=== PATIENT | female | born 1955 | race Caucasian/White ===

== ENCOUNTER 2018-04-19 08:50 | Inpatient (IN) | payer MEDICAID, SELFPAY ==
[2018-04-19] VITALS (145 sets, daily range): BP systolic 81–153; BP diastolic 43–137; PULSE 68–183; RESP 9–47; TEMP 36.3–37.4; O2SAT 91–98
--- NOTE | 2018-04-19 08:56 | ED.GENADUL_ITS ---
Discharge Plan Disposition Patient Disposition: [facility] INPATIENT Condition: Stable Discharge Details Chief Complaint: Palpitatns Clinical Impression: Atrial fibrillation with rapid ventricular response, Pulmonary hypertension, Chest pain Reason For Visit: ATRIAL TACHYCARDIA/AFIB Admit Date/Time: 04/19/18 15:27 Admit Provider: Johnson Rucker Attending Provider: Johnson Rucker Primary Care Provider: Elisha Morrell ED Provider: Nova Santiago Discharge Data Discharge Date/Time-TO BE ENTERED AT DEPARTURE: 04/19/18 16:43 Medical Decision Making 62-year-old female with no significant past medical history and tobacco smoker who recently quit 4 days ago who presents with intermittent episodes of chest fullness and shortness of breath with fatigue with exertion since yesterday. Per EMS, heart rate 130s and appeared consistent with A. fib in route. Upon arrival to ED, heart rate 130s and appears consistent with sinus tachycardia on EKG, there are P waves and rhythm is regular with no acute ST findings. Patient appears nontoxic, speaking in full sentences, crackles in bases b/l. No lower extremity edema. Differential diagnosis includes VT, PE, dissection, acute CHF, A. fib. Cardiac workup including BNP and d-dimer ordered on arrival. 0920 --patient ambulated up to the commode and it appeared that her rhythm was irregular consistent with A. fib. Once back in the bed, rhythm then appeared regular. Possible the rhythm is atrial flutter. Patient still in the 130s. Will give a dose of 10 mg Cardizem IV. 1000 --labs reviewed and note white blood cell count 14, d-dimer 931, BNP 5247, troponin 0.04. Chest x-ray appears consistent with acute CHF. Due to elevated d-dimer, will obtain CT chest. Dose of Lasix ordered. Patient had no response to Cardizem and heart rate still in the 130s. 1204 -- d/w Dr. Rose -recommends adenosine x3 doses to slow down rate to see if able to determine rhythm. CT chest notes findings consistent with pulmonary hypertension but no PE. 1330 -- Patient was given 6 mg, 12 mg, and 12 mg of adenosine with very brief break in tachycardia down to 110s which appeared to be atrial fibrillation after the first 12 mg dose. Heart rate then increased back up to the 130s. Repeat EKG appears regular, possibly atrial flutter. 1400 -- discussed with hospitalist -accepts patient for admission. Requests cardiology review of EKGs. 1515 -- d/w Dr. Rose -on upon review of EKGs, this likely appears consistent with an atrial fibrillation versus flutter. Does not appear consistent with sinus tachycardia. Recommends rate control with Cardizem gtt, echocardiogram, and 4 weeks of anticoagulation with consideration for cardioversion after 4 weeks. Plan was discussed with hospitalist. Medical Records Medical records reviewed: Yes I reviewed the patient's medical records. Imaging Data Radiologic Study: Radiologist's impression: PA AND LATERAL CHEST: There are no prior comparison exams. The heart is mildly enlarged. There is pulmonary vascular prominence and mildly increased markings at the lung bases which could indicate CHF. No effusions are seen. IMPRESSION: Cardiomegaly and mild CHF. CHEST CT FOR PULMONARY EMBOLISM: The pulmonary arteries and aorta are well opacified with IV contrast. The evaluation of the lungs is limited by respiratory motion. There is no evidence of pulmonary emboli or aortic dissection. The aorta is normal in diameter. There is enlargement of the main pulmonary artery as well as left and right pulmonary arteries and branch vessels. There is dilatation of both atria. No pleural or pericardial effusion seen. No focal area of consolidation is seen. There are dependent changes. IMPRESSION: Enlarged pulmonary arteries without evidence of embolism. The findings could indicate pulmonary aratery hypertension. Lab Data Lab results reviewed: Yes I reviewed the patient's lab results. Laboratory Tests Range/Units 04/19/18 04/19/18 04/19/18 09:01 09:01 09:01 WBC (4.4-10.8) k/cumm 14.75 H RBC (4.00-5.20) m/cumm 5.67 H Hgb (12.0-15.5) g/dL 17.4 H Hct (36.0-46.0) % 48.4 H MCV (80-95) fL 85.4 MCH (27.0-33.0) pg 30.7 MCHC (32.0-36.0) g/dL 36.0 RDW (11.7-14.6) % 13.7 Plt Count (130-400) x1000/uL 289 MPV (8.0-11.0) fL 10.2 Immature Gran % 0.3 Neutrophils % 82.3 Lymphocytes % 11.4 Monocytes % 5.2 Eosinophils % 0.5 Basophils % 0.3 Absolute Neutrophils (1.2-6.7) k/cumm 12.14 H Absolute Lymphocytes (1.2-3.4) k/cumm 1.68 Absolute Monocytes (0.11-0.7) k/cumm 0.77 H Absolute Eosinophils (0.0-0.7) k/cumm 0.07 Absolute Basophils (0.0-0.2) k/cumm 0.04 D-Dimer (<500) ng/mlFEU Sodium (136-145) mmol/L 139 Potassium (3.5-5.1) mmol/L 3.9 Chloride (98-107) mmol/L 102 Carbon Dioxide (21.0-32.0) mmol/L 23.5 Anion Gap (3-11) mmol/L 13.5 H BUN (7-18) mg/dL 21 H Creatinine (0.55-1.02) mg/dL 1.07 H Estimated GFR/1.73 m2 (mL/min/1.73m2) 51.63 Glucose (70-100) mg/dL 175 H Hemoglobin A1c (4.5-6.2) % Calcium (8.5-10.1) mg/dL 9.3 Magnesium (1.8-2.4) mg/dL 1.8 Total Bilirubin (0.2-1.0) mg/dL 0.4 AST (15-37) U/L 5 L ALT (12-78) U/L 52 Alkaline Phosphatase (46-116) U/L 94 Troponin I (0.00-0.06) ng/mL 0.04 NT-Pro-B Natriuret Pep ( - 299) pg/mL 5247 H Total Protein (6.4-8.2) g/dL 8.2 Albumin (3.4-5.0) g/dL 3.8 TSH (0.358-3.74) uIU/mL Urine Color (Yellow) Urine Clarity Urine pH (5-8) Ur Specific [place] (1.005-1.025) Urine Protein (Negative) mg/dL Urine Ketones (Negative) mg/dL Urine Blood (Negative) Urine Nitrite (Negative) Urine Bilirubin (Negative) Urine Urobilinogen (Up TO 0.2) EU/dL Ur Leukocyte Esterase (Negative) Urine RBC (0-2) Urine WBC (0-5) HPF Ur Epithelial Cells (Negative) HPF Urine Crystals (Negative) HPF Urine Bacteria (Negative) HPF Urine Casts (Negative) LPF Urine Mucus (Negative) Urine Other (Negative) Ur Culture Indicated? Urine Glucose (Negative) mg/dL Range/Units 04/19/18 04/19/18 04/19/18 09:01 09:22 13:00 WBC (4.4-10.8) k/cumm RBC (4.00-5.20) m/cumm Hgb (12.0-15.5) g/dL Hct (36.0-46.0) % MCV (80-95) fL MCH (27.0-33.0) pg MCHC (32.0-36.0) g/dL RDW (11.7-14.6) % Plt Count (130-400) x1000/uL MPV (8.0-11.0) fL Immature Gran % Neutrophils % Lymphocytes % Monocytes % Eosinophils % Basophils % Absolute Neutrophils (1.2-6.7) k/cumm Absolute Lymphocytes (1.2-3.4) k/cumm Absolute Monocytes (0.11-0.7) k/cumm Absolute Eosinophils (0.0-0.7) k/cumm Absolute Basophils (0.0-0.2) k/cumm D-Dimer (<500) ng/mlFEU 931 H Sodium (136-145) mmol/L Potassium (3.5-5.1) mmol/L Chloride (98-107) mmol/L Carbon Dioxide (21.0-32.0) mmol/L Anion Gap (3-11) mmol/L BUN (7-18) mg/dL Creatinine (0.55-1.02) mg/dL Estimated GFR/1.73 m2 (mL/min/1.73m2) Glucose (70-100) mg/dL Hemoglobin A1c (4.5-6.2) % Calcium (8.5-10.1) mg/dL Magnesium (1.8-2.4) mg/dL Total Bilirubin (0.2-1.0) mg/dL AST (15-37) U/L ALT (12-78) U/L Alkaline Phosphatase (46-116) U/L Troponin I (0.00-0.06) ng/mL 0.04 NT-Pro-B Natriuret Pep ( - 299) pg/mL Total Protein (6.4-8.2) g/dL Albumin (3.4-5.0) g/dL TSH (0.358-3.74) uIU/mL Urine Color (Yellow) Yellow Urine Clarity Clear Urine pH (5-8) 6.0 Ur Specific [place] (1.005-1.025) >= 1.030 H Urine Protein (Negative) mg/dL >=300 H Urine Ketones (Negative) mg/dL Negative Urine Blood (Negative) Moderate H Urine Nitrite (Negative) Negative Urine Bilirubin (Negative) Small H Urine Urobilinogen (Up TO 0.2) EU/dL 0.2 Ur Leukocyte Esterase (Negative) Negative Urine RBC (0-2) 3-5 H Urine WBC (0-5) HPF 0-2 Ur Epithelial Cells (Negative) HPF Many Urine Crystals (Negative) HPF Negative Urine Bacteria (Negative) HPF Moderate Urine Casts (Negative) LPF 0-2 hyaline Urine Mucus (Negative) Heavy Urine Other (Negative) Moderate renal Ur Culture Indicated? No/sq. contamination Urine Glucose (Negative) mg/dL Negative WBC RBC Hgb Hct MCV MCH MCHC RDW Plt Count MPV Immature Gran % Neutrophils % Lymphocytes % Monocytes % Eosinophils % Basophils % Absolute Neutrophils (1.2-6.7) k/cumm Absolute Lymphocytes (1.2-3.4) k/cumm Absolute Monocytes (0.11-0.7) k/cumm Absolute Eosinophils (0.0-0.7) k/cumm Absolute Basophils (0.0-0.2) k/cumm D-Dimer (<500) ng/mlFEU Sodium (136-145) mmol/L Potassium (3.5-5.1) mmol/L Chloride (98-107) mmol/L Carbon Dioxide (21.0-32.0) mmol/L Anion Gap (3-11) mmol/L BUN (7-18) mg/dL Creatinine (0.55-1.02) mg/dL Estimated GFR/1.73 m2 (mL/min/1.73m2) Glucose (70-100) mg/dL Hemoglobin A1c (4.5-6.2) % Calcium (8.5-10.1) mg/dL Magnesium (1.8-2.4) mg/dL Total Bilirubin (0.2-1.0) mg/dL AST (15-37) U/L ALT (12-78) U/L Alkaline Phosphatase (46-116) U/L Troponin I (0.00-0.06) ng/mL NT-Pro-B Natriuret Pep ( - 299) pg/mL Total Protein (6.4-8.2) g/dL Albumin (3.4-5.0) g/dL TSH (0.358-3.74) uIU/mL Urine Color (Yellow) Urine Clarity Urine pH (5-8) Ur Specific [place] (1.005-1.025) Urine Protein (Negative) mg/dL Urine Ketones (Negative) mg/dL Urine Blood (Negative) Urine Nitrite (Negative) Urine Bilirubin (Negative) Urine Urobilinogen (Up TO 0.2) EU/dL Ur Leukocyte Esterase (Negative) Urine RBC (0-2) Urine WBC (0-5) HPF Ur Epithelial Cells (Negative) HPF Urine Crystals (Negative) HPF Urine Bacteria (Negative) HPF Urine Casts (Negative) LPF Urine Mucus (Negative) Urine Other (Negative) Ur Culture Indicated? Urine Glucose (Negative) mg/dL HPI General Mode of arrival: EMS . Date/Time Provider Initiated Documentation: 04/19/18 08:54 . Limitations to Documentation: no limitations . Information obtained by: patient . HPI Narrative: Patient is a 62-year-old female with no significant past medical history who presents with intermittent episodes of chest fullness, shortness of breath, and fatigue with exertion since yesterday. 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 States I could feel my heart in my ears . She states she stopped and rested for 15 minutes and her symptoms resolved. She states she had no more symptoms for the rest of the day yesterday. Patient states she woke up this morning and was walking into her kitchen and felt sudden onset of symptoms again with dizziness, sweating and shortness of breath with palpitations. She states she then vomited one time. Patient denies any symptoms at present. She denies any chest pain but states it is a sensation of fullness. She denies any fever, cough, recent hospital admission or new medications, recent travel, recent surgery, leg pain or swelling. She states she quit smoking after 25 years 4 days ago. She denies any recent alcohol use or drug use. Related Data Home Medications Medication Instructions Recorded Confirmed ibuprofen 600 mg PO ONCE 04/19/18 04/19/18 Allergies Allergy/AdvReac Type Severity Reaction Status Date / Time No Known Allergies Allergy Unverified 04/19/18 09:03 Review of Systems Review of Systems All systems reviewed & are unremarkable except as noted in HPI and below Constitutional Reports as per HPI, Denies chills, Reports fatigue and Denies fever(s) Eyes Denies blurry vision ENT Denies dizziness, Denies sore throat and Denies throat swelling Cardiovascular Reports chest pain and Reports dyspnea Respiratory Denies cough and Reports dyspnea Gastrointestinal Denies abdominal pain, Denies diarrhea and Denies vomiting Genitourinary Denies hematuria and Denies dysuria Musculoskeletal Denies back pain and Denies numbness Integumentary/Breasts Denies lesions and Denies rash Neurologic Denies dizziness, Denies focal weakness and Denies numbness Endocrine Reports fatigue Allergic/Immunologic Denies throat swelling [facility] Medical History No significant past medical history (Acute) Surgical History History of bilateral tubal ligation (Acute) Social History Smoking/Tobacco Use Status: Former Tobacco Use quit date: 04/15/18 alcohol intake: never substance use type: does not use additional social history: Mrs. Rosas is , has 2 boys. 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 She has a history of tobacco with a 30+ pack year history of smoking, recently quit. No alcohol use or drug use elicited. Exam Const General: cooperative, healthy appearing and no acute distress [facility] Head: normal to inspection Face and sinus: normal facial exam Eyes General: appearance normal, both eyes and all related structures Pupils: PERRL EOM: EOM intact bilaterally Neck Neck: normal visual inspection and No submandibular swelling Lymphatic: no lymphadenopathy noted Chest Chest: normal inspection of the chest and no tenderness Resp Effort & Inspection: normal respiratory effort and able to speak in complete sentences Auscultation: crackles bilaterally at the base and in the mid lung hernandez Cardio Rate: tachycardic Rhythm: regular rhythm GI Inspection: normal to inspection Palpation: soft, not firm, not rigid and nontender Auscultation: normal bowel sounds Skin General skin exam: no rashes or lesions noted Neuro General: alert, awake and oriented x3 Cognition: normal cognition Speech: speech normal Motor: muscle tone normal throughout Sensory Exam: no sensory deficits noted Extrem General: normal to inspection, full ROM, normal capillary refill, no calf tende rness bilaterally and no edema Psych Appearance: grossly normal Mental Status: mental status grossly normal Speech and Movement: speech and movement normal Affect: normal affect
[2018-04-19 09:08] LABS: Abs Immature Grans 0.05 k/cumm (0.0-0.09); Absolute Basophil Count 0.04 k/cumm (0.0-0.2); Absolute Lymphocyte Count 1.68 k/cumm (1.2-3.4); Absolute Neutrophil Count 12.14 k/cumm (1.2-6.7); Basophils % 0.3; Eosinophils % 0.5; HCT 48.4 % (36.0-46.0); HGB 17.4 g/dL (12.0-15.5); Immature Grans % 0.3; Lymphocytes % 11.4; Mean Corpuscular Hemoglobin 30.7 pg (27.0-33.0); Mean Corpuscular Volume 85.4 fL (80-95); Mean Platelet Volume 10.2 fL (8.0-11.0); Monocytes % 5.2; Neutrophils % 82.3; Platelet Count 289 x1000/uL (130-400); RBC 5.67 m/cumm (4.00-5.20); RBC Distribution Width 13.7 % (11.7-14.6); White Blood Cell Count 14.75 k/cumm (4.4-10.8)
[2018-04-19 09:09] LABS: Absolute Eosinophil Count 0.07 k/cumm (0.0-0.7); Absolute Monocyte Count 0.77 k/cumm (0.11-0.7)
[2018-04-19] MEDS: Normal Saline 1,000 ML 100 ML IV (09:25)
[2018-04-19] MEDS: Normal Saline Flush 10 ML SYR IVP ×3 (09:25→21:35)
[2018-04-19 09:29] LABS: Bilirubin Small (Negative); Blood Moderate (Negative); Clarity Clear; Glucose Negative (Negative); Ketones Negative (Negative); Leukocyte Esterase Negative (Negative); Nitrite Negative (Negative); Specific Gravity >= 1.030 (1.005-1.025); Urobilinogen 0.2 EU/dL (Up TO 0.2)
[2018-04-19 09:34] LABS: ALT 52 U/L (12-78); AST 5 U/L (15-37); Albumin 3.8 g/dL (3.4-5.0); Alkaline Phosphatase 94 U/L (46-116); Anion Gap 13.5 mmol/L (3-11); BUN 21 mg/dL (7-18); Bilirubin, Total 0.4 mg/dL (0.2-1.0); CO2 23.5 mmol/L (21.0-32.0); CREATININE 1.07 mg/dL (0.55-1.02); Calcium 9.3 mg/dL (8.5-10.1); Chloride 102 mmol/L (98-107); Estimated GFR 51.63 (mL/min/1.73m2); Glucose 175 mg/dL (70-100); Magnesium 1.8 mg/dL (1.8-2.4); Potassium 3.9 mmol/L (3.5-5.1); Sodium 139 mmol/L (136-145); Total Protein 8.2 g/dL (6.4-8.2); Troponin I 0.04 ng/mL (0.00-0.06)
[2018-04-19 09:37] LABS: Bacteria Moderate HPF (Negative); Crystals Negative HPF (Negative); Epithelial Cells Many HPF (Negative); Mucus Heavy (Negative); Other Cells Moderate Renal (Negative); WBC 0-2 HPF (0-5)
[2018-04-19 09:38] LABS: C & S Indicated? No/Sq. Contamination; Casts 0-2 Hyaline LPF (Negative)
[2018-04-19 09:48] LABS: NT-proBNP 5247 pg/mL
[2018-04-19 10:01] LABS: D-Dimer 931 ng/mlFEU (<500)
--- NOTE | 2018-04-19 11:10 | DI.CT_ITS ---
SYMPTOM/DIAGNOSIS: ELEVATED D DIMER, TACHYCARDIA R/O PE CHEST CT FOR PULMONARY EMBOLISM: The pulmonary arteries and aorta are well opacified with IV contrast. The evaluation of the lungs is limited by respiratory motion. There is no evidence of pulmonary emboli or aortic dissection. The aorta is normal in diameter. There is enlargement of the main pulmonary artery as well as left and right pulmonary arteries and branch vessels. There is dilatation of both atria. No pleural or pericardial effusion seen. No focal area of consolidation is seen. There are dependent changes. IMPRESSION: Enlarged pulmonary arteries without evidence of embolism. The findings could indicate pulmonary aratery hypertension.
[2018-04-19] MEDS: Omnipaque 350 MG/ML 100 ML BTL 71 ML IJ (11:12)
[2018-04-19] MEDS: Furosemide 40 MG/4 ML VIAL IVP (11:18)
[2018-04-19] MEDS: Adenosine 6 MG/2 ML VIAL IVP (12:26)
[2018-04-19] MEDS: Adenosine 6 MG/2 ML VIAL ×2 (12:36→12:39)
[2018-04-19 13:33] LABS: Troponin I 0.04 ng/mL (0.00-0.06)
--- NOTE | 2018-04-19 14:53 | PDOC.ERCMPRO ---
Care Management Progress Note 04/19-Chantel is being admitted and she is concerned as she is her mother's primary caregiver. Mom is blind. A neighbor is currently staying with her mother while Chantel is in the emergency department. Discussed family helping out. Chantel contact her brother from [place] who is coming. The brother will stay with Chantel's mom while Chantel is in the hospital.
[2018-04-19] MEDS: Metoprolol 25 MG TAB PO (17:44)
[2018-04-19] MEDS: Potassium Chloride 10 MEQ TABCR PO (17:44)
[2018-04-19] MEDS: Magnesium Oxide 400 MG TAB PO (17:45)
--- NOTE | 2018-04-19 19:03 | W.PM.HP.N ---
Date of service: 04/19/18 Time of Service: 19:03 Assessment and Plan (1) Tachycardia: Current visit: Yes Status: Acute Evidence of an atrial tachycardia. Review of EKG, and monitoring of patient's telemetry with evidence of occasions of atrial flutter, atrial fibrillation, and even potentially sinus tachycardia. Attempts at breaking patient's rhythm or even slowing her down with 3 courses of adenosine, and IV boluses of Cardizem were ineffective. She is currently being titrated on a Cardizem drip, and initiated on oral beta-hazel therapy. Plan will be for titration of these medications, and if still unable to control rate will discuss with cardiology regarding potential use of an antiarrhythmic versus cardioversion. For now we will also initiate anticoagulation with apixaban, and monitor in the ICU setting. (2) DVT prophylaxis: Current visit: Yes Status: Acute On therapeutic dose anticoagulation. Start PPI for GI prophylaxis as well. History of Present Illness Chief Complaint: Palpitations Narrative: Very pleasant 62-year-old woman without any known significant past medical history, but also without regular medical care, presents to [facility] Emergency Department with complaints of palpitations. Mrs. 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 This occurred yesterday. Immediately following this the patient reports resolution of all of her symptoms, followed by a good night sleep. However upon awakening in the morning she began to sense similar return of symptoms, describing them as lightheadedness, racing heart, and inability to catch her breath. She reported feeling as if I was going to pass out. Workup in the emergency department showed evidence of a mild leukocytosis, elevated hemoglobin, and an elevated pro BNP. While her chest x-ray showed evidence of cardiomegaly and mild CHF, a subsequent CT of the chest showed no evidence of PE or infiltrate, but likely enlarged pulmonary arteries without evidence of embolism, Findings of which could indicate pulmonary arterial hypertension. She was also noted to be tachycardic, confirmed to be in an atrial tachycardia potentially on the basis of Afib or flutter. Attempts at breaking her with adenosine, and slowing her with IV Cardizem were unsuccessful. She was started on a Cardizem drip and admitted for further evaluation and treatment. Review of Systems Review of Systems All systems reviewed & are unremarkable except as noted in HPI and below PFSH Medical History No significant past medical history (Acute) Surgical History History of bilateral tubal ligation (Acute) Social History Smoking/Tobacco Use Status: Former Tobacco Use quit date: 04/15/18 alcohol intake: never substance use type: does not use additional social history: Mrs. Rosas is , has 2 boys. 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 She has a history of tobacco with a 30+ pack year history of smoking, recently quit. No alcohol use or drug use elicited. Meds Home Medications Medication Instructions Recorded Confirmed Type ibuprofen 600 mg PO ONCE 04/19/18 04/19/18 History Allergies Allergy/AdvReac Type Severity Reaction Status Date / Time No Known Allergies Allergy Unverified 04/19/18 09:03 Exam Narrative Exam Narrative: General: Patient appears comfortable, AAOX3, NAD Neck: Supple CV: Regular, tachycardic, S1S2, No rubs, murmurs, or gallops. Pulmonary: Clear to auscultation bilaterally, no crackles, wheezing, or rhonchi Abdomen: + Bowel Sounds, soft, nontender, nondistended Vascular: No lower extremity edema Neurologic: CN II-XII grossly intact. No focal deficits. Psych: Normal mood and affect. Results Labs : 04/19/18 09:01 04/19/18 09:01 Laboratory Results - last 24 hr 04/19/18 04/19/18 04/19/18 09:01 09:01 09:01 WBC 14.75 H RBC 5.67 H Hgb 17.4 H Hct 48.4 H MCV 85.4 MCH 30.7 MCHC 36.0 RDW 13.7 Plt Count 289 MPV 10.2 Immature Gran % 0.3 Neutrophils % 82.3 Lymphocytes % 11.4 Monocytes % 5.2 Eosinophils % 0.5 Basophils % 0.3 Absolute Neutrophils 12.14 H Absolute Lymphocytes 1.68 Absolute Monocytes 0.77 H Absolute Eosinophils 0.07 Absolute Basophils 0.04 D-Dimer Sodium 139 Potassium 3.9 Chloride 102 Carbon Dioxide 23.5 Anion Gap 13.5 H BUN 21 H Creatinine 1.07 H Estimated GFR/1.73 m2 51.63 Glucose 175 H Calcium 9.3 Magnesium 1.8 Total Bilirubin 0.4 AST 5 L ALT 52 Alkaline Phosphatase 94 Troponin I 0.04 NT-Pro-B Natriuret Pep 5247 H Total Protein 8.2 Albumin 3.8 Urine Color Urine Clarity Urine pH Ur Specific [place] Urine Protein Urine Ketones Urine Blood Urine Nitrite Urine Bilirubin Urine Urobilinogen Ur Leukocyte Esterase Urine RBC Urine WBC Ur Epithelial Cells Urine Crystals Urine Bacteria Urine Casts Urine Mucus Urine Other Ur Culture Indicated? Urine Glucose 04/19/18 04/19/18 04/19/18 09:01 09:22 13:00 WBC RBC Hgb Hct MCV MCH MCHC RDW Plt Count MPV Immature Gran % Neutrophils % Lymphocytes % Monocytes % Eosinophils % Basophils % Absolute Neutrophils Absolute Lymphocytes Absolute Monocytes Absolute Eosinophils Absolute Basophils D-Dimer 931 H Sodium Potassium Chloride Carbon Dioxide Anion Gap BUN Creatinine Estimated GFR/1.73 m2 Glucose Calcium Magnesium Total Bilirubin AST ALT Alkaline Phosphatase Troponin I 0.04 NT-Pro-B Natriuret Pep Total Protein Albumin Urine Color Yellow Urine Clarity Clear Urine pH 6.0 Ur Specific [place] >= 1.030 H Urine Protein >=300 H Urine Ketones Negative Urine Blood Moderate H Urine Nitrite Negative Urine Bilirubin Small H Urine Urobilinogen 0.2 Ur Leukocyte Esterase Negative Urine RBC 3-5 H Urine WBC 0-2 Ur Epithelial Cells Many Urine Crystals Negative Urine Bacteria Moderate Urine Casts 0-2 hyaline Urine Mucus Heavy Urine Other Moderate renal Ur Culture Indicated? No/sq. contamination Urine Glucose Negative Last Vital Signs Temp 36.3 C L 04/19/18 18:53 Pulse 128 H 04/19/18 18:53 Resp 24 04/19/18 18:53 BP 95/65 L 04/19/18 18:53 Pulse Ox 96 04/19/18 18:53
--- NOTE | 2018-04-19 19:18 | HPE_ITS ---
Date of service: 04/19/18 Time of Service: 19:03 Assessment and Plan (1) Tachycardia: Current visit: Yes Status: Acute Evidence of an atrial tachycardia. Review of EKG, and monitoring of patient's telemetry with evidence of occasions of atrial flutter, atrial fibrillation, and even potentially sinus tachycardia. Attempts at breaking patient's rhythm or even slowing her down with 3 courses of adenosine, and IV boluses of Cardizem were ineffective. She is currently being titrated on a Cardizem drip, and initiated on oral beta-hazel therapy. Plan will be for titration of these medications, and if still unable to control rate will discuss with cardiology regarding potential use of an antiarrhythmic versus cardioversion. For now we will also initiate anticoagulation with apixaban, and monitor in the ICU setting. (2) DVT prophylaxis: Current visit: Yes Status: Acute On therapeutic dose anticoagulation. Start PPI for GI prophylaxis as well. History of Present Illness Chief Complaint: Palpitations Narrative: Very pleasant 62-year-old woman without any known significant past medical history, but also without regular medical care, presents to [facility] Emergency Department with complaints of palpitations. Mrs. 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 This occurred yesterday. Immediately following this the patient reports resolution of all of her symptoms, followed by a good night sleep. However upon awakening in the morning she began to sense similar return of symptoms, describing them as lightheadedness, racing heart, and inability to catch her breath. She reported feeling as if I was going to pass out. Workup in the emergency department showed evidence of a mild leukocytosis, elevated hemoglobin, and an elevated pro BNP. While her chest x- ray showed evidence of cardiomegaly and mild CHF, a subsequent CT of the chest showed no evidence of PE or infiltrate, but likely enlarged pulmonary arteries without evidence of embolism, Findings of which could indicate pulmonary arterial hypertension. She was also noted to be tachycardic, confirmed to be in an atrial tachycardia potentially on the basis of Afib or flutter. Attempts at breaking her with adenosine, and slowing her with IV Cardizem were unsuccessful. She was started on a Cardizem drip and admitted for further evaluation and treatment. Review of Systems Review of Systems All systems reviewed & are unremarkable except as noted in HPI and below PFSH Medical History No significant past medical history (Acute) Surgical History History of bilateral tubal ligation (Acute) Social History Smoking/Tobacco Use Status: Former Tobacco Use quit date: 04/15/18 alcohol intake: never substance use type: does not use additional social history: Mrs. Rosas is , has 2 boys. 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 She has a history of tobacco with a 30+ pack year history of smoking, recently quit. No alcohol use or drug use elicited. Meds Home Medications Medication Instructions Recorded Confirmed Type ibuprofen 600 mg PO ONCE 04/19/18 04/19/18 History Allergies Allergy/AdvReac Type Severity Reaction Status Date / Time No Known Allergies Allergy Unverified 04/19/18 09:03 Exam Narrative Exam Narrative: General: Patient appears comfortable, AAOX3, NAD Neck: Supple CV: Regular, tachycardic, S1S2, No rubs, murmurs, or gallops. Pulmonary: Clear to auscultation bilaterally, no crackles, wheezing, or rhonchi Abdomen: + Bowel Sounds, soft, nontender, nondistended Vascular: No lower extremity edema Neurologic: CN II-XII grossly intact. No focal deficits. Psych: Normal mood and affect. Results Labs : 04/19/18 09:01 04/19/18 09:01 Laboratory Results - last 24 hr 04/19/18 04/19/18 04/19/18 09:01 09:01 09:01 WBC 14.75 H RBC 5.67 H Hgb 17.4 H Hct 48.4 H MCV 85.4 MCH 30.7 MCHC 36.0 RDW 13.7 Plt Count 289 MPV 10.2 Immature Gran % 0.3 Neutrophils % 82.3 Lymphocytes % 11.4 Monocytes % 5.2 Eosinophils % 0.5 Basophils % 0.3 Absolute Neutrophils 12.14 H Absolute Lymphocytes 1.68 Absolute Monocytes 0.77 H Absolute Eosinophils 0.07 Absolute Basophils 0.04 D-Dimer Sodium 139 Potassium 3.9 Chloride 102 Carbon Dioxide 23.5 Anion Gap 13.5 H BUN 21 H Creatinine 1.07 H Estimated GFR/1.73 m2 51.63 Glucose 175 H Calcium 9.3 Magnesium 1.8 Total Bilirubin 0.4 AST 5 L ALT 52 Alkaline Phosphatase 94 Troponin I 0.04 NT-Pro-B Natriuret Pep 5247 H Total Protein 8.2 Albumin 3.8 Urine Color Urine Clarity Urine pH Ur Specific [place] Urine Protein Urine Ketones Urine Blood Urine Nitrite Urine Bilirubin Urine Urobilinogen Ur Leukocyte Esterase Urine RBC Urine WBC Ur Epithelial Cells Urine Crystals Urine Bacteria Urine Casts Urine Mucus Urine Other Ur Culture Indicated? Urine Glucose 04/19/18 04/19/18 04/19/18 09:01 09:22 13:00 WBC RBC Hgb Hct MCV MCH MCHC RDW Plt Count MPV Immature Gran % Neutrophils % Lymphocytes % Monocytes % Eosinophils % Basophils % Absolute Neutrophils Absolute Lymphocytes Absolute Monocytes Absolute Eosinophils Absolute Basophils D-Dimer 931 H Sodium Potassium Chloride Carbon Dioxide Anion Gap BUN Creatinine Estimated GFR/1.73 m2 Glucose Calcium Magnesium Total Bilirubin AST ALT Alkaline Phosphatase Troponin I 0.04 NT-Pro-B Natriuret Pep Total Protein Albumin Urine Color Yellow Urine Clarity Clear Urine pH 6.0 Ur Specific [place] >= 1.030 H Urine Protein >=300 H Urine Ketones Negative Urine Blood Moderate H Urine Nitrite Negative Urine Bilirubin Small H Urine Urobilinogen 0.2 Ur Leukocyte Esterase Negative Urine RBC 3-5 H Urine WBC 0-2 Ur Epithelial Cells Many Urine Crystals Negative Urine Bacteria Moderate Urine Casts 0-2 hyaline Urine Mucus Heavy Urine Other Moderate renal Ur Culture Indicated? No/sq. contamination Urine Glucose Negative Last Vital Signs Temp 36.3 C L 04/19/18 18:53 Pulse 128 H 04/19/18 18:53 Resp 24 04/19/18 18:53 BP 95/65 L 04/19/18 18:53 Pulse Ox 96 04/19/18 18:53
[2018-04-19] MEDS: Apixaban 5 MG TAB PO (20:22)
[2018-04-20] VITALS (122 sets, daily range): BP systolic 76–118; BP diastolic 43–86; PULSE 115–138; RESP 13–34; TEMP 35.7–37.2; O2SAT 87–97
[2018-04-20 07:18] LABS: Abs Immature Grans 0.04 k/cumm (0.0-0.09); Absolute Basophil Count 0.05 k/cumm (0.0-0.2); Absolute Eosinophil Count 0.15 k/cumm (0.0-0.7); Absolute Lymphocyte Count 2.38 k/cumm (1.2-3.4); Absolute Monocyte Count 0.99 k/cumm (0.11-0.7); Absolute Neutrophil Count 7.26 k/cumm (1.2-6.7); Basophils % 0.5; Eosinophils % 1.4; HCT 46.9 % (36.0-46.0); HGB 16.4 g/dL (12.0-15.5); Immature Grans % 0.4; Lymphocytes % 21.9; Mean Corpuscular Volume 85.9 fL (80-95); Mean Platelet Volume 10.9 fL (8.0-11.0); Monocytes % 9.1; Neutrophils % 66.7; Platelet Count 266 x1000/uL (130-400); RBC 5.46 m/cumm (4.00-5.20); RBC Distribution Width 13.7 % (11.7-14.6); White Blood Cell Count 10.89 k/cumm (4.4-10.8)
[2018-04-20 07:45] LABS: Anion Gap 10.9 mmol/L (3-11); BUN 19 mg/dL (7-18); CO2 25.1 mmol/L (21.0-32.0); CREATININE 1.04 mg/dL (0.55-1.02); Calcium 8.6 mg/dL (8.5-10.1); Chloride 103 mmol/L (98-107); Estimated GFR 53.35 (mL/min/1.73m2); Glucose 115 mg/dL (70-100); Magnesium 1.9 mg/dL (1.8-2.4); Potassium 3.8 mmol/L (3.5-5.1); Sodium 139 mmol/L (136-145); TSH 2.95 uIU/mL (0.358-3.74); Troponin I 0.02 ng/mL (0.00-0.06)
[2018-04-20 07:53] LABS: Hemoglobin A1C 5.6 % (4.5-6.2)
[2018-04-20] MEDS: Pantoprazole 40 MG VIAL IVP (08:09)
[2018-04-20] MEDS: Normal Saline Flush 10 ML SYR IVP ×2 (08:09→11:55)
[2018-04-20] MEDS: Apixaban 5 MG TAB PO ×2 (08:11→20:35)
--- NOTE | 2018-04-20 09:10 | MERGE_ITS ---
*[facility]* *[facility]* [address] [place] [address] Date of study: 04/20/2018 Transthoracic Echocardiography M-mode, complete 2D, complete spectral Doppler, and color Doppler *STUDY CONCLUSIONS* Impressions: Atrial septal defect. Summary: 1. Left ventricle: The cavity size was below normal. Wall thickness was increased increased in a pattern of mild to moderate LVH. Systolic function was hyperdynamic. The estimated ejection fraction was 65-70%. There was no dynamic obstruction. Wall motion was normal; there were no regional wall motion abnormalities. 2. Aortic valve: Mildly calcified annulus. Trileaflet; mildly thickened, mildly calcified leaflets. Valve mobility was restricted. There was very mild stenosis. There was mild regurgitation. Peak velocity (S): 1.5m/sec. Mean gradient (S): 6.5mm Hg. Valve area (VTI): 1.7cm^2. 3. Mitral valve: There was mild regurgitation. 4. Left atrium: The atrium was moderately to severely dilated. 5. Right ventricle: The cavity size was dilated. Wall thickness was normal. Systolic function was normal. 6. Right atrium: The atrium was severely dilated. 7. Atrial septum: There was a possible atrial septal defect. Doppler showed a plus-bi-cqiew atrial level shunt. 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 8. Pulmonary arteries: Pulmonary systolic pressure was increased, in the range of 35mm Hg to 45mm Hg. Recommendations: Transesophageal echocardiography should be performed to better assess ASD. *PATIENT PRESENTATION* Height: 165.1cm ((65in) ) S/D Pressure: 96 / 68 Weight: 77.6kg ((170.6lb) ) BSA: 1.91m^2 Test start time: 09:20 AM. Test stop time: 10:10 AM. PERFORMING Unknown ORDERING Johnson Rucker REFERRING Johnson Rucker CONSULTING Elisha Morrell PERFORMING [facility] [employer] Milana Chandrika, RT (R)(CT), [facility] *PROCEDURE DATA* Procedure information: The patient was identified by two identifiers. This study was interpreted by [facility]. Pertinent images and digital data are archived for permanent storage and are available for subsequent review. No prior study was available for comparison. Study status: STAT. Transthoracic echocardiography. M-mode, complete 2D, complete spectral Doppler, and color Doppler. A Transthoracic Echocardiogram was performed. Scanning was performed from the parasternal, apical, subcostal, and suprasternal notch acoustic windows. Images were obtained using an [id number] cardiac ultrasound machine. Image quality was adequate. Study completion: The patient tolerated the procedure well. There were no complications. History: PMH: PHTN. New onset afib. *CARDIAC ANATOMY* Left ventricle: The cavity size was below normal. Wall thickness was increased increased in a pattern of mild to moderate LVH. Systolic function was hyperdynamic. The estimated ejection fraction was 65-70%. There was no dynamic obstruction. Wall motion was normal; there were no regional wall motion abnormalities. The study was not technically sufficient to allow evaluation of LV diastolic dysfunction due to atrial fibrillation. Aortic valve: Mildly calcified annulus. Trileaflet; mildly thickened, mildly calcified leaflets. Valve mobility was restricted. Doppler: There was very mild stenosis. There was mild regurgitation. VTI ratio of LVOT to aortic valve: 0.47. Valve area (VTI): 1.7cm^2. Indexed valve area (VTI): 0.9cm^2/m^2. Peak velocity ratio of LVOT to aortic valve: 0.54. Valve area (Vmax): 1.9cm^2. Indexed valve area (Vmax): 1cm^2/m^2. Mean velocity ratio of LVOT to aortic valve: 0.5. Valve area (Vmean): 1.8cm^2. Indexed valve area (Vmean): 0.9cm^2/m^2. Mean gradient (S): 6.5mm Hg. Peak gradient (S): 9.6mm Hg. Aorta: Aortic root: The aortic root was normal in size. Ascending aorta: The ascending aorta was normal in size. Mitral valve: Mildly thickened leaflets. Mobility was not restricted. Doppler: Transvalvular velocity was within the normal range. There was no evidence for stenosis. There was mild regurgitation. Valve area by pressure half-time: 6cm^2. Indexed valve area by pressure half-time: 3.1cm^2/m^2. Peak gradient (D): 6.1mm Hg. Left atrium: The atrium was moderately to severely dilated. Atrial septum: There was a possible atrial septal defect. Doppler showed a [id number] atrial level shunt. 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 Right ventricle: The cavity size was dilated. Wall thickness was normal. Systolic function was normal. Pulmonic valve: Structurally normal valve. Doppler: Transvalvular velocity was within the normal range. There was no evidence for stenosis. There was no significant regurgitation. Tricuspid valve: Structurally normal valve. Doppler: Transvalvular velocity was within the normal range. There was no evidence for stenosis. There was mild regurgitation. Pulmonary artery: Pulmonary systolic pressure was increased, in the range of 35mm Hg to 45mm Hg. Right atrium: The atrium was severely dilated. Pericardium: There was no pericardial effusion. Systemic veins: Inferior vena cava: Well visualized. The vessel was patent and normal in size. The respirophasic diameter changes were in the normal range (greater than or equal to 50%). Baseline ECG: Tachycardia. Measurements Left ventricle Value Reference LV ID, ED, PLAX (L) 3.4 cm 3.5 - 6.0 LV ID, ES, PLAX (L) 1.9 cm 2.1 - 4.0 LV PW thickness, ED, PLAX 1.2 cm LV end-diastolic volume, 1-p A4C 23 ml LV ejection fraction, 1-p A4C 71 % LV e', lateral 0.237 m/sec LV E/e', lateral 5 LV e', medial 0.121 m/sec LV E/e', medial 10 LV e', average 0.179 m/sec LV E/e', average 7 Ventricular septum Value Reference IVS thickness, ED, PLAX 1.3 cm LVOT Value Reference LVOT ID, A-P 2.1 cm LVOT area 3.6 cm^2 LVOT peak velocity, S 0.83 m/sec LVOT mean velocity, S 0.61 m/sec LVOT VTI, S 11.7 cm LVOT peak gradient, S 2.8 mm Hg LVOT mean gradient, S 1.7 mm Hg Stroke volume (SV), LVOT DP 42 ml Stroke index (SV/bsa), LVOT DP 22 ml/m^2 Aortic valve Value Reference Aortic valve peak velocity, S 1.5 m/sec Aortic valve mean velocity, S 1.23 m/sec Aortic valve VTI, S 25.0 cm Aortic mean gradient, S 6.5 mm Hg Aortic peak gradient, S 9.6 mm Hg VTI ratio, LVOT/AV 0.47 Aortic valve area, VTI 1.7 cm^2 Velocity ratio, peak, LVOT/AV 0.54 Aortic valve area, peak velocity 1.9 cm^2 Velocity ratio, mean, LVOT/AV 0.5 Aortic valve area, mean velocity 1.8 cm^2 Aortic valve area/bsa, mean velocity 0.9 cm^2/m^2 Aorta Value Reference Aortic root ID, ED 3.3 cm Ascending aorta ID, A-P, S 3.1 cm Left atrium Value Reference LA ID, A-P, ES 4.3 cm LA ID/bsa, A-P (H) 2.3 cm/m^2 <=2.2 LA area, ES, A4C (H) 30.4 cm^2 8.8 - 23.4 LA area, ES, A2C 16 cm^2 LA volume/bsa, ES, 1-p A4C 57 ml/m^2 LA volume, ES, 2-p 77 ml LA volume/bsa, ES, 2-p 40 ml/m^2 LA/aortic root ratio 1.29 Mitral valve Value Reference Mitral E-wave peak velocity 1.24 m/sec Mitral deceleration time (L) 127 ms 150 - 230 Mitral pressure half-time 37 ms Mitral peak gradient, D 6.1 mm Hg Mitral valve area, PHT, DP 6 cm^2 Tricuspid valve Value Reference Tricuspid regurg peak velocity 3.1 m/sec Tricuspid peak RV-RA gradient 39.2 mm Hg Right atrium Value Reference RA area, ES, A4C (H) 26.1 cm^2 8.3 - 19.5 Legend: (L) and (H) norris values outside specified reference range. I have personally reviewed the images and have reviewed and edited the reported findings. Electronically signed by Yossi Rose 04/20/2018 10:51
[2018-04-20 10:23] LABS: Troponin I 0.04 ng/mL (0.00-0.06)
[2018-04-20] MEDS: Furosemide 20 MG/2 ML VIAL IVP (11:55)
--- NOTE | 2018-04-20 12:06 | PDOC.CMIN ---
- If Service Date Differs Date of service: 04/20/18 Time of Service: 12:06 Care Management Initial Assess REASON FOR HOSPITALIZATION:: Atrial Tachycardia, ASD PAST MEDICAL HISTORY/PAST SURGICAL HISTORY:: No PMH per Pt PREVIOUS FUNCTIONAL STATUS/SOCIAL/FAMILY SUPPORTS:: Chantel lives in [place]. [place] with her 98 year old mother whom she proivdes full care of. Chantel is independent at baseline with transportation and self care. 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 CURRENT FUNCTIONAL STATUS:: Chantel is lying in bed she is alert she has questions related to her care. CM is able to review plan including possible transfer to [facility]. She is concerend that she does not have health insurance at this time. CM did contact [employer] for assistance in completing medcaid application. ADVANCE DIRECTIVES:: None on file Has patient been provided with information about the portal?: Yes Did the patient sign up for the portal?: No CODE STATUS:: Full Code INSURANCE COVERAGE / FINANCIAL ISSUES:: self pay CURRENT HOME/COMMUNITY SERVICES/EQUIPMENT:: None at this time PRIMARY CARE PHYSICIAN:: POTENTIAL DISCHARGE NEEDS:: Per provider she will be transfered to [facility] PATIENT/FAMILY EDUCATION NEEDS:: Education r/t potential transfer ANTICIPATED BARRIERS TO DISCHARGE:: Accepting facility TRANSPORTATION:: Via ambulance PLAN:: Chantel will have a cardiac consult potential transfer to [facility] vs [facility]. Her brother will stay with her Mom so that she is not alone. CM to continue to provide support to patient and assist with insurance until she is transfered.
--- NOTE | 2018-04-20 12:37 | INITIAL_ITS ---
- If Service Date Differs Date of service: 04/20/18 Time of Service: 12:06 Care Management Initial Assess REASON FOR HOSPITALIZATION:: Atrial Tachycardia, ASD PAST MEDICAL HISTORY/PAST SURGICAL HISTORY:: No PMH per Pt PREVIOUS FUNCTIONAL STATUS/SOCIAL/FAMILY SUPPORTS:: Chantel lives in [place]. [place] with her 98 year old mother whom she proivdes full care of. Chantel is independent at baseline with transportation and self care. 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 CURRENT FUNCTIONAL STATUS:: Chantel is lying in bed she is alert she has questions related to her care. CM is able to review plan including possible transfer to [facility]. She is concerend that she does not have health insurance at this time. CM did contact [employer] for assistance in completing medcaid application. ADVANCE DIRECTIVES:: None on file Has patient been provided with information about the portal?: Yes Did the patient sign up for the portal?: No CODE STATUS:: Full Code INSURANCE COVERAGE / FINANCIAL ISSUES:: self pay CURRENT HOME/COMMUNITY SERVICES/EQUIPMENT:: None at this time PRIMARY CARE PHYSICIAN:: POTENTIAL DISCHARGE NEEDS:: Per provider she will be transfered to [facility] PATIENT/FAMILY EDUCATION NEEDS:: Education r/t potential transfer ANTICIPATED BARRIERS TO DISCHARGE:: Accepting facility TRANSPORTATION:: Via ambulance PLAN:: Chantel will have a cardiac consult potential transfer [facility]. Her brother will stay with her Mom so that she is not alone. CM to continue to provide support to patient and assist with insurance until she is transfered.
--- NOTE | 2018-04-20 14:53 | PHARADMIT ---
Admission Pharmacy Clinical Review atrial tachycardia/a-fib Code Status Full Code Current Weight Wgt- 80 kg Renally Cleared and Narrow Therapeutic Index Meds CrCl~ 49.1 mL/min Meds-OK QTc Value / Action Taken QTc-475 (Lasix,Protonix) BP Control, Fever BP- 113/74 Tmax- 37.4C Electrolytes reviewed Na- 139 K+3.8 Mag-1.9 DVT Prophylaxis Apixaban Opiate Usage / Scheduled Bowel Regimen Ordered Noo Yes Plt/SCr for Heparin / Enoxaparin Plts-266 SCr-1.04 INR for Warfarin na H/H stable, WBC/Bands H&H- 16.4/46.9 WBC- 10.89 Antibiotic appropriateness none Cultures and Sensitivities none Surgical ABX d/c within 24 hr na DM control / Insulin Dosing BG-115 [id number]-0.6 Heart Failure (Check EF%) (SANAZ's, B-Block, Diuretics) Diltiazem drip IV to PO Switch No Home Meds Reviewed Yes Home Meds Not Ordered Ibuprofen, Comments
--- NOTE | 2018-04-20 17:01 | W.PM.PROGNOT ---
Date of Service Date of service: 04/20/18 Time of Service: 17:01 Assessment and Plan (1) Atrial flutter: Current visit: Yes Status: Acute Sustained Atrial Flutter resistant to attempts at treatment - trials of adenosine, BB therapy, IV Cardizem boluses, and Cardizem gtt without effect. Atrial Flutter is very likely on the basis of ASD, with significant bi-atrial enlargement, RV enlargement, and elevated pulmonary pressures. Discussed case with cardiology at [facility]. Mrs. Rosas has been accepted as transfer pending bed availability - patient will very likely require a NISSA for better visualization of the atrial septum as part of evaluation for potential repair. She may also require cardioversion following evaluation for clot during NISSA. Plan will be to continue anticoagulation with Apixaban, discontinue BB as essentially ineffective, continue cardizem gtt, Will maintain NPO past midnight incase patient is transferred early enough tomorrow. Of note, serial cardiac biomarkers were checked and negative, TSH normal, WBC decreased and nearly normalized, LFTs normal, and BNP 5247. Her urinalysis showed no signs of infection, but with >300 protein. (2) ASD (atrial septal defect): Current visit: Yes Status: Acute As above. Subjective Interval history since last seen: Very pleasant 62-year-old woman without any known significant past medical history, but also without regular medical care, presents to [facility] Emergency Department with complaints of palpitations. Mrs. 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 This occurred yesterday. Immediately following this the patient reports resolution of all of her symptoms, followed by a good night sleep. However upon awakening in the morning she began to sense similar return of symptoms, describing them as lightheadedness, racing heart, and inability to catch her breath. She reported feeling as if I was going to pass out. Workup in the emergency department showed evidence of a mild leukocytosis, elevated hemoglobin, and an elevated pro BNP. While her chest x-ray showed evidence of cardiomegaly and mild CHF, a subsequent CT of the chest showed no evidence of PE or infiltrate, but likely enlarged pulmonary arteries without evidence of embolism, Findings of which could indicate pulmonary arterial hypertension. She was also noted to be tachycardic, confirmed to be in an atrial tachycardia potentially on the basis of Afib or flutter. Attempts at breaking her with adenosine, and slowing her with IV Cardizem were unsuccessful. She was started on a Cardizem drip and admitted for further evaluation and treatment. Since admission the patient has appeared to be more or less in a sustained Atrial Flutter with a rate in the 130's. She had become hypotensive on oral BB and attempts at titration of the cardizem drip. She is largely however asymptomatic. Her ECHO was obtained and showed a likely ASD with a left to right shunt, biatrial enlargement, RV dilation, and elevated pulmonary pressures. No overnight events reported. Exam Narrative Exam Narrative: General: Patient appears comfortable, AAOX3, NAD Neck: Supple CV: Regular, tachycardic, S1S2, No rubs, murmurs, or gallops. Pulmonary: Mild bibasilar crackles, No wheezing, or rhonchi Abdomen: + Bowel Sounds, soft, nontender, nondistended Vascular: No lower extremity edema Psych: Normal mood and affect. Objective Objective Clinical Data: Abnormal lab results 04/20/18 04/20/18 Range/Units 06:10 06:10 WBC 10.89 H (4.4-10.8) k/cumm RBC 5.46 H (4.00-5.20) m/cumm Hgb 16.4 H (12.0-15.5) g/dL Hct 46.9 H (36.0-46.0) % Absolute Neutrophils 7.26 H (1.2-6.7) k/cumm Absolute Monocytes 0.99 H (0.11-0.7) k/cumm BUN 19 H (7-18) mg/dL Creatinine 1.04 H (0.55-1.02) mg/dL Glucose 115 H (70-100) mg/dL Vital Signs Temperature 35.7 C L 04/20/18 13:20 Temperature Source Tympanic 04/20/18 13:20 Pulse 135 H 04/20/18 14:00 Pulse 134 H 04/20/18 14:01 Respiratory Rate 22 04/20/18 14:01 Respiratory Effort 04/20/18 13:20 Respiratory Depth Normal 04/20/18 13:20 Respiratory Pattern Normal 04/20/18 13:20 Blood Pressure 113/74 04/20/18 14:00 Blood Pressure Mean 81 04/20/18 14:00 Blood Pressure Position Sitting 04/20/18 13:20 Pulse Oximetry 96 04/20/18 13:20 Oxygen Delivery Method Room Air 04/20/18 13:20 Oxygen Flow Rate 0 04/20/18 13:20 Pain Level 0 04/20/18 13:20 Comment 04/19/18 19:58 Intake & Output 04/19/18 04/20/18 04/20/18 23:59 11:59 23:59 Intake Total 901.417 / 1134.750 680 / 680 Output Total 1399 585 / 1065 480 / 1065 Balance -498.583 / -865.250 95 / -385 -480 / -385 Weight 78 kg 80 kg Intake: IV 901.417 / 1134.750 Oral 680 / 680 Output: Urine 1399 585 / 1065 480 / 1065 Other: Urine Color Yellow Pale Urine Appearance Clear Clear Urine Odor Strong None Comment Given lasix using bedside commode using bedside commode Stool Occult Blood Negative Stool Size Moderate Stool Characteristics Formed Voiding Methods Bedside Commode Bedside Commode Laboratory Results WBC 10.89 k/cumm (4.4-10.8) H 04/20/18 06:10 RBC 5.46 m/cumm (4.00-5.20) H 04/20/18 06:10 Hgb 16.4 g/dL (12.0-15.5) H 04/20/18 06:10 Hct 46.9 % (36.0-46.0) H 04/20/18 06:10 MCV 85.9 fL (80-95) 04/20/18 06:10 MCH 30.0 pg (27.0-33.0) 04/20/18 06:10 MCHC 35.0 g/dL (32.0-36.0) 04/20/18 06:10 RDW 13.7 % (11.7-14.6) 04/20/18 06:10 Plt Count 266 x1000/uL (130-400) 04/20/18 06:10 MPV 10.9 fL (8.0-11.0) 04/20/18 06:10 Immature Gran % 0.4 04/20/18 06:10 Neutrophils % 66.7 04/20/18 06:10 Lymphocytes % 21.9 04/20/18 06:10 Monocytes % 9.1 04/20/18 06:10 Eosinophils % 1.4 04/20/18 06:10 Basophils % 0.5 04/20/18 06:10 Absolute Neutrophils 7.26 k/cumm (1.2-6.7) H 04/20/18 06:10 Absolute Lymphocytes 2.38 k/cumm (1.2-3.4) 04/20/18 06:10 Absolute Monocytes 0.99 k/cumm (0.11-0.7) H 04/20/18 06:10 Absolute Eosinophils 0.15 k/cumm (0.0-0.7) 04/20/18 06:10 Absolute Basophils 0.05 k/cumm (0.0-0.2) 04/20/18 06:10 D-Dimer 931 ng/mlFEU (<500) H 04/19/18 09:01 Sodium 139 mmol/L (136-145) 04/20/18 06:10 Potassium 3.8 mmol/L (3.5-5.1) 04/20/18 06:10 Chloride 103 mmol/L (98-107) 04/20/18 06:10 Carbon Dioxide 25.1 mmol/L (21.0-32.0) 04/20/18 06:10 Anion Gap 10.9 mmol/L (3-11) 04/20/18 06:10 BUN 19 mg/dL (7-18) H 04/20/18 06:10 Creatinine 1.04 mg/dL (0.55-1.02) H 04/20/18 06:10 Estimated GFR/1.73 m2 53.35 (mL/min/1.73m2) 04/20/18 06:10 Glucose 115 mg/dL (70-100) H 04/20/18 06:10 Hemoglobin A1c 5.6 % (4.5-6.2) 04/20/18 06:10 Calcium 8.6 mg/dL (8.5-10.1) 04/20/18 06:10 Magnesium 1.9 mg/dL (1.8-2.4) 04/20/18 06:10 Total Bilirubin 0.4 mg/dL (0.2-1.0) 04/19/18 09:01 AST 5 U/L (15-37) L 04/19/18 09:01 ALT 52 U/L (12-78) 04/19/18 09:01 Alkaline Phosphatase 94 U/L (46-116) 04/19/18 09:01 Troponin I 0.02 ng/mL (0.00-0.06) 04/20/18 06:10 NT-Pro-B Natriuret Pep 5247 pg/mL (-299) H 04/19/18 09:01 Total Protein 8.2 g/dL (6.4-8.2) 04/19/18 09:01 Albumin 3.8 g/dL (3.4-5.0) 04/19/18 09:01 TSH 2.95 uIU/mL (0.358-3.74) 04/20/18 06:10 Urine Color Yellow (Yellow) 04/19/18 09:22 Urine Clarity Clear 04/19/18 09:22 Urine pH 6.0 (5-8) 04/19/18 09:22 Ur Specific [place] >= 1.030 (1.005-1.025) H 04/19/18 09:22 Urine Protein >=300 mg/dL (Negative) H 04/19/18 09:22 Urine Ketones Negative mg/dL (Negative) 04/19/18 09:22 Urine Blood Moderate (Negative) H 04/19/18 09:22 Urine Nitrite Negative (Negative) 04/19/18 09:22 Urine Bilirubin Small (Negative) H 04/19/18 09:22 Urine Urobilinogen 0.2 EU/dL (Up TO 0.2) 04/19/18 09:22 Ur Leukocyte Esterase Negative (Negative) 04/19/18 09:22 Urine RBC 3-5 (0-2) H 04/19/18 09:22 Urine WBC 0-2 HPF (0-5) 04/19/18 09:22 Ur Epithelial Cells Many HPF (Negative) 04/19/18 09:22 Urine Crystals Negative HPF (Negative) 04/19/18 09:22 Urine Bacteria Moderate HPF (Negative) 04/19/18 09:22 Urine Casts 0-2 hyaline LPF (Negative) 04/19/18 09:22 Urine Mucus Heavy (Negative) 04/19/18 09:22 Urine Other Moderate renal (Negative) 04/19/18 09:22 Ur Culture Indicated? No/sq. contamination 04/19/18 09:22 Urine Glucose Negative mg/dL (Negative) 04/19/18 09:22 Objective Narrative Objective Narrative: Exam(s) a US:US echocardiogram *[facility]* *[facility]* [address] [place] [address] Date of study: 04/20/2018 Transthoracic Echocardiography M-mode, complete 2D, complete spectral Doppler, and color Doppler *STUDY CONCLUSIONS* Impressions: Atrial septal defect. Summary: 1. Left ventricle: The cavity size was below normal. Wall thickness was increased increased in a pattern of mild to moderate LVH. Systolic function was hyperdynamic. The estimated ejection fraction was 65-70%. There was no dynamic obstruction. Wall motion was normal; there were no regional wall motion abnormalities. 2. Aortic valve: Mildly calcified annulus. Trileaflet; mildly thickened, mildly calcified leaflets. Valve mobility was restricted. There was very mild stenosis. There was mild regurgitation. Peak velocity (S): 1.5m/sec. Mean gradient (S): 6.5mm Hg. Valve area (VTI): 1.7cm^2. 3. Mitral valve: There was mild regurgitation. 4. Left atrium: The atrium was moderately to severely dilated. 5. Right ventricle: The cavity size was dilated. Wall thickness was normal. Systolic function was normal. 6. Right atrium: The atrium was severely dilated. 7. Atrial septum: There was a possible atrial septal defect. Doppler showed a [id number] atrial level shunt. 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 8. Pulmonary arteries: Pulmonary systolic pressure was increased, in the range of 35mm Hg to 45mm Hg. Recommendations: Transesophageal echocardiography should be performed to better assess ASD. Exam(s) 04/[address]:CT chest PE CTA SYMPTOM/DIAGNOSIS: ELEVATED D DIMER, TACHYCARDIA R/O PE CHEST CT FOR PULMONARY EMBOLISM: The pulmonary arteries and aorta are well opacified with IV contrast. The evaluation of the lungs is limited by respiratory motion. There is no evidence of pulmonary emboli or aortic dissection. The aorta is normal in diameter. There is enlargement of the main pulmonary artery as well as left and right pulmonary arteries and branch vessels. There is dilatation of both atria. No pleural or pericardial effusion seen. No focal area of consolidation is seen. There are dependent changes. IMPRESSION: Enlarged pulmonary arteries without evidence of embolism. The findings could indicate pulmonary aratery hypertension. Exam(s) 04/19 a RAD:XR chest 2V PA & lateral SYMPTOM/DIAGNOSIS: CHEST PAIN, TACHYCARDIA, R/O ACUTE DISEASE PA AND LATERAL CHEST: There are no prior comparison exams. The heart is mildly enlarged. There is pulmonary vascular prominence and mildly increased markings at the lung bases which could indicate CHF. No effusions are seen. IMPRESSION: Cardiomegaly and mild CHF.
[2018-04-20] MEDS: diphenhydrAMINE 25 MG CAP PO (21:09)
[2018-04-21] VITALS (40 sets, daily range): BP systolic 72–125; BP diastolic 46–87; PULSE 68–141; RESP 10–30; TEMP 35.9–36.8; O2SAT 92–98
[2018-04-21 07:28] LABS: Abs Immature Grans 0.02 k/cumm (0.0-0.09); Absolute Basophil Count 0.06 k/cumm (0.0-0.2); Absolute Lymphocyte Count 2.05 k/cumm (1.2-3.4); Absolute Monocyte Count 1.19 k/cumm (0.11-0.7); Basophils % 0.5; Eosinophils % 2.1; HCT 46.5 % (36.0-46.0); HGB 16.4 g/dL (12.0-15.5); Immature Grans % 0.2; Lymphocytes % 17.5; Mean Corp. HGB Concentration 35.3 g/dL (32.0-36.0); Mean Corpuscular Hemoglobin 30.4 pg (27.0-33.0); Mean Corpuscular Volume 86.1 fL (80-95); Monocytes % 10.2; Neutrophils % 69.5; Platelet Count 245 x1000/uL (130-400); RBC Distribution Width 13.7 % (11.7-14.6); White Blood Cell Count 11.69 k/cumm (4.4-10.8)
[2018-04-21 07:32] LABS: Absolute Eosinophil Count 0.25 k/cumm (0.0-0.7); Absolute Neutrophil Count 8.12 k/cumm (1.2-6.7)
[2018-04-21 07:42] LABS: Anion Gap 10.5 mmol/L (3-11); BUN 21 mg/dL (7-18); CO2 27.5 mmol/L (21.0-32.0); Calcium 9.2 mg/dL (8.5-10.1); Chloride 104 mmol/L (98-107); Estimated GFR 55.82 (mL/min/1.73m2); Glucose 115 mg/dL (70-100); Magnesium 2.1 mg/dL (1.8-2.4); Potassium 3.8 mmol/L (3.5-5.1); Sodium 142 mmol/L (136-145)
[2018-04-21] MEDS: Pantoprazole 40 MG VIAL IVP (08:13)
[2018-04-21] MEDS: Apixaban 5 MG TAB PO (08:16)
[2018-04-21] MEDS: Normal Saline Flush 10 ML SYR IVP (08:20)
[2018-04-21] MEDS: Potassium Chloride 20 MEQ TABCR PO (10:18)
--- NOTE | 2018-04-21 15:22 | W.PM.DS.N ---
Date of service: 04/21/18 Time of Service: 15:22 DS: Diagnosis Discharge Diagnosis (1) Atrial flutter: Status: Acute (2) ASD (atrial septal defect): Status: Acute Discharge Plan Disposition Condition: Stable Discharge Details Chief Complaint: Palpitatns Reason For Visit: ATRIAL TACHYCARDIA/AFIB Admit Date/Time: 04/19/18 15:27 Admit Provider: Johnson Rucker Attending Provider: Johnson Rucker Primary Care Provider: Elisha Morrell ED Provider: Nova Santiago Hospital Course Hospital Course: CC: Palpitations HPI: Very pleasant 62-year-old woman without any known significant past medical history, but also without regular medical care, presents to [facility] Emergency Department with complaints of palpitations. Mrs. 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 This occurred the day prior to her presentation. Immediately following this the patient reported resolution of all of her symptoms, followed by a good night sleep. However upon awakening in the morning she began to sense similar return of symptoms, describing them as lightheadedness, racing heart, and inability to catch her breath. She reported feeling as if I was going to pass out. Workup in the emergency department showed evidence of a mild leukocytosis, elevated hemoglobin, and an elevated pro BNP. Her chest x-ray showed evidence of cardiomegaly and mild CHF, and a subsequent CT of the chest showed no evidence of PE or infiltrate, but likely enlarged pulmonary arteries without evidence of embolism, which likely indicate pulmonary arterial hypertension. She was also noted to be tachycardic, confirmed to be in an atrial tachycardia potentially on the basis of Afib or flutter. Attempts at breaking her with adenosine, and slowing her with IV Cardizem were unsuccessful. She was started on a Cardizem drip and admitted for further evaluation and treatment. She was confirmed to be in Atrial Flutter following her admission. Attempts at rate control with addition of low dose BB in addition to her cardizem drip resulted in hypotension. Despite discontinuation of the low dose metoprolol, she remained hypotensive, with systolics as low as 80-90 while on minimal dose Cardizem gtt per nursing. She has remained tachycardic in the 130's whether on or off medications. Subsequent ECHO confirmed a likely ASD with biatrial enlargement, RV enlargement, and elevated pulmonary pressures. The patient was accepted in transfer for evaluation for potential ASD repair. Hospital Course: Sustained Atrial Flutter resistant to attempts at treatment - trials of adenosine, BB therapy, IV Cardizem boluses, and Cardizem gtt without effect. Atrial Flutter is very likely on the basis of ASD, with significant bi-atrial enlargement, RV enlargement, and elevated pulmonary pressures. Discussed case with cardiology at [facility]. Mrs. Rosas has been accepted as transfer pending bed availability - patient will very likely require a NISSA for better visualization of the atrial septum as part of evaluation for potential repair. She may also require cardioversion following evaluation for clot during NISSA. As of now she was not tried on antiarrhythmic therapy. Plan will be to continue anticoagulation with Apixaban, discontinued BB as essentially ineffective, and attempts at reinitiation of cardizem gtt also with hypotension. She is being transferred this afternoon. Of note, serial cardiac biomarkers were checked and negative, TSH normal, WBC decreased and nearly normalized, LFTs normal, and BNP 5247. Her urinalysis showed no signs of infection, but with >300 protein. Home Meds and New Rx's Prescriptions: No Action ibuprofen 200 mg Tablet 600 mg PO ONCE RF: 0 DS: Data Vitals/I&O Vitals and I&O: Vital Signs Temperature 35.9 C L 04/21/18 12:21 Temperature Source Tympanic 04/21/18 12:21 Pulse 141 H 04/21/18 12:21 Pulse 137 H 04/21/18 14:00 Respiratory Rate 15 04/21/18 14:00 Respiratory Effort 04/21/18 12:21 Respiratory Depth Normal 04/21/18 12:21 Respiratory Pattern Normal 04/21/18 12:21 Blood Pressure 124/64 04/21/18 12:21 Blood Pressure Mean 84 04/21/18 12:21 Blood Pressure Position Sitting 04/21/18 12:21 Pulse Oximetry 96 04/21/18 12:21 Oxygen Delivery Method Room Air 04/21/18 12:21 Oxygen Flow Rate 0 04/21/18 12:21 Pain Level 0 04/21/18 12:21 Comment 04/19/18 19:58 Intake & Output 04/20/18 04/21/18 04/21/18 23:59 11:59 23:59 Intake Total 480 / 1160 536 / 536 Output Total 730 / 1415 350 / 460 110 / 460 Balance -250 / -255 -350 / 76 426 / 76 Weight 78.4 kg Intake: Oral 480 / 1160 536 / 536 Output: Urine 730 / 1415 350 / 460 110 / 460 Other: Urine Color Yellow Light Brigida Light Brigida Urine Appearance Clear Clear Clear Urine Odor None None Comment frequency from lasix given earlier voiding very very small amounts in bedside commode voiding 50 cc at a time in bedside commode. Voiding Methods Bedside Commode Bedside Commode Completed studies during hospitalization [Text1]: Exam(s) a RAD:XR chest 2V PA & lateral SYMPTOM/DIAGNOSIS: CHEST PAIN, TACHYCARDIA, R/O ACUTE DISEASE PA AND LATERAL CHEST: There are no prior comparison exams. The heart is mildly enlarged. There is pulmonary vascular prominence and mildly increased markings at the lung bases which could indicate CHF. No effusions are seen. IMPRESSION: Cardiomegaly and mild CHF. Exam(s) a CT:CT chest PE CTA SYMPTOM/DIAGNOSIS: ELEVATED D DIMER, TACHYCARDIA R/O PE CHEST CT FOR PULMONARY EMBOLISM: The pulmonary arteries and aorta are well opacified with IV contrast. The evaluation of the lungs is limited by respiratory motion. There is no evidence of pulmonary emboli or aortic dissection. The aorta is normal in diameter. There is enlargement of the main pulmonary artery as well as left and right pulmonary arteries and branch vessels. There is dilatation of both atria. No pleural or pericardial effusion seen. No focal area of consolidation is seen. There are dependent changes. IMPRESSION: Enlarged pulmonary arteries without evidence of embolism. The findings could indicate pulmonary aratery hypertension. Exam(s) a US:US echocardiogram Date of study: 04/20/2018 Transthoracic Echocardiography M-mode, complete 2D, complete spectral Doppler, and color Doppler *STUDY CONCLUSIONS* Impressions: Atrial septal defect. Summary: 1. Left ventricle: The cavity size was below normal. Wall thickness was increased increased in a pattern of mild to moderate LVH. Systolic function was hyperdynamic. The estimated ejection fraction was 65-70%. There was no dynamic obstruction. Wall motion was normal; there were no regional wall motion abnormalities. 2. Aortic valve: Mildly calcified annulus. Trileaflet; mildly thickened, mildly calcified leaflets. Valve mobility was restricted. There was very mild stenosis. There was mild regurgitation. Peak velocity (S): 1.5m/sec. Mean gradient (S): 6.5mm Hg. Valve area (VTI): 1.7cm^2. 3. Mitral valve: There was mild regurgitation. 4. Left atrium: The atrium was moderately to severely dilated. 5. Right ventricle: The cavity size was dilated. Wall thickness was normal. Systolic function was normal. 6. Right atrium: The atrium was severely dilated. 7. Atrial septum: There was a possible atrial septal defect. Doppler showed a [id number] atrial level shunt. 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 8. Pulmonary arteries: Pulmonary systolic pressure was increased, in the range of 35mm Hg to 45mm Hg. Recommendations: Transesophageal echocardiography should be performed to better assess ASD. Labs on day of discharge: Labs from last 24 hours 04/21/18 04/21/18 06:10 06:10 WBC 11.69 H RBC 5.40 H Hgb 16.4 H Hct 46.5 H MCV 86.1 MCH 30.4 MCHC 35.3 RDW 13.7 Plt Count 245 MPV 11.0 Immature Gran % 0.2 Neutrophils % 69.5 Lymphocytes % 17.5 Monocytes % 10.2 Eosinophils % 2.1 Basophils % 0.5 Absolute Neutrophils 8.12 H Absolute Lymphocytes 2.05 Absolute Monocytes 1.19 H Absolute Eosinophils 0.25 Absolute Basophils 0.06 Sodium 142 Potassium 3.8 Chloride 104 Carbon Dioxide 27.5 Anion Gap 10.5 BUN 21 H Creatinine 1.00 Estimated GFR/1.73 m2 55.82 Glucose 115 H Calcium 9.2 Magnesium 2.1 [facility] Medical History No significant past medical history (Acute) Surgical History History of bilateral tubal ligation (Acute) Social History Smoking/Tobacco Use Status: Former Tobacco Use quit date: 04/15/18 alcohol intake: never substance use type: does not use additional social history: Mrs. Rosas is , has 2 boys. 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 She currently takes care of her mother at home, and volunteers at a local animal care home. She has a history of tobacco with a 30+ pack year history of smoking, recently quit. No alcohol use or drug use elicited.
--- NOTE | 2018-04-21 15:31 | DSE_ITS ---
Date of service: 04/21/18 Time of Service: 15:22 DS: Diagnosis Discharge Diagnosis (1) Atrial flutter: Status: Acute (2) ASD (atrial septal defect): Status: Acute Discharge Plan Disposition Condition: Stable Discharge Details Chief Complaint: Palpitatns Reason For Visit: ATRIAL TACHYCARDIA/AFIB Admit Date/Time: 04/19/18 15:27 Admit Provider: Johnson Rucker Attending Provider: Johnson Rucker Primary Care Provider: Elisha Morrell ED Provider: Nova Santiago Hospital Course Hospital Course: CC: Palpitations HPI: Very pleasant 62-year-old woman without any known significant past medical history, but also without regular medical care, presents to [facility] Emergency Department with complaints of palpitations. Mrs. 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 This occurred the day prior to her presentation. Immediately following this the patient reported resolution of all of her symptoms, followed by a good night sleep. However upon awakening in the morning she began to sense similar return of symptoms, describing them as lightheadedness, racing heart, and inability to catch her breath. She reported feeling as if I was going to pass out. Workup in the emergency department showed evidence of a mild leukocytosis, elevated hemoglobin, and an elevated pro BNP. Her chest x-ray showed evidence of cardiomegaly and mild CHF, and a subsequent CT of the chest showed no evidence of PE or infiltrate, but likely enlarged pulmonary arteries without evidence of embolism, which likely indicate pulmonary arterial hypertension. She was also noted to be tachycardic, confirmed to be in an atrial tachycardia potentially on the basis of Afib or flutter. Attempts at breaking her with adenosine, and slowing her with IV Cardizem were unsuccessful. She was started on a Cardizem drip and admitted for further evaluation and treatment. She was confirmed to be in Atrial Flutter following her admission. Attempts at rate control with addition of low dose BB in addition to her cardizem drip resulted in hypotension. Despite discontinuation of the low dose metoprolol, she remained hypotensive, with systolics as low as 80-90 while on minimal dose Card izem gtt per nursing. She has remained tachycardic in the 130's whether on or off medications. Subsequent ECHO confirmed a likely ASD with biatrial enlargement, RV enlargement, and elevated pulmonary pressures. The patient was accepted in transfer for evaluation for potential ASD repair. Hospital Course: Sustained Atrial Flutter resistant to attempts at treatment - trials of adenosine, BB therapy, IV Cardizem boluses, and Cardizem gtt without effect. Atrial Flutter is very likely on the basis of ASD, with significant bi-atrial enlargement, RV enlargement, and elevated pulmonary pressures. Discussed case with cardiology at [facility]. Mrs. Rosas has been accepted as transfer pending bed availability - patient will very likely require a NISSA for better visualization of the atrial septum as part of evaluation for potential repair. She may also require cardioversion following evaluation for clot during NISSA. As of now she was not tried on antiarrhythmic therapy. Plan will be to continue anticoagulation with Apixaban, discontinued BB as essentially ineffective, and attempts at reinitiation of cardizem gtt also with hypotension. She is being transferred this afternoon. Of note, serial cardiac biomarkers were checked and negative, TSH normal, WBC decreased and nearly normalized, LFTs normal, and BNP 5247. Her urinalysis showed no signs of infection, but with >300 protein. Home Meds and New Rx's Prescriptions: No Action ibuprofen 200 mg Tablet 600 mg PO ONCE RF: 0 DS: Data Vitals/I&O Vitals and I&O: Vital Signs Temperature 35.9 C L 04/21/18 12:21 Temperature Source Tympanic 04/21/18 12:21 Pulse 141 H 04/21/18 12:21 Pulse 137 H 04/21/18 14:00 Respiratory Rate 15 04/21/18 14:00 Respiratory Effort 04/21/18 12:21 Respiratory Depth Normal 04/21/18 12:21 Respiratory Pattern Normal 04/21/18 12:21 Blood Pressure 124/64 04/21/18 12:21 Blood Pressure Mean 84 04/21/18 12:21 Blood Pressure Position Sitting 04/21/18 12:21 Pulse Oximetry 96 04/21/18 12:21 Oxygen Delivery Method Room Air 04/21/18 12:21 Oxygen Flow Rate 0 04/21/18 12:21 Pain Level 0 04/21/18 12:21 Comment 04/19/18 19:58 Intake & Output 04/20/18 04/21/18 04/21/18 23:59 11:59 23:59 Intake Total 480 / 1160 536 / 536 Output Total 730 / 1415 350 / 460 110 / 460 Balance -250 / -255 -350 / 76 426 / 76 Weight 78.4 kg Intake: Oral 480 / 1160 536 / 536 Output: Urine 730 / 1415 350 / 460 110 / 460 Other: Urine Color Yellow Light Brigida Light Brigida Urine Appearance Clear Clear Clear Urine Odor None None Comment frequency from lasix given earlier voiding very very small amounts in bedside commode voiding 50 cc at a time in bedside commode. Voiding Methods Bedside Commode Bedside Commode Completed studies during hospitalization [Text1]: Exam(s) a RAD:XR chest 2V PA & lateral SYMPTOM/DIAGNOSIS: CHEST PAIN, TACHYCARDIA, R/O ACUTE DISEASE PA AND LATERAL CHEST: There are no prior comparison exams. The heart is mildly enlarged. There is pulmonary vascular prominence and mildly increased markings at the lung bases which could indicate CHF. No effusions are seen. IMPRESSION: Cardiomegaly and mild CHF. Exam(s) a CT:CT chest PE CTA SYMPTOM/DIAGNOSIS: ELEVATED D DIMER, TACHYCARDIA R/O PE CHEST CT FOR PULMONARY EMBOLISM: The pulmonary arteries and aorta are well opacified with IV contrast. The evaluation of the lungs is limited by respiratory motion. There is no evidence of pulmonary emboli or aortic dissection. The aorta is normal in diameter. There is enlargement of the main pulmonary artery as well as left and right pulmonary arteries and branch vessels. There is dilatation of both atria. No pleural or pericardial effusion seen. No focal area of consolidation is seen. There are dependent changes. IMPRESSION: Enlarged pulmonary arteries without evidence of embolism. The fi ndings could indicate pulmonary aratery hypertension. Exam(s) a US:US echocardiogram Date of study: 04/20/2018 Transthoracic Echocardiography M-mode, complete 2D, complete spectral Doppler, and color Doppler *STUDY CONCLUSIONS* Impressions: Atrial septal defect. Summary: 1. Left ventricle: The cavity size was below normal. Wall thickness was increased increased in a pattern of mild to moderate LVH. Systolic function was hyperdynamic. The estimated ejection fraction was 65-70%. There was no dynamic obstruction. Wall motion was normal; there were no regional wall motion abnormalities. 2. Aortic valve: Mildly calcified annulus. Trileaflet; mildly thickened, mildly calcified leaflets. Valve mobility was restricted. There was very mild stenosis. There was mild regurgitation. Peak velocity (S): 1.5m/sec. Mean gradient (S): 6.5mm Hg. Valve area (VTI): 1.7cm^2. 3. Mitral valve: There was mild regurgitation. 4. Left atrium: The atrium was moderately to severely dilated. 5. Right ventricle: The cavity size was dilated. Wall thickness was normal. Systolic function was normal. 6. Right atrium: The atrium was severely dilated. 7. Atrial septum: There was a possible atrial septal defect. Doppler showed a [id number] atrial level shunt. 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 8. Pulmonary arteries: Pulmonary systolic pressure was increased, in the range of 35mm Hg to 45mm Hg. Recommendations: Transesophageal echocardiography should be performed to better assess ASD. Labs on day of discharge: Labs from last 24 hours 04/21/18 04/21/18 06:10 06:10 WBC 11.69 H RBC 5.40 H Hgb 16.4 H Hct 46.5 H MCV 86.1 MCH 30.4 MCHC 35.3 RDW 13.7 Plt Count 245 MPV 11.0 Immature Gran % 0.2 Neutrophils % 69.5 Lymphocytes % 17.5 Monocytes % 10.2 Eosinophils % 2.1 Basophils % 0.5 Absolute Neutrophils 8.12 H Absolute Lymphocytes 2.05 Absolute Monocytes 1.19 H Absolute Eosinophils 0.25 Absolute Basophils 0.06 Sodium 142 Potassium 3.8 Chloride 104 Carbon Dioxide 27.5 Anion Gap 10.5 BUN 21 H Creatinine 1.00 Estimated GFR/1.73 m2 55.82 Glucose 115 H Calcium 9.2 Magnesium 2.1 PFSH Medical History No significant past medical history (Acute) Surgical History History of bilateral tubal ligation (Acute) Social History Smoking/Tobacco Use Status: Former Tobacco Use quit date: 04/15/18 alcohol intake: never substance use type: does not use additional social history: Mrs. Rosas is , has 2 boys. 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 She has a history of tobacco with a 30+ pack year history of smoking, recently quit. No alcohol use or drug use elicited.
--- NOTE | 2018-04-21 17:02 | PDOC.CMDIS ---
- If Service Date Differs Date of service: 04/21/18 Time of Service: 17:02 LACE Index Scoring Tool - Questions: Length of Stay (in days): 2 Acuity (Admit via E.D.?): Yes Care Management Discharge Reason for Hospitalization: Atrial Tachycardia, ASD Discharge Plan: Transfer to [facility] via ambulance
--- NOTE | 2018-04-21 17:07 | CMDISCH_ITS ---
- If Service Date Differs Date of service: 04/21/18 Time of Service: 17:02 LACE Index Scoring Tool - Questions: Length of Stay (in days): 2 Acuity (Admit via E.D.?): Yes Care Management Discharge Reason for Hospitalization: Atrial Tachycardia, ASD Discharge Plan: Transfer to [facility] via ambulance
== END 2018-04-21 16:20 | disposition short-term general hospital (02) | DRG 309 ==
LOC: ER 15:56 → ICU 16:49
PROVIDERS: Admitting Provider Internal Medicine; Emergency Provider Physician Assistant; PCP Family Medicine; Visit Provider Internal Medicine
DX: I48.92 Unspecified atrial flutter (principal); Q21.1 Atrial septal defect; I95.9 Hypotension, unspecified; I51.7 Cardiomegaly; I27.21 Secondary pulmonary arterial hypertension; Z87.891 Personal history of nicotine dependence; I95.2 Hypotension due to drugs; T44.7X5A Adverse effect of beta-adrenoreceptor antagonists, initial encounter
CPT/HCPCS: 36415; 71275; 80048; 80053; 93005; 96361; 96365; 96375; 96376; 99222; 99233; 99239; 99285; 71046; 81003; 81015; 83036; 83735; 83880; 84443; 84484; 85025; 85379; 93010; 93306; J0153; J1940; J1941; J3490

== ENCOUNTER 2018-05-01 16:32 | Emergency (ER) | payer MEDICAID, SELFPAY ==
[2018-05-01] VITALS (21 sets, daily range): BP systolic 102–127; BP diastolic 45–67; PULSE 46–61; RESP 9–33; TEMP 36.6; O2SAT 94–97
--- NOTE | 2018-05-01 17:15 | DI.RAD_ITS ---
SYMPTOMS/DIAGNOSIS: SHORTNESS OF BREATH CHEST X-RAY, PA AND LATERAL: Comparison is 04/19/18. The heart is enlarged. There is again seen prominence of the pulmonary vasculature. There are bilateral pulmonary infiltrates in the bases, left greater than right. No gross effusions or pneumothoraces are identified. Degenerative changes are seen in the spine. IMPRESSION: Cardiomegaly with pulmonary venous congestion. Bilateral pulmonary infiltrates. These may represent pulmonary edema or atelectasis.
--- NOTE | 2018-05-01 17:21 | W.ED.GENAD ---
Discharge Plan Disposition Patient Disposition: HOME Condition: Stable Discharge Details Chief Complaint: SOB Clinical Impression: Pulmonary edema Reason For Visit: SOB Primary Care Provider: Elisha Morrell ED Provider: Sanchez Dhaliwal Home Meds and New Rx's Prescriptions: New lorazepam 0.5 mg tablet 0.5 mg SL BID-TID PRN (Reason: anxiety) Qty: 7 RF: 0 furosemide [Lasix] 20 mg tablet 20 mg PO DAILY Qty: 14 RF: 0 No Action ibuprofen 200 mg Tablet 600 mg PO ONCE RF: 0 diltiazem HCl 120 mg Capsule,Extended Release 24 Hr 2 tab PO DAILY RF: 0 diltiazem HCl 60 mg Tablet 30 mg PO DAILY RF: 0 Eliquis 5 mg Tablet 5 mg PO BID RF: 0 Discharge Instructions Additional Instructions: Your lab work did not show any concerning findings. Your xray showed a small amount of fluid in the lungs STart taking lasix daily and discuss with your per diem if they want to continue this. If they do then they will have to prescribe this for you Your heart rate was in the 50-60 range here. Discuss with your per diem if your diltiazem dose should be decreased For anxiety you can take 1 ativan as needed. Do not drink alcohol or drive if you take this. Discuss with your primary care provider further management of your anxiety if it continued if you feel you are having worsening shortness of breath or severe chest pain/pressure return to the emergency department Medical Decision Making 62 yo female with hx of aflutter and atrial septal defect who had her first known episode of afib/flutter at the end of March and had cardioversion at [facility], comes in with shortness of breath that started earlier today. She states it is mild but that she notices it. Denies any chest pain, pressure, abdominal pain, fevers, cough. She is speaking in full sentences without any evidence of respiratory distress. She does have mild crackles at the bases otherwise clear lungs. Given lack of chest pain or pressure and well appearance doubt acs. No tachycardia or hypoxia or evidence of dvt so doubt PE at this time. Suspect possible mild chf from the cardioversion or afib/flutter, will obtain lab work and xray and monitor pt remains stable, labs show no acute changes, probnp acutally decreased from march. She feels better withuot intervention and is ambulating with HR's in the 60's and o2 saturations in the 98-100% range and no visible respiratory distress. Xray shows mild pulmonary congestion, bedside u/s shows no pericardial effusion. She is stable and is comfortable with d/c and has f/u wednesday with her per diem. I am going to start her on lasix, she would prefer to take this at home and is also requesting something for anxiety as all of this medical problems are new for her and causing her to be anxious. Will give few doses of ativan and advised f/u with pcp for continued management of this. She understands to return if she is worsening Differential Diagnosis chf, afib, anemia, pna Imaging Data Radiologic Study: Attestation: I personally reviewed and interpreted this imaging study as follows: Imaging: X-Ray Radiologist's impression: IMPRESSION: Pulmonary vascular congestion with mild dependent edema versus atelectasis Lab Data Lab results reviewed: Yes I reviewed the patient's lab results. ECG Data Attestation: I personally reviewed and interpreted this ECG (s) as follows: Prior ECG tracings: not available for review Interpretation: sinus rhythm, rate of 63, pr 200, no acute st t wave ischemic findings HPI General Mode of arrival: ambulatory. Date/Time Provider Initiated Documentation: 05/01/18 16:43. Limitations to Documentation: no limitations. Information obtained by: patient. History of Present Illness 62 year old F presents to the emergency department with the chief complaint of shortness of breath, described as mild, Patient started experiencing this hour(s) (3) and it has been constant. No relieving factors improve symptom(s), No exacerbating factors reported . Patient notes no other symptoms.. Patient did receive the following treatments prior to arrival, none Related Data Home Medications Medication Instructions Recorded Confirmed ibuprofen 600 mg PO ONCE 04/19/18 04/19/18 apixaban [Eliquis] 5 mg PO BID 05/01/18 05/01/18 diltiazem HCl 2 tab PO DAILY 05/01/18 05/01/18 diltiazem HCl 30 mg PO DAILY 05/01/18 05/01/18 furosemide [Lasix] 20 mg PO DAILY #14 tab 05/01/18 lorazepam 0.5 mg SL BID-TID PRN #7 tab 05/01/18 Previous Rx's Medication Instructions Recorded furosemide [Lasix] 20 mg PO DAILY #14 tab 05/01/18 lorazepam 0.5 mg SL BID-TID PRN #7 tab 05/01/18 Allergies Allergy/AdvReac Type Severity Reaction Status Date / Time No Known Allergies Allergy Unverified 05/01/18 16:53 General Stated Complaint: SOB PAULINO: 2 Review of Systems Review of Systems All systems reviewed & are unremarkable except as noted in HPI and below Constitutional Denies chills, Denies fever(s) and Denies weakness ENT Denies change in voice Cardiovascular Denies chest pain Respiratory Denies cough Gastrointestinal Denies abdominal pain, Denies nausea and Denies vomiting Genitourinary Denies dysuria Musculoskeletal Denies joint swelling Neurologic Denies weakness [facility] Medical History No significant past medical history (Acute) Surgical History History of bilateral tubal ligation (Acute) Social History Smoking and Tabacco status: Former Tobacco Use quit date: 04/15/18 alcohol intake: never substance use type: does not use additional social history: Mrs. Rosas is , has 2 boys. 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 She has a history of tobacco with a 30+ pack year history of smoking, recently quit. No alcohol use or drug use elicited. Exam Const General: no acute distress Orientation: alert HENME Head: normal to inspection Ears: external ears normal General nose exam: external nose normal Mouth: moist mucous membranes Eyes General: appearance normal, both eyes and all related structures Neck Neck: normal visual inspection Resp Effort & Inspection: normal respiratory effort and able to speak in complete sentences Cardio Rate: regular rate Skin General skin exam: no rashes or lesions noted Neuro General: alert and oriented x3 Extrem General: normal to inspection Psych Mental Status: mental status grossly normal Course Vital Signs Temperature 36.6 C 05/01/18 16:48 Pulse 46 L 05/01/18 16:48 Respiratory Rate 18 05/01/18 16:48 Blood Pressure 127/57 L 05/01/18 16:48 Pulse Oximetry 96 05/01/18 16:48 Temperature 36.6 C 05/01/18 16:48 Temperature Source Temporal Artery Scan 05/01/18 16:48 Pulse 46 L 05/01/18 16:48 Respiratory Rate 18 05/01/18 16:48 Respiratory Effort 05/01/18 16:52 Blood Pressure 127/57 L 05/01/18 16:48 Pulse Oximetry 96 05/01/18 16:48 Oxygen Delivery Method Room Air 05/01/18 16:48 Oxygen Flow Rate 0 05/01/18 16:48
--- NOTE | 2018-05-01 17:24 | ED.GENADUL_ITS ---
Discharge Plan Disposition Patient Disposition: HOME Condition: Stable Discharge Details Chief Complaint: SOB Clinical Impression: Pulmonary edema Reason For Visit: SOB Primary Care Provider: Elisha Morrell ED Provider: Sanchez Dhaliwal Home Meds and New Rx's Prescriptions: New lorazepam 0.5 mg tablet 0.5 mg SL BID-TID PRN (Reason: anxiety) Qty: 7 RF: 0 furosemide [Lasix] 20 mg tablet 20 mg PO DAILY Qty: 14 RF: 0 No Action ibuprofen 200 mg Tablet 600 mg PO ONCE RF: 0 diltiazem HCl 120 mg Capsule,Extended Release 24 Hr 2 tab PO DAILY RF: 0 diltiazem HCl 60 mg Tablet 30 mg PO DAILY RF: 0 Eliquis 5 mg Tablet 5 mg PO BID RF: 0 Discharge Instructions Additional Instructions: Your lab work did not show any concerning findings. Your xray showed a small amount of fluid in the lungs STart taking lasix daily and discuss with your vice president talent management if they want to continue this. If they do then they will have to prescribe this for you Your heart rate was in the 50-60 range here. Discuss with your vice president talent management if your diltiazem dose should be decreased For anxiety you can take 1 ativan as needed. Do not drink alcohol or drive if you take this. Discuss with your primary care provider further management of your anxiety if it continued if you feel you are having worsening shortness of breath or severe chest pain/pressure return to the emergency department Medical Decision Making 62 yo female with hx of aflutter and atrial septal defect who had her first known episode of afib/flutter at the end of March and had cardioversion at [facility], comes in with shortness of breath that started earlier today. She states it is mild but that she notices it. Denies any chest pain, pressure, abdominal pain, fevers, cough. She is speaking in full sentences without any evidence of respiratory distress. She does have mild crackles at the bases otherwise clear lungs. Given lack of chest pain or pressure and well appearance doubt acs. No tachycardia or hypoxia or evidence of dvt so doubt PE at this time. Suspect possible mild chf from the cardioversion or afib/flutter, will obtain lab work and xray and monitor pt remains stable, labs show no acute changes, probnp acutally decreased from march. She feels better withuot intervention and is ambulating with HR's in the 60's and o2 saturations in the 98-100% range and no visible respiratory distress. Xray shows mild pulmonary congestion, bedside u/s shows no pericardial effusion. She is stable and is comfortable with d/c and has f/u wednesday with her vice president talent management. I am going to start her on lasix, she would prefer to take this at home and is also requesting something for anxiety as all of this medical problems are new for her and causing her to be anxious. Will give few doses of ativan and advised f/u with pcp for continued management of this. She understands to return if she is worsening Differential Diagnosis chf, afib, anemia, pna Imaging Data Radiologic Study: Attestation: I personally reviewed and interpreted this imaging study as follows: Imaging: X-Ray Radiologist's impression: IMPRESSION: Pulmonary vascular congestion with mild dependent edema versus atelectasis Lab Data Lab results reviewed: Yes I reviewed the patient's lab results. ECG Data Attestation: I personally reviewed and interpreted this ECG (s) as follows: Prior ECG tracings: not available for review Interpretation: sinus rhythm, rate of 63, pr 200, no acute st t wave ischemic findings HPI General Mode of arrival: ambulatory . Date/Time Provider Initiated Documentation: 05/01/18 16:43 . Limitations to Documentation: no limitations . Information obtained by: patient . History of Present Illness 62 year old F presents to the emergency department with the chief complaint of shortness of breath, described as mild, Patient started experiencing this hour(s) (3) and it has been constant. No relieving factors improve symptom(s), No exacerbating factors reported . Patient notes no other symptoms.. Patient did receive the following treatments prior to arrival, none Related Data Home Medications Medication Instructions Recorded Confirmed ibuprofen 600 mg PO ONCE 04/19/18 04/19/18 apixaban [Eliquis] 5 mg PO BID 05/01/18 05/01/18 diltiazem HCl 2 tab PO DAILY 05/01/18 05/01/18 diltiazem HCl 30 mg PO DAILY 05/01/18 05/01/18 furosemide [Lasix] 20 mg PO DAILY #14 tab 05/01/18 lorazepam 0.5 mg SL BID-TID PRN #7 tab 05/01/18 Previous Rx's Medication Instructions Recorded furosemide [Lasix] 20 mg PO DAILY #14 tab 05/01/18 lorazepam 0.5 mg SL BID-TID PRN #7 tab 05/01/18 Allergies Allergy/AdvReac Type Severity Reaction Status Date / Time No Known Allergies Allergy Unverified 05/01/18 16:53 General Stated Complaint: SOB PAULINO: 2 Review of Systems Review of Systems All systems reviewed & are unremarkable except as noted in HPI and below Constitutional Denies chills, Denies fever(s) and Denies weakness ENT Denies change in voice Cardiovascular Denies chest pain Respiratory Denies cough Gastrointestinal Denies abdominal pain, Denies nausea and Denies vomiting Genitourinary Denies dysuria Musculoskeletal Denies joint swelling Neurologic Denies weakness [facility] Medical History No significant past medical history (Acute) Surgical History History of bilateral tubal ligation (Acute) Social History Smoking and Tabacco status: Former Tobacco Use quit date: 04/15/18 alcohol intake: never substance use type: does not use additional social history: Mrs. Rosas is , has 2 boys. 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 She has a history of tobacco with a 30+ pack year history of smoking, recently quit. No alcohol use or drug use elicited. Exam Const General: no acute distress Orientation: alert HENW[place] Head: normal to inspection Ears: external ears normal General nose exam: external nose normal Mouth: moist mucous membranes Eyes General: appearance normal, both eyes and all related structures Neck Neck: normal visual inspection Resp Effort & Inspection: normal respiratory effort and able to speak in complete sentences Cardio Rate: regular rate Skin General skin exam: no rashes or lesions noted Neuro General: alert and oriented x3 Extrem General: normal to inspection Psych Mental Status: mental status grossly normal Course Vital Signs Temperature 36.6 C 05/01/18 16:48 Pulse 46 L 05/01/18 16:48 Respiratory Rate 18 05/01/18 16:48 Blood Pressure 127/57 L 05/01/18 16:48 Pulse Oximetry 96 05/01/18 16:48 Temperature 36.6 C 05/01/18 16:48 Temperature Source Temporal Artery Scan 05/01/18 16:48 Pulse 46 L 05/01/18 16:48 Respiratory Rate 18 05/01/18 16:48 Respiratory Effort 05/01/18 16:52 Blood Pressure 127/57 L 05/01/18 16:48 Pulse Oximetry 96 05/01/18 16:48 Oxygen Delivery Method Room Air 05/01/18 16:48 Oxygen Flow Rate 0 05/01/18 16:48
[2018-05-01 17:41] LABS: Abs Immature Grans 0.02 k/cumm (0.0-0.09); Absolute Basophil Count 0.04 k/cumm (0.0-0.2); Absolute Eosinophil Count 0.21 k/cumm (0.0-0.7); Absolute Lymphocyte Count 1.84 k/cumm (1.2-3.4); Absolute Monocyte Count 0.66 k/cumm (0.11-0.7); Absolute Neutrophil Count 7.11 k/cumm (1.2-6.7); Basophils % 0.4; Eosinophils % 2.1; HCT 39.4 % (36.0-46.0); HGB 13.6 g/dL (12.0-15.5); Immature Grans % 0.2; Lymphocytes % 18.6; Mean Corp. HGB Concentration 34.5 g/dL (32.0-36.0); Mean Corpuscular Hemoglobin 30.3 pg (27.0-33.0); Mean Corpuscular Volume 87.8 fL (80-95); Mean Platelet Volume 10.4 fL (8.0-11.0); Monocytes % 6.7; Platelet Count 217 x1000/uL (130-400); RBC 4.49 m/cumm (4.00-5.20); RBC Distribution Width 13.5 % (11.7-14.6); White Blood Cell Count 9.88 k/cumm (4.4-10.8)
[2018-05-01 17:53] LABS: INR 1.1 (0.9-1.1); Prothrombin Time 10.9 sec (9.3-11.0)
[2018-05-01 17:57] LABS: ALT 70 U/L (12-78); AST 38 U/L (15-37); Albumin 3.3 g/dL (3.4-5.0); Alkaline Phosphatase 116 U/L (46-116); Anion Gap 10.3 mmol/L (3-11); BUN 15 mg/dL (7-18); Bilirubin, Total 0.3 mg/dL (0.2-1.0); CO2 24.7 mmol/L (21.0-32.0); CREATININE 0.82 mg/dL (0.55-1.02); Chloride 104 mmol/L (98-107); Glucose 172 mg/dL (70-100); Potassium 3.9 mmol/L (3.5-5.1); Sodium 139 mmol/L (136-145); Total Protein 7.3 g/dL (6.4-8.2); Troponin I < 0.02 ng/mL (0.00-0.06)
[2018-05-01 18:00] LABS: NT-proBNP 510 pg/mL
--- NOTE | 2018-05-01 18:33 | NUR.NOTE ---
walked in [place] to monitor sats -98%RA HR 67-68.Nursing Note:
--- NOTE | 2018-05-01 18:45 | DI.VRAD_ITS ---
EXAM: XR Chest, 2 Views EXAM DATE/TIME: 05/01/2018 5:16 PM CLINICAL HISTORY: 62 years old, female; Signs and symptoms; Other: Shortness of breath TECHNIQUE: XR of the chest, 2 views. COMPARISON: CR XR CHEST 2V PA LATERAL 04/19/2018 9:12 AM FINDINGS: Lungs: Moderate lung expansion. Stable engorgement of the pulmonary vasculature. Bibasilar infiltrates. No consolidation. Pleural space: Unremarkable. No pleural effusion. No pneumothorax. Heart/Mediastinum: Mild cardiomegaly. Bones/joints: Unremarkable. IMPRESSION: Pulmonary vascular congestion with mild dependent edema versus atelectasis. Dictated and Authenticated by: Tanisha Taveras MD. Ordering:RYLAN Bradford MD
[2018-05-01] MEDS: LORazepam 0.5 MG TAB (19:02)
[2018-05-01] MEDS: Furosemide 20 MG TAB PO (19:02)
[2018-05-01] MEDS: LORazepam 0.5 MG TAB PO (19:02)
== END 2018-05-01 19:07 | disposition home or self-care (01) ==
PROVIDERS: Emergency Provider Emergency Medicine; PCP Family Medicine
DX: J81.0 Acute pulmonary edema (principal); I48.91 Unspecified atrial fibrillation; Z87.891 Personal history of nicotine dependence
CPT/HCPCS: 80053; 93005; 99284; 71046; 83880; 84484; 85025; 85610; 85730; 93010; 99285

== ENCOUNTER 2018-06-04 13:05 | Emergency (ER) | payer MEDICAID, SELFPAY ==
[2018-06-04 13:12] VITALS: BP 148/69; PULSE 80; RESP 16; TEMP 36.2; O2SAT 98
--- NOTE | 2018-06-04 13:21 | DI.RAD_ITS ---
SYMPTOM/DIAGNOSIS: COUGH, SOB FRONTAL AND LATERAL CHEST: Comparison is made with 05/01/18. The heart appears enlarged. There is prominence of the pulmonary vasculature. Scarring is seen in the left mid lung. There are bilateral opacities, particularly in the left lung base. There is some fluid in the fissure and the posterior costophrenic angle. IMPRESSION: Cardiomegaly and pulmonary prominence suggesting interstitial edema. Opacities in the lung bases which may represent atelectasis or pneumonia. Small pleural effusions.
--- NOTE | 2018-06-04 13:22 | W.ED.GENAD ---
Discharge Plan Disposition Patient Disposition: HOME Condition: Improving Discharge Details Chief Complaint: GenMedical Clinical Impression: Left lower lobe pneumonia Primary Care Provider: Elisha Morrell ED Provider: Chase Cruz Home Meds and New Rx's Prescriptions: New amoxicillin-pot clavulanate 875-125 mg tablet 1 tab PO BID 10 Days Qty: 20 RF: 0 Continued diltiazem HCl 60 mg Tablet 30 mg PO DAILY RF: 0 Eliquis 5 mg Tablet 5 mg PO BID RF: 0 pantoprazole [Protonix] 20 mg Tablet,Delayed Release (Dr/Ec) 20 mg PO DAILY RF: 0 Discharge Instructions Instructions: Pneumonia (ED) Additional Instructions: Please follow-up with Dr CARPENTER as planned next week. Your x-ray today showed a left base infiltrate. We will treat this with a course of Augmentin as prescribed. Continue your regular medications. Return if you develop shortness of breath, fever, or any other acute concerns. Medical Decision Making 62-year-old female presents from home with 2 complaints. One is that she developed a cough today after having uneventful ablation performed at [facility] yesterday. She does not of chest pain or palpitations. She has been taking her prescribed medications including Eliquis. She states she has had recurrent left eye tear duct difficulty and has left conjunctival injection with crusting of the eyelids this morning. X-ray reveals left base infiltrate. May be atelectasis but she has had a new cough and I do feel that she warrants treatment for developing pneumonitis. She will be treated with erythromycin ophthalmic ointment for the left conjunctivitis. Finally, she has a great deal of anxiety regarding recent procedures and I will offer her a small number of Ativan that she has had success with this in the past. She stable for outpatient management HPI General Mode of arrival: ambulatory. Date/Time Provider Initiated Documentation: 06/04/18 13:10. Limitations to Documentation: no limitations. Information obtained by: patient. History of Present Illness 62 year old F presents to the emergency department with the chief complaint of Cough and left eye contact, described as mild, Quality is described as dull, and is localized to the chest. Patient reports no radiation. Patient started experiencing this hour(s) and it has been intermittent. No relieving factors improve symptom(s), No exacerbating factors reported . Patient notes other (Left eye conjunctivitis with crusting of the lids, similar to previous. No pain or change to vision. No fever or chills. Patient had uneventful ablation at [facility] yesterday). Patient did receive the following treatments prior to arrival, none Related Data Home Medications Medication Instructions Recorded Confirmed Eliquis 5 mg PO BID 05/01/18 06/04/18 diltiazem HCl 30 mg PO DAILY 05/01/18 06/04/18 amoxicillin-pot clavulanate 1 tab PO BID 10 Days #20 tab 06/04/18 pantoprazole [Protonix] 20 mg PO DAILY 06/04/18 06/04/18 Previous Rx's Medication Instructions Recorded amoxicillin-pot clavulanate 1 tab PO BID 10 Days #20 tab 06/04/18 Allergies Allergy/AdvReac Type Severity Reaction Status Date / Time No Known Allergies Allergy Unverified 06/04/18 13:12 General Stated Complaint: GenMedical PAULINO: 4 Review of Systems Review of Systems 6 systems reviewed and otherwise negative. Patient denies to me chest pain, palpitations, shortness of breath [facility] Medical History No significant past medical history (Acute) Surgical History History of bilateral tubal ligation (Acute) Social History Smoking/Tobacco Use Status: Never Alcohol Intake: never Drug use: Never Substance use type: does not use Do you feel safe at home: Yes Do you feel safe in your relationship?: Yes Additional Social history: Mrs. Rosas is , has 2 boys. 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 She has a history of tobacco with a 30+ pack year history of smoking, recently quit. No alcohol use or drug use elicited. Exam Narrative Exam Narrative: GEN: awake, alert, oriented 3. Pleasant, well groomed, interactive. HEAD: Normocephalic, atraumatic ENT: Mucous membranes moist, oropharynx unremarkable, External ear exam unremarkable EYES: PERRL, EOMI, left conjunctival injection, crusting of the lids NECK: Full ROM, no EDUARDO, no menigismus CHEST/RESP: Nontender, clear to auscultation bilateral, no wheeze/rhonchi/rales CARDIOVASCULAR: RRR, 2-3 out of 6 murmur, rub rosalinda. 2+ Rad pulse bilateral ABDOMEN: Soft, nontender, no mass. +Bowel sounds EXT: Full ROM, no edema, no rash Neuro: Grossly normal neurologic exam, conversant, interactive. Psych: Speech fluent, thoughts congruent, affect anxious Course Vital Signs Temperature 36.2 C L 06/04/18 13:12 Pulse 80 06/04/18 13:12 Respiratory Rate 16 06/04/18 13:12 Blood Pressure 148/69 H 06/04/18 13:12 Pulse Oximetry 98 06/04/18 13:12 Temperature 36.2 C L 06/04/18 13:12 Temperature Source Temporal Artery Scan 06/04/18 13:12 Pulse 80 06/04/18 13:12 Respiratory Rate 16 06/04/18 13:12 Respiratory Effort 06/04/18 13:12 Blood Pressure 148/69 H 06/04/18 13:12 Blood Pressure Position Sitting 06/04/18 13:12 Pulse Oximetry 98 06/04/18 13:12 Oxygen Delivery Method Room Air 06/04/18 13:12 Oxygen Flow Rate 0 06/04/18 13:12
[2018-06-04] MEDS: Erythromycin Ophth Oint 3.5 GM TUBE OS (13:57)
--- NOTE | 2018-06-04 14:09 | DI.VRAD_ITS ---
EXAM: XR Chest, 2 Views EXAM DATE/TIME: 06/04/2018 1:22 PM CLINICAL HISTORY: 62 years old, female; Signs and symptoms; Cough and shortness of breath; Prior surgery; Surgery date: 3-7 days post-operative; Surgery type: Cardiac ablation on wednesday, cough and SOB TECHNIQUE: XR of the chest, 2 views. COMPARISON: CR XR CHEST 2V PA LATERAL 05/01/2018 5:55 PM FINDINGS: Lungs: Opacities in the left base may represent atelectasis or pneumonia. Pleural space: There may be mild left pleural effusion. Heart/Mediastinum: Cardiomegaly and mild vascular prominence may represent interstitial edema Bones/joints: Unremarkable. IMPRESSION: 1. Opacities in the left base may represent atelectasis or pneumonia. 2. There may be mild left pleural effusion. Dictated and Authenticated by: Cynthia Chew MD. Ordering:TYLOR Stone MD
[2018-06-04 14:12] VITALS: RESP 14
== END 2018-06-04 14:34 | disposition home or self-care (01) ==
PROVIDERS: Emergency Provider Emergency Medicine; PCP Family Medicine
DX: J18.9 Pneumonia, unspecified organism (principal); H10.9 Unspecified conjunctivitis; Z79.01 Long term (current) use of anticoagulants
CPT/HCPCS: 99283; 71046

== ENCOUNTER 2018-06-29 07:49 | Emergency (ER) | payer MEDICAID, SELFPAY ==
[2018-06-29] VITALS (18 sets, daily range): BP systolic 110–127; BP diastolic 36–66; PULSE 61–74; RESP 11–25; TEMP 36.5; O2SAT 95–98
--- NOTE | 2018-06-29 08:28 | W.ED.GENAD ---
Discharge Plan Disposition Patient Disposition: HOME Condition: Improving Discharge Details Chief Complaint: SOB Clinical Impression: Bronchitis Primary Care Provider: Elisha Morrell ED Provider: Chase Cruz Home Meds and New Rx's Prescriptions: New doxycycline hyclate 100 mg capsule 100 mg PO BID 10 Days Qty: 20 RF: 0 Continued lorazepam 0.5 mg tablet 0.5 mg PO QHS PRN (Reason: sleep) Qty: 30 RF: 0 Eliquis 5 mg Tablet 5 mg PO BID RF: 0 pantoprazole [Protonix] 20 mg Tablet,Delayed Release (Dr/Ec) 20 mg PO DAILY RF: 0 lorazepam [Ativan] 0.5 mg tablet 0.5 mg PO QHS PRN (Reason: anxiety) Qty: 5 RF: 0 Discharge Instructions Instructions: Acute Bronchitis (ED) Additional Instructions: Home to rest. Small, frequent sips of fluids to maintain hydration. Please follow-up with Dr. Brown if not improving in 5 days time. Return to the emergency department for any acute concern. Medical Decision Making 62-year-old female presents from home with 4-5 days of cough. She is well-known to me following similar presentation after having uneventful ablation. She reports cough developing following what was a negative cardiac catheterization on June 24, which was preoperative for ASD closure. Afebrile, well-appearing, subtle rhonchi at left base. EKG, labs, chest x-ray obtained. Cath report obtained and scanned to record. The patient is in a sinus rhythm. Her laboratories are reassuring including a BNP of 414 and negative troponin. Her chest x-ray is not significantly changed, but given her presentation she is at risk for developing bronchitis or pneumonitis and I will place her on a course of doxycycline to which she had good response in the past. She understands homecare as well as return precautions. She is stable for discharge at this time. CC: Brad Coelho Jr. [facility] Cardiology Lab Data Lab results reviewed: Yes I reviewed the patient's lab results. Laboratory Results - last 24 hr 06/29/18 06/29/18 08:15 08:15 WBC 11.53 H RBC 5.34 H Hgb 15.8 H Hct 45.0 MCV 84.3 MCH 29.6 MCHC 35.1 RDW 13.7 Plt Count 242 MPV 10.0 Immature Gran % 0.3 Neutrophils % 77.4 Lymphocytes % 14.4 Monocytes % 6.0 Eosinophils % 1.6 Basophils % 0.3 Absolute Neutrophils 8.92 H Absolute Lymphocytes 1.66 Absolute Monocytes 0.69 Absolute Eosinophils 0.18 Absolute Basophils 0.03 Sodium 138 Potassium 3.7 Chloride 101 Carbon Dioxide 28.6 Anion Gap 8.4 BUN 14 Creatinine 0.84 Estimated GFR/1.73 m2 >= 60.00 Glucose 107 H Calcium 9.8 Magnesium 1.9 Total Bilirubin 0.5 AST 21 ALT 26 Alkaline Phosphatase 89 Troponin I < 0.02 NT-Pro-B Natriuret Pep 414 H Total Protein 8.3 H Albumin 4.0 ECG Data Attestation: I personally reviewed and interpreted this ECG (s) as follows: Interpretation: Normal sinus rhythm, rate of 66, there is no ST segment elevation, the QRS is narrow, there is nonspecific ST changes in V1 and V2 HPI General Mode of arrival: ambulatory. Date/Time Provider Initiated Documentation: 06/29/18 08:06. Limitations to Documentation: no limitations. Information obtained by: patient. History of Present Illness 62 year old F presents to the emergency department with the chief complaint of Cough status post catheterization June 24, reported negative, described as moderate, Quality is described as dull, and is localized to the chest. Patient reports no radiation. Patient started experiencing this day(s) and it has been intermittent. No relieving factors improve symptom(s), No exacerbating factors reported . Patient notes denies fever/chills. Patient did receive the following treatments prior to arrival, none Related Data Home Medications Medication Instructions Recorded Confirmed Eliquis 5 mg PO BID 05/01/18 06/29/18 lorazepam [Ativan] 0.5 mg PO QHS PRN #5 tab 06/04/18 06/29/18 pantoprazole [Protonix] 20 mg PO DAILY 06/04/18 06/29/18 lorazepam 0.5 mg tablet 0.5 mg PO QHS PRN #30 tab 06/10/18 06/29/18 doxycycline hyclate 100 mg PO BID 10 Days #20 cap 06/29/18 Previous Rx's Medication Instructions Recorded lorazepam [Ativan] 0.5 mg PO QHS PRN #5 tab 06/04/18 lorazepam 0.5 mg tablet 0.5 mg PO QHS PRN #30 tab 06/10/18 doxycycline hyclate 100 mg PO BID 10 Days #20 cap 06/29/18 Allergies Allergy/AdvReac Type Severity Reaction Status Date / Time amoxicillin [From Augmentin] AdvReac Intermediate GI Verified 06/29/18 08:15 upset/diarrhea clavulanic acid AdvReac Intermediate GI Verified 06/29/18 08:15 [From Augmentin] upset/diarrhea General Stated Complaint: SOB PAULINO: 3 Review of Systems Review of Systems Patient reports the catheterization was unremarkable. No groin pain. Bruising of the right wrist. She she has had some mild loose stool since being intolerant of Augmentin. 8 systems reviewed and otherwise negative. [facility] Social History Smoking/Tobacco Use Status: Never Alcohol Intake: never Drug use: Never Substance use type: does not use Do you feel safe at home: Yes Do you feel safe in your relationship?: Yes Additional Social history: Mrs. Rosas is , has 2 boys. 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 She has a history of tobacco with a 30+ pack year history of smoking, recently quit. No alcohol use or drug use elicited. Exam Narrative Exam Narrative: GEN: awake, alert, oriented 3. Pleasant, well groomed, interactive. HEAD: Normocephalic, atraumatic ENT: Mucous membranes moist, oropharynx unremarkable, External ear exam unremarkable EYES: PERRL, EOMI NECK: Full ROM, no EDUARDO, no menigismus CHEST/RESP: Nontender, clear to auscultation bilateral, subtle rhonchi L base CARDIOVASCULAR: RRR, soft blowing 2 out of 6 ejection murmur, no rub rosalinda. 2+ Rad pulse bilateral ABDOMEN: Soft, nontender, no mass. +Bowel sounds EXT: Full ROM, no edema, no rash. Right wrist with volar ecchymosis. Radial pulses symmetric Neuro: Grossly normal neurologic exam, conversant, interactive. Psych: Speech fluent, thoughts congruent, affect normal Course Vital Signs Temperature 36.5 C 06/29/18 07:56 Pulse 66 06/29/18 07:56 Respiratory Rate 25 H 06/29/18 07:56 Blood Pressure 124/66 06/29/18 07:56 Pulse Oximetry 96 06/29/18 07:56 Temperature 36.5 C 06/29/18 07:56 Temperature Source Skin 06/29/18 07:56 Pulse 66 06/29/18 07:56 Respiratory Rate 25 H 06/29/18 07:56 Respiratory Effort Non-Labored 06/29/18 07:56 Blood Pressure 124/66 06/29/18 07:56 Blood Pressure Position Sitting 06/29/18 07:56 Pulse Oximetry 96 06/29/18 07:56 Oxygen Delivery Method Room Air 06/29/18 07:56 Oxygen Flow Rate 0 06/29/18 07:56 Pain Level 0 06/29/18 07:56
--- NOTE | 2018-06-29 08:32 | ED.GENADUL_ITS ---
Discharge Plan Disposition Patient Disposition: HOME Condition: Improving Discharge Details Chief Complaint: SOB Clinical Impression: Bronchitis Primary Care Provider: Elisha Morrell ED Provider: Chase Cruz Home Meds and New Rx's Prescriptions: New doxycycline hyclate 100 mg capsule 100 mg PO BID 10 Days Qty: 20 RF: 0 Continued lorazepam 0.5 mg tablet 0.5 mg PO QHS PRN (Reason: sleep) Qty: 30 RF: 0 Eliquis 5 mg Tablet 5 mg PO BID RF: 0 pantoprazole [Protonix] 20 mg Tablet,Delayed Release (Dr/Ec) 20 mg PO DAILY RF: 0 lorazepam [Ativan] 0.5 mg tablet 0.5 mg PO QHS PRN (Reason: anxiety) Qty: 5 RF: 0 Discharge Instructions Instructions: Acute Bronchitis (ED) Additional Instructions: Home to rest. Small, frequent sips of fluids to maintain hydration. Please follow-up with Dr. Brown if not improving in 5 days time. Return to the emergency department for any acute concern. Medical Decision Making 62-year-old female presents from home with 4-5 days of cough. She is well-known to me following similar presentation after having uneventful ablation. She reports cough developing following what was a negative cardiac catheterization on June 24, which was preoperative for ASD closure. Afebrile, well-appearing, subtle rhonchi at left base. EKG, labs, chest x-ray obtained. Cath report obtained and scanned to record. The patient is in a sinus rhythm. Her laboratories are reassuring including a BNP of 414 and negative troponin. Her chest x-ray is not significantly changed, but given her presentation she is at risk for developing bronchitis or pneumonitis and I will place her on a course of doxycycline to which she had good response in the past. She understands homecare as well as return precautions. She is stable for discharge at this time. CC: Brad Coelho Jr. [facility] Cardiology Lab Data Lab results reviewed: Yes I reviewed the patient's lab results. Laboratory Results - last 24 hr 06/29/18 06/29/18 08:15 08:15 WBC 11.53 H RBC 5.34 H Hgb 15.8 H Hct 45.0 MCV 84.3 MCH 29.6 MCHC 35.1 RDW 13.7 Plt Count 242 MPV 10.0 Immature Gran % 0.3 Neutrophils % 77.4 Lymphocytes % 14.4 Monocytes % 6.0 Eosinophils % 1.6 Basophils % 0.3 Absolute Neutrophils 8.92 H Absolute Lymphocytes 1.66 Absolute Monocytes 0.69 Absolute Eosinophils 0.18 Absolute Basophils 0.03 Sodium 138 Potassium 3.7 Chloride 101 Carbon Dioxide 28.6 Anion Gap 8.4 BUN 14 Creatinine 0.84 Estimated GFR/1.73 m2 >= 60.00 Glucose 107 H Calcium 9.8 Magnesium 1.9 Total Bilirubin 0.5 AST 21 ALT 26 Alkaline Phosphatase 89 Troponin I < 0.02 NT-Pro-B Natriuret Pep 414 H Total Protein 8.3 H Albumin 4.0 ECG Data Attestation: I personally reviewed and interpreted this ECG (s) as follows: Interpretation: Normal sinus rhythm, rate of 66, there is no ST segment elevation, the QRS is narrow, there is nonspecific ST changes in V1 and V2 HPI General Mode of arrival: ambulatory . Date/Time Provider Initiated Documentation: 06/29/18 08:06 . Limitations to Documentation: no limitations . Information obtained by: patient . History of Present Illness 62 year old F presents to the emergency department with the chief complaint of Cough status post catheterization June 24, reported negative, described as moderate, Quality is described as dull, and is localized to the chest. Patient reports no radiation. Patient started experiencing this day(s) and it has been intermittent. No relieving factors improve symptom(s), No exacerbating factors reported . Patient notes denies fever/chills. Patient did receive the following treatments prior to arrival, none Related Data Home Medications Medication Instructions Recorded Confirmed Eliquis 5 mg PO BID 05/01/18 06/29/18 lorazepam [Ativan] 0.5 mg PO QHS PRN #5 tab 06/04/18 06/29/18 pantoprazole [Protonix] 20 mg PO DAILY 06/04/18 06/29/18 lorazepam 0.5 mg tablet 0.5 mg PO QHS PRN #30 tab 06/10/18 06/29/18 doxycycline hyclate 100 mg PO BID 10 Days #20 cap 06/29/18 Previous Rx's Medication Instructions Recorded lorazepam [Ativan] 0.5 mg PO QHS PRN #5 tab 06/04/18 lorazepam 0.5 mg tablet 0.5 mg PO QHS PRN #30 tab 06/10/18 doxycycline hyclate 100 mg PO BID 10 Days #20 cap 06/29/18 Allergies Allergy/AdvReac Type Severity Reaction Status Date / Time amoxicillin [From Augmentin] AdvReac Intermediate GI Verified 06/29/18 08:15 upset/diarrhea clavulanic acid AdvReac Intermediate GI Verified 06/29/18 08:15 [From Augmentin] upset/diarrhea General Stated Complaint: SOB PAULINO: 3 Review of Systems Review of Systems Patient reports the catheterization was unremarkable. No groin pain. Bruising of the right wrist. She she has had some mild loose stool since being intolerant of Augmentin. 8 systems reviewed and otherwise negative. [facility] Social History Smoking/Tobacco Use Status: Never Alcohol Intake: never Drug use: Never Substance use type: does not use Do you feel safe at home: Yes Do you feel safe in your relationship?: Yes Additional Social history: Mrs. Rosas is , has 2 boys. 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 She has a history of tobacco with a 30+ pack year history of smoking, recently quit. No alcohol use or drug use elicited. Exam Narrative Exam Narrative: GEN: awake, alert, oriented 3. Pleasant, well groomed, interactive. HEAD: Normocephalic, atraumatic ENT: Mucous membranes moist, oropharynx unremarkable, External ear exam unremarkable EYES: PERRL, EOMI NECK: Full ROM, no EDUARDO, no menigismus CHEST/RESP: Nontender, clear to auscultation bilateral, subtle rhonchi L base CARDIOVASCULAR: RRR, soft blowing 2 out of 6 ejection murmur, no rub rosalinda. 2+ Rad pulse bilateral ABDOMEN: Soft, nontender, no mass. +Bowel sounds EXT: Full ROM, no edema, no rash. Right wrist with volar ecchymosis. Radial pulses symmetric Neuro: Grossly normal neurologic exam, conversant, interactive. Psych: Speech fluent, thoughts congruent, affect normal Course Vital Signs Temperature 36.5 C 06/29/18 07:56 Pulse 66 06/29/18 07:56 Respiratory Rate 25 H 06/29/18 07:56 Blood Pressure 124/66 06/29/18 07:56 Pulse Oximetry 96 06/29/18 07:56 Temperature 36.5 C 06/29/18 07:56 Temperature Source Skin 06/29/18 07:56 Pulse 66 06/29/18 07:56 Respiratory Rate 25 H 06/29/18 07:56 Respiratory Effort Non-Labored 06/29/18 07:56 Blood Pressure 124/66 06/29/18 07:56 Blood Pressure Position Sitting 06/29/18 07:56 Pulse Oximetry 96 06/29/18 07:56 Oxygen Delivery Method Room Air 06/29/18 07:56 Oxygen Flow Rate 0 06/29/18 07:56 Pain Level 0 06/29/18 07:56
[2018-06-29 08:36] LABS: Abs Immature Grans 0.03 k/cumm (0.0-0.09); Absolute Lymphocyte Count 1.66 k/cumm (1.2-3.4); Absolute Monocyte Count 0.69 k/cumm (0.11-0.7); Absolute Neutrophil Count 8.92 k/cumm (1.2-6.7); Basophils % 0.3; Eosinophils % 1.6; HGB 15.8 g/dL (12.0-15.5); Immature Grans % 0.3; Lymphocytes % 14.4; Mean Corp. HGB Concentration 35.1 g/dL (32.0-36.0); Mean Corpuscular Hemoglobin 29.6 pg (27.0-33.0); Mean Corpuscular Volume 84.3 fL (80-95); Neutrophils % 77.4; Platelet Count 242 x1000/uL (130-400); RBC 5.34 m/cumm (4.00-5.20); RBC Distribution Width 13.7 % (11.7-14.6); White Blood Cell Count 11.53 k/cumm (4.4-10.8)
[2018-06-29 08:37] LABS: Absolute Basophil Count 0.03 k/cumm (0.0-0.2); Absolute Eosinophil Count 0.18 k/cumm (0.0-0.7)
--- NOTE | 2018-06-29 08:44 | DI.RAD_ITS ---
SYMPTOM/DIAGNOSIS: COUGH, S/P CATH FRONTAL AND LATERAL CHEST: Comparison is made with 2019. The heart remains mildly enlarged. There is again seen prominence of the pulmonary vasculature which appears stable. Scarring or plate atelectasis is seen in the left lung. No focal consolidating infiltrates are seen to suggest pneumonia. No effusions or pneumothoraces are identified. Age appropriate degenerative changes are seen in the spine. IMPRESSION: Stable appearance of the chest. No definite acute pulmonary process.
[2018-06-29 08:54] LABS: ALT 26 U/L (12-78); AST 21 U/L (15-37); Alkaline Phosphatase 89 U/L (46-116); Anion Gap 8.4 mmol/L (3-11); BUN 14 mg/dL (7-18); Bilirubin, Total 0.5 mg/dL (0.2-1.0); CO2 28.6 mmol/L (21.0-32.0); CREATININE 0.84 mg/dL (0.55-1.02); Calcium 9.8 mg/dL (8.5-10.1); Chloride 101 mmol/L (98-107); Glucose 107 mg/dL (70-100); Magnesium 1.9 mg/dL (1.8-2.4); NT-proBNP 414 pg/mL; Potassium 3.7 mmol/L (3.5-5.1); Sodium 138 mmol/L (136-145); Total Protein 8.3 g/dL (6.4-8.2)
[2018-06-29 08:56] LABS: Troponin I < 0.02 ng/mL (0.00-0.06)
== END 2018-06-29 09:53 | disposition home or self-care (01) ==
PROVIDERS: Emergency Provider Emergency Medicine; PCP Family Medicine
DX: J20.9 Acute bronchitis, unspecified (principal)
CPT/HCPCS: 36415; 80053; 93005; 99285; 71046; 83735; 83880; 84484; 85025; 93010

== ENCOUNTER 2018-08-26 11:04 | Outpatient (CLI) | payer MEDICARE, SELFPAY ==
[2018-08-26 12:55] LABS: HCT 42.3 % (36.0-46.0); Mean Corp. HGB Concentration 35.5 g/dL (32.0-36.0); Mean Corpuscular Hemoglobin 30.1 pg (27.0-33.0); Mean Corpuscular Volume 84.8 fL (80-95); Mean Platelet Volume 10.6 fL (8.0-11.0); Platelet Count 265 x1000/uL (130-400); RBC 4.99 m/cumm (4.00-5.20); RBC Distribution Width 14.2 % (11.7-14.6); White Blood Cell Count 8.36 k/cumm (4.4-10.8)
[2018-08-26 13:03] LABS: Anion Gap 9.9 mmol/L (3-11); BUN 16 mg/dL (7-18); CO2 28.1 mmol/L (21.0-32.0); CREATININE 0.85 mg/dL (0.55-1.02); Calcium 9.3 mg/dL (8.5-10.1); Chloride 102 mmol/L (98-107); Glucose 98 mg/dL (70-100); Potassium 4.6 mmol/L (3.5-5.1); Sodium 140 mmol/L (136-145)
[2018-08-26 13:16] LABS: Prothrombin Time 9.8 sec (9.3-11.0)
== END 2018-08-26 11:24 ==
PROVIDERS: PCP Family Medicine; Visit Provider Family Medicine
DX: I48.92 Unspecified atrial flutter (principal); Z79.01 Long term (current) use of anticoagulants; F41.9 Anxiety disorder, unspecified
CPT/HCPCS: 36415; 80048; 85027; 85610

== ENCOUNTER 2018-09-12 01:28 | Emergency (ER) | payer MEDICARE, MEDICAID, SELFPAY ==
[2018-09-12] VITALS (13 sets, daily range): BP systolic 73–144; BP diastolic 46–103; PULSE 62–77; RESP 12–23; TEMP 36.4; O2SAT 93–97
--- NOTE | 2018-09-12 01:46 | W.ED.GENAD ---
Discharge Plan Disposition Patient Disposition: HOME Condition: Stable Discharge Details Chief Complaint: Chest Pain Clinical Impression: Anxiety, Cough Primary Care Provider: Elisha Morrell ED Provider: Sanchez Dhaliwal Home Meds and New Rx's Prescriptions: New prednisone 20 mg tablet 60 mg PO DAILY 4 Days Qty: 12 RF: 0 doxycycline hyclate 100 mg tablet 100 mg PO BID Qty: 14 RF: 0 lorazepam 0.5 mg tablet 0.5 mg PO BID-TID PRN (Reason: anxiety) Qty: 9 RF: 0 Continued buspirone 15 mg tablet 7.5 mg PO BID RF: 0 lorazepam 0.5 mg tablet 0.5 mg PO BID PRN (Reason: sleep) Qty: 30 RF: 0 aspirin [Aspirin Low Dose] 81 mg Tablet,Delayed Release (Dr/Ec) 81 mg PO DAILY RF: 0 Eliquis 5 mg Tablet 5 mg PO BID RF: 0 Discharge Instructions Instructions: Acute Cough (ED) Additional Instructions: follow up as scheduled with your primary care provider this week if you feel you are becoming more ill or have new symptoms such as high fevers or abdominal pain return to the emergency department for reevaluation Medical Decision Making 63 yo female with hx of aflutter, anxiety, who had asd repair last week at [facility] that was a transvenous approach, who was a chronic smoker up until this past March until she quit, who comes in with chief complaint of hacking cough and chest pain with coughing starting about 3-4 hours ago. Denies pressure, radiation of pain, leg swelling. She is in no distress laughing during exam speaking in full sentences. She does have intermittent dry cough. She has wheezing in both lungs at the apices and mid lungs. NO crackles, no jvd. She denies dx of copd though has never had testing for this. I suspect she could have bronchitis with RAD or undiagnosed copd, will tx with steroids and neb. Given her well appearance and no fever doubt pna. Her heart score is 3 and pain doesn't sound consistent with acs, ekg unremarkable, will obtain troponin. No tearing back pain and normal vascular exam so doubt dissection. No evidence of dvt, no tachycardia or hypoxia so doubt PE at this time labs are unremarkable, she remains stable with intermittent dry cough. Xray shows no acute findings on my read. She is still speaking in full sentences with clear lungs and laughing in no distress. She declined the neb tx as she feels jittery but now only has mild apical wheezing bilaterally Do not feel further w/u or imaging indicated and feel she is stable for d/c. Given her symptoms will tx for bronchitis. She is out of ativan and isn't scheduled to see her pcp until wednesday and is feeling very anxious. Will prescribe her ativan to use as needed until she can f/u with them and return precautions given Differential Diagnosis pna, bronchitis, asthma/copd Medical Records Medical records reviewed: Yes I reviewed the patient's medical records. Imaging Data Radiologic Study: Attestation: I personally reviewed and interpreted this imaging study as follows: Imaging: X-Ray My impression: no acute findings Lab Data Lab results reviewed: Yes I reviewed the patient's lab results. ECG Data Attestation: I personally reviewed and interpreted this ECG (s) as follows: Prior ECG tracings: not available for review Interpretation: sinus rhythm, rate of 72, pr 170, no acute st st wave ischemic findings HPI General Mode of arrival: EMS. Date/Time Provider Initiated Documentation: 09/12/18 01:35. Limitations to Documentation: no limitations. Information obtained by: patient. History of Present Illness 63 year old F presents to the emergency department with the chief complaint of cough, described as moderate, Quality is described as aching, and is localized to the chest. Patient started experiencing this hour(s) (4) No relieving factors improve symptom(s), No exacerbating factors reported . Patient did receive the following treatments prior to arrival, none Related Data Home Medications Medication Instructions Recorded Confirmed Eliquis 5 mg PO BID 05/01/18 09/12/18 lorazepam 0.5 mg tablet 0.5 mg PO BID PRN #30 tab 08/19/18 09/12/18 buspirone 15 mg tablet 7.5 mg PO BID tab 08/26/18 08/26/18 aspirin [Aspirin Low Dose] 81 mg PO DAILY 09/12/18 09/12/18 doxycycline hyclate 100 mg PO BID #14 tab 09/12/18 lorazepam 0.5 mg PO BID-TID PRN #9 tab 09/12/18 prednisone 60 mg PO DAILY 4 Days #12 tab 09/12/18 Previous Rx's Medication Instructions Recorded lorazepam 0.5 mg tablet 0.5 mg PO BID PRN #30 tab 08/19/18 doxycycline hyclate 100 mg PO BID #14 tab 09/12/18 lorazepam 0.5 mg PO BID-TID PRN #9 tab 09/12/18 prednisone 60 mg PO DAILY 4 Days #12 tab 09/12/18 Allergies Allergy/AdvReac Type Severity Reaction Status Date / Time pantoprazole [From Protonix] AdvReac Severe DIARRHEA Verified 08/26/18 10:39 amoxicillin [From Augmentin] AdvReac Intermediate GI Verified 08/26/18 10:39 upset/diarrhea clavulanic acid AdvReac Intermediate GI Verified 08/26/18 10:39 [From Augmentin] upset/diarrhea General Stated Complaint: Chest Pain PAULINO: 2 Review of Systems Review of Systems All systems reviewed & are unremarkable except as noted in HPI and below Constitutional Denies chills, Denies fever(s) and Denies weakness Gastrointestinal Denies abdominal pain, Denies nausea and Denies vomiting Integumentary/Breasts Denies rash Neurologic Denies weakness [facility] Social History Smoking/Tobacco Use Status: Former Tobacco Use Quit Date: 03/22/18 Alcohol Intake: never Drug use: Never Substance use type: does not use Do you feel safe at home: Yes Do you feel safe in your relationship?: Yes Additional Social history: Mrs. Rosas is , has 2 boys. 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 She has a history of tobacco with a 30+ pack year history of smoking, recently quit. No alcohol use or drug use elicited. Exam Const General: no acute distress Orientation: alert HENMT Head: normal to inspection Ears: external ears normal General nose exam: external nose normal Mouth: moist mucous membranes Eyes General: appearance normal, both eyes and all related structures Neck Neck: normal visual inspection Resp Effort & Inspection: normal respiratory effort and able to speak in complete sentences Cardio Rate: regular rate Skin General skin exam: no rashes or lesions noted Neuro General: alert and oriented x3 Extrem General: normal to inspection Psych Mental Status: mental status grossly normal Course Vital Signs Temperature 36.4 C L 09/12/18 01:27 Pulse 69 09/12/18 01:27 Respiratory Rate 18 09/12/18 01:27 Blood Pressure 144/66 H 09/12/18 01:27 Pulse Oximetry 96 09/12/18 01:27 Temperature 36.4 C L 09/12/18 01:27 Temperature Source Tympanic 09/12/18 01:27 Pulse 69 09/12/18 01:27 Respiratory Rate 18 09/12/18 01:38 Respiratory Effort Non-Labored 09/12/18 01:38 Respiratory Depth Normal 09/12/18 01:38 Respiratory Pattern Normal 09/12/18 01:38 Blood Pressure 144/66 H 09/12/18 01:27 Blood Pressure Position Sitting 09/12/18 01:27 Pulse Oximetry 96 09/12/18 01:27 Oxygen Delivery Method Room Air 09/12/18 01:27 Oxygen Flow Rate 0 09/12/18 01:27 Pain Level 0 09/12/18 01:27 Comment 09/12/18 01:27
[2018-09-12 01:55] LABS: Abs Immature Grans 0.02 k/cumm (0.0-0.09); Absolute Basophil Count 0.03 k/cumm (0.0-0.2); Absolute Eosinophil Count 0.22 k/cumm (0.0-0.7); Absolute Lymphocyte Count 1.55 k/cumm (1.2-3.4); Absolute Monocyte Count 0.86 k/cumm (0.11-0.7); Absolute Neutrophil Count 5.97 k/cumm (1.2-6.7); Basophils % 0.3; Eosinophils % 2.5; HCT 42.2 % (36.0-46.0); HGB 15.1 g/dL (12.0-15.5); Immature Grans % 0.2; Lymphocytes % 17.9; Mean Corp. HGB Concentration 35.8 g/dL (32.0-36.0); Mean Corpuscular Hemoglobin 30.4 pg (27.0-33.0); Mean Corpuscular Volume 84.9 fL (80-95); Mean Platelet Volume 10.1 fL (8.0-11.0); Monocytes % 9.9; Neutrophils % 69.2; Platelet Count 234 x1000/uL (130-400); RBC 4.97 m/cumm (4.00-5.20); RBC Distribution Width 13.7 % (11.7-14.6); White Blood Cell Count 8.65 k/cumm (4.4-10.8)
--- NOTE | 2018-09-12 01:55 | DI.RAD_ITS ---
SYMPTOM/DIAGNOSIS: COUGH PA AND LATERAL CHEST: Comparison is made with 29 June 2018 The heart is noted to be enlarged, unchanged. Metallic density is seen in the heart related to recent cardiac surgery. There is stable mild vascular prominence. The lungs appear clear. No focal infiltrate, effusion or pulmonary edema is seen. IMPRESSION: Cardiomegaly. No acute abnormality
[2018-09-12] MEDS: Albuterol/Ipratropium 3 ML UPD VIAL UPD (02:01)
[2018-09-12] MEDS: methylPREDNISolone SUCC 125 MG VIAL IVP (02:01)
[2018-09-12 02:06] LABS: PTT Activated 24.6 sec (21.0-31.4); Prothrombin Time 9.9 sec (9.3-11.0)
[2018-09-12 02:10] LABS: ALT 41 U/L (12-78); AST 30 U/L (15-37); Albumin 3.6 g/dL (3.4-5.0); Alkaline Phosphatase 146 U/L (46-116); Anion Gap 10.1 mmol/L (3-11); BUN 10 mg/dL (7-18); Bilirubin, Total 0.5 mg/dL (0.2-1.0); CO2 27.9 mmol/L (21.0-32.0); CREATININE 0.75 mg/dL (0.55-1.02); Calcium 9.7 mg/dL (8.5-10.1); Chloride 103 mmol/L (98-107); Glucose 124 mg/dL (70-100); Sodium 141 mmol/L (136-145); Total Protein 8.4 g/dL (6.4-8.2)
[2018-09-12 02:14] LABS: Troponin I < 0.05 ng/mL (0.00-0.06)
[2018-09-12] MEDS: Doxycycline Hyclate 100 MG CAP PO (02:33)
[2018-09-12] MEDS: LORazepam 0.5 MG TAB PO (02:33)
--- NOTE | 2018-09-12 02:53 | DI.VRAD_ITS ---
EXAM: XR Chest, 2 Views EXAM DATE/TIME: 09/12/2018 1:41 AM CLINICAL HISTORY: 63 years old, female; Cough and shortness of breath; Prior surgery; Surgery date: 3-7 days post-operative; Surgery type: Hole in heart repaired at [facility]; Patient HX: New onset of cough, upper chest discomfort, and HX of pneumonia TECHNIQUE: Imaging protocol: XR of the chest, 2 views. COMPARISON: CR XR CHEST 2V PA LATERAL 06/29/2018 8:43 AM FINDINGS: Lungs: Unremarkable. No consolidation. Pleural space: Unremarkable. No pleural effusion. No pneumothorax. Heart/Mediastinum: Unremarkable. No cardiomegaly. Bones/joints: Unremarkable. IMPRESSION: No acute findings. Dictated and Authenticated by: Sanchez Lombardi MD. Ordering:RYLAN Bradford MD
== END 2018-09-12 02:40 | disposition home or self-care (01) ==
LOC: ER 02:44
PROVIDERS: Emergency Provider Emergency Medicine; PCP Family Medicine
DX: F41.9 Anxiety disorder, unspecified (principal); R05 Cough; I48.92 Unspecified atrial flutter; Z87.891 Personal history of nicotine dependence
CPT/HCPCS: 36415; 80053; 94640; 96374; 99284; 71046; 83735; 84484; 85025; 85610; 85730; J2930; J7620

== ENCOUNTER 2018-09-24 22:06 | Emergency (ER) | payer MEDICARE, MEDICAID, SELFPAY ==
[2018-09-24] VITALS (15 sets, daily range): BP systolic 86–138; BP diastolic 63–99; PULSE 71–158; RESP 14–22; TEMP 36.3–36.6; O2SAT 95–99
--- NOTE | 2018-09-24 22:28 | ED.GENADUL_ITS ---
Discharge Plan Disposition Patient Disposition: HOME Discharge Details Chief Complaint: Palpitatns Clinical Impression: Atrial fibrillation Primary Care Provider: Enrike Brown ED Provider: Ti Walter Home Meds and New Rx's Prescriptions: Continued fluoxetine 10 mg tablet 10 mg PO DAILY Qty: 30 RF: 1 aspirin [Aspirin Low Dose] 81 mg Tablet,Delayed Release (Dr/Ec) 81 mg PO DAILY RF: 0 Eliquis 5 mg Tablet 5 mg PO BID RF: 0 No Action lorazepam 0.5 mg tablet 0.25 - 0.5 mg PO BID-TID PRN (Reason: anxiety) Qty: 15 RF: 0 cephalexin [Keflex] 500 mg capsule 500 mg PO BID Qty: 10 RF: 0 diltiazem HCl 120 mg capsule,extended release 24hr 120 mg PO BID Qty: 30 RF: 0 Discharge Instructions Instructions: Atrial Fibrillation (ED) Additional Instructions: Please follow-up with [facility] cardiology. . Call on Wednesday to arrange timely follow-up. Please contact your primary care physician to arrange follow-up. Call Wednesday Return to the ER for any worsening or new concerning symptoms. Referrals: Enrike Brown [Primary Care Provider] - Discharge Data Discharge Date/Time-TO BE ENTERED AT DEPARTURE: 09/25/18 00:17 Medical Decision Making 22:35 --63-year-old female with history of atrial fibrillation status post ablation 06/07 and status post atrial septal defect closure at [facility] 09/07 here with palpitations since 8 PM. Patient has irregularly irregular tachycardia. She is normotensive. Seh is on eliquis and has been taking as prescribed. ECG revieded and interpreted by me: Atrial fibrillation 153 bpm, subtle ST depression noted laterally. Plan to check electrolytes and TSH. I will attempt to obtain records from [facility] and [facility]. 22:55 --I called and spoke with Dr. Trejo (covering for Dr. Boyer) and discussed ED presentation and history of ablation and recent gore cardioform ASD repair. He noted that cardioversion is not contraindicated and agrees with cardioversion at this time. 23:20 -- Patient provided informed consent to cardioversion. [facility] performed. Procedure note: electrical cardioversion Consent: verbal and written Indication: afib with RVR Anesthesia: fentanyl 100mcg IV Note: Pacer pads placed anteriorly and posteriorly Repeat ECG post cardioversion reviewed and interpreted by me: Sinus rhythm 76 bpm, T wave inversions noted V1 and V2, nondiagnostic. 23:25 -- I called and spoke with Dr. Villagomez (cardiology at [facility]) and discussed ED presentation and course. He recommended starting toprol xl 50mg daily, discharge and have patient call to arrange outpatient followup. Lab Data Lab results reviewed: Yes I reviewed the patient's lab results. Laboratory Tests Range/Units 09/24/18 09/24/18 22:34 22:34 WBC (4.4-10.8) k/cumm 11.74 H RBC (4.00-5.20) m/cumm 5.31 H Hgb (12.0-15.5) g/dL 16.0 H Hct (36.0-46.0) % 44.8 MCV (80-95) fL 84.4 MCH (27.0-33.0) pg 30.1 MCHC (32.0-36.0) g/dL 35.7 RDW (11.7-14.6) % 13.3 Plt Count (130-400) x1000/uL 287 MPV (8.0-11.0) fL 10.3 Immature Gran % 0.3 Neutrophils % 65.5 Lymphocytes % 21.7 Monocytes % 9.7 Eosinophils % 2.3 Basophils % 0.5 Absolute Neutrophils (1.2-6.7) k/cumm 7.69 H Absolute Lymphocytes (1.2-3.4) k/cumm 2.55 Absolute Monocytes (0.11-0.7) k/cumm 1.14 H Absolute Eosinophils (0.0-0.7) k/cumm 0.27 Absolute Basophils (0.0-0.2) k/cumm 0.06 Sodium (136-145) mmol/L 139 Potassium (3.5-5.1) mmol/L 4.5 Chloride (98-107) mmol/L 103 Carbon Dioxide (21.0-32.0) mmol/L 24.0 Anion Gap (3-11) mmol/L 12.0 H BUN (7-18) mg/dL 16 Creatinine (0.55-1.02) mg/dL 0.86 Estimated GFR/1.73 m2 (mL/min/1.73m2) >= 60.00 Glucose (70-100) mg/dL 127 H Calcium (8.5-10.1) mg/dL 9.4 Magnesium (1.8-2.4) mg/dL 2.1 Total Bilirubin (0.2-1.0) mg/dL 0.3 AST (15-37) U/L 30 ALT (12-78) U/L 27 Alkaline Phosphatase (46-116) U/L 126 H Troponin I (0.00-0.06) ng/mL < 0.05 Total Protein (6.4-8.2) g/dL 8.0 Albumin (3.4-5.0) g/dL 3.6 TSH (0.358-3.74) uIU/mL 2.86 HPI General Mode of arrival: ambulatory . Date/Time Provider Initiated Documentation: 09/24/18 22:07 . Limitations to Documentation: no limitations . Information obtained by: patient . HPI Narrative: 63-year-old female with history of atrial fibrillation, status post ablation 06/07 at [facility], atrial septal defect status post closure at [facility] 09/07, here with chief complaint of palpitations. Patient notes heart started racing around 8 PM tonight. She has intermittent mild associated shortness of breath. No chest pain. No leg swelling. Patient notes she has been taking her Eliquis as prescribed. Prior to onset of palpitations, patient was feeling well today. Related Data Home Medications Medication Instructions Recorded Confirmed Eliquis 5 mg PO BID 05/01/18 10/01/18 aspirin [Aspirin Low Dose] 81 mg PO DAILY 09/12/18 10/01/18 fluoxetine 10 mg tablet 10 mg PO DAILY #30 tab 09/13/18 10/01/18 lorazepam 0.5 mg tablet 0.25 - 0.5 mg PO BID-TID PRN #15 09/29/18 10/01/18 tab diltiazem HCl 120 mg PO BID #30 cap 10/04/18 cephalexin [Keflex] 500 mg PO BID #10 cap 10/09/18 Previous Rx's Medication Instructions Recorded fluoxetine 10 mg tablet 10 mg PO DAILY #30 tab 09/13/18 lorazepam 0.5 mg tablet 0.25 - 0.5 mg PO BID-TID PRN #15 09/29/18 tab diltiazem HCl 120 mg PO BID #30 cap 10/04/18 cephalexin [Keflex] 500 mg PO BID #10 cap 10/09/18 Allergies Allergy/AdvReac Type Severity Reaction Status Date / Time pantoprazole [From Protonix] AdvReac Severe DIARRHEA Verified 10/04/18 19:24 amoxicillin [From Augmentin] AdvReac Intermediate GI Verified 10/04/18 19:24 upset/diarrhea clavulanic acid AdvReac Intermediate GI Verified 10/04/18 19:24 [From Augmentin] upset/diarrhea General Stated Complaint: Palpitatns PAULINO: 3 Review of Systems Review of Systems All systems reviewed & are unremarkable except as noted in HPI and below Constitutional Denies fever(s) Cardiovascular Denies chest pain and Reports palpitations Integumentary/Breasts Denies rash Endocrine Reports palpitations [facility] Medical History No significant past medical history (Acute) Surgical History History of bilateral tubal ligation (Acute) Social History Smoking/Tobacco Use Status: Former Tobacco Use Quit Date: 03/22/18 Alcohol Intake: never Drug use: Never Substance use type: does not use Do you feel safe at home: Yes Do you feel safe in your relationship?: Yes Additional Social history: Mrs. Rosas is , has 2 boys. 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 She has a history of tobacco with a 30+ pack year history of smoking, recently quit. No alcohol use or drug use elicited. Exam Const General: cooperative and no acute distress HENMT Head: normocephalic Mouth: moist mucous membranes Eyes Conjunctivae: normal conjunctivae Sclera: normal sclerae Neck Neck: trachea midline and supple Resp Auscultation: clear to auscultation bilaterally, no rales, no rhonchi and no wheezes Cardio Jugular venous pressure: no JVD Rate: tachycardic Rhythm: abnormal rhythm GI Palpation: soft, not firm, no guarding, no masses, not rigid and nontender Skin General skin exam: no rashes or lesions noted Neuro General: alert, awake, oriented x3 and tone normal Extrem General: no edema Psych Appearance: grossly normal Mental Status: mental status grossly normal Course Vital Signs Temperature 36.6 C 09/24/18 22:15 Pulse 134 H 09/24/18 22:15 Respiratory Rate 20 09/24/18 22:15 Blood Pressure 126/71 09/24/18 22:15 Pulse Oximetry 98 09/24/18 22:15 Temperature 36.6 C 09/24/18 22:15 Temperature Source Skin 09/24/18 22:15 Pulse 134 H 09/24/18 22:15 Respiratory Rate 20 09/24/18 22:15 Respiratory Effort Non-Labored 09/24/18 22:17 Blood Pressure 126/71 09/24/18 22:15 Blood Pressure Position Supine 09/24/18 22:15 Pulse Oximetry 98 09/24/18 22:15 Oxygen Delivery Method Room Air 09/24/18 22:15 Oxygen Flow Rate 0 09/24/18 22:15 Pain Level 0 09/24/18 22:23
[2018-09-24 22:43] LABS: Abs Immature Grans 0.04 k/cumm (0.0-0.09); Absolute Basophil Count 0.06 k/cumm (0.0-0.2); Absolute Eosinophil Count 0.27 k/cumm (0.0-0.7); Absolute Lymphocyte Count 2.55 k/cumm (1.2-3.4); Absolute Monocyte Count 1.14 k/cumm (0.11-0.7); Absolute Neutrophil Count 7.69 k/cumm (1.2-6.7); Basophils % 0.5; Eosinophils % 2.3; HCT 44.8 % (36.0-46.0); Immature Grans % 0.3; Lymphocytes % 21.7; Mean Corp. HGB Concentration 35.7 g/dL (32.0-36.0); Mean Corpuscular Hemoglobin 30.1 pg (27.0-33.0); Mean Corpuscular Volume 84.4 fL (80-95); Mean Platelet Volume 10.3 fL (8.0-11.0); Monocytes % 9.7; Neutrophils % 65.5; Platelet Count 287 x1000/uL (130-400); RBC 5.31 m/cumm (4.00-5.20); RBC Distribution Width 13.3 % (11.7-14.6); White Blood Cell Count 11.74 k/cumm (4.4-10.8)
[2018-09-24 23:07] LABS: ALT 27 U/L (12-78); AST 30 U/L (15-37); Albumin 3.6 g/dL (3.4-5.0); Alkaline Phosphatase 126 U/L (46-116); BUN 16 mg/dL (7-18); Bilirubin, Total 0.3 mg/dL (0.2-1.0); CREATININE 0.86 mg/dL (0.55-1.02); Calcium 9.4 mg/dL (8.5-10.1); Chloride 103 mmol/L (98-107); Glucose 127 mg/dL (70-100); Magnesium 2.1 mg/dL (1.8-2.4); Potassium 4.5 mmol/L (3.5-5.1); Sodium 139 mmol/L (136-145); TSH (W/Ref FT4) 2.86 uIU/mL (0.358-3.74); Troponin I < 0.05 ng/mL (0.00-0.06)
[2018-09-24] MEDS: fentaNYL 100 MCG/2 ML VIAL IVP (23:12)
[2018-09-24] MEDS: Metoprolol CR 50 MG TABCR PO (23:29)
[2018-09-25 00:07] VITALS: BP 119/68; PULSE 69; RESP 17; TEMP 36.6; O2SAT 96
== END 2018-09-25 00:17 | disposition home or self-care (01) ==
PROVIDERS: Emergency Provider Student in an Organized Health Care Education/Training Program; PCP Family Medicine
DX: I48.91 Unspecified atrial fibrillation (principal)
CPT/HCPCS: 36415; 80053; 92960; 93005; 96374; 99284; 83735; 84443; 84484; 85025; 93010; J3010

== ENCOUNTER 2018-10-01 07:54 | Emergency (ER) | payer MEDICARE, MEDICAID, SELFPAY ==
[2018-10-01] VITALS (16 sets, daily range): BP systolic 63–124; BP diastolic 42–99; PULSE 44–59; RESP 8–24; TEMP 36.8; O2SAT 94–99
--- NOTE | 2018-10-01 07:59 | ED.GENADUL_ITS ---
Discharge Plan Disposition Patient Disposition: HOME Condition: Stable Discharge Details Chief Complaint: GenMedical Clinical Impression: Weakness, Bradycardia Primary Care Provider: Enrike Brown ED Provider: Sanchez Dhaliwal [place] Meds and New Rx's Prescriptions: New diltiazem HCl 120 mg capsule,extended release 24hr 120 mg PO DAILY Qty: 30 RF: 0 Continued fluoxetine 10 mg tablet 10 mg PO DAILY Qty: 30 RF: 1 lorazepam 0.5 mg tablet 0.25 - 0.5 mg PO BID-TID PRN (Reason: anxiety) Qty: 15 RF: 0 aspirin [Aspirin Low Dose] 81 mg Tablet,Delayed Release (Dr/Ec) 81 mg PO DAILY RF: 0 Eliquis 5 mg Tablet 5 mg PO BID RF: 0 Discontinued metoprolol succinate [Toprol XL] 50 mg tablet extended release 24 hr 50 mg PO DAILY Qty: 30 RF: 1 Discharge Instructions Additional Instructions: Your lab work and chest xray did not show any concerning findings Based on your timing of symptoms I suspect the metoprolol is causing your symptoms Stop taking the metoprolol and start taking cardizem tomorrow follow up with your primary care provider within 1-2 weeks especially if symptoms continue if you feel more ill, have chest pain/pressure or shortness of breath return to the emergency department Medical Decision Making 63-year-old female with history of atrial fibrillation status post ablation 06/07 and status post atrial septal defect closure at [facility] 09/07 who had cardioversion in the ED last Wednesday for afib with rvr, and startedon metoprolol xl 50mg daily who comes in with feeling general weakness and foggy per pt since. She noticed her pulse was in the 50's and on Wednesday spoke with her pcp and her dose of metropolol was decreased to 25mg daily. She still feels tired and general weakness since. She denies loc, chest pain/pressure, fevers, abd pain. .She is in no distress on exam speaking in full sentences with clear lungs, no distant heart sonuds, no jvd or peripheral edema. I suspect her symptoms are due to the metoprolol as her HR is still in the 50's but will eval for anemia and electrolyte abnormalities .Given no chest pain or pressure doubt entities such as acs and no tachycardia or hypoxia to suggest PE pt remanis stable, still in no distress, HR in the 50s. Labs unremarkable and cxr on my read is also unremarkable. I feel her symptoms are likely due to the metropolol as her symptoms started after taking this, she states she used to be on cardizem and would much rather be on that. Will have her start this and f/u with pcp and return precautions given. Pt has chosen to leave prior to vrad read Differential Diagnosis nstemi, pna, chf, anemia, med rxn Medical Records Medical records reviewed: Yes I reviewed the patient's medical records. Imaging Data Radiologic Study: Attestation: I personally reviewed and interpreted this imaging study as follows: Imaging: X-Ray My impression: no acute findings Lab Data Lab results reviewed: Yes I reviewed the patient's lab results. ECG Data Attestation: I personally reviewed and interpreted this ECG (s) as follows: Prior ECG tracings: available for review Interpretation: sinus bradycardia, rate of 50, pr 184, no acute st t wave ischemic changes HPI General Mode of arrival: ambulatory . Date/Time Provider Initiated Documentation: 10/01/18 07:54 . Limitations to Documentation: no limitations . Information obtained by: patient . History of Present Illness 63 year old F presents to the emergency department with the chief complaint of weak, described as moderate, Patient started experiencing this week(s) (1) and it has been constant. No relieving factors improve symptom(s), No exacerbating factors reported . Patient did receive the following treatments prior to arrival, none Related Data Home Medications Medication Instructions Recorded Confirmed Eliquis 5 mg PO BID 05/01/18 10/01/18 aspirin [Aspirin Low Dose] 81 mg PO DAILY 09/12/18 10/01/18 fluoxetine 10 mg tablet 10 mg PO DAILY #30 tab 09/13/18 10/01/18 lorazepam 0.5 mg tablet 0.25 - 0.5 mg PO BID-TID PRN #15 09/29/18 10/01/18 tab diltiazem HCl 120 mg PO DAILY #30 cap 10/01/18 Previous Rx's Medication Instructions Recorded fluoxetine 10 mg tablet 10 mg PO DAILY #30 tab 09/13/18 lorazepam 0.5 mg tablet 0.25 - 0.5 mg PO BID-TID PRN #15 09/29/18 tab diltiazem HCl 120 mg PO DAILY #30 cap 10/01/18 Allergies Allergy/AdvReac Type Severity Reaction Status Date / Time pantoprazole [From Protonix] AdvReac Severe DIARRHEA Verified 10/01/18 08:04 amoxicillin [From Augmentin] AdvReac Intermediate GI Verified 10/01/18 08:04 upset/diarrhea clavulanic acid AdvReac Intermediate GI Verified 10/01/18 08:04 [From Augmentin] upset/diarrhea General PAULINO: 3 Review of Systems Review of Systems All systems reviewed & are unremarkable except as noted in HPI and below Constitutional Denies chills and Denies fever(s) Cardiovascular Denies chest pain Respiratory Denies cough Gastrointestinal Denies abdominal pain, Denies nausea and Denies vomiting Genitourinary Denies dysuria Integumentary/Breasts Denies rash [facility] Social History Smoking/Tobacco Use Status: Former Tobacco Use Quit Date: 03/22/18 Alcohol Intake: never Drug use: Never Substance use type: does not use Do you feel safe at home: Yes Do you feel safe in your relationship?: Yes Additional Social history: Mrs. Rosas is , has 2 boys. 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 She currently takes care of her mother at home, and volunteers at a local animal [place] [facility] facility. She has a history of tobacco with a 30+ pack year history of smoking, recently quit. No alcohol use or drug use elicited. Exam Const General: no acute distress Orientation: alert HENMT Head: normal to inspection Ears: external ears normal General nose exam: external nose normal Mouth: moist mucous membranes Eyes General: appearance normal, both eyes and all related structures Neck Neck: normal visual inspection Resp Effort & Inspection: normal respiratory effort and able to speak in complete sentences Cardio Rate: regular rate Skin General skin exam: no rashes or lesions noted Neuro General: alert and oriented x3 Extrem General: normal to inspection Psych Mental Status: mental status grossly normal
--- NOTE | 2018-10-01 08:07 | DI.RAD_ITS ---
SYMPTOM/DIAGNOSIS: SOB PA AND LATERAL CHEST: Comparison is made with 09/12/18. Heart size and pulmonary vasculature appear stable. There is again seen a metallic device within the heart consistent with recent septation defect repair. There are opacities seen in the left lung base which were present on the previous examination from 06/29/18 and 09/12/18. This may represent scarring or atelectasis. Pneumonia cannot be entirely excluded. The right lung is clear. No effusion or pneumothorax is identified. IMPRESSION: Persistent left basilar opacities. This may represent atelectasis, scarring or pneumonia.
[2018-10-01 08:26] LABS: Abs Immature Grans 0.02 k/cumm (0.0-0.09); Absolute Basophil Count 0.05 k/cumm (0.0-0.2); Absolute Eosinophil Count 0.14 k/cumm (0.0-0.7); Absolute Lymphocyte Count 1.46 k/cumm (1.2-3.4); Absolute Monocyte Count 0.87 k/cumm (0.11-0.7); Absolute Neutrophil Count 6.41 k/cumm (1.2-6.7); Basophils % 0.6; Eosinophils % 1.6; HCT 41.8 % (36.0-46.0); HGB 15.1 g/dL (12.0-15.5); Immature Grans % 0.2; Lymphocytes % 16.3; Mean Corp. HGB Concentration 36.1 g/dL (32.0-36.0); Mean Corpuscular Hemoglobin 30.4 pg (27.0-33.0); Mean Corpuscular Volume 84.3 fL (80-95); Mean Platelet Volume 10.4 fL (8.0-11.0); Monocytes % 9.7; Neutrophils % 71.6; Platelet Count 223 x1000/uL (130-400); RBC 4.96 m/cumm (4.00-5.20); RBC Distribution Width 13.2 % (11.7-14.6); White Blood Cell Count 8.95 k/cumm (4.4-10.8)
[2018-10-01 08:36] LABS: INR 1.1 (0.9-1.1); PTT Activated 25.4 sec (21.0-31.4); Prothrombin Time 10.7 sec (9.3-11.0)
[2018-10-01 08:41] LABS: ALT 26 U/L (12-78); AST 19 U/L (15-37); Albumin 3.5 g/dL (3.4-5.0); Alkaline Phosphatase 99 U/L (46-116); Anion Gap 10.7 mmol/L (3-11); BUN 12 mg/dL (7-18); Bilirubin, Total 0.4 mg/dL (0.2-1.0); CO2 25.3 mmol/L (21.0-32.0); CREATININE 0.83 mg/dL (0.55-1.02); Chloride 103 mmol/L (98-107); Glucose 108 mg/dL (70-100); Magnesium 1.9 mg/dL (1.8-2.4); Potassium 3.9 mmol/L (3.5-5.1); Sodium 139 mmol/L (136-145); Total Protein 7.5 g/dL (6.4-8.2)
[2018-10-01 08:42] LABS: Troponin I < 0.05 ng/mL (0.00-0.06)
--- NOTE | 2018-10-01 10:12 | DI.VRAD_ITS ---
EXAM: XR Chest, 2 Views EXAM DATE/TIME: 10/01/2018 8:08 AM CLINICAL HISTORY: 63 years old, female; Shortness of breath TECHNIQUE: Imaging protocol: XR of the chest, 2 views. COMPARISON: CR XR CHEST 2V PA LATERAL 09/12/2018 1:52 AM FINDINGS: Lungs: Opacities in the left base may represent atelectasis or pneumonia. Pleural space: Unremarkable. No pleural effusion. No pneumothorax. Heart/Mediastinum: 4.6 cm metallic device within the heart. It was not present 06/04/2018 by was visualized September 12. This is secondary to the ASD surgery. Bones/joints: Unremarkable. IMPRESSION: 1. Opacities in the left base may represent atelectasis or pneumonia. 2. 4.6 cm metallic device within the heart. It was not present 06/04/2018 by was visualized September 12. This is secondary to the ASD surgery. THIS REPORT CONTAINS FINDINGS THAT MAY BE CRITICAL TO PATIENT CARE. The findings were verbally communicated via telephone conference with Sanchez Dhaliwal at 10:12 AM EDT on 10/01/2018. The findings were acknowledged and understood. Dictated and Authenticated by: Cynthia Chew MD. Ordering:RYLAN Bradford MD
== END 2018-10-01 09:22 | disposition home or self-care (01) ==
PROVIDERS: Emergency Provider Emergency Medicine; PCP Family Medicine
DX: R53.1 Weakness (principal); R00.1 Bradycardia, unspecified; R91.8 Other nonspecific abnormal finding of lung field; I48.91 Unspecified atrial fibrillation; Z79.01 Long term (current) use of anticoagulants; I48.0 Paroxysmal atrial fibrillation; Z98.890 Other specified postprocedural states
CPT/HCPCS: 36415; 80053; 93005; 96374; 99284; 99285; 71046; 83735; 84484; 85025; 85610; 85730; 93010

== ENCOUNTER 2018-10-01 10:31 | Emergency (ER) | payer MEDICARE, SELFPAY ==
[2018-10-01] VITALS (27 sets, daily range): BP systolic 75–144; BP diastolic 43–83; PULSE 47–169; RESP 12–26; TEMP 36.8; O2SAT 93–98
--- NOTE | 2018-10-01 10:43 | W.ED.GENAD ---
Discharge Plan Disposition Patient Disposition: HOME Condition: Stable Discharge Details Chief Complaint: Palpitatns Clinical Impression: Atrial fibrillation with rapid ventricular response Primary Care Provider: Enrike Brown ED Provider: Sanchez Dhaliwal Home Meds and New Rx's Prescriptions: No Action fluoxetine 10 mg tablet 10 mg PO DAILY Qty: 30 RF: 1 lorazepam 0.5 mg tablet 0.25 - 0.5 mg PO BID-TID PRN (Reason: anxiety) Qty: 15 RF: 0 aspirin [Aspirin Low Dose] 81 mg Tablet,Delayed Release (Dr/Ec) 81 mg PO DAILY RF: 0 diltiazem HCl 120 mg capsule,extended release 24hr 120 mg PO DAILY Qty: 30 RF: 0 Eliquis 5 mg Tablet 5 mg PO BID RF: 0 Discharge Instructions Instructions: Atrial Fibrillation (ED) Additional Instructions: follow up with your airborne electronics analyst start taking the diltiazem tomorrow if you feel more ill, have high heart rates or have chest pain/pressure return to the emergency department Medical Decision Making 63-year-old female with history of atrial fibrillation status post ablation 06/07 and status post atrial septal defect closure at [facility] [place] 09/07 who comes in with feeling her heart beating fast. She was seen earlier for general weakness and her heart rate being in the 50's and was thought to be due to her metoprolol she started last week after she was seen for afib with rvr and had a cardioversion. She took her last dose of metoprolol last night and had been on cardizem in the past which she tolerated better so was going to restart that but suddenly after d/c felt her heart racing. No severe chest pain or pressure. She is in afib with rvr with rates in the 150's. will give diltiazem obtian lab work and monitor pt's labs unremarkable and she is in sinus rhythm with rates in the 50's will continue to monitor pt's hr well controlled and is in no distress, eating and walking without symptoms. Will d/c and she will f/u with her airborne electronics analyst and return precautions given Differential Diagnosis afib with rvr, electrolyte abnormality Medical Records Medical records reviewed: Yes I reviewed the patient's medical records. Imaging Data Radiologic Study: Attestation: I personally reviewed and interpreted this imaging study as follows: Imaging: X-Ray My impression: right lower lobe pna Lab Data Lab results reviewed: Yes I reviewed the patient's lab results. ECG Data Attestation: I personally reviewed and interpreted this ECG (s) as follows: Prior ECG tracings: available for review Interpretation: afib with rapid rates, rate of 158 ,qtc 447 2nd ekg shows sinus bradycardia rate of 55, qtc 423 HPI General Mode of arrival: ambulatory. Date/Time Provider Initiated Documentation: 10/01/18 10:37. Limitations to Documentation: no limitations. Information obtained by: patient. History of Present Illness 63 year old F presents to the emergency department with the chief complaint of palpitations, described as moderate, Patient reports no radiation. Patient started experiencing this hour(s) (1) and it has been constant. No relieving factors improve symptom(s), No exacerbating factors reported . Patient notes no other symptoms.. Patient did receive the following treatments prior to arrival, none Related Data Home Medications Medication Instructions Recorded Confirmed Eliquis 5 mg PO BID 05/01/18 10/01/18 aspirin [Aspirin Low Dose] 81 mg PO DAILY 09/12/18 10/01/18 fluoxetine 10 mg tablet 10 mg PO DAILY #30 tab 09/13/18 10/01/18 lorazepam 0.5 mg tablet 0.25 - 0.5 mg PO BID-TID PRN #15 09/29/18 10/01/18 tab diltiazem HCl 120 mg PO DAILY #30 cap 10/01/18 Previous Rx's Medication Instructions Recorded fluoxetine 10 mg tablet 10 mg PO DAILY #30 tab 09/13/18 lorazepam 0.5 mg tablet 0.25 - 0.5 mg PO BID-TID PRN #15 09/29/18 tab diltiazem HCl 120 mg PO DAILY #30 cap 10/01/18 Allergies Allergy/AdvReac Type Severity Reaction Status Date / Time pantoprazole [From Protonix] AdvReac Severe DIARRHEA Verified 10/01/18 08:04 amoxicillin [From Augmentin] AdvReac Intermediate GI Verified 10/01/18 08:04 upset/diarrhea clavulanic acid AdvReac Intermediate GI Verified 10/01/18 08:04 [From Augmentin] upset/diarrhea General PAULINO: 3 Review of Systems Review of Systems All systems reviewed & are unremarkable except as noted in HPI and below Constitutional Denies chills, Denies fever(s) and Denies weakness Cardiovascular Denies chest pain and Denies dyspnea Respiratory Denies dyspnea Gastrointestinal Denies abdominal pain, Denies nausea and Denies vomiting Neurologic Denies weakness [facility] Social History Smoking/Tobacco Use Status: Former Tobacco Use Quit Date: 03/22/18 Alcohol Intake: never Drug use: Never Substance use type: does not use Do you feel safe at home: Yes Do you feel safe in your relationship?: Yes Additional Social history: Mrs. Rosas is , has 2 boys. 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 She has a history of tobacco with a 30+ pack year history of smoking, recently quit. No alcohol use or drug use elicited. Exam Const General: no acute distress Orientation: alert HENMT Head: normal to inspection Ears: external ears normal General nose exam: external nose normal Mouth: moist mucous membranes Eyes General: appearance normal, both eyes and all related structures Neck Neck: normal visual inspection Resp Effort & Inspection: normal respiratory effort and able to speak in complete sentences Cardio Rate: tachycardic Skin General skin exam: no rashes or lesions noted Neuro General: alert and oriented x3 Extrem General: normal to inspection Psych Mental Status: mental status grossly normal Critical Care Time Critical Care Time: Yes Total Critical Care Time: 45 (minutes) Attestation: time spent administering iv colby blockers in patient with afib with rvr, frequent reassessments, lab review and hemodynamic monitoring in patient with potential to deteroriate at any time
[2018-10-01] MEDS: dilTIAZem 25 MG/5 ML VIAL 20 MG IVP (10:45)
[2018-10-01 10:55] LABS: Abs Immature Grans 0.03 k/cumm (0.0-0.09); Absolute Basophil Count 0.03 k/cumm (0.0-0.2); Absolute Eosinophil Count 0.08 k/cumm (0.0-0.7); Absolute Lymphocyte Count 1.72 k/cumm (1.2-3.4); Absolute Monocyte Count 0.64 k/cumm (0.11-0.7); Absolute Neutrophil Count 7.83 k/cumm (1.2-6.7); Basophils % 0.3; Eosinophils % 0.8; HCT 45.8 % (36.0-46.0); HGB 16.2 g/dL (12.0-15.5); Immature Grans % 0.3; Lymphocytes % 16.7; Mean Corp. HGB Concentration 35.4 g/dL (32.0-36.0); Mean Corpuscular Hemoglobin 29.9 pg (27.0-33.0); Mean Corpuscular Volume 84.5 fL (80-95); Mean Platelet Volume 10.9 fL (8.0-11.0); Monocytes % 6.2; Neutrophils % 75.7; Platelet Count 252 x1000/uL (130-400); RBC 5.42 m/cumm (4.00-5.20); RBC Distribution Width 13.3 % (11.7-14.6); White Blood Cell Count 10.33 k/cumm (4.4-10.8)
[2018-10-01] MEDS: dilTIAZem CD 180 MG CAPCR PO (10:55)
[2018-10-01 11:12] LABS: ALT 28 U/L (12-78); AST 22 U/L (15-37); Albumin 4.1 g/dL (3.4-5.0); Alkaline Phosphatase 110 U/L (46-116); Anion Gap 12.4 mmol/L (3-11); BUN 12 mg/dL (7-18); Bilirubin, Total 0.5 mg/dL (0.2-1.0); CO2 25.6 mmol/L (21.0-32.0); CREATININE 0.85 mg/dL (0.55-1.02); Calcium 9.6 mg/dL (8.5-10.1); Chloride 101 mmol/L (98-107); Glucose 125 mg/dL (70-100); Magnesium 1.9 mg/dL (1.8-2.4); Potassium 3.8 mmol/L (3.5-5.1); Sodium 139 mmol/L (136-145); Total Protein 8.5 g/dL (6.4-8.2)
== END 2018-10-01 12:52 | disposition home or self-care (01) ==
PROVIDERS: Emergency Provider Emergency Medicine; PCP Family Medicine
DX: I48.0 Paroxysmal atrial fibrillation (principal); R00.1 Bradycardia, unspecified; Z79.01 Long term (current) use of anticoagulants; Z98.890 Other specified postprocedural states
CPT/HCPCS: 36415; 80053; 93005; 96374; 99284; 83735; 85025; 93010

== ENCOUNTER 2018-10-04 19:11 | Emergency (ER) | payer MEDICARE, MEDICAID, SELFPAY ==
[2018-10-04] VITALS (23 sets, daily range): BP systolic 97–134; BP diastolic 54–102; PULSE 54–156; RESP 12–31; O2SAT 94–97
[2018-10-04 19:57] LABS: Abs Immature Grans 0.02 k/cumm (0.0-0.09); Absolute Basophil Count 0.03 k/cumm (0.0-0.2); Absolute Eosinophil Count 0.27 k/cumm (0.0-0.7); Absolute Monocyte Count 0.74 k/cumm (0.11-0.7); Basophils % 0.3; HCT 43.9 % (36.0-46.0); HGB 15.7 g/dL (12.0-15.5); Immature Grans % 0.2; Lymphocytes % 23.2; Mean Corp. HGB Concentration 35.8 g/dL (32.0-36.0); Mean Corpuscular Hemoglobin 30.2 pg (27.0-33.0); Mean Corpuscular Volume 84.4 fL (80-95); Mean Platelet Volume 10.6 fL (8.0-11.0); Monocytes % 8.2; Neutrophils % 65.1; Platelet Count 222 x1000/uL (130-400); RBC Distribution Width 13.4 % (11.7-14.6); White Blood Cell Count 9.06 k/cumm (4.4-10.8)
[2018-10-04 20:10] LABS: PTT Activated 24.5 sec (21.0-31.4); Prothrombin Time 10.4 sec (9.3-11.0)
[2018-10-04 20:18] LABS: ALT 29 U/L (12-78); AST 23 U/L (15-37); Alkaline Phosphatase 111 U/L (46-116); Anion Gap 11.4 mmol/L (3-11); BUN 16 mg/dL (7-18); Bilirubin, Total 0.3 mg/dL (0.2-1.0); CO2 26.6 mmol/L (21.0-32.0); CREATININE 0.83 mg/dL (0.55-1.02); Calcium 9.8 mg/dL (8.5-10.1); Chloride 101 mmol/L (98-107); Glucose 118 mg/dL (70-100); Magnesium 1.9 mg/dL (1.8-2.4); Potassium 3.7 mmol/L (3.5-5.1); Sodium 139 mmol/L (136-145); TSH (W/Ref FT4) 2.94 uIU/mL (0.358-3.74); Total Protein 8.3 g/dL (6.4-8.2)
[2018-10-04 20:20] LABS: Troponin I < 0.05 ng/mL (0.00-0.06)
[2018-10-04] MEDS: Normal Saline 500 ML 1000 ML IV (20:40)
--- NOTE | 2018-10-04 20:52 | NUR.NOTE ---
iv fluids infusing pt resting in bed no distress noted none stated vs on threat monitoring analyst Nursing Note:
--- NOTE | 2018-10-04 21:43 | ED.GENADUL_ITS ---
Discharge Plan Disposition Patient Disposition: HOME Condition: Good Discharge Details Chief Complaint: Palpitatns Clinical Impression: Atrial fibrillation with RVR Primary Care Provider: Enrike Brown ED Provider: Juve Ortiz Home Meds and New Rx's Prescriptions: Continued fluoxetine 10 mg tablet 10 mg PO DAILY Qty: 30 RF: 1 lorazepam 0.5 mg tablet 0.25 - 0.5 mg PO BID-TID PRN (Reason: anxiety) Qty: 15 RF: 0 aspirin [Aspirin Low Dose] 81 mg Tablet,Delayed Release (Dr/Ec) 81 mg PO DAILY RF: 0 Eliquis 5 mg Tablet 5 mg PO BID RF: 0 Changed diltiazem HCl 120 mg capsule,extended release 24hr 120 mg PO BID Qty: 30 RF: 0 Discharge Instructions Instructions: Atrial Fibrillation (ED) Additional Instructions: The social work program coordinator at the [facility] recommends that you take 120 mg of your home Cardizem every 12 hours. They will be contacting you shortly for outpatient electrophysiology follow-up. Please do not miss this appointment. If you notice any return of your symptoms, or you feel that your heart rate is going below 50, you feel lightheaded like you need to pass out please come back immediately for reassessment. If you notice any worsening of your symptoms, or any new symptoms such as vomiting, diarrhea, fever, chills, shortness of breath, chest pain, numbness, weakness, or fainting , please return immediately to the emergency department for reevaluation. Please follow up with your primary care provider as soon as possible for reassessment and reevaluation. As always, it was a pleasure participating in your medical care today. Referrals: Enrike Brown [Primary Care Provider] - Medical Decision Making This is a 63-year-old with history of atrial fibrillation, status post ablation 06/07 at [facility], atrial septal defect status post closure at [facility] 09/07, here with chief complaint of palpitations. Patient has been here multiple times over the last few weeks for palpitations. She was previously on metoprolol, however she had symptomatic bradycardia associated with this, this is stopped and she was started on Cardizem 120 mg extended release every a.m. She is on Eliquis for her paroxysmal A. fib. Today she complains of palpitations again similar to her multiple previous episodes. On arrival she was initially tachycardic in the 150s, however while discussing various options she left, sneezed, and then Valsalva to back into a sinus rhythm. Exam demonstrates no other significant abnormalities. EKG is consistent with prior EKGs. Laboratory work-up shows no significant electrolyte abnormalities, troponin is normal, electrolytes are benign, TSH is normal. We did contact cardiology and I spoke with Casper of cardiology. She rec increasing the patient's 120 mg ER Cardizem to 120 mg twice daily. We will give her her tonight dose here. We did give the information to the social work program coordinator, and she will be creating a follow-up appointment for the patient. We did discuss red flags which to return the importance of close follow-up with the patient understands. I have extensively reviewed the treatment plan and discharge instructions with the patient and their family. I have addressed all patient concerns at this time. The patient and family was made aware of what symptoms to monitor for that would warrant a return to the emergency department. Discussed the plan with the patient and family, they demonstrate verbal understanding and agreement with our assessment and plan at this time. HPI General Date/Time Provider Initiated Documentation: 10/04/18 19:15 . HPI Narrative: This is a 63-year-old with history of atrial fibrillation, status post ablation 06/07 at [facility], atrial septal defect status post closure at [facility] 09/07, here with chief complaint of palpitations. Patient has been here multiple times over the last few weeks for palpitations. She was previously on metoprolol, however she had symptomatic bradycardia associated with this, this is stopped and she was started on Cardizem 120 mg extended release every a.m. She is on Eliquis for her paroxysmal A. fib. Today she complains of palpitations again similar to her multiple previous episodes. Symptoms started roughly 1 hour ago, she has been unable to resolve them on her own. She has had other episodes during the evening yesterday and the night before, which got better with time. She states that she is currently frustrated with the lack of resolution and is hoping for some additional help her answers. She denies any chest pain, chest heaviness, chest tightness, nausea, vomiting, diarrhea. she states that she has been taking her medications as directed. She denies any other modifying factors. Related Data Home Medications Medication Instructions Recorded Confirmed Eliquis 5 mg PO BID 05/01/18 10/01/18 aspirin [Aspirin Low Dose] 81 mg PO DAILY 09/12/18 10/01/18 fluoxetine 10 mg tablet 10 mg PO DAILY #30 tab 09/13/18 10/01/18 lorazepam 0.5 mg tablet 0.25 - 0.5 mg PO BID-TID PRN #15 09/29/18 10/01/18 tab diltiazem HCl 120 mg PO BID #30 cap 10/04/18 Previous Rx's Medication Instructions Recorded fluoxetine 10 mg tablet 10 mg PO DAILY #30 tab 09/13/18 lorazepam 0.5 mg tablet 0.25 - 0.5 mg PO BID-TID PRN #15 09/29/18 tab diltiazem HCl 120 mg PO BID #30 cap 10/04/18 Allergies Allergy/AdvReac Type Severity Reaction Status Date / Time pantoprazole [From Protonix] AdvReac Severe DIARRHEA Verified 10/04/18 19:24 amoxicillin [From Augmentin] AdvReac Intermediate GI Verified 10/04/18 19:24 upset/diarrhea clavulanic acid AdvReac Intermediate GI Verified 10/04/18 19:24 [From Augmentin] upset/diarrhea General Stated Complaint: Palpitatns PAULINO: 2 Review of Systems Review of Systems All systems reviewed & are unremarkable except as noted in HPI and below PFSH Social History Smoking/Tobacco Use Status: Former Tobacco Use Quit Date: 03/22/18 Alcohol Intake: never Drug use: Never Substance use type: does not use Do you feel safe at home: Yes Do you feel safe in your relationship?: Yes Additional Social history: Mrs. Rosas is , has 2 boys. 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 She has a history of tobacco with a 30+ pack year history of smoking, recently quit. No alcohol use or drug use elicited. Exam Narrative Exam Narrative: 1.Const: Well-nourished, Well-developed, appearing stated age 2.Eyes: PERRL, no conjunctival injection, and symmetrical lids. 3.ENT: Atraumatic external nose and ears. Moist MM. Neck: Symmetric, trachea midline, No thyromegaly. 4.CVS: +S1/S2, No murmurs or gallops. Peripheral pulses 2+ and equal in all extremities. Brisk capillary refill in all extremities. 5.RESP: Unlabored respiratory effort. Clear to auscultation bilaterally. No wheezes rales or rhonchi 6.GI: Soft, Nontender/Nondistended, No hepatosplenomegaly. No guarding or rebound. 7.MSK: Normocephalic/Atraumatic, Extremities w/o deformity or ttp No cyanosis or clubbing, Normal movement of all extremities 8.Skin: Warm, Dry. No rashes or lesions. 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 Sensation grossly intact, no focal neurologic deficits. 10.Psych: (AAO) x3. Appropriate mood and affect Course Vital Signs Pulse 156 H 10/04/18 19:20 Respiratory Rate 23 10/04/18 19:20 Blood Pressure 134/102 H 10/04/18 19:20 Pulse Oximetry 97 10/04/18 19:20 Temperature Source Tympanic 10/04/18 19:20 Pulse 156 H 10/04/18 19:20 Respiratory Rate 23 10/04/18 19:20 Respiratory Effort Non-Labored 10/04/18 19:28 Blood Pressure 134/102 H 10/04/18 19:20 Pulse Oximetry 97 10/04/18 19:20 Oxygen Delivery Method Room Air 10/04/18 19:20 Oxygen Flow Rate 0 10/04/18 19:20 Pain Level 0 10/04/18 19:20 Comment 10/04/18 19:20 Lab/Test Results Lab/Test Results: Laboratory Tests Range/Units 10/04/18 10/04/18 10/04/18 19:50 19:50 19:50 WBC (4.4-10.8) k/cumm 9.06 RBC (4.00-5.20) m/cumm 5.20 Hgb (12.0-15.5) g/dL 15.7 H Hct (36.0-46.0) % 43.9 MCV (80-95) fL 84.4 MCH (27.0-33.0) pg 30.2 MCHC (32.0-36.0) g/dL 35.8 RDW (11.7-14.6) % 13.4 Plt Count (130-400) x1000/uL 222 MPV (8.0-11.0) fL 10.6 Immature Gran % 0.2 Neutrophils % 65.1 Lymphocytes % 23.2 Monocytes % 8.2 Eosinophils % 3.0 Basophils % 0.3 Absolute Neutrophils (1.2-6.7) k/cumm 5.90 Absolute Lymphocytes (1.2-3.4) k/cumm 2.10 Absolute Monocytes (0.11-0.7) k/cumm 0.74 H Absolute Eosinophils (0.0-0.7) k/cumm 0.27 Absolute Basophils (0.0-0.2) k/cumm 0.03 PT (9.3-11.0) sec 10.4 INR (0.9-1.1) 1.0 APTT (21.0-31.4) sec 24.5 Sodium (136-145) mmol/L 139 Potassium (3.5-5.1) mmol/L 3.7 Chloride (98-107) mmol/L 101 Carbon Dioxide (21.0-32.0) mmol/L 26.6 Anion Gap (3-11) mmol/L 11.4 H BUN (7-18) mg/dL 16 Creatinine (0.55-1.02) mg/dL 0.83 Estimated GFR/1.73 m2 (mL/min/1.73m2) >= 60.00 Glucose (70-100) mg/dL 118 H Calcium (8.5-10.1) mg/dL 9.8 Magnesium (1.8-2.4) mg/dL 1.9 Total Bilirubin (0.2-1.0) mg/dL 0.3 AST (15-37) U/L 23 ALT (12-78) U/L 29 Alkaline Phosphatase (46-116) U/L 111 Troponin I (0.00-0.06) ng/mL < 0.05 Total Protein (6.4-8.2) g/dL 8.3 H Albumin (3.4-5.0) g/dL 4.0 TSH (0.358-3.74) uIU/mL 2.94
[2018-10-04] MEDS: dilTIAZem CD 120 MG CAPCR PO (21:58)
== END 2018-10-04 22:34 | disposition home or self-care (01) ==
PROVIDERS: Emergency Provider Student in an Organized Health Care Education/Training Program; PCP Family Medicine
DX: I48.0 Paroxysmal atrial fibrillation (principal); Z79.01 Long term (current) use of anticoagulants
CPT/HCPCS: 36415; 80053; 93005; 96360; 96361; 99284; 83735; 84443; 84484; 85025; 85610; 85730; 93010

== ENCOUNTER 2018-10-09 14:01 | Emergency (ER) | payer MEDICARE, MEDICAID, SELFPAY ==
[2018-10-09 14:09] VITALS: BP 120/34; PULSE 68; RESP 16; TEMP 36.8; O2SAT 96
--- NOTE | 2018-10-09 14:41 | W.ED.GENAD ---
Discharge Plan Disposition Patient Disposition: HOME Discharge Details Chief Complaint: Urinary Clinical Impression: Increased urinary frequency Primary Care Provider: Enrike Brown ED Provider: Ti Walter Home Meds and New Rx's Prescriptions: New cephalexin [Keflex] 500 mg capsule 500 mg PO BID Qty: 10 RF: 0 Continued fluoxetine 10 mg tablet 10 mg PO DAILY Qty: 30 RF: 1 lorazepam 0.5 mg tablet 0.25 - 0.5 mg PO BID-TID PRN (Reason: anxiety) Qty: 15 RF: 0 aspirin [Aspirin Low Dose] 81 mg Tablet,Delayed Release (Dr/Ec) 81 mg PO DAILY RF: 0 Eliquis 5 mg Tablet 5 mg PO BID RF: 0 diltiazem HCl 120 mg capsule,extended release 24hr 120 mg PO BID Qty: 30 RF: 0 Discharge Instructions Additional Instructions: Please contact your primary care physician to arrange follow-up. Call for an appointment tomorrow. Return to the ER for any worsening or new concerning symptoms. Referrals: Enrike Brown [Primary Care Provider] - Discharge Data Discharge Date/Time-TO BE ENTERED AT DEPARTURE: 10/09/18 15:54 Medical Decision Making 63-year-old female here with increased urinary frequency and decreased urination, mild bilateral flank discomfort, mild tenderness left suprapubic. Urinalysis reviewed. She does have some blood in her urine. Urine microscopy reveals only 0-2 white blood cells and 0 to red blood cells. Patient's symptoms are consistent with UTI. I talked to her about her results and she would like to try a course of antibiotic to see if symptoms resolve. She understands that should symptoms persist she will need additional diagnostic testing. She plans to follow-up with her primary care physician and understands she can return to the emergency department at any time for further work-up and treatment. HPI General Mode of arrival: ambulatory. Date/Time Provider Initiated Documentation: 10/09/18 14:31. Limitations to Documentation: no limitations. Information obtained by: patient. HPI Narrative: 63-year-old female here with chief complaint increased urinary frequency. Symptoms started yesterday and have persisted. Moderate intensity. No modifiers. Patient also notes associated decreased urination when she attempts to urinate, mild bilateral flank discomfort, mild tenderness left suprapubic. She has no associated fever. She is concerned that she may have a urinary tract infection. Related Data Home Medications Medication Instructions Recorded Confirmed Eliquis 5 mg PO BID 05/01/18 10/01/18 aspirin [Aspirin Low Dose] 81 mg PO DAILY 09/12/18 10/01/18 fluoxetine 10 mg tablet 10 mg PO DAILY #30 tab 09/13/18 10/01/18 lorazepam 0.5 mg tablet 0.25 - 0.5 mg PO BID-TID PRN #15 09/29/18 10/01/18 tab diltiazem HCl 120 mg PO BID #30 cap 10/04/18 cephalexin [Keflex] 500 mg PO BID #10 cap 10/09/18 Previous Rx's Medication Instructions Recorded fluoxetine 10 mg tablet 10 mg PO DAILY #30 tab 09/13/18 lorazepam 0.5 mg tablet 0.25 - 0.5 mg PO BID-TID PRN #15 09/29/18 tab diltiazem HCl 120 mg PO BID #30 cap 10/04/18 cephalexin [Keflex] 500 mg PO BID #10 cap 10/09/18 Allergies Allergy/AdvReac Type Severity Reaction Status Date / Time pantoprazole [From Protonix] AdvReac Severe DIARRHEA Verified 10/04/18 19:24 amoxicillin [From Augmentin] AdvReac Intermediate GI Verified 10/04/18 19:24 upset/diarrhea clavulanic acid AdvReac Intermediate GI Verified 10/04/18 19:24 [From Augmentin] upset/diarrhea General Stated Complaint: Urinary PAULINO: 3 Review of Systems Review of Systems All systems reviewed & are unremarkable except as noted in HPI and below Gastrointestinal Reports nausea (Mild) and Denies vomiting Genitourinary Reports as per HPI [facility] Medical History No significant past medical history (Acute) Surgical History History of bilateral tubal ligation (Acute) Social History Smoking/Tobacco Use Status: Former Tobacco Use Quit Date: 03/22/18 Alcohol Intake: never Drug use: Never Substance use type: does not use Do you feel safe at home: Yes Do you feel safe in your relationship?: Yes Additional Social history: Mrs. Rosas is , has 2 boys. 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 She has a history of tobacco with a 30+ pack year history of smoking, recently quit. No alcohol use or drug use elicited. Exam Const General: cooperative and no acute distress HENMT Mouth: moist mucous membranes Eyes Conjunctivae: normal conjunctivae Sclera: normal sclerae Neck Neck: trachea midline and supple Resp Auscultation: clear to auscultation bilaterally, no rales, no rhonchi and no wheezes Cardio Jugular venous pressure: no JVD Rate: regular rate and not tachycardic Rhythm: regular rhythm GI Palpation: soft, not firm, no guarding, no masses, not rigid and tender suprapubicly (mild); with no rebound tenderness Auscultation: normal bowel sounds General: No CVA tenderness Skin General skin exam: no rashes or lesions noted Neuro General: alert, awake and tone normal Extrem General: no edema Psych Appearance: grossly normal Mental Status: mental status grossly normal Course Vital Signs Temperature 36.8 C 10/09/18 14:09 Pulse 68 10/09/18 14:09 Respiratory Rate 16 10/09/18 14:09 Blood Pressure 120/34 L 10/09/18 14:09 Pulse Oximetry 96 10/09/18 14:09 Temperature 36.8 C 10/09/18 14:09 Temperature Source Temporal Artery Scan 10/09/18 14:09 Pulse 68 10/09/18 14:09 Respiratory Rate 16 10/09/18 14:09 Blood Pressure 120/34 L 10/09/18 14:09 Blood Pressure Position Sitting 10/09/18 14:09 Pulse Oximetry 96 10/09/18 14:09 Oxygen Delivery Method Room Air 10/09/18 14:09 Oxygen Flow Rate 0 10/09/18 14:09 Pain Level 2 10/09/18 14:38
[2018-10-09 14:57] LABS: Bilirubin Small (Negative); Blood Moderate (Negative); Clarity Clear (Clear); Glucose Negative (Negative); Ketones Negative (Negative); Leukocyte Esterase Negative (Negative); Nitrite Negative (Negative); Specific Gravity >= 1.030 (1.005-1.025); pH 5.5 (5-8)
[2018-10-09 15:09] LABS: Bacteria Few HPF (Negative); C & S Indicated? No/Sq. Contamination; Crystals Negative HPF (Negative); Epithelial Cells Moderate HPF (Negative); Mucus Heavy (Negative); RBC 0-2 (0-2); WBC 0-2 HPF (0-5)
== END 2018-10-09 15:54 | disposition home or self-care (01) ==
PROVIDERS: Emergency Provider Student in an Organized Health Care Education/Training Program; PCP Family Medicine
DX: R10.32 Left lower quadrant pain (principal); M54.5 Low back pain; N39.0 Urinary tract infection, site not specified
CPT/HCPCS: 99283; 81003; 81015

== ENCOUNTER 2018-12-19 10:00 | Outpatient (RCR) | payer MEDICARE, MEDICAID, SELFPAY | END 2018-12-19 23:59 | disposition home or self-care (01) | LOC: CR 10:00 | PROVIDERS: PCP Family Medicine; Visit Provider Family Medicine | DX: Z48.812 Encounter for surgical aftercare following surgery on the circulatory system (principal); Q21.1 Atrial septal defect; Z51.89 Encounter for other specified aftercare | CPT/HCPCS: S9472 ==

== ENCOUNTER 2019-01-18 11:44 | Outpatient (RCR) | payer MEDICARE, MEDICAID, SELFPAY | END 2019-01-19 23:59 | disposition home or self-care (01) | LOC: CR 11:44 | PROVIDERS: PCP Family Medicine; Visit Provider Family Medicine | DX: Z48.812 Encounter for surgical aftercare following surgery on the circulatory system (principal); Q21.1 Atrial septal defect; Z51.89 Encounter for other specified aftercare | CPT/HCPCS: S9472 ==

== ENCOUNTER 2019-02-10 10:00 | Outpatient (RCR) | payer MEDICARE, MEDICAID, SELFPAY | END 2019-02-18 23:59 | disposition home or self-care (01) | LOC: CR 10:00 | PROVIDERS: PCP Family Medicine; Visit Provider Family Medicine | DX: Z48.812 Encounter for surgical aftercare following surgery on the circulatory system (principal); Q21.1 Atrial septal defect; Z51.89 Encounter for other specified aftercare | CPT/HCPCS: S9472 ==

== ENCOUNTER 2019-03-06 10:00 | Outpatient (RCR) | payer MEDICARE, MEDICAID, SELFPAY | END 2019-03-21 23:59 | disposition home or self-care (01) | LOC: CR 10:00 | PROVIDERS: PCP Family Medicine; Visit Provider Family Medicine | DX: Z48.812 Encounter for surgical aftercare following surgery on the circulatory system (principal); Q21.1 Atrial septal defect; Z51.89 Encounter for other specified aftercare | CPT/HCPCS: S9472 ==

== ENCOUNTER 2019-03-22 01:18 | Outpatient (RCR) | payer MEDICARE, SELFPAY | END 2019-04-21 23:59 | disposition home or self-care (01) | LOC: CR 01:18 | PROVIDERS: PCP Family Medicine; Visit Provider Family Medicine | DX: Z48.812 Encounter for surgical aftercare following surgery on the circulatory system (principal); Q21.1 Atrial septal defect; Z51.89 Encounter for other specified aftercare ==

== ENCOUNTER 2019-06-09 08:23 | Outpatient (CLI) | payer MEDICARE, SELFPAY ==
[2019-06-09 12:50] LABS: Hemoglobin A1C 5.8 % (3.8-5.6)
== END 2019-06-09 08:43 ==
PROVIDERS: PCP Family Medicine; Visit Provider Family Medicine
DX: R73.9 Hyperglycemia, unspecified (principal)
CPT/HCPCS: 36415; 83036

== ENCOUNTER 2019-09-13 01:45 | Outpatient (CLI) | payer MEDICARE, MEDICAID, SELFPAY ==
--- NOTE | 2019-09-13 09:52 | DI.US_ITS ---
APPROVED REPORT EXAM: Comprehensive 2D, Doppler, and color-flow Echocardiogram Patient Location: Out-Patient Leather Softener: Char Orozco RDCS (AE) Other Information Study Quality: Good Conclusion Left Ventricle : The left ventricle is normal size. The left ventricular systolic function is normal. The left ventricular ejection fraction is within the normal range. There is normal left ventricular wall thickness. There is normal LV segmental wall motion. Transmitral Doppler flow pattern suggests i mpaired LV relaxation. LVEF is 60%. Right Ventricle : The right ventricle is normal size. The right ventricular systolic function is norm al. The RVSP is 25.0 mmHg. Atria : Left atrium is mildly dilated. Right atrium is mildly dilated. The interatrial septum is inta ct with no evidence for an atrial septal defect. Atrial septum occluder device is present without an y leakage. Aortic Valve : The Aortic valve is sclerotic. Aortic valve is trileaflet. No hemodynamically signific ant valvular aortic stenosis. Mild aortic regurgitation. Please see remainder of study for further details. Compared to echocardiogram from 04/20/2018: There is now an atrial septal occluder in place, atrial se ptal aneurysm is no longer evident. Wall motion Left Ventricle The left ventricle is normal size. The left ventricular systolic function is normal. The left ventric ular ejection fraction is within the normal range. There is normal left ventricular wall thickness. T here is normal LV segmental wall motion. Transmitral Doppler flow pattern suggests impaired LV relaxa tion. There is no ventricular septal defect visualized. LVEF is 60%. Right Ventricle The right ventricle is normal size. The right ventricular systolic function is normal. The RVSP is 25 .0 mmHg. Atria Left atrium is mildly dilated. Right atrium is mildly dilated. The interatrial septum is intact with no evidence for an atrial septal defect. Atrial septum occluder device is present without any leakage . Aortic Valve The Aortic valve is sclerotic. Aortic valve is trileaflet. No hemodynamically significant valvular ao rtic stenosis. Mild aortic regurgitation. Mitral Valve There is mitral annular calcification. No evidence of mitral valve stenosis. Trace to mild mitral reg urgitation. Tricuspid Valve The tricuspid valve is normal in structure. There is no tricuspid valve stenosis. Mild tricuspid regu rgitation. Pulmonic Valve The pulmonary valve is normal in structure. There is no pulmonic valvular stenosis. There is no pulmo derrick valvular regurgitation. Great Vessels The aortic root is normal in size. The ascending aorta is mildly dilated. Aortic arch is normal in ca liber. IVC is normal in size and collapses >50% with inspiration. Pericardium There is no pericardial effusion. 2D Dimensions IVSD d PLAX 0.95 cm F: 0.6-1.0 LV Vol A2C d MOD 91.9 mL LVPW d PLAX 0.97 cm F: 0.6 - 1.0 LV Vol A4C d MOD 101.4 mL LVID d PLAX 4.03 cm F: 3.8 - 5.2 LA vol/ BSA A2C s A-L 32.6 mL/m2 LVDs 2.50 cm F: 2.2 - 3.5 LA vol/ BSA A4C s A-L 45.5 mL/m2 Ao Root d 3.02 cm F: 2.7 - 3.3 LA Vol/ BSA Biplane s A-L 40.3 mL/m2 RA Area A4C 18.07 cm2 LA Area A4C s MOD 25.15 cm2 RA Vol/ BSA A4C s A-L 23.8 mL/m2 LA Area A2C s MOD 20.34 cm2 Ao Asc Diam d 3.36 cm F: 2.3 - 3.1 LV EF A4C MOD 61.0 % LV EF Teichholz 67.1 % LV EF A2C MOD 59.1 % LVEF (Beltre's) 58.91 % F: 54 - 74 LV EF Biplane MOD 58.9 % LV Volume 73.77 mL F: 46 - 106 SV 56.87 mL LV Volume Index 39.03 mL/m2 F: 29 - 61 SV Index 30.06 mL/m2 LV Vol Biplane MOD 96.5 mL FS 36.65 % M-Mode TAPSE 2.91 cm (M/F) >1.7 LV Diastology MV E' medial 0.052 (>0.07 m/s) E/A Ratio 1.0 LV E/e MED 17.00 (<14) MV E Vmax 0.88 (0.4-1.3 m/s) MV E' lateral 0.085 (>0.1 m/s) MV A Vmax 0.85 (0.4-1.3 m/s) LV E/e LAT 10.35 (<14) MV E/A Ratio 0.99 MV E/E' medial 17.03 MV E/E' lateral 10.37 Aortic Valve LVOT Area 3.39 cm2 AoV Area Vmax 2.36 cm2 LVOT Vmax 1.33 m/s AoV Area/ BSA (Vmax) 1.25 cm2/m2 LVOT Mean Stanislaw. 0.87 m/s BREEZY Mean Stanislaw. 2.20 cm2 LVOT Peak Grad 7.1 mmHg BREEZY Mean Stanislaw. Index 1.16 cm2/m2 LVOT Mean Grad 3.6 mmHg AR DT 2073 msec LVOT VTI 0.336 m AR PHT 601 msec LVOT Diam s 2.05 cm AoV Vmax 1.92 m/s Velocity Ratio 0.69 AoV Mean Stanislaw. 1.33 m/s AoV Peak Grad 14.7 mmHg LVOT SV 113.73 mL AoV Mean Grad 7.8 mmHg AoV VTI 0.441 m AoV Area VTI 2.58 cm2 AoV Area/ BSA (VTI) 1.36 cm/m2 Mitral Valve MV DT 293 (160-240 msec) MV PHT 85 msec MV Area PHT 2.59 cm2 Pulmonary Valve PV Vmax 1.26 (0.5-1.5 m/s) RVOT Peak Gr. 3.26 mmHg PV Peak Grad 6.3 mmHg RVOT Mean Gr. 1.40 mmHg PV Mean Grad 2.8 mmHg RVOT VTI 0.180 m PV VTI 0.204 m RVOT Vmax 0.90 m/s Tricuspid Valve TR Peak Grad 22.0 mmHg TR Vmax 2.35 m/s RA Pressure 3.00 mmHg RVSP (TR) 25.0 mmHg
== END 2019-09-13 02:05 ==
PROVIDERS: PCP Family Medicine; Visit Provider Family Medicine
DX: I48.0 Paroxysmal atrial fibrillation (principal); I42.8 Other cardiomyopathies; I35.1 Nonrheumatic aortic (valve) insufficiency
CPT/HCPCS: 93306

== ENCOUNTER → 2019-11-03 11:03 | Outpatient (BNVA) | payer MEDICARE, MEDICAID, SELFPAY | PROVIDERS: PCP Family Medicine; Referring Provider Family Medicine; Visit Provider Internal Medicine Cardiovascular Disease | DX: Q21.1 Atrial septal defect (principal); I48.92 Unspecified atrial flutter; E66.9 Obesity, unspecified | CPT/HCPCS: 99204; 99215 ==

== ENCOUNTER 2019-11-08 03:05 | Outpatient (CLI) | payer MEDICARE, SELFPAY ==
[2019-11-08 12:42] LABS: TSH (W/Ref FT4) 1.63 uIU/mL (0.36-3.74)
[2019-11-09 09:55] LABS: Lyme Ab w Rflx to Lyme Confirm Negative (Negative)
== END 2019-11-08 03:25 ==
PROVIDERS: PCP Family Medicine; Visit Provider Family Medicine
DX: E03.9 Hypothyroidism, unspecified (principal); R53.83 Other fatigue
CPT/HCPCS: 36415; 84443; 86618

== ENCOUNTER 2019-12-06 09:06 | Emergency (ER) | payer MEDICARE, MEDICAID, SELFPAY ==
[2019-12-06] VITALS (25 sets, daily range): BP systolic 111–153; BP diastolic 48–70; PULSE 49–69; RESP 15–22; TEMP 36.7; O2SAT 94–98
--- NOTE | 2019-12-06 09:00 | RT.EKG_ITS ---
APPROVED REPORT Exam: Resting ECG Patient Location: E HR:65 bpm ECG Measurements Heart Rate 65 AXIS WI 208 P 34 QRSd 98 QRS -2 QT 436 T 39 QTc 453 Conclusion Sinus rhythm...normal P axis, V-rate 60- 99. I have reviewed and interpreted ECG and agree with software generated interpretation.
--- NOTE | 2019-12-06 09:15 | DI.RAD_ITS ---
EXAM: XR CHEST 2V PA LATERAL CLINICAL HISTORY: Chest pain TECHNIQUE: COMPARISON: CR XR CHEST 2V PA LATERAL from 10/01/2018 FINDINGS: Heart is at the upper limits of normal in size. Patient reportedly had prior ASD repair with metalli c device noted in place.. No change from September 2018. Mild changes of pulmonary scarring noted. No a cute consolidation. Mild prominence central pulmonary vasculature, presumed pulmonary arterial hyper tension. No pleural effusion seen. IMPRESSION: Mild cardiomegaly, no evidence of acute process. No change from 10/01/2018. RADIATION DOSE DELIVERED: Total DLP
--- NOTE | 2019-12-06 09:25 | ED.GENADUL_ITS ---
Discharge Plan Disposition Patient Disposition: HOME Condition: Stable Discharge Details Clinical Impression: Chest pain Primary Care Provider: Enrike Brown ED Provider: Theresa Tovar Home Meds and New Rx's Prescriptions: No Action Eliquis 5 mg tablet 5 mg PO BID Qty: 60 RF: 11 losartan 25 mg tablet 25 mg PO DAILY Qty: 90 RF: 3 metoprolol succinate 25 mg tablet extended release 24 hr 25 mg PO DAILY RF: 0 Discharge Instructions Instructions: Chest Pain (ED) Additional Instructions: Follow up with primary care provider in 3-5 days. Return to ED sooner if any worsening or concerns. Increase oral fluids. Return for any increasing chest pain, shortness of breath or any concerns. Referrals: Enrike Brown. [Primary Care Provider] - Medical Decision Making 64-year-old female presents the ER with chief complaint of chest soreness which began couple days ago. She describes bilateral chest soreness which radiates up into her bilateral shoulders. She states that it gets worse at rest. She denies any shortness of breath, fever, cough, lower extremity swelling, nausea vomiting. She does report upset stomach over the last couple of days. She does have a past medical history of atrial septal defect which was repaired in 2019, atrial flutter, she does have a loop recorder, hypertension. She did not take an aspirin today. She states her pain is 0 out of 10 upon initial exam. EKG was reviewed by Nova Santiago MD ER attending, please see her official reading. At this time and is normal sinus rhythm no ST elevation or depression noted no ectopy. EXAM: XR CHEST 2V PA LATERAL CLINICAL HISTORY: Chest pain TECHNIQUE: COMPARISON: CR XR CHEST 2V PA LATERAL from 10/01/2018 FINDINGS: Heart is at the upper limits of normal in size. Patient reportedly had prior ASD repair with metallic device noted in place.. No change from September 2018. Mild changes of pulmonary scarring noted. No acute consolidation. Mild prominence central pulmonary vasculature, presumed pulmonary arterial h ypertension. No pleural effusion seen. IMPRESSION: Mild cardiomegaly, no evidence of acute process. No change from 10/01/2018. Discussed lab results with patient and elevated d-dimer discussed CT chest which patient verbalized understanding. 1142: Spoke with Dr. Azul radiologist who reports CT chest is negative for pulmonary embolism. There is dilation of the pulmonary arteries which he a ttributes to her chronic history of ASD. Discussed findings with patient, verbalized understanding at this time, Repeat Troponin due at 1215pm. She agrees to await that result prior to discharge. Repeat troponin is within normal limits repeat EKG also shows no change. Discussed home care and follow-up at length with patient, verbalized understanding. Discussed strict return instructions. This text was generated using [employer] dictation system, please disregard any oddities of phrase or misspellings. Patient remained hemodynamically stable throughout stay and chest pain-free. HPI General Mode of arrival: ambulatory . Date/Time Provider Initiated Documentation: 12/06/19 09:07 . Limitations to Documentation: no limitations . Information obtained by: patient . HPI Narrative: 64-year-old female presents the ER with chief complaint of chest soreness which began couple days ago. She describes bilateral chest soreness which radiates up into her bilateral shoulders. She states that it gets worse at rest. She denies any shortness of breath, fever, cough, lower extremity swelling, nausea vomiting. She does report upset stomach over the last couple of days. She does have a past medical history of atrial septal defect which was repaired in 2019, atrial flutter, she does have a loop recorder, hypertension. She did not take an aspirin today. She states her pain is 0 out of 10 upon initial exam. Related Data Home Medications Medication Instructions Recorded Confirmed apixaban 5 mg tablet 5 mg PO BID #60 tab 10/17/19 12/06/19 losartan 25 mg tablet 25 mg PO DAILY #90 tab 10/17/19 12/06/19 metoprolol succinate 25 mg PO DAILY 12/06/19 12/06/19 Previous Rx's Medication Instructions Recorded apixaban 5 mg tablet 5 mg PO BID #60 tab 10/17/19 losartan 25 mg tablet 25 mg PO DAILY #90 tab 10/17/19 Allergies Allergy/AdvReac Type Severity Reaction Status Date / Time pantoprazole [From Protonix] AdvReac Severe DIARRHEA Verified 12/06/19 09:15 amoxicillin [From Augmentin] AdvReac Intermediate GI Verified 12/06/19 09:15 upset/diarrhea clavulanic acid AdvReac Intermediate GI Verified 12/06/19 09:15 [From Augmentin] upset/diarrhea General Stated Complaint: Chest Pain PAULINO: 2 Review of Systems Narrative: Constitutional: Negative for weight loss, alert and oriented, well groomed, normal body habitus, appears comfortable. HEENT: Denies trauma, headaches, blurry vision, nasal discharge, sore throat, trouble swallowing. Chest: Denies palpitations, irregular rhythm. Positive chest pain x3 days. History of atrial septal wall defect at atrial flutter. History of hypertension. Respiratory: Denies Shortness of breath, cough, hemoptysis. GI: Denies abdominal pain, nausea, vomiting, diarrhea, constipation. : Denies dysuria, hematuria, flank pain, rectal bleeding. Neuro: Denies dizziness, blurry vision, weakness, syncope, headache or facial numbness. Hematologic: Denies easy bruising, intolerance to heat or cold, hair loss. [facility] Medical History No significant past medical history Obesity Surgical History History of bilateral tubal ligation Social History Smoking/Tobacco Use Status: Former Tobacco Use Quit Date: 03/22/18 Alcohol Intake: never Drug use: Never Substance use type: does not use Do you feel safe at home: Yes Do you feel safe in your relationship?: Yes Additional Social history: Mrs. Rosas is , has 2 boys. 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 She has a history of tobacco with a 30+ pack year history of smoking, recently quit. No alcohol use or drug use elicited. Exam Narrative Exam Narrative: Constitutional: Alert and oriented x3. Appears stated age. Normal body habitus. Head: Normocephalic, no trauma. Eyes: Pupils PERRLA, Red reflex noted, EOM's intact. Eyelids symmetrical without lesions, discharge, or swelling. ENT: Bilateral TM's WNL, External ear normal to inspection, no mastoid TTP, swelling, or erythema, Nasal turbinates WNL, no nasal discharge. Normal dentition, Posterior pharynx WNL, no exudate. Chest: RRR, Normal S1, S2, distal pulses intact. Resp: Lungs clear to auscultation bilaterally, no wheezes, rales, or rhonchi. Musculoskeletal: Normal gait, 5/5 strength to all four extremities. Skin: No suspicious rashes or lesions. Capillary refill less than 2 sec. Neurologic: Cranial nerves II-XII intact. Alert and oriented x 3. DTR's intact. Hematologic/Lymphatic: No ecchymosis, no lymphadenopathy. Course Vital Signs Vital signs: Vital Signs Temperature 36.7 C 12/06/19 09:10 Pulse 65 12/06/19 09:10 Respiratory Rate 16 12/06/19 09:10 Blood Pressure 140/61 12/06/19 09:10 Pulse Oximetry 98 12/06/19 09:10 Temperature 36.7 C 12/06/19 09:10 Temperature Source Tympanic 12/06/19 09:10 Pulse 65 12/06/19 09:10 Respiratory Rate 16 12/06/19 09:10 Respiratory Effort Non-Labored 12/06/19 09:14 Blood Pressure 140/61 12/06/19 09:10 Blood Pressure Position Sitting 12/06/19 09:10 Pulse Oximetry 98 12/06/19 09:10 Oxygen Delivery Method Room Air 12/06/19 09:10 Oxygen Flow Rate 0 12/06/19 09:10 Pain Level 5 12/06/19 09:10
[2019-12-06] MEDS: Aspirin 81 MG CHEW 324 MG CH (09:29)
[2019-12-06 10:07] LABS: Abs Immature Grans 0.03 10^3/uL (0.0-0.06); Absolute Basophil Count 0.05 10^3/uL (0.0-0.2); Absolute Eosinophil Count 0.15 10^3/uL (0.0-0.7); Absolute Lymphocyte Count 1.48 10^3/uL (1.2-3.4); Absolute Monocyte Count 0.68 10^3/uL (0.1-0.8); Absolute Neutrophil Count 6.92 10^3/uL (1.2-6.7); Basophils % 0.5; Eosinophils % 1.6; HCT 42.6 % (36.0-46.0); HGB 14.6 g/dL (11.2-15.7); Immature Grans % 0.3; Lymphocytes % 15.9; MCH 29.4 pg (27.0-33.0); MCHC 34.3 % (32.0-36.0); MCV 85.9 fL (80-95); MPV 10.7 fL (8.0-11.0); Monocytes % 7.3; Neutrophils % 74.4; Nucleated RBC 0 %; Platelet Count 287 10^3/uL (130-400); RBC 4.96 10^6/uL (3.93-5.22); RDW 12.8 % (11.7-14.6); RDW-SD 39.5 fL; WBC 9.31 10^3/uL (4.4-10.8)
[2019-12-06 10:24] LABS: ALT 26 U/L (14-59); AST 20 U/L (15-37); Albumin 3.9 g/dL (3.4-5.0); Alkaline Phosphatase 91 U/L (46-116); Anion Gap 9.1 mmol/L (3-11); BUN 14 mg/dL (7-18); Bilirubin, Total 0.3 mg/dL (0.2-1.0); CO2 26.9 mmol/L (21.0-32.0); CREATININE 0.87 mg/dL (0.55-1.02); Calcium 9.3 mg/dL (8.5-10.1); Chloride 101 mmol/L (98-107); Glucose 107 mg/dL (74-106); Sodium 137 mmol/L (136-145); Total Protein 8.2 g/dL (6.4-8.2); Troponin I < 0.05 ng/mL (<0.06)
--- NOTE | 2019-12-06 10:45 | DI.CT_ITS ---
EXAM: CT CHEST PE CTA CLINICAL HISTORY: Chest pain, elevated dimer. TECHNIQUE: Imaging Protocol: Axial CT angiography was performed with multi-slice acquisition and mu lti-planar and/or 3D reconstructions. CONTRAST MATERIAL: Intravenous: Omnipaque 350 Contrast volume:structured data in ml FINDINGS: CT angiography of the chest was performed with intravenous infusion of 100 cc of Omnipaque 350. The lungs are predominantly clear with a few areas of scarring and mild pulmonary emphysematous jacinto es. No pleural effusion. Tracheobronchial tree appears intact. No evidence of pulmonary embolic disease. There is moderate dilatation of both right and left pulmon roxie arteries, which measure 34 millimeters and 29 millimeters in diameter respectively. This may ref lect chronic pulmonary arterial hypertension. There is metallic surgical device in place in the interatrial septum, patient reportedly had prior D repair. No cardiac enlargement. No pericardial effusion. Thoracic aorta is of normal diameter, no thoracic aortic aneurysm or dissection, major branch vessels appear intact. No mediastinal or hilar adenopathy. Images obtained through the upper abdomen show unremarkable appearance of the visualized portions of the liver, spleen, pancreas, adrenals, and kidneys. Note is made of a kink in the proximal celiac trunk, this could cause stenosis of greater than 50 per cent luminal diameter. Visualized superior mesenteric artery and branches and renal arteries appear intact. Upper abdominal aorta is of normal diameter. IMPRESSION: No evidence of pulmonary embolic disease. Right and left pulmonary arteries are dilated presumably s econdary to chronic pulmonary arterial hypertension. Incidental finding of kinked proximal celiac trunk, possible luminal diameter stenosis of greater neeru n 50 percent. RADIATION DOSE DELIVERED: 548.52mGy.cm Total DLP 548.52mGy.cm Total DLP DATA REPOSITORY: All CT scans at this facility are submitted to the National Radiology Data Registry (NRDR) Dose Index Registry (DIR) with the [employer] ([employer]). RADIATION OPTIMIZATION: All CT scans at this facility use at least one of these dose optimization te chniques: automated exposure control; mA and/or kV adjustment per patient size (includes targeted exa ms where dose is matched to clinical indication); or iterative reconstruction.
[2019-12-06 10:51] LABS: D-Dimer 996 ng/mlFEU (<500)
[2019-12-06] MEDS: Omnipaque 350 MG/ML 100 ML BTL IJ (11:37)
[2019-12-06] MEDS: Normal Saline - Diluent 50 ML VIAL IV (11:38)
--- NOTE | 2019-12-06 12:30 | RT.EKG_ITS ---
APPROVED REPORT Exam: Resting ECG Patient Location: E HR:55 bpm ECG Measurements Heart Rate 55 AXIS WI 177 P 43 QRSd 104 QRS 9 QT 475 T 44 QTc 456 Conclusion Sinus bradycardia...rate< 60. I have reviewed and interpreted ECG and agree with software generated interpretation.
[2019-12-06 12:50] LABS: Troponin I < 0.05 ng/mL (<0.06)
== END 2019-12-06 13:12 | disposition home or self-care (01) ==
PROVIDERS: Emergency Provider Registered Nurse Emergency; PCP Family Medicine
DX: R07.9 Chest pain, unspecified (principal); I48.92 Unspecified atrial flutter; I10 Essential (primary) hypertension; Z79.01 Long term (current) use of anticoagulants
CPT/HCPCS: 36415; 71275; 80053; 93005; 99285; 71046; 83735; 84484; 85025; 85379; 93010; 99284; J3490

== ENCOUNTER 2020-04-10 07:56 | Emergency (ER) | payer MEDICARE, MEDICAID, SELFPAY ==
[2020-04-10] VITALS (31 sets, daily range): BP systolic 118–151; BP diastolic 47–117; PULSE 50–73; RESP 12–26; TEMP 37.4; O2SAT 92–98
--- NOTE | 2020-04-10 07:45 | RT.EKG_ITS ---
APPROVED REPORT Exam: Resting ECG Patient Location: E HR:69 bpm ECG Measurements Heart Rate 69 AXIS CO 191 P 36 QRSd 109 QRS 11 QT 414 T 52 QTc 444 Conclusion Sinus rhythm...normal P axis, V-rate 60- 99 I have reviewed and interpreted ECG and agree with software generated interpretation.
--- NOTE | 2020-04-10 08:17 | W.ED.GENAD ---
Discharge Plan Disposition Patient Disposition: HOME Condition: Stable Discharge Details Clinical Impression: Chest pain Primary Care Provider: Enrike Brown ED Provider: Maxx Trivedi Home Meds and New Rx's Prescriptions: Continued metoprolol succinate 25 mg tablet extended release 24 hr 25 mg PO DAILY Qty: 90 RF: 3 Eliquis 5 mg tablet 5 mg PO BID Qty: 60 RF: 11 losartan 25 mg tablet 25 mg PO DAILY Qty: 90 RF: 3 triamcinolone acetonide 0.1 % cream 1 applic TP BID PRN (Reason: rash on arms) Qty: 30 RF: 1 lorazepam 0.5 mg tablet 0.5 mg SL PRN PRN (Reason: anxiety) RF: 0 Discharge Instructions Instructions: Chest Pain (ED) Additional Instructions: Work-up in the ER has been unremarkable for any emergent process. I personally spoke with our cardiology team, Dr. Ayala. She believes that discharge from the ER is reasonable and at her request I will set you up for a 7-day Holter monitor. Please follow the instructions given to you by our respiratory therapy team. Keep your appointment as scheduled in April with cardiology. Please watch for new or worsening symptoms and return to the ER for any concerns. Medical Decision Making This is a 64-year-old male with past medical history that includes A. fib, atrial septal defect status post repair, anxiety, presenting to the ER with multiple complaints. She reports at least 3-month history of left-sided chest wall discomfort made worse with palpation or movement of her shoulder. She has not brought this to the attention of her primary care provider as she has not thought much about it. She reports that approximately 45 minutes prior to arrival she felt that her heart rate was in atrial fibrillation, felt shaky and generally weak. This lasted for approximately half an hour and has resolved completely. She does state that over the past few days she has not slept very well, has increased stress, and has felt tired. Clinically she does appear slightly anxious otherwise appears well. On property assessment monitor heart rate in the 70s and appears to be sinus rhythm. Given her subjective complaint will place on cardiac monitoring, give full dose aspirin, and obtain cardiac work-up. Laboratory values are unremarkable for obvious emergent process. Initial troponin less than 0.05, TSH 2.17. Chest x-ray negative per radiology. Patient remains asymptomatic. After the initial work-up was completed, patient and I spoke about results. Patient is agreeable to awaiting a repeat troponin and EKG at 3 hours. In the meantime I reached out to our cardiology team, Dr. Ayala. She felt as though the patient may safely be discharged from our ER, our cardiology team will follow her as scheduled in April, but does recommend initiating a 7-day Holter monitor. Order placed in respiratory came down to the ER to place the Holter monitor. Repeat EKG obtained at 1056, please see official report by Dr. Santiago. Sinus bradycardia, ventricular rate of 58. No STEMI. Repeat troponin less than 0.05. Discussed results with patient. Patient remains asymptomatic and comfortable discharge. She will wear the Holter monitor as directed by Dr. Ayala. She will follow up with cardiology as directed. She was encouraged to watch for new or worsening symptoms and return to the ER for any concerns. Medical Records Medical records reviewed: Yes I reviewed the patient's medical records. Imaging Data Radiologic Study: Attestation: I personally reviewed and interpreted this imaging study as follows: Imaging: X-Ray Radiologist's impression: Chest x-ray negative per radiology Lab Data Lab results reviewed: Yes I reviewed the patient's lab results. Labs: Laboratory Tests Range/Units 04/10/20 04/10/20 04/10/20 08:03 08:03 08:03 WBC (4.4-10.8) 10^3/uL 8.38 RBC (3.93-5.22) 10^6/uL 5.07 Hgb (11.2-15.7) g/dL 15.0 Hct (36.0-46.0) % 43.0 MCV (80-95) fL 84.8 MCH (27.0-33.0) pg 29.6 MCHC (32.0-36.0) % 34.9 RDW (11.7-14.6) % 12.6 Plt Count (130-400) 10^3/uL 266 MPV (8.0-11.0) fL 10.5 Immature Gran % 0.4 Neutrophils % 65.6 Lymphocytes % 22.7 Monocytes % 8.1 Eosinophils % 2.7 Basophils % 0.5 Nucleated RBC % % 0 Absolute Neutrophils (1.2-6.7) 10^3/uL 5.50 Absolute Lymphocytes (1.2-3.4) 10^3/uL 1.90 Absolute Monocytes (0.1-0.8) 10^3/uL 0.68 Absolute Eosinophils (0.0-0.7) 10^3/uL 0.23 Absolute Basophils (0.0-0.2) 10^3/uL 0.04 PT (9.3-11.0) sec 10.5 INR (0.9-1.1) 1.0 APTT (21.0-27.5) sec 25.9 Sodium (136-145) mmol/L 136 Potassium (3.5-5.1) mmol/L 3.6 Chloride (98-107) mmol/L 101 Carbon Dioxide (21.0-32.0) mmol/L 27.8 Anion Gap (3-11) mmol/L 7.2 BUN (7-18) mg/dL 19 H Creatinine (0.55-1.02) mg/dL 0.98 Estimated GFR/1.73 m2 (mL/min/1.73m2) 56.78 Glucose (74-106) mg/dL 153 H Calcium (8.5-10.1) mg/dL 9.1 Magnesium (1.8-2.4) mg/dL 1.9 Total Bilirubin (0.2-1.0) mg/dL 0.4 AST (15-37) U/L 15 ALT (14-59) U/L 27 Alkaline Phosphatase (46-116) U/L 98 Troponin I (<0.06) ng/mL < 0.05 Total Protein (6.4-8.2) g/dL 8.3 H Albumin (3.4-5.0) g/dL 3.9 TSH (0.36-3.74) uIU/mL Range/Units 04/10/20 08:03 WBC (4.4-10.8) 10^3/uL RBC (3.93-5.22) 10^6/uL Hgb (11.2-15.7) g/dL Hct (36.0-46.0) % MCV (80-95) fL MCH (27.0-33.0) pg MCHC (32.0-36.0) % RDW (11.7-14.6) % Plt Count (130-400) 10^3/uL MPV (8.0-11.0) fL Immature Gran % Neutrophils % Lymphocytes % Monocytes % Eosinophils % Basophils % Nucleated RBC % % Absolute Neutrophils (1.2-6.7) 10^3/uL Absolute Lymphocytes (1.2-3.4) 10^3/uL Absolute Monocytes (0.1-0.8) 10^3/uL Absolute Eosinophils (0.0-0.7) 10^3/uL Absolute Basophils (0.0-0.2) 10^3/uL PT (9.3-11.0) sec INR (0.9-1.1) APTT (21.0-27.5) sec Sodium (136-145) mmol/L Potassium (3.5-5.1) mmol/L Chloride (98-107) mmol/L Carbon Dioxide (21.0-32.0) mmol/L Anion Gap (3-11) mmol/L BUN (7-18) mg/dL Creatinine (0.55-1.02) mg/dL Estimated GFR/1.73 m2 (mL/min/1.73m2) Glucose (74-106) mg/dL Calcium (8.5-10.1) mg/dL Magnesium (1.8-2.4) mg/dL Total Bilirubin (0.2-1.0) mg/dL AST (15-37) U/L ALT (14-59) U/L Alkaline Phosphatase (46-116) U/L Troponin I (<0.06) ng/mL Total Protein (6.4-8.2) g/dL Albumin (3.4-5.0) g/dL TSH (0.36-3.74) uIU/mL 2.17 ECG Data Attestation: I personally reviewed and interpreted this ECG (s) as follows: Interpretation: Please see official report by Dr. Santiago. Sinus rhythm, ventricular to 69. No STEMI. HPI General Mode of arrival: ambulatory. Date/Time Provider Initiated Documentation: 04/10/20 08:06. Limitations to Documentation: no limitations. Information obtained by: patient. HPI Narrative: This is a 64-year-old female with a past medical history that includes atrial fibrillation, ablation, atrial septal defect status post closure, anxiety, hypertension, presenting to the ER today reporting multiple complaints. She first tells me that roughly 45 minutes ago she was using her pulse ox at home and her heart rate was fast, irregular, in the 120s. It resolved on its own and under 30 minutes. She states this felt very similar to her previous atrial fibrillation episode. She tells me that she has had general fatigue over the past few days, increased stress at home, not sleeping well. She also had intermittent left-sided chest discomfort for approximately 3 months. She describes it as chest wall, feels like scar tissue, and worse with any movement of her left shoulder when she stretches out her pectoral region. Currently she denies any chest pain or irregular heart rate. She is scheduled to be seen by cardiology here at our facility next month. Related Data Home Medications Medication Instructions Recorded Confirmed apixaban 5 mg tablet 5 mg PO BID #60 tab 10/17/19 04/10/20 losartan 25 mg tablet 25 mg PO DAILY #90 tab 10/17/19 04/10/20 metoprolol succinate 25 mg 25 mg PO DAILY #90 tab 12/15/19 04/10/20 tablet,extended release 24 hr triamcinolone acetonide 0.1 % 1 applic TP BID PRN #30 gm 03/19/20 04/10/20 topical cream lorazepam 0.5 mg SL PRN PRN 04/10/20 04/10/20 Previous Rx's Medication Instructions Recorded apixaban 5 mg tablet 5 mg PO BID #60 tab 10/17/19 losartan 25 mg tablet 25 mg PO DAILY #90 tab 10/17/19 metoprolol succinate 25 mg 25 mg PO DAILY #90 tab 12/15/19 tablet,extended release 24 hr triamcinolone acetonide 0.1 % 1 applic TP BID PRN #30 gm 03/19/20 topical cream Allergies Allergy/AdvReac Type Severity Reaction Status Date / Time pantoprazole [From Protonix] AdvReac Severe DIARRHEA Verified 04/10/20 08:04 amoxicillin [From Augmentin] AdvReac Intermediate GI Verified 04/10/20 08:04 upset/diarrhea clavulanic acid AdvReac Intermediate GI Verified 04/10/20 08:04 [From Augmentin] upset/diarrhea General Stated Complaint: Chest Pain PAULINO: 2 Review of Systems Constitutional Constitutional: Reports fatigue, Denies fever(s) and Denies headache(s) Eyes Eyes: Denies change in vision ENT Ears, Nose, Mouth, and Throat: Denies headache(s) and Denies neck pain Cardiovascular Cardiovascular: Reports chest pain, Reports irregular heart rhythm, Reports palpitations and Denies dyspnea Respiratory Respiratory: Denies cough and Denies dyspnea Gastrointestinal Gastrointestinal: Denies abdominal pain, Denies nausea and Denies vomiting Genitourinary Genitourinary: Denies dysuria Musculoskeletal Musculoskeletal: Denies back pain, Denies neck pain, Denies numbness and Denies tingling Integumentary/Breasts Skin/Breast: Denies rash Neurologic Neurologic: Denies headache(s), Denies numbness, Denies tingling and Reports weakness Psychiatric Psychiatric: Reports anxiety Endocrine Endocrine: Reports fatigue and Reports palpitations Hematologic/Lymphatic Hematologic/Lymphatic: Reports easy bleeding and Reports easy bruising FORMERLY [facility], 1928–1983 Medical History No significant past medical history Obesity Surgical History History of bilateral tubal ligation Social History Smoking/Tobacco Use Status: Former Tobacco Use Quit Date: 03/22/18 Smoking risk assessment performed?: Yes Alcohol Intake: never Drug use: Never Substance use type: does not use Do you feel safe at home: Yes Do you feel safe in your relationship?: Yes Exam Const General: cooperative, healthy appearing, comfortable, no acute distress and anxious Orientation: alert, awake and oriented x3 HENMT Head: normal to inspection, normocephalic and atraumatic Eyes General: appearance normal, both eyes and all related structures Eyelids: eyelids normal Conjunctivae: conjunctivae normal Neck Neck: normal visual inspection, full ROM, no meningeal signs, trachea midline and supple Chest Chest: normal inspection of the chest Chest/axillae images: 1. Diffuse mild discomfort without erythema, warmth, induration or fluctuance. No bony point tenderness. Skin intact. Resp Effort & Inspection: normal respiratory effort and able to speak in complete sentences Auscultation: clear to auscultation bilaterally Cardio Rate: regular rate Rhythm: regular rhythm GI Palpation: soft, not firm, no guarding and nontender Auscultation: normal bowel sounds Back/Spine/Pelvis Back: No back tenderness Skin General skin exam: no rashes or lesions noted Neuro General: patient alert, patient awake, moves all extremities and no focal motor deficits Sensory Exam: no sensory deficits noted Extrem General: normal to inspection, full ROM, capillary refill normal, no pedal edema and no calf tenderness Psych Appearance: grossly normal Mental Status: mental status grossly normal Course Vital Signs Vital signs: Vital Signs Temperature 37.4 C 04/10/20 07:58 Pulse 72 04/10/20 07:58 Respiratory Rate 13 04/10/20 07:58 Blood Pressure 138/54 L 04/10/20 07:58 Pulse Oximetry 98 04/10/20 07:58 Temperature 37.4 C 04/10/20 07:58 Temperature Source Skin 04/10/20 07:58 Pulse 66 04/10/20 08:01 Pulse 73 04/10/20 08:02 Respiratory Rate 16 04/10/20 08:06 Respiratory Effort Non-Labored 04/10/20 08:06 Respiratory Depth Normal 04/10/20 08:06 Respiratory Pattern Normal 04/10/20 08:06 Blood Pressure 138/54 L 04/10/20 08:01 Blood Pressure Mean 73 04/10/20 08:01 Blood Pressure Position Supine 04/10/20 07:58 Pulse Oximetry 98 04/10/20 08:02 Oxygen Delivery Method Room Air 04/10/20 07:58 Oxygen Flow Rate 0 04/10/20 07:58 Pain Level 1 04/10/20 07:58
[2020-04-10 08:29] LABS: Abs Immature Grans 0.03 10^3/uL (0.0-0.06); Absolute Basophil Count 0.04 10^3/uL (0.0-0.2); Absolute Eosinophil Count 0.23 10^3/uL (0.0-0.7); Absolute Monocyte Count 0.68 10^3/uL (0.1-0.8); Basophils % 0.5; Eosinophils % 2.7; Immature Grans % 0.4; Lymphocytes % 22.7; MCH 29.6 pg (27.0-33.0); MCHC 34.9 % (32.0-36.0); MCV 84.8 fL (80-95); MPV 10.5 fL (8.0-11.0); Monocytes % 8.1; Neutrophils % 65.6; Nucleated RBC 0 %; Platelet Count 266 10^3/uL (130-400); RBC 5.07 10^6/uL (3.93-5.22); RDW 12.6 % (11.7-14.6); RDW-SD 38.8 fL; WBC 8.38 10^3/uL (4.4-10.8)
[2020-04-10 08:43] LABS: PTT Activated 25.9 sec (21.0-27.5); Prothrombin Time 10.5 sec (9.3-11.0)
[2020-04-10 08:44] LABS: ALT 27 U/L (14-59); AST 15 U/L (15-37); Albumin 3.9 g/dL (3.4-5.0); Alkaline Phosphatase 98 U/L (46-116); Anion Gap 7.2 mmol/L (3-11); BUN 19 mg/dL (7-18); Bilirubin, Total 0.4 mg/dL (0.2-1.0); CO2 27.8 mmol/L (21.0-32.0); CREATININE 0.98 mg/dL (0.55-1.02); Calcium 9.1 mg/dL (8.5-10.1); Chloride 101 mmol/L (98-107); Estimated GFR 56.78 (mL/min/1.73m2); Glucose 153 mg/dL (74-106); Magnesium 1.9 mg/dL (1.8-2.4); Potassium 3.6 mmol/L (3.5-5.1); Sodium 136 mmol/L (136-145); Total Protein 8.3 g/dL (6.4-8.2); Troponin I < 0.05 ng/mL (<0.06)
[2020-04-10] MEDS: Aspirin 81 MG CHEW 324 MG CH (08:51)
--- NOTE | 2020-04-10 08:57 | DI.RAD_ITS ---
EXAM: XR CHEST 2V PA LATERAL CLINICAL HISTORY: pain TECHNIQUE: 2D digital imaging was performed. COMPARISON: CR XR CHEST 2V PA LATERAL from 12/06/2019 FINDINGS: MEDIASTINUM: Normal. HEART: Normal. The atrial septal occluder device is stable in position. PULMONARY VASCULATURE: Normal. LUNGS: Clear. PLEURAL SPACE: No pleural effusion or pneumothorax. BONE:Within normal limits for the patient's age. OTHER FINDINGS:Normal. IMPRESSION: No acute pulmonary findings. DATA REPOSITORY: RADIATION DOSE DELIVERED:
[2020-04-10 09:15] LABS: TSH (W/Ref FT4) 2.17 uIU/mL (0.36-3.74)
--- NOTE | 2020-04-10 10:45 | RT.EKG_ITS ---
APPROVED REPORT Exam: Resting ECG Patient Location: E HR:58 bpm ECG Measurements Heart Rate 58 AXIS DC 190 P -3 QRSd 100 QRS -2 QT 466 T 29 QTc 458 Conclusion Sinus bradycardia...rate< 60 I have reviewed and interpreted ECG and agree with software generated interpretation.
[2020-04-10 11:36] LABS: Troponin I < 0.05 ng/mL (<0.06)
--- NOTE | 2020-04-22 12:06 | ZIOP_ITS ---
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 ?Patient was in normal sinus rhythm for the majority of the recording with an average heart rate of 58 bpm. ?There were 14 episodes of supraventricular tachycardia with the longest lasting 10 beats. There were rare PACs. ?There were no episodes of ventricular tachycardia and rare PVCs. ?There were no episodes of atrial fibrillation, no pauses greater than 3 seconds and no evidence of high degree heart block. ?There were 2 diary events which were associated with normal sinus rhythm at a heart rate of 59 and 68 bpm respectively.
== END 2020-04-10 11:55 | disposition home or self-care (01) ==
PROVIDERS: Emergency Provider Physician Assistant; PCP Family Medicine
DX: R07.81 Pleurodynia (principal); I48.91 Unspecified atrial fibrillation; I10 Essential (primary) hypertension
CPT/HCPCS: 36415; 80053; 93005; 93246; 99285; 71046; 83735; 84443; 84484; 85025; 85610; 85730; 93010

== ENCOUNTER → 2020-05-10 10:56 | Outpatient (BNVA) | payer MEDICARE, MEDICAID, SELFPAY | PROVIDERS: PCP Family Medicine; Referring Provider Family Medicine; Visit Provider Internal Medicine Cardiovascular Disease | DX: Q21.1 Atrial septal defect (principal); I48.92 Unspecified atrial flutter | CPT/HCPCS: 99214; 99213 ==

== ENCOUNTER 2020-05-13 16:00 | Outpatient (REF) | payer MEDICARE, MEDICAID, SELFPAY ==
[2020-05-14 15:05] LABS: COVID-19 RT-PCR UVMMC Result Negative (Negative)
== END 2020-05-13 16:01 | disposition home or self-care (01) ==
LOC: LBN 16:00
PROVIDERS: PCP Family Medicine; Visit Provider Nurse Practitioner Family
DX: Z20.822 Contact with and (suspected) exposure to COVID-19 (principal)
CPT/HCPCS: U0003; U0005

== ENCOUNTER 2020-05-31 08:58 | Outpatient (CLI) | payer MEDICARE, SELFPAY ==
[2020-05-31 12:53] LABS: Calculated LDL 130 mg/dL (<100); Cholesterol 241 mg/dL (<200); HDL Cholesterol 56 mg/dL (40-60); Triglyceride 275 mg/dL (<150)
[2020-05-31 13:36] LABS: Bacteria Rare HPF (Negative); Casts Negative LPF (Negative); Crystals Negative HPF (Negative); Epithelial Cells Negative HPF (Negative); Mucus Negative (Negative); Other Cells Negative (Negative); RBC 0-2 HPF (0-2); WBC Negative HPF (0-5)
[2020-05-31 13:37] LABS: C & S Indicated? No
[2020-06-04 13:25] LABS: SS-A Antibody 2.1 Units (<20.0)
== END 2020-05-31 08:59 | disposition home or self-care (01) ==
LOC: LOS 08:58
PROVIDERS: PCP Family Medicine; Referring Provider Family Medicine; Visit Provider Family Medicine
DX: E78.5 Hyperlipidemia, unspecified (principal); R68.2 Dry mouth, unspecified; R31.29 Other microscopic hematuria
CPT/HCPCS: 36415; 80061; 81015; 86235

== ENCOUNTER 2020-06-10 20:09 | Emergency (ER) | payer MEDICARE, MEDICAID, SELFPAY ==
[2020-06-10] VITALS (19 sets, daily range): BP systolic 123–139; BP diastolic 41–76; PULSE 65–73; RESP 14–44; TEMP 36.4; O2SAT 94–100
--- NOTE | 2020-06-10 20:14 | ED.GENADUL_ITS ---
Discharge Plan Disposition Patient Disposition: HOME Condition: Improving Discharge Details Clinical Impression: Epigastric abdominal pain, Vomiting Primary Care Provider: Enrike Brown. ED Provider: Nova Santiago Home Meds and New Rx's Prescriptions: New sucralfate [Carafate] 1 gram tablet 1 gm PO QACHS Qty: 20 RF: 0 ondansetron 4 mg tablet,disintegrating 4 mg PO TID PRN (Reason: nausea and vomiting) Qty: 6 RF: 0 famotidine [Pepcid] 20 mg tablet 20 mg PO DAILY Qty: 14 RF: 0 Continued metoprolol succinate 25 mg tablet extended release 24 hr 25 mg PO DAILY Qty: 90 RF: 3 Eliquis 5 mg tablet 5 mg PO BID Qty: 60 RF: 11 losartan 25 mg tablet 25 mg PO DAILY Qty: 90 RF: 3 triamcinolone acetonide 0.1 % cream 1 applic TP BID PRN (Reason: rash on arms) Qty: 30 RF: 1 lorazepam 0.5 mg tablet 0.5 mg PO BID PRN (Reason: anxiety) Qty: 20 RF: 1 venlafaxine 25 mg tablet 12.5 mg PO DAILY Qty: 30 RF: 2 Discharge Instructions Instructions: GERD (Gastroesophageal Reflux Disease) (ED), Acute Nausea and Vomiting (ED), Epigastric Pain (ED) Additional Instructions: Drink plenty of fluids and get plenty of rest. Your prescriptions have been sent electronically to your pharmacy. Call the pharmacy to make sure your prescriptions are ready before pickup. Take the prescriptions as directed. Follow-up with your primary care doctor in 1 week and for referral to general surgery if your symptoms do not improve or worsen for reevaluation and consideration for upper endoscopy. You have been placed on care management list to help arrange for a follow-up appointment with general surgery should you need reevaluation for upper endoscopy. Return to the emergency department with any worsening or new concerning symptoms. Referrals: Lolly Ramirez DO [OSTEOPATHIC DOCTOR] - Discharge Data Discharge Physician: Nova Santiago Medical Decision Making 2019 -- 64yo F with a history of ASD with repair in 2019 on apixaban, atrial flutter on metoprolol, GERD, obesity who presents to the ED with complaint of epigastric pain and vomiting for the past few hours. Vitals within normal limits. EKG notes a rate of 62, sinus, no STEMI, nondiagnostic. Patient has tenderness to palpation in the epigastrium and left upper quadrant. As patient admits to sour taste in mouth, with pain radiating around sides of abdomen, suspect most likely GI etiology. Considering patient's age and history, also consider dissection. Will place an IV, screening labs, CT chest abdomen and pelvis and give IV fluids, GI cocktail, Pepcid, Carafate and Zofran and reassess. 2129 -- Patient reassessed and she feels much better. She states she is completely pain-free. Patient appears much more comfortable. Labs and imaging reviewed. White blood cell count 15, suspect stress response due to pain and vomiting. Lipase within normal limits. 2249 -- CT chest notes: IMPRESSION: No thoracic aortic dissection or aneurysm. CT abdomen notes: IMPRESSION: 1. Findings suggest mild gastritis involving the gastric antrum as described above. Cannot exclude gastric ulcer on this exam. Correlation with endoscopy could be obtained as clinically indicated. 2. Multiple borderline dilated loops of mid-distal small bowel without transition point identified. There is also mild mesenteric fluid around some of the bowel loops in this region. Findings could represent enteritis with associated ileus. Recommend clinical correlation. 3. No evidence for abdominal aortic aneurysm or dissection. 4. Distal colonic diverticulosis without evidence of diverticulitis. Patient reassessed and still pain-free. Patient feels much better and is requesting to go home. Discussed with patient that considering her pain was solely epigastric is associated with vomiting, presentation appears more likely consistent with gastritis, GERD or PUD rather than small bowel obstruction. Patient is agreeable with this. Patient placed on surgery and care management list to arrange for a follow-up appointment with surgery for reevaluation and upper endoscopy if symptoms not improve or worsen. Patient was given Carafate and Zofran for home. Prescription sent to her pharmacy electronically. Usual and customary return precautions given prior to discharge. Medical Records Medical records reviewed: Yes I reviewed the patient's medical records. Imaging Data Radiologic Study: Radiologist's impression: CT Angiography Chest With Contrast Exam date and time: 06/10/2020 8:47 PM Age: 64 years old Clinical indication: Abdominal pain; Prior surgery; Surgery type: Loop recorder in 04/10; Patient HX: Epigastric pain, radiating to back, vomiting; Additional info: R/O dissection/gastritis/pancreatitis/cholecystitis TECHNIQUE: Imaging protocol: Computed tomographic angiography of the chest with contrast. 3D rendering (Not supervised by radiologist): MIP and/or 3D reconstructed images were created by the technologist. COMPARISON: CT CHEST PE CTA 12/06/2019 11:28 AM FINDINGS: Tubes, catheters and devices: There is a metallic device in the region of the interatrial septum, suggesting a septal closure device. Pulmonary arteries: No filling defects within the central pulmonary arteries are identified to suggest pulmonary embolism. Again noted is mild dilatation of the right and left pulmonary arteries which could reflect history of pulmonary hypertension. Aorta: There is no thoracic aortic dissection or aneurysm. Lungs: There are regions of subsegmental atelectasis in the lower lungs. The central airways are patent. There is no bronchiectasis or bronchiolectasis. Pleural spaces: No layering pleural effusions are identified. No pneumothorax is identified. Heart: There is mild cardiomegaly. There is no pericardial effusion. Mediastinal space: There is a tiny sliding hiatal hernia. Lymph nodes: There is no evidence of lymphadenopathy. Bones/joints: Unremarkable. No acute fracture. Soft tissues: Unremarkable. IMPRESSION: No thoracic aortic dissection or aneurysm. CT Angiography Abdomen and Pelvis With Contrast Exam date and time: 06/10/2020 8:47 PM Age: 64 years old Clinical indication: Abdominal pain; Prior surgery; Surgery type: Loop recorder in 04/10; Patient HX: Epigastric pain, radiating to back, vomiting; Additional info: R/O dissection/gastritis/pancreatitis/cholecystitis TECHNIQUE: Imaging protocol: Computed tomographic angiography of the abdomen and pelvis with contrast material. 3D rendering (Not supervised by radiologist): MIP and/or 3D reconstructed images were created by the technologist. COMPARISON: CT CHEST PE CTA 12/06/2019 11:28 AM FINDINGS: Aorta: The abdominal aorta demonstrates moderate atherosclerotic calcification without aneurysm formation. No aortic dissection is identified. Celiac trunk and mesenteric arteries: There is acute angulation of the proximal segment of the celiac axis with focal stenosis in this region consistent with compression by the median arcuate ligament. The distal aspect of the celiac axis is mildly ectatic but widely patent. The superior mesenteric artery is widely patent. Renal arteries: Atherosclerotic calcification within the proximal segment of the left renal artery, with findings suggesting mild stenosis in this region. Right iliac arteries: Moderate atherosclerotic calcification. No occlusion or significant stenosis. Left iliac arteries: Moderate atherosclerotic calcification. No occlusion or significant stenosis. Liver: No mass. Gallbladder and bile ducts: Unremarkable. No calcified stones. No ductal dilation. Pancreas: Unremarkable. No mass. No ductal dilation. Spleen: Unremarkable. No splenomegaly. Adrenal glands: Mild bilateral diffuse adrenal enlargement suggesting hyperplasia. Kidneys and ureters: Unremarkable. No solid mass. No hydronephrosis. Stomach and bowel: Findings suggest mild inflammatory wall thickening and mucosal hyperenhancement of the gastric antrum, consistent with mild gastritis. There is distal colonic diverticulosis without evidence of diverticulitis. There is mild mesenteric edema around a few small bowel loops in the right lower quadrant, as seen around image 1038, series 6. There are multiple borderline dilated loops of mid-distal small bowel measuring up to 2.6 cm diameter. There is no clear transition point to identified. Appendix: No evidence of appendicitis. Intraperitoneal space: Unremarkable. No free air. No significant fluid collection. Lymph nodes: Unremarkable. No enlarged lymph nodes. Urinary bladder: Unremarkable. No mass. Reproductive: Unremarkable as visualized. Bones/joints: No acute fracture. No dislocation. Soft tissues: Unremarkable. IMPRESSION: 1. Findings suggest mild gastritis involving the gastric antrum as described above. Cannot exclude gastric ulcer on this exam. Correlation with endoscopy could be obtained as clinically indicated. 2. Multiple borderline dilated loops of mid-distal small bowel without transition point identified. There is also mild mesenteric fluid around some of the bowel loops in this region. Findings could represent enteritis with associated ileus. Recommend clinical correlation. 3. No evidence for abdominal aortic aneurysm or dissection. 4. Distal colonic diverticulosis without evidence of diverticulitis. Lab Data Lab results reviewed: Yes I reviewed the patient's lab results. Labs: Laboratory Tests Range/Units 06/10/20 06/10/20 06/10/20 20:25 20:25 20:25 WBC (4.4-10.8) 10^3/uL 15.94 H RBC (3.93-5.22) 10^6/uL 5.22 Hgb (11.2-15.7) g/dL 15.6 Hct (36.0-46.0) % 44.9 MCV (80-95) fL 86.0 MCH (27.0-33.0) pg 29.9 MCHC (32.0-36.0) % 34.7 RDW (11.7-14.6) % 13.0 Plt Count (130-400) 10^3/uL 314 MPV (8.0-11.0) fL 10.4 Immature Gran % 0.4 Neutrophils % 83.4 Lymphocytes % 11.2 Monocytes % 4.2 Eosinophils % 0.4 Basophils % 0.4 Nucleated RBC % % 0 Absolute Neutrophils (1.2-6.7) 10^3/uL 13.29 H Absolute Lymphocytes (1.2-3.4) 10^3/uL 1.79 Absolute Monocytes (0.1-0.8) 10^3/uL 0.67 Absolute Eosinophils (0.0-0.7) 10^3/uL 0.06 Absolute Basophils (0.0-0.2) 10^3/uL 0.06 PT (9.3-11.0) sec 10.2 INR (0.9-1.1) 1.0 APTT (21.0-27.5) sec 21.1 Sodium (136-145) mmol/L 137 Potassium (3.5-5.1) mmol/L 4.1 Chloride (98-107) mmol/L 98 Carbon Dioxide (21.0-32.0) mmol/L 28.0 Anion Gap (3-11) mmol/L 11.0 BUN (7-18) mg/dL 21 H Creatinine (0.55-1.02) mg/dL 0.9 Estimated GFR/1.73 m2 (mL/min/1.73m2) >= 60.00 Glucose (74-106) mg/dL 195 H Calcium (8.5-10.1) mg/dL 9.9 Magnesium (1.8-2.4) mg/dL 2.2 Total Bilirubin (0.2-1.0) mg/dL 0.5 AST (15-37) U/L 16 ALT (14-59) U/L 24 Alkaline Phosphatase (46-116) U/L 97 Troponin I (<0.06) ng/mL < 0.05 Total Protein (6.4-8.2) g/dL 8.6 H Albumin (3.4-5.0) g/dL 4.2 Lipase (73-393) U/L Range/Units 06/10/20 20:25 WBC (4.4-10.8) 10^3/uL RBC (3.93-5.22) 10^6/uL Hgb (11.2-15.7) g/dL Hct (36.0-46.0) % MCV (80-95) fL MCH (27.0-33.0) pg MCHC (32.0-36.0) % RDW (11.7-14.6) % Plt Count (130-400) 10^3/uL MPV (8.0-11.0) fL Immature Gran % Neutrophils % Lymphocytes % Monocytes % Eosinophils % Basophils % Nucleated RBC % % Absolute Neutrophils (1.2-6.7) 10^3/uL Absolute Lymphocytes (1.2-3.4) 10^3/uL Absolute Monocytes (0.1-0.8) 10^3/uL Absolute Eosinophils (0.0-0.7) 10^3/uL Absolute Basophils (0.0-0.2) 10^3/uL PT (9.3-11.0) sec INR (0.9-1.1) APTT (21.0-27.5) sec Sodium (136-145) mmol/L Potassium (3.5-5.1) mmol/L Chloride (98-107) mmol/L Carbon Dioxide (21.0-32.0) mmol/L Anion Gap (3-11) mmol/L BUN (7-18) mg/dL Creatinine (0.55-1.02) mg/dL Estimated GFR/1.73 m2 (mL/min/1.73m2) Glucose (74-106) mg/dL Calcium (8.5-10.1) mg/dL Magnesium (1.8-2.4) mg/dL Total Bilirubin (0.2-1.0) mg/dL AST (15-37) U/L ALT (14-59) U/L Alkaline Phosphatase (46-116) U/L Troponin I (<0.06) ng/mL Total Protein (6.4-8.2) g/dL Albumin (3.4-5.0) g/dL Lipase (73-393) U/L 105 HPI General Mode of arrival: ambulatory . Date/Time Provider Initiated Documentation: 06/10/20 20:10 . Limitations to Documentation: no limitations . Information obtained by: patient . HPI Narrative: Patient is a 64-year-old female with a history of ASD with repair in 2019, on apixaban, atrial flutter on metoprolol, anxiety, GERD, obesity presents to the ED with a complaint of epigastric pain and vomiting for the past few hours. Patient states she last ate lunch which was sausage and mashed potatoes at 1230. She states a few hours after this she developed nausea and pain and then had approximately 6 episodes of vomiting. She states the pain is intermittent, cramping and located in the epigastrium with pain radiating around both sides of her abdomen around to her back, but mostly on the left side. She denies any chest pain, shortness of breath, cough or fever. She states the vomit has mainly consisted of bile. She also admits to a sour taste in her mouth. She admits to a couple episodes of loose stool but denies any watery bloody stool. She states the pain is currently 8/10. She has not taken any medication for pain. She denies any recent travel, recent antibiotics or known sick contacts. Related Data Home Medications Medication Instructions Recorded Confirmed apixaban 5 mg tablet 5 mg PO BID #60 tab 10/17/19 06/10/20 losartan 25 mg tablet 25 mg PO DAILY #90 tab 10/17/19 06/10/20 metoprolol succinate 25 mg 25 mg PO DAILY #90 tab 12/15/19 06/10/20 tablet,extended release 24 hr triamcinolone acetonide 0.1 % 1 applic TP BID PRN #30 gm 03/19/20 06/10/20 topical cream lorazepam 0.5 mg tablet 0.5 mg PO BID PRN #20 tab 05/28/20 06/10/20 venlafaxine 25 mg tablet 12.5 mg PO DAILY #30 tab 06/07/20 06/10/20 famotidine [Pepcid] 20 mg PO DAILY #14 tab 06/10/20 ondansetron 4 mg PO TID PRN #6 tab 06/10/20 sucralfate [Carafate] 1 gm PO QACHS #20 tab 06/10/20 Previous Rx's Medication Instructions Recorded apixaban 5 mg tablet 5 mg PO BID #60 tab 10/17/19 losartan 25 mg tablet 25 mg PO DAILY #90 tab 10/17/19 metoprolol succinate 25 mg 25 mg PO DAILY #90 tab 12/15/19 tablet,extended release 24 hr triamcinolone acetonide 0.1 % 1 applic TP BID PRN #30 gm 03/19/20 topical cream lorazepam 0.5 mg tablet 0.5 mg PO BID PRN #20 tab 05/28/20 venlafaxine 25 mg tablet 12.5 mg PO DAILY #30 tab 06/07/20 famotidine [Pepcid] 20 mg PO DAILY #14 tab 06/10/20 ondansetron 4 mg PO TID PRN #6 tab 06/10/20 sucralfate [Carafate] 1 gm PO QACHS #20 tab 06/10/20 Allergies Allergy/AdvReac Type Severity Reaction Status Date / Time pantoprazole [From Protonix] AdvReac Severe DIARRHEA Verified 06/10/20 20:26 amoxicillin [From Augmentin] AdvReac Intermediate GI Verified 06/10/20 20:26 upset/diarrhea clavulanic acid AdvReac Intermediate GI Verified 06/10/20 20:26 [From Augmentin] upset/diarrhea General PAULINO: 2 Review of Systems All systems reviewed & are unremarkable except as noted in HPI and below Constitutional Constitutional: Reports as per HPI, Denies chills and Denies fever(s) Eyes Eyes: Denies blurry vision ENT Ears, Nose, Mouth, and Throat: Denies dizziness, Denies sore throat and Denies throat swelling Cardiovascular Cardiovascular: Denies chest pain and Denies dyspnea Respiratory Respiratory: Denies cough and Denies dyspnea Gastrointestinal Gastrointestinal: Reports abdominal pain, Denies diarrhea and Reports vomiting Genitourinary Genitourinary: Denies hematuria and Denies dysuria Musculoskeletal Musculoskeletal: Denies back pain and Denies numbness Integumentary/Breasts Skin/Breast: Denies lesions and Denies rash Neurologic Neurologic: Denies dizziness, Denies localized weakness and Denies numbness Allergic/Immunologic Allergic/Immunologic: Denies throat swelling [facility] Medical History No significant past medical history Obesity Surgical History History of bilateral tubal ligation Family History (Updated 06/03/20 @ 14:31 by Nancy Lindquist) Mother Stroke Father Cancer Social History (Updated 06/03/20 @ 14:30 by Nancy Lindquist) Smoking/Tobacco Use Status: Former Tobacco Use tobacco type: cigarettes Quit Date: 03/22/18 Smoking risk assessment performed?: Yes Alcohol Intake: current Alcohol Intake frequency: holidays/special occasions only Alcohol type: wine Drug use: Never Substance use type: does not use Caregiver/Support person: No Household members: other Details: Mother Housing: apartment Do you need help understanding health information?: Rarely Pets and animals: Yes Pets and animals: cat(s) Sexually active: No Do you think of yourself as: straight/heterosexual Current gender identity: female What is your relationship status?: How often do you talk on the phone with friends or family?: once per week How often do you get together with friends or relatives?: never How often do you attend jehovah's witness or oriental orthodox services?: decline to answer Do you belong to any clubs or organized social groups?: no Panel score (0-1 are the most socially isolated patients): 0 What type of physical activity do you participate in: walking Duration: 30-45 minutes/day Frequency: 3-4 times per week Gayatri/Sabianism: No preference Special gayatri needs: No Seatbelt use: always Drive intox or ride w/intox 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 Do you feel safe at home: Yes Do you feel safe in your relationship?: Yes Exam Const General: cooperative and no acute distress HENMT Head: normal to inspection Face and sinus: normal facial exam Eyes General: appearance normal, both eyes and all related structures EOM: EOM intact bilaterally Neck Neck: normal visual inspection and No submandibular swelling Lymphatic: no lymphadenopathy noted Chest Chest: normal inspection of the chest and no tenderness Resp Effort & Inspection: normal respiratory effort and able to speak in complete sentences Auscultation: clear to auscultation bilaterally Cardio Rate: regular rate Rhythm: regular rhythm GI Inspection: normal to inspection Palpation: soft, not firm, not rigid and tender in the epigastrum and in the LUQ Auscultation: normal bowel sounds Skin General skin exam: no rashes or lesions noted Neuro General: patient alert, patient awake and patient oriented x3 Cognition: normal cognition Speech: speech normal Motor: muscle tone normal throughout Sensory Exam: no sensory deficits noted Extrem General: normal to inspection, full ROM, capillary refill normal, no calf tenderness bilaterally and no edema Psych Appearance: grossly normal Mental Status: mental status grossly normal Speech and Movement: speech and movement normal Affect: normal affect
--- NOTE | 2020-06-10 20:15 | RT.EKG_ITS ---
APPROVED REPORT Exam: Resting ECG Patient Location: E HR:62 bpm ECG Measurements Heart Rate 62 AXIS AR 172 P 50 QRSd 107 QRS 21 QT 460 T 41 QTc 469 Conclusion Slow sinus arrhythmia...V-rate 54- 74, mean< 60 I have reviewed and interpreted ECG and agree with software generated interpretation.
--- NOTE | 2020-06-10 20:30 | DI.CT_ITS ---
EXAM: CT THORAX ABD/PEL CTA CLINICAL HISTORY: epigastric pain, radiating to back, vomiting. TECHNIQUE: Imaging Protocol: Axial CT angiography was performed with multi-slice acquisition and m ulti-planar and/or 3D reconstructions. CONTRAST MATERIAL: Intravenous: Omnipaque 350 Contrast volume:85 mL Oral: No CT CT CHEST PE CTA from 12/06/[address] CHEST PE CTA from 12/06/2019 FINDINGS: The examination is limited due to patient motion artifact. CHEST: Tracheobronchial tree: Patent where visualized. Pulmonary parenchyma: No consolidation or dominant measurable mass. No architectural distortion. Mild atelectasis. Pulmonary Arteries: No evidence of filling defect to suggest pulmonary emboli. Mediastinum and Dede: No dominant adenopathy or fluid collection. Visualized thyroid: Unremarkable. Pleura: No effusion or pneumothorax. Heart: Mild cardiomegaly. No coronary artery calcifications are seen. No pericardial effusion.There is again seen a metallic device in the region of the inter atrial septum. This may represent a septa l closure device. It is unchanged. Aorta: Thoracic aorta non-dilated. Atherosclerosis no evidence of dissection. Soft Tissues: Unremarkable. Bones: Normal. ABDOMEN AND PELVIS: Abdomen: Celiac axis/mesenteric arteries: No evidence of occlusion or significant stenosis. Renal Arteries: There is no evidence of occlusion. There is unchanged kinking of the proximal celiac trunk with narrowing of the diameter of the lumen of greater than 50 percent. There is a single raymond al artery perfusing each kidney. Mild atherosclerosis at the origin of the left renal artery. Aorta: No evidence of occlusion or significant stenosis. No aneurysm or dissection. Moderate ather osclerosis. Pelvis: Iliac Arteries: No evidence of occlusion or significant stenosis. Mild to moderate atherosclerosis. Common Femoral Arteries: No evidence of occlusion or significant stenosis. Mild atherosclerosis. ABDOMEN: Liver: Diffuse decreased attenuation consistent with fatty infiltration. No measurable mass. Portal, Superior Mesenteric, and Splenic Veins: Unremarkable. Gallbladder and Biliary Tract: No radiodense calculus or dilation. Pancreas: Normal density, no abnormal calcifications or inflammatory process. Spleen: Normal. Adrenals: No masses seen. Kidneys: Normal size, contour and axis. No radiodense stones or obstructive uropathy. No masses seen. Bowel: There are mildly dilated loops of small bowel in the central abdomen without transition to sug gest obstruction. This may represent an ileus. There is a small amount of fluid seen adjacent to sm all bowel loops in the right lower quadrant. A mild enteritis cannot be excluded. The appendix is u nremarkable. Mild bowel wall thickening and hyperenhancement of the gastric antrum suggesting mild g astritis. There is diverticulosis in the descending and sigmoid colon but no evidence of acute diver ticulitis. Small hiatal hernia. Peritoneal Cavity: No ascites, collection or mesenteric inflammatory response. No free air. Lymph Nodes: Within normal limits. Bones: Within normal limits for the patient's age. Soft Tissues: There is a small fat containing umbilical hernia. Small fat containing bilateral ingui nal hernia. PELVIS: Bladder: Symmetric distention, no gross wall thickening. Reproductive Organs: Unremarkable as visualized. Lymph Nodes: Within normal limits. Bones: Within normal limits. IMPRESSION: 1. Unchanged acute angulation of the proximal segment of the celiac axis which may represent compress ion by the median arcuate ligament. 2. Atherosclerosis but no evidence of dissection or other areas of significant stenosis. 3. Findings suggesting mild gastritis. Please clinically correlate. 4. Mild dilatation of mid to distal small bowel loops without transition point which may represent mi ld enteritis with associated ileus. Please correlate clinically. 5. No evidence of pulmonary embolism, thoracic aortic dissection or aneurysm. RADIATION DOSE DELIVERED: 1,109.76mGy.cm Total DLP 1,109.76mGy.cm Total DLP DATA REPOSITORY: All CT scans at this facility are submitted to the National Radiology Data Registry (NRDR) Dose Index Registry (DIR) with the [employer] ([employer]). RADIATION OPTIMIZATION: All CT scans at this facility use at least one of these dose optimization te chniques: automated exposure control; mA and/or kV adjustment per patient size (includes targeted exa ms where dose is matched to clinical indication); or iterative reconstruction.
[2020-06-10 20:53] LABS: Abs Immature Grans 0.07 10^3/uL (0.0-0.06); Absolute Basophil Count 0.06 10^3/uL (0.0-0.2); Absolute Eosinophil Count 0.06 10^3/uL (0.0-0.7); Absolute Lymphocyte Count 1.79 10^3/uL (1.2-3.4); Absolute Monocyte Count 0.67 10^3/uL (0.1-0.8); Absolute Neutrophil Count 13.29 10^3/uL (1.2-6.7); Basophils % 0.4; Eosinophils % 0.4; HCT 44.9 % (36.0-46.0); HGB 15.6 g/dL (11.2-15.7); Immature Grans % 0.4; Lymphocytes % 11.2; MCH 29.9 pg (27.0-33.0); MCHC 34.7 % (32.0-36.0); MPV 10.4 fL (8.0-11.0); Monocytes % 4.2; Neutrophils % 83.4; Nucleated RBC 0 %; Platelet Count 314 10^3/uL (130-400); RBC 5.22 10^6/uL (3.93-5.22); RDW-SD 40.3 fL; WBC 15.94 10^3/uL (4.4-10.8)
[2020-06-10] MEDS: Normal Saline 500 ML IV (20:59)
[2020-06-10] MEDS: Ondansetron 4 MG/2 ML VIAL IVP (21:00)
[2020-06-10] MEDS: FAMOTIDINE 20 MG/50 ML BAG 200 MG IVPB (21:03)
[2020-06-10] MEDS: Sucralfate 1 GM TAB PO ×2 (21:06→23:01)
[2020-06-10 21:07] LABS: PTT Activated 21.1 sec (21.0-27.5); Prothrombin Time 10.2 sec (9.3-11.0)
[2020-06-10 21:15] LABS: ALT 24 U/L (14-59); AST 16 U/L (15-37); Albumin 4.2 g/dL (3.4-5.0); Alkaline Phosphatase 97 U/L (46-116); BUN 21 mg/dL (7-18); Bilirubin, Total 0.5 mg/dL (0.2-1.0); CREATININE 0.9 mg/dL (0.55-1.02); Calcium 9.9 mg/dL (8.5-10.1); Chloride 98 mmol/L (98-107); Glucose 195 mg/dL (74-106); Magnesium 2.2 mg/dL (1.8-2.4); Potassium 4.1 mmol/L (3.5-5.1); Sodium 137 mmol/L (136-145); Total Protein 8.6 g/dL (6.4-8.2)
[2020-06-10 21:20] LABS: Troponin I < 0.05 ng/mL (<0.06)
[2020-06-10] MEDS: Omnipaque 350 MG/ML 100 ML BTL IJ (21:27)
[2020-06-10] MEDS: Normal Saline - Diluent 50 ML VIAL IV (21:28)
[2020-06-10 22:10] LABS: Lipase 105 U/L (73-393)
--- NOTE | 2020-06-10 22:43 | DI.VRAD_ITS ---
PROCEDURE INFORMATION: Exam: CT Angiography Chest With Contrast Exam date and time: 06/10/2020 8:47 PM Age: 64 years old Clinical indication: Abdominal pain; Prior surgery; Surgery type: Loop recorder in 04/10; Patient HX: Epigastric pain, radiating to back, vomiting; Additional info: R/O dissection/gastritis/pancreatitis/cholecystitis TECHNIQUE: Imaging protocol: Computed tomographic angiography of the chest with contrast. 3D rendering (Not supervised by radiologist): MIP and/or 3D reconstructed images were created by the technologist. COMPARISON: CT CHEST PE CTA 12/06/2019 11:28 AM FINDINGS: Tubes, catheters and devices: There is a metallic device in the region of the interatrial septum, suggesting a septal closure device. Pulmonary arteries: No filling defects within the central pulmonary arteries are identified to suggest pulmonary embolism. Again noted is mild dilatation of the right and left pulmonary arteries which could reflect history of pulmonary hypertension. Aorta: There is no thoracic aortic dissection or aneurysm. Lungs: There are regions of subsegmental atelectasis in the lower lungs. The central airways are patent. There is no bronchiectasis or bronchiolectasis. Pleural spaces: No layering pleural effusions are identified. No pneumothorax is identified. Heart: There is mild cardiomegaly. There is no pericardial effusion. Mediastinal space: There is a tiny sliding hiatal hernia. Lymph nodes: There is no evidence of lymphadenopathy. Bones/joints: Unremarkable. No acute fracture. Soft tissues: Unremarkable. IMPRESSION: No thoracic aortic dissection or aneurysm. PROCEDURE INFORMATION: Exam: CT Angiography Abdomen and Pelvis With Contrast Exam date and time: 06/10/2020 8:47 PM Age: 64 years old Clinical indication: Abdominal pain; Prior surgery; Surgery type: Loop recorder in 04/10; Patient HX: Epigastric pain, radiating to back, vomiting; Additional info: R/O dissection/gastritis/pancreatitis/cholecystitis TECHNIQUE: Imaging protocol: Computed tomographic angiography of the abdomen and pelvis with contrast material. 3D rendering (Not supervised by radiologist): MIP and/or 3D reconstructed images were created by the technologist. COMPARISON: CT CHEST PE CTA 12/06/2019 11:28 AM FINDINGS: Aorta: The abdominal aorta demonstrates moderate atherosclerotic calcification without aneurysm formation. No aortic dissection is identified. Celiac trunk and mesenteric arteries: There is acute angulation of the proximal segment of the celiac axis with focal stenosis in this region consistent with compression by the median arcuate ligament. The distal aspect of the celiac axis is mildly ectatic but widely patent. The superior mesenteric artery is widely patent. Renal arteries: Atherosclerotic calcification within the proximal segment of the left renal artery, with findings suggesting mild stenosis in this region. Right iliac arteries: Moderate atherosclerotic calcification. No occlusion or significant stenosis. Left iliac arteries: Moderate atherosclerotic calcification. No occlusion or significant stenosis. Liver: No mass. Gallbladder and bile ducts: Unremarkable. No calcified stones. No ductal dilation. Pancreas: Unremarkable. No mass. No ductal dilation. Spleen: Unremarkable. No splenomegaly. Adrenal glands: Mild bilateral diffuse adrenal enlargement suggesting hyperplasia. Kidneys and ureters: Unremarkable. No solid mass. No hydronephrosis. Stomach and bowel: Findings suggest mild inflammatory wall thickening and mucosal hyperenhancement of the gastric antrum, consistent with mild gastritis. There is distal colonic diverticulosis without evidence of diverticulitis. There is mild mesenteric edema around a few small bowel loops in the right lower quadrant, as seen around image 1038, series 6. There are multiple borderline dilated loops of mid-distal small bowel measuring up to 2.6 cm diameter. There is no clear transition point to identified. Appendix: No evidence of appendicitis. Intraperitoneal space: Unremarkable. No free air. No significant fluid collection. Lymph nodes: Unremarkable. No enlarged lymph nodes. Urinary bladder: Unremarkable. No mass. Reproductive: Unremarkable as visualized. Bones/joints: No acute fracture. No dislocation. Soft tissues: Unremarkable. IMPRESSION: 1. Findings suggest mild gastritis involving the gastric antrum as described above. Cannot exclude gastric ulcer on this exam. Correlation with endoscopy could be obtained as clinically indicated. 2. Multiple borderline dilated loops of mid-distal small bowel without transition point identified. There is also mild mesenteric fluid around some of the bowel loops in this region. Findings could represent enteritis with associated ileus. Recommend clinical correlation. 3. No evidence for abdominal aortic aneurysm or dissection. 4. Distal colonic diverticulosis without evidence of diverticulitis. Dictated and Authenticated by: Nicola Patricio MD. Ordering:OMKAR Bhatt MD
[2020-06-10] MEDS: Ondansetron O.D.T. 4 MG TABEF, 3 TABS/BTL PO (23:00)
--- NOTE | 2020-06-11 07:07 | NUR.NOTE ---
Referral faxed to [facility]2 wks for gerd/gastritis.Nursing Note:
== END 2020-06-10 23:00 | disposition home or self-care (01) ==
PROVIDERS: Emergency Provider Physician Assistant; PCP Family Medicine
DX: R10.13 Epigastric pain (principal); R11.2 Nausea with vomiting, unspecified
CPT/HCPCS: 36415; 71275; 74177; 80053; 83690; 93005; 96361; 96365; 96375; 99285; 83735; 84484; 85025; 85610; 85730; 93010; J2405; J3490

== ENCOUNTER → 2020-10-31 13:59 | Outpatient (BNVA) | payer MEDICARE, MEDICAID, SELFPAY | PROVIDERS: PCP Family Medicine; Visit Provider Internal Medicine Cardiovascular Disease | DX: Q21.1 Atrial septal defect (principal); Z86.79 Personal history of other diseases of the circulatory system; R00.0 Tachycardia, unspecified; I10 Essential (primary) hypertension; Z98.890 Other specified postprocedural states; Z79.899 Other long term (current) drug therapy | CPT/HCPCS: 99214; 99213 ==

== ENCOUNTER 2020-11-27 02:46 | Outpatient (CLI) | payer MEDICARE, MEDICAID, SELFPAY ==
--- NOTE | 2020-11-27 13:41 | DI.US_ITS ---
APPROVED REPORT EXAM: Comprehensive 2D, Doppler, and color-flow Echocardiogram Patient Location: Out-Patient Assembly Machine Offbearer: Char Orozco RDCS (AE) Indications: ASD Closure, Tachycardia Other Information Study Quality: Good Conclusion Normal left ventricular wall thickness and chamber size. Estimated ejection fraction is 60%. There are no segmental wall motion abnormalities Normal right ventricular size and systolic function Both atria are mildly dilated. The atrial septum is notable for an occluder device Trileaflet sclerotic aortic valve with mild regurgitation Mild mitral annular calcification. Trace to mild mitral regurgitation Normal tricuspid valve with mild regurgitation. Estimated right ventricular systolic pressure is nor mal at 26 mmHg Trace physiologic pulmonic regurgitation Wall motion Left Ventricle The left ventricle is normal size. The left ventricular systolic function is normal. The left ventric ular ejection fraction is within the normal range. There is normal left ventricular wall thickness. T here is normal LV segmental wall motion. There is no ventricular septal defect visualized. LVEF is 60 %. Right Ventricle The right ventricle is normal size. The right ventricular systolic function is normal. The RVSP is 26 .2mmHg. Atria Left atrium is mildly dilated. Right atrium is mildly dilated. Atrial septum occluder device seen. Aortic Valve The Aortic valve is sclerotic. Aortic valve is trileaflet. No hemodynamically significant valvular ao rtic stenosis. Mild aortic regurgitation. Mitral Valve Mild mitral annular calcification. No evidence of mitral valve stenosis. Trace to mild mitral regurgi tation. Tricuspid Valve The tricuspid valve is normal in structure. There is no tricuspid valve stenosis. Mild tricuspid regu rgitation. Pulmonic Valve The pulmonary valve is normal in structure. There is no pulmonic valvular stenosis. Trace pulmonic re gurgitation. Great Vessels The aortic root is normal in size. The ascending aorta is normal in size. Aortic arch is not well vis ualized. IVC is normal in size and collapses >50% with inspiration. Pericardium There is no pericardial effusion. 2D Dimensions IVSD d PLAX 0.93 cm F: 0.6-1.0 LV Vol A2C d MOD 78.2 mL LVPW d PLAX 0.96 cm F: 0.6 - 1.0 LV Vol A4C d MOD 67.8 mL LVID d PLAX 4.11 cm F: 3.8 - 5.2 LA vol/ BSA A2C s A-L 42.8 mL/m2 LVDs 2.60 cm F: 2.2 - 3.5 LA vol/ BSA A4C s A-L 41.6 mL/m2 Ao Root d 3.14 cm F: 2.7 - 3.3 LA Vol/ BSA Biplane s A-L 43.2 mL/m2 RA Area A4C 15.68 cm2 LA Area A4C s MOD 24.69 cm2 RA Vol/ BSA A4C s A-L 20.0 mL/m2 LA Area A2C s MOD 25.63 cm2 Ao Asc Diam d 3.06 cm F: 2.3 - 3.1 LV EF A4C MOD 61.3 % LV EF Teichholz 65.6 % LV EF A2C MOD 60.0 % LVEF (Beltre's) 60.40 % F: 54 - 74 LV EF Biplane MOD 60.4 % LV Volume 55.78 mL F: 46 - 106 SV 44.09 mL LV Volume Index 29.51 mL/m2 F: 29 - 61 SV Index 23.31 mL/m2 LV Vol Biplane MOD 73.0 mL FS 35.65 % M-Mode TAPSE 2.59 cm (M/F) >1.7 LV Diastology MV E' medial 0.056 (>0.07 m/s) E/A Ratio 0.9 LV E/e MED 14.25 (<14) MV E Vmax 0.80 (0.4-1.3 m/s) MV E' lateral 0.096 (>0.1 m/s) MV A Vmax 0.85 (0.4-1.3 m/s) LV E/e LAT 8.30 (<14) MV E/A Ratio 0.89 MV E/E' medial 14.29 MV E/E' lateral 8.31 Aortic Valve LVOT Area 3.18 cm2 AoV Area Vmax 2.02 cm2 LVOT Vmax 1.26 m/s AoV Area/ BSA (Vmax) 1.07 cm2/m2 LVOT Mean Stanislaw. 0.81 m/s BREEZY Mean Stanislaw. 1.84 cm2 LVOT Peak Grad 6.4 mmHg BREEZY Mean Stanislaw. Index 0.97 cm2/m2 LVOT Mean Grad 3.1 mmHg AR DT 2056 msec LVOT VTI 0.273 m AR PHT 596 msec LVOT Diam s 2.00 cm AoV Vmax 1.98 m/s Velocity Ratio 0.63 AoV Mean Stanislaw. 1.41 m/s AoV Peak Grad 15.7 mmHg LVOT SV 86.82 mL AoV Mean Grad 8.7 mmHg AoV VTI 0.418 m AoV Area VTI 2.08 cm2 AoV Area/ BSA (VTI) 1.10 cm/m2 Mitral Valve MV DT 380 (160-240 msec) MV PHT 110 msec MV Area PHT 2.00 cm2 MV VTI 0.293 m MV VTI Annulus 0.301 m MV Area VTI 3.04 (4.0-6.0 cm2) Pulmonary Valve PV Vmax 1.40 (0.5-1.5 m/s) RVOT Peak Gr. 2.46 mmHg PV Peak Grad 7.9 mmHg RVOT Mean Gr. 1.00 mmHg PV Mean Grad 3.1 mmHg RVOT VTI 0.122 m PV VTI 0.213 m RVOT Vmax 0.78 m/s Tricuspid Valve TR Peak Grad 23.1 mmHg TR Vmax 2.41 m/s RA Pressure 3.00 mmHg RVSP (TR) 26.2 mmHg
== END 2020-11-27 03:06 ==
PROVIDERS: PCP Family Medicine; Visit Provider Internal Medicine Cardiovascular Disease
DX: R00.0 Tachycardia, unspecified (principal); I08.3 Combined rheumatic disorders of mitral, aortic and tricuspid valves
CPT/HCPCS: 93306

== ENCOUNTER → 2021-05-02 12:43 | Outpatient (BNVA) | payer MEDICARE, MEDICAID, SELFPAY | PROVIDERS: PCP Family Medicine; Visit Provider Internal Medicine Cardiovascular Disease | DX: Q21.1 Atrial septal defect (principal); I48.92 Unspecified atrial flutter; R00.0 Tachycardia, unspecified | CPT/HCPCS: 99213 ==

== ENCOUNTER 2021-06-20 02:26 | Outpatient (CLI) | payer MEDICARE, SELFPAY | END 2021-06-20 02:27 | disposition home or self-care (01) | LOC: LBO 02:26 | PROVIDERS: PCP Family Medicine; Visit Provider Family Medicine ==

== ENCOUNTER 2021-06-26 02:12 | Outpatient (CLI) | payer MEDICARE, SELFPAY ==
[2021-06-26 11:20] LABS: Anion Gap 11.9 mmol/L (3-11); BUN 20 mg/dL (7-18); CO2 27.1 mmol/L (21.0-32.0); CREATININE 0.8 mg/dL (0.55-1.02); Calcium 9.1 mg/dL (8.5-10.1); Calculated LDL 132 mg/dL (<100); Chloride 101 mmol/L (98-107); Cholesterol 221 mg/dL (<200); Glucose 93 mg/dL (74-106); HDL Cholesterol 57 mg/dL (40-60); Potassium 4.5 mmol/L (3.5-5.1); Sodium 140 mmol/L (136-145); Triglyceride 163 mg/dL (<150)
== END 2021-06-26 02:13 | disposition home or self-care (01) ==
LOC: LBO 02:12
PROVIDERS: PCP Family Medicine; Visit Provider Family Medicine
DX: E87.1 Hypo-osmolality and hyponatremia (principal); E78.5 Hyperlipidemia, unspecified
CPT/HCPCS: 36415; 80048; 80061

== ENCOUNTER 2021-07-01 07:55 | Emergency (ER) | payer MEDICARE, MEDICAID, SELFPAY ==
[2021-07-01 08:00] VITALS: BP 144/55; PULSE 72; RESP 16; TEMP 36.9; O2SAT 97
--- NOTE | 2021-07-01 08:15 | DI.RAD_ITS ---
Exam(s) XR LUMBAR SPINE COMPLETE EXAM: XR LUMBAR SPINE COMPLETE CLINICAL HISTORY: pain right lumbar paraspinal. TECHNIQUE: 2D digital imaging was performed of the lumbar spine. Five images were obtained. AP, la teral, right oblique, left oblique and L5-S1 spot views were obtained. COMPARISON: No exams were available for comparison FINDINGS: BONES: No fracture or destructive lesion. Endplate osteophytes are seen at multiple levels. No facet hypertrophy identified. DISKS: There is disc space narrowing at L5-S1. ALIGNMENT: There is a mild left convex scoliosis. No spondylolysis or spondylolisthesis. SOFT TISSUE: Atherosclerosis is present. IMPRESSION: [id number] degenerative changes in the lumbar spine. DATA REPOSITORY: RADIATION DOSE DELIVERED:
--- NOTE | 2021-07-01 08:29 | W.ED.GENAD ---
Discharge Plan Disposition Patient Disposition: HOME Condition: Stable Discharge Details Clinical Impression: Lumbar back pain with radiculopathy affecting right lower extremity Primary Care Provider: Enrike Brown ED Provider: Ti Walter Home Meds and New Rx's Prescriptions: New diazepam [Valium] 5 mg tablet 5 mg PO QHS PRN (Reason: muscle spasm) Qty: 10 0RF prednisone 20 mg tablet 40 mg PO DAILY Qty: 8 0RF Continued triamcinolone acetonide 0.1 % cream 1 applic TP BID PRN (Reason: rash on arms) Qty: 30 1RF Rx Instructions: apply for 10 days or until resolved, whichever comes first erythromycin 5 mg/gram (0.5 %) ointment 0.5 inch OP TID Qty: 3.5 1RF famotidine [Pepcid] 20 mg tablet 20 mg PO BID PRN (Reason: acid refux) Qty: 90 3RF losartan 25 mg tablet 25 mg PO DAILY Qty: 90 3RF metoprolol succinate 25 mg tablet extended release 24 hr 25 mg PO DAILY Qty: 90 3RF Eliquis 5 mg tablet 5 mg PO BID 0RF Label Comments: TAKE ONE TABLET BY MOUTH TWICE A DAY Held lorazepam 0.5 mg tablet 0.5 mg PO BID PRN (Reason: anxiety) Qty: 15 2RF Hold Instructions: Resume on 07/22/21. do not take while taking valium Discharge Instructions Instructions: Lumbar Radiculopathy (ED) Additional Instructions: You were given initial dose of prednisone today. Your next dose is tomorrow. Please take acetaminophen (tylenol) - 650mg every 6 hours by mouth as needed for pain. Use lidocaine patches. Dose according to label. Please avoid activities that worsen pain. Please contact your primary care physician to arrange follow-up. Call today to schedule. Return to the ER immediately for any worsening or new concerning symptoms. Stand Alone Forms: Physical Therapy Referral Referrals: Enrike Brown MD [Primary Care Provider] - Medical Decision Making 830 --65-year-old female with multiple medical problems including atrial fibrillation, on Eliquis, here 1 month after fall from standing to the ground with right low back pain. Patient is tender right lumbar paraspinal, focally tender over L1-L2 laterally with some intermittent radicular pain. Patient is neurologically intact. Concern for lumbar disc herniation versus less likely compression fracture given pain distribution. Plan to obtain x-ray of the lumbar spine. Patient is reluctant to take nonsteroidal anti-inflammatories given prior history of gastritis and on anticoagulant. Plan to treat with lidocaine patch, short course of prednisone, and will refer to physical therapy. I will prescribe short course of Valium as antispasmodic. Patient instructed to not use her lorazepam while taking Valium. -- xray lumbar spine interpreted by radiology: FINDINGS: BONES: No fracture or destructive lesion. Endplate osteophytes are seen at multiple levels.? No facet hypertrophy identified. DISKS: There is disc space narrowing at L5-S1. ALIGNMENT: There is a mild left convex scoliosis.? No spondylolysis or spondylolisthesis. SOFT TISSUE: Atherosclerosis is present.? IMPRESSION: [id number] degenerative changes in the lumbar spine.? Suspected disc herniation. -- Patient understands that if pain were to persist or symptoms worsen she should return or follow-up with her primary care physician for additional diagnostic testing. Usual customary discharge instructions were reviewed with the patient. HPI General Mode of arrival: ambulatory. Date/Time Provider Initiated Documentation: 07/01/21 08:27. Limitations to Documentation: no limitations. Information obtained by: patient. HPI Narrative: 65-year-old female with multiple medical problems including atrial fibrillation, on Eliquis, GERD, anxiety, here 1 month after fall from standing to the ground with right low back pain. Patient she lost her balance and fell from standing position and landed on her buttocks. Patient notes pain has progressed since initial onset. Pain is moderate to severe with certain positions including lying flat and with prolonged sitting She had trouble sleeping. She notes pain intermittently radiates to her right anterior lateral thigh. No associated bowel or bladder dysfunction. No numbness or tingling. Related Data Home Medications Medication Instructions Recorded Confirmed triamcinolone acetonide 0.1 % 1 applic TP BID PRN #30 gm 03/19/20 07/01/21 topical cream erythromycin 5 mg/gram (0.5 %) eye 0.5 inch OP TID #3.5 gm 11/05/20 07/01/21 ointment famotidine 20 mg tablet (Pepcid) 20 mg PO BID PRN #90 tab 05/14/21 07/01/21 losartan 25 mg tablet 25 mg PO DAILY #90 tab 05/14/21 07/01/21 metoprolol succinate 25 mg 25 mg PO DAILY #90 tab 05/14/21 07/01/21 tablet,extended release 24 hr lorazepam 0.5 mg tablet 0.5 mg PO BID PRN #15 tab 06/04/21 07/01/21 apixaban 5 mg tablet (Eliquis) 5 mg PO BID 07/01/21 07/01/21 diazepam 5 mg tablet (Valium) 5 mg PO QHS PRN #10 tab 07/01/21 prednisone 20 mg tablet 40 mg PO DAILY #8 tab 07/01/21 Previous Rx's Medication Instructions Recorded triamcinolone acetonide 0.1 % 1 applic TP BID PRN #30 gm 03/19/20 topical cream erythromycin 5 mg/gram (0.5 %) eye 0.5 inch OP TID #3.5 gm 11/05/20 ointment famotidine 20 mg tablet (Pepcid) 20 mg PO BID PRN #90 tab 05/14/21 losartan 25 mg tablet 25 mg PO DAILY #90 tab 05/14/21 metoprolol succinate 25 mg 25 mg PO DAILY #90 tab 05/14/21 tablet,extended release 24 hr lorazepam 0.5 mg tablet 0.5 mg PO BID PRN #15 tab 06/04/21 diazepam 5 mg tablet (Valium) 5 mg PO QHS PRN #10 tab 07/01/21 prednisone 20 mg tablet 40 mg PO DAILY #8 tab 07/01/21 Allergies Allergy/AdvReac Type Severity Reaction Status Date / Time pantoprazole [From Protonix] AdvReac Severe DIARRHEA Verified 07/01/21 08:04 amoxicillin [From Augmentin] AdvReac Intermediate GI Verified 07/01/21 08:04 upset/diarrhea clavulanic acid AdvReac Intermediate GI Verified 07/01/21 08:04 [From Augmentin] upset/diarrhea General Stated Complaint: Nk/Back Pain PAULINO: 4 Review of Systems All systems reviewed & are unremarkable except as noted in HPI and below Constitutional Constitutional: Denies fever(s) and Denies weakness Musculoskeletal Musculoskeletal: Reports back pain, Reports radiating pain into limb and Denies tingling Neurologic Neurologic: Denies sensory deficit, Denies tingling and Denies weakness PFSH All Active Problems Lumbar back pain with radiculopathy affecting right lower extremity (Acute) Conjunctivitis (Acute) Epigastric abdominal pain (Acute) Vomiting (Acute) Microscopic hematuria (Acute) Dry mouth (Acute) Soft tissue swelling (Acute) Skin rash (Acute) External otitis of left ear (Acute) GERD (gastroesophageal reflux disease) (Chronic) Chest wall pain (Acute) Elevated hemoglobin A1c (Acute) Obesity (Chronic) Fatigue (Acute) Leg cramps (Acute) Eczema (Acute) Ganglion cyst of right foot (Acute) Hematuria (Acute) better w/ keflex Chest pain (Acute) better w/ doxy Anxiety (Chronic) continue fluoxetine use lorazepam as needed Pain in joint, site unspecified (Acute 07/27/12) ASD (atrial septal defect) (Acute) s/p closure Atrial flutter (Acute) DVT prophylaxis (Acute) Tachycardia (Acute) Medical History No significant past medical history Surgical History History of bilateral tubal ligation Family History Mother Stroke Father Cancer Social History Smoking/Tobacco Use Status: Former Tobacco Use tobacco type: cigarettes Quit Date: 03/22/18 Tobacco: How many years used: 20 Quit status: quit date established Second Hand Exposure: Yes Smoking risk assessment performed?: Yes Alcohol Intake: current Alcohol Intake frequency: holidays/special occasions only Alcohol type: wine Drug use: Never Substance use type: painkillers Caregiver/Support person: No Household members: family Housing: house Pets and animals: Yes Pets and animals: cat(s) Do you think of yourself as: straight/heterosexual Current gender identity: female What is your relationship status?: How often do you talk on the phone with friends or family?: once per week How often do you get together with friends or relatives?: once per week How often do you attend zoroastrianism or faith services?: 1-3 times per year Panel score (0-1 are the most socially isolated patients): 0 What type of physical activity do you participate in: walking Duration: 45-60 minutes/day Frequency: daily Seatbelt use: always Drive intox or ride w/intox 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 Do you feel safe at home: Yes Do you feel safe in your relationship?: Yes Exam Const General: cooperative and no acute distress Other: Patient intermittently uncomfortable with spasms HENMT Mouth: moist mucous membranes Eyes Conjunctivae: normal conjunctivae Sclera: normal sclerae Resp Auscultation: clear to auscultation bilaterally, no rales, no rhonchi and no wheezes Cardio Rate: regular rate and not tachycardic Rhythm: regular rhythm GI Palpation: soft, not firm, no guarding, no masses, not rigid and nontender Back/Spine/Pelvis Cervical Spine: pain with cervical ROM and No cervical spinal tenderness Thoracic/Lumbar Spine: thoracic spinal tenderness and lumbar spinal tenderness (Right paraspinal L2) Skin General skin exam: no rashes or lesions noted Neuro General: patient alert, patient awake and tone normal Motor: strength 5/5 throughout Sensory Exam: no sensory deficits noted and other (No saddle anesthesia) Extrem General: no edema Course Vital Signs Vital signs: Vital Signs Temperature 36.9 C 07/01/21 08:00 Pulse 72 07/01/21 08:00 Respiratory Rate 16 07/01/21 08:00 Blood Pressure 144/55 H 07/01/21 08:00 Pulse Oximetry 97 07/01/21 08:00 Temperature 36.9 C 07/01/21 08:00 Temperature Source Temporal Artery Scan 07/01/21 08:00 Pulse 72 07/01/21 08:00 Respiratory Rate 16 07/01/21 08:00 Respiratory Effort Non-Labored 07/01/21 08:03 Blood Pressure 144/55 H 07/01/21 08:00 Blood Pressure Position Sitting 07/01/21 08:00 Pulse Oximetry 97 07/01/21 08:00 Oxygen Delivery Method Room Air 07/01/21 08:00 Oxygen Flow Rate 0 07/01/21 08:00 Pain Level 10 07/01/21 08:05
[2021-07-01] MEDS: diazePAM 5 MG TAB PO (08:34)
[2021-07-01] MEDS: predniSONE 20 MG TAB 40 MG PO (08:35)
[2021-07-01] MEDS: Lidocaine 5% Patch 1 PATCH TP (08:36)
[2021-07-01 10:19] VITALS: BP 130/66; PULSE 59; O2SAT 97
[2021-07-01 10:39] VITALS: BP 130/66; PULSE 59; RESP 16; TEMP 36.9; O2SAT 97
== END 2021-07-01 10:40 | disposition home or self-care (01) ==
PROVIDERS: Emergency Provider Student in an Organized Health Care Education/Training Program; PCP Family Medicine
DX: M54.16 Radiculopathy, lumbar region (principal); I48.91 Unspecified atrial fibrillation; Z79.01 Long term (current) use of anticoagulants
CPT/HCPCS: 99284; 72110; 99283; J7512

== ENCOUNTER 2022-01-20 13:48 | Emergency (ER) | payer MEDICARE, MEDICAID, SELFPAY ==
[2022-01-20] VITALS (8 sets, daily range): BP systolic 127–148; BP diastolic 43–63; PULSE 55–76; RESP 13–25; TEMP 36.7; O2SAT 94–97
--- NOTE | 2022-01-20 13:45 | RT.EKG_ITS ---
APPROVED REPORT Exam: Resting ECG Reason for Exam: chest pain Patient Location: E HR:72 bpm ECG Measurements Heart Rate 72 AXIS RI 177 P 48 QRSd 98 QRS 10 QT 418 T 28 QTc 457 Conclusion Sinus rhythm...normal P axis, V-rate 60- 99
--- NOTE | 2022-01-20 14:15 | DI.CT_ITS ---
Exam(s) CT HEAD WO EXAM: CT HEAD WO CLINICAL HISTORY: new onset headache. TECHNIQUE: Imaging Protocol: Axial computed tomography images with coronal and sagittal reformatted images were created and reviewed COMPARISON: No exams were available for comparison FINDINGS: There are no skull fractures. There is no fluid in the visualized paranasal sinuses. There is no evidence of intracranial hemorrhage, mass effect, or shift of midline structures. There are no extra-axial fluid collections. The ventricles are not enlarged or shifted and there is no blo od within the ventricular system nor within the basal cisterns. Small lacunar infarcts both basal ganglia as well as periventricular hypodensity consistent with manager language derrick small vessel disease. Slightly more so on the right side. IMPRESSION: Post ischemic white matter changes bilaterally as described above. No evidence of intracranial hemor rhage. If clinically indicated follow-up MRI can be performed. RADIATION DOSE DELIVERED: Total DLP DATA REPOSITORY: All CT scans at this facility are submitted to the National Radiology Data Registry (NRDR) Dose Index Registry (DIR) with the [employer] ([employer]). RADIATION OPTIMIZATION: All CT scans at this facility use at least one of these dose optimization te chniques: automated exposure control; mA and/or kV adjustment per patient size (includes targeted exa ms where dose is matched to clinical indication); or iterative reconstruction.
--- NOTE | 2022-01-20 14:15 | DI.CT_ITS ---
Exam(s) CT CHEST PE CTA EXAM: CT CHEST PE CTA CLINICAL HISTORY: chest pain, tachycardia. TECHNIQUE: Imaging Protocol: CT angiography of the chest was performed using pulmonary embolus rubi col. Multi planar reconstructions were performed. CONTRAST MATERIAL: Intravenous: Omnipaque 350 Contrast volume: 100 cc COMPARISON: CT CT THORAX ABD/PEL CTA from 06/10/2020 FINDINGS: CHEST: PULMONARY ARTERIES: There are no intraluminal filling defects to suggest acute pulmonary emboli. LUNGS: There are no infiltrates nor evidence of pulmonary infarction.. No ominous pulmonary nodules. No pleural effusions. Mild increased markings in the right lung base posterior basal segment right lower lobe. MEDIASTINUM: There is no hilar nor mediastinal adenopathy. Visualized thyroid unremarkable. CARDIAC: Heart size is upper normal. There is no pericardial effusion.Caliber of the thoracic aorta is within normal limits. No evidence of aortic dissection. There is no significant shift of the inte rventricular septum. PARTIALLY VISUALIZED UPPERMOST ABDOMEN: No obvious findings OSSEOUS: No significant osseous lesions.. IMPRESSION: 1. No evidence of acute pulmonary emboli. No evidence of pulmonary infarction. No infiltrates. No pleural effusions. 2. No evidence of aortic dissection. No pericardial effusion. RADIATION DOSE DELIVERED: Total DLP DATA REPOSITORY: All CT scans at this facility are submitted to the National Radiology Data Registry (NRDR) Dose Index Registry (DIR) with the [employer] (ACR). RADIATION OPTIMIZATION: All CT scans at this facility use at least one of these dose optimization te chniques: automated exposure control; mA and/or kV adjustment per patient size (includes targeted exa ms where dose is matched to clinical indication); or iterative reconstruction.
--- NOTE | 2022-01-20 14:25 | ED.GENADUL_ITS ---
Discharge Plan Disposition Patient Disposition: HOME Condition: Improving Discharge Details Clinical Impression: Atypical chest pain Primary Care Provider: Enrike Brown ED Provider: Marcos Draper Home Meds and New Rx's Prescriptions: Continued triamcinolone acetonide 0.1 % cream 1 applic TP BID PRN (Reason: rash on arms) Qty: 30 1RF Rx Instructions: apply for 10 days or until resolved, whichever comes first famotidine [Pepcid] 20 mg tablet 20 mg PO BID PRN (Reason: acid refux) Qty: 90 3RF losartan 25 mg tablet 25 mg PO DAILY Qty: 90 3RF erythromycin 5 mg/gram (0.5 %) ointment 0.5 inch OP TID PRN (Reason: eye infection) Qty: 3.5 1RF lorazepam 0.5 mg tablet 0.5 mg PO BID PRN (Reason: anxiety) Qty: 15 2RF Hold Instructions: Resume on 07/22/21. do not take while taking valium metoprolol succinate 25 mg tablet extended release 24 hr 12.5 mg PO DAILY Discharge Instructions Instructions: Chest Pain (ED) Additional Instructions: If you develop any new or significant worsening of symptoms please return immediately to the emergency department for reassessment. We are also placing an outpatient order for MRI due to abnormal CT findings that were found. If you develop any new or significant worsening of neurological symptoms headaches or other concerns again return immediately to the emergency department. Otherwise please follow-up with your primary care provider for reassessment in the next week Referrals: Enrike Brown MD [Primary Care Provider] - 1 week Discharge Data Discharge Date/Time-TO BE ENTERED AT DEPARTURE: 01/20/22 18:14 Medical Decision Making <BELKIS Smith - Last Filed: 01/22/22 10:19> Heart score 3, will repeat troponin level, initial troponin negative Will order CTA to exclude pulmonary embolism, will order CT head given Headache neg covid Received Tylenol and Reglan for possible migraine treatment This suspicion for anginal component to symptoms, reproducible chest wall pain, likely atypical presentation Concern for PE and some intermittent tachycardia moderate risk, will order CTA, therapy transition to care transitioned to [facility] pending CT head, CTA chest, and repeat troponin/EKG Discussed with Dr. De La Vega, radiology regarding lacunar infarcts bilaterally, nonfocal neurological exam on repeat assessment initial assessment, resolving headache with typical migraine cocktail Medical Records Medical records reviewed: Yes I reviewed the patient's medical records. <Marcos Draper NP - Last Filed: 01/22/22 13:31> Heart score 3, will repeat troponin level, initial troponin negative Will order CTA to exclude pulmonary embolism, will order CT head given Headache neg covid Received Tylenol and Reglan for possible migraine treatment This suspicion for anginal component to symptoms, reproducible chest wall pain, likely atypical presentation Concern for PE and some intermittent tachycardia moderate risk, will order CTA, therapy transition to care transitioned to [facility] pending CT head, CTA chest, and repeat troponin/EKG Discussed with Dr. De La Vega, radiology regarding lacunar infarcts bilaterally, nonfocal neurological exam on repeat assessment initial assessment, resolving headache with typical migraine cocktail 1600 Patient signed out to me pending CTA chest repeat troponins and EKG and neurology consult. Did speak with neurologist Dr. Constantino in regards to CT findings and no focal neurological symptoms with patient having improvement of headache. At this time she stated no concern for need of emergent admission or MRI but stated that outpatient MRI is appropriate per her condition. Patient to be informed of close monitoring and low threshold for return precautions. Please see radiologist interpretation for full interpretation of CTA which is unremarkable for acute worrisome findings. Repeat troponin was negative and please see physician interpretation for full interpretation EKG that shows sinus rhythm and no acute STEMI findings. Patient states that she is now asymptomatic and pain-free. Will discharge patient with outpatient orders for MRI and follow-up to primary care provider for atypical chest pain. After discussion of diagnosis and plan of care patient has no further needs, questions, or concerns and states clear understanding to return to the emergency department for any worsening symptoms. This documentation was generated using Exepronation system, please disregard any oddities of phrase or misspellings. HPI <BELKIS Smith - Last Filed: 01/22/22 10:19> General Date/Time Provider Initiated Documentation: 01/20/22 14:08 . HPI Narrative: This 58-year-old female with history of paroxysmal atrial fibrillation, hypertension, chest wall pain, anxiety presents with report of back and chest pain which woke patient from sleep at approximately 2am the morning. She also reports headache. She states that she was tachycardic when she awoke at 2 AM, her pulse was ranging between 105 and 107. She felt as though her pulse was irregular. 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 She has no history of coagulopathy. She denies any calf pain or swelling. She has no recent flights, surgeries, long drives. She states that the pain in her back and mild pain in her left upper chest wall has been consistent since onset.. She denies known history of coronary artery disease. She denies known exertional exertional component. She denies any nausea, vomiting, diaphoresis. She has not been tobacco use illicit drugs per patient. Related Data Home Medications Medication Instructions Recorded Confirmed famotidine 20 mg tablet (Pepcid) 20 mg PO BID PRN acid refux #90 05/14/21 01/20/22 tabs losartan 25 mg tablet 25 mg PO DAILY #90 tabs 05/14/21 01/20/22 erythromycin 5 mg/gram (0.5 %) eye 0.5 inch ophthalmic (eye) TID PRN 09/23/21 01/20/22 ointment eye infection #3.5 grams lorazepam 0.5 mg tablet 0.5 mg PO BID PRN anxiety #15 tabs 12/08/21 01/20/22 triamcinolone acetonide 0.1 % 1 applic topical BID PRN rash on 12/10/21 01/20/22 topical cream arms #30 grams metoprolol succinate 25 mg 12.5 mg PO DAILY 01/20/22 01/20/22 tablet,extended release 24 hr Previous Rx's Medication Instructions Recorded famotidine 20 mg tablet (Pepcid) 20 mg PO BID PRN acid refux #90 05/14/21 tabs losartan 25 mg tablet 25 mg PO DAILY #90 tabs 05/14/21 erythromycin 5 mg/gram (0.5 %) eye 0.5 inch ophthalmic (eye) TID PRN 09/23/21 ointment eye infection #3.5 grams lorazepam 0.5 mg tablet 0.5 mg PO BID PRN anxiety #15 tabs 12/08/21 triamcinolone acetonide 0.1 % 1 applic topical BID PRN rash on 09/21/22 topical cream arms #30 grams Allergies Allergy/AdvReac Type Severity Reaction Status Date / Time pantoprazole [From Protonix] AdvReac Severe DIARRHEA Verified 12/10/21 10:01 amoxicillin [From Augmentin] AdvReac Intermediate GI Verified 12/10/21 10:01 upset/diarrhea clavulanic acid AdvReac Intermediate GI Verified 12/10/21 10:01 [From Augmentin] upset/diarrhea General Stated Complaint: Chest Pain PAULINO: 2 Review of Systems <BELKIS Smith - Last Filed: 01/22/22 10:19> All systems reviewed & are unremarkable except as noted in HPI and below PFSH <BELKIS Smith - Last Filed: 01/22/22 10:19> All Active Problems (Updated 01/20/22 @ 18:05 by Marcos Draper NP) Atypical chest pain (Acute) PAF (paroxysmal atrial fibrillation) (Acute) Conjunctivitis (Acute) Epigastric abdominal pain (Acute) Vomiting (Acute) Microscopic hematuria (Acute) Dry mouth (Acute) Soft tissue swelling (Acute) Skin rash (Acute) External otitis of left ear (Acute) GERD (gastroesophageal reflux disease) (Chronic) Chest wall pain (Acute) Elevated hemoglobin A1c (Acute) Obesity (Chronic) Fatigue (Acute) Leg cramps (Acute) Eczema (Acute) Ganglion cyst of right foot (Acute) Hematuria (Acute) better w/ keflex Chest pain (Acute) better w/ doxy Anxiety (Chronic) continue fluoxetine use lorazepam as needed Pain in joint, site unspecified (Acute 07/27/12) ASD (atrial septal defect) (Acute) s/p closure Atrial flutter (Acute) DVT prophylaxis (Acute) Tachycardia (Acute) Medical History No significant past medical history Surgical History History of bilateral tubal ligation Family History Mother Stroke Father Cancer Social History Smoking/Tobacco Use Status: Former Tobacco Use tobacco type: cigarettes Quit Date: 03/22/18 Tobacco: How many years used: 20 Quit status: quit date established Second Hand Exposure: Yes Smoking risk assessment performed?: Yes Alcohol Intake: current Alcohol Intake frequency: holidays/special occasions only Alcohol type: wine Drug use: Never Substance use type: painkillers Caregiver/Support person: No Household members: family Housing: house Pets and animals: Yes Pets and animals: cat(s) Do you think of yourself as: straight/heterosexual Current gender identity: female What is your relationship status?: How often do you talk on the phone with friends or family?: once per week How often do you get together with friends or relatives?: once per week How often do you attend rastafarian or baptist services?: 1-3 times per year Panel score (0-1 are the most socially isolated patients): 0 What type of physical activity do you participate in: walking Duration: 45-60 minutes/day Frequency: daily Seatbelt use: always Drive intox or ride w/intox driver recruiter: No Do you feel safe at home: Yes Do you feel safe in your relationship?: Yes Exam <BELKIS Smith - Last Filed: 01/22/22 10:19> Const General: cooperative, comfortable and no acute distress Eyes Pupils: PERRL Chest Other: Tenderness with palpation and left upper chest wall, no crepitus Resp Effort & Inspection: normal respiratory effort Auscultation: clear to auscultation bilaterally Cardio Rate: regular rate and not tachycardic Rhythm: regular rhythm Heart Sounds: no murmurs GI Other: Nontender abdominal exam Skin General skin exam: no rashes or lesions noted Neuro General: patient alert and patient oriented x3 Cranial Nerves: CN's II-XI intact bilaterally Cognition: normal cognition Speech: speech normal Motor: strength 5/5 throughout Sensory Exam: no sensory deficits noted Other: neg fnf.neg neg heel-rivera, neg pronator drift Extrem Other: distal pulses intact\ No calf swelling or tenderness Course <BELKIS Smith - Last Filed: 01/22/22 10:19> Vital Signs Vital signs: Vital Signs Temperature 36.7 C 01/20/22 13:53 Pulse 76 01/20/22 13:53 Respiratory Rate 16 01/20/22 13:53 Blood Pressure 148/62 H 01/20/22 13:53 Pulse Oximetry 97 01/20/22 13:53 Temperature 36.7 C 01/20/22 13:53 Temperature Source Tympanic 01/20/22 13:53 Pulse 76 01/20/22 13:53 Respiratory Rate 16 01/20/22 13:53 Respiratory Effort Non-Labored 01/20/22 14:13 Respiratory Depth Normal 01/20/22 14:13 Respiratory Pattern Normal 01/20/22 14:13 Blood Pressure 148/62 H 01/20/22 13:53 Blood Pressure Position Sitting 01/20/22 13:53 Pulse Oximetry 97 01/20/22 13:53 Oxygen Delivery Method Room Air 01/20/22 13:53 Oxygen Flow Rate 0 01/20/22 13:53 Pain Level 5 01/20/22 13:53 Sign Out <BELKIS Smith - Last Filed: 01/22/22 10:19> Sign Out Data: Sign Out Comment: pending cta chest, repeat troponin, neurology consultation regarding ct brain Last updated by Cordelia Resendiz PA at 01/20/22 16:03
[2022-01-20 14:49] LABS: Abs Immature Grans 0.02 10^3/uL (0.0-0.06); Absolute Basophil Count 0.06 10^3/uL (0.0-0.2); Absolute Eosinophil Count 0.21 10^3/uL (0.0-0.7); Absolute Lymphocyte Count 1.76 10^3/uL (1.2-3.4); Absolute Monocyte Count 0.66 10^3/uL (0.1-0.8); Absolute Neutrophil Count 5.32 10^3/uL (1.2-6.7); Basophils % 0.7; Eosinophils % 2.6; HCT 42.2 % (36.0-46.0); HGB 14.8 g/dL (11.2-15.7); Immature Grans % 0.2; Lymphocytes % 21.9; MCH 29.6 pg (27.0-33.0); MCHC 35.1 % (32.0-36.0); MCV 84 fL (80-95); MPV 10.4 fL (8.0-11.0); Monocytes % 8.2; Neutrophils % 66.4; Platelet Count 274 10^3/uL (130-400); RDW 12.9 % (11.7-14.6); RDW-SD 39.4 fL; WBC 8.03 10^3/uL (4.4-10.8)
[2022-01-20 14:57] LABS: Source Nasal/Nares
[2022-01-20] MEDS: Prochlorperazine 10 MG/2 ML VIAL 5 MG IVP (15:08)
[2022-01-20] MEDS: Normal Saline 500 ML IV (15:08)
[2022-01-20 15:10] LABS: ALT 19 U/L (14-59); AST 17 U/L (15-37); Alkaline Phosphatase 104 U/L (46-116); Anion Gap 7.8 mmol/L (3-11); BUN 15 mg/dL (7-18); Bilirubin, Total 0.3 mg/dL (0.2-1.0); CO2 28.2 mmol/L (21.0-32.0); Calcium 9.5 mg/dL (8.5-10.1); Chloride 101 mmol/L (98-107); Estimated GFR 61.36 (mL/min/1.73m2); Glucose 135 mg/dL (74-106); Magnesium 1.9 mg/dL (1.8-2.4); NT-proBNP 188 pg/mL (<300); Potassium 3.7 mmol/L (3.5-5.1); Sodium 137 mmol/L (136-145); Total Protein 8.4 g/dL (6.4-8.2); Troponin I < 50 ng/L (<or=60)
[2022-01-20 15:28] LABS: COVID-19 PCR Negative (Negative)
[2022-01-20] MEDS: Omnipaque 350 MG/ML 500 ML BTL-Imaging package IJ (15:51)
[2022-01-20] MEDS: Normal Saline Flush 10 ML SYR IVP (15:52)
--- NOTE | 2022-01-20 17:15 | RT.EKG_ITS ---
APPROVED REPORT Exam: Resting ECG Reason for Exam: 2ND EKG Patient Location: E HR:61 bpm ECG Measurements Heart Rate 61 AXIS OK 184 P 66 QRSd 109 QRS 22 QT 460 T 31 QTc 463 Conclusion Sinus rhythm...normal P axis, V-rate 60- 99
[2022-01-20 17:54] LABS: Troponin I < 50 ng/L (<or=60)
--- NOTE | 2022-01-20 18:42 | NUR.NOTE ---
Nursing Note: REFERRAL TO CM FOR PCP FOLLOW UP
--- NOTE | 2022-01-21 09:17 | NUR.NOTE ---
Addendum entered by Nancy Norman 01/21/22 12:51: Faxed to [facility] order for MRI brain w/ and w/o contrast; for atypical infarcts, recommended by Neuro; creatine1.0 GFR 61.36; no contrast allergy; pt Over 58yr and patients w/hypertension w/medical therapy checked off; to follow up withy Neurology/PCP. Original Note: Nursing Note: Diagnostic Imaging called stating patient called, was told to call in the morning, that an MRI was ordered and to get a date and time for it. They do not have an order for this. It is noted in the chart, but no outpatient order was done for this patient. Dr. Ortiz will address this.
== END 2022-01-20 18:14 | disposition home or self-care (01) ==
PROVIDERS: Physician Assistant; Emergency Provider Nurse Practitioner Family; PCP Family Medicine
DX: R07.89 Other chest pain (principal); R51.9 Headache, unspecified; I10 Essential (primary) hypertension; Z20.822 Contact with and (suspected) exposure to COVID-19; R06.02 Shortness of breath
CPT/HCPCS: 71275; 80053; 87635; 93005; 96361; 96374; 96375; 99284; 99285; 70450; 83735; 83880; 84484; 85025; 93010; J0131; J0780

== ENCOUNTER → 2022-02-06 00:47 | Outpatient (CLI) | payer MEDICARE, MEDICAID, SELFPAY ==
--- OUTSIDE RECORDS SUMMARY | 2022-02-06 00:51 | XMS_ITS | Encounter Summary ---
:1955 Author Organization [facility] Address [address] [place] [address] Care Team Providers Name Role Phone Enrike Brown MD Primary Care Provider [phone] Encounter Details Date Type Department Care Team Description 05/13/2020 Lab Requisition [facility] Outr Resulting Lab, Pathology & Laboratory Provider [facility] [address] [place] [address] Social History Tobacco Use Types Packs/Day Years Used Date Smoking Tobacco: Former Cigarettes 1 30 Quit : 04/07/2018 Smokeless Tobacco: Never Alcohol Use Standard Drinks/Week Comments Yes 0 (1 standard drink = 0.6 oz pure alcoho l) occasional beer Alcohol Habits Answer Date Recorded How often do you have a drink containing alcohol? Never 06/24/2018 How many drinks containing alcohol do you have on a typical Not asked day when you are drinking? How often do you have six or more drinks on one occasion? No t asked Sex Assigned at Date Recorded Not on file documented as of this encounter Functional Status Functional Status Response Date of Assessment Are you deaf or do you have serious difficulty hearing? No 05/31/2018 Are you blind or do you have serious difficulty seeing, No 05/31/2018 even when wearing glasses? Do you have serious difficulty walking or climbing No 05/31/2018 stairs? (5 years old or older) Do you have difficulty dressing or bathing? (5 years old No 05/31/2018 or older) Because of a physical, mental, or emotional condition, do No 05/31/2018 you have difficulty doing errands alone such as visiting a doctor's office or shopping? (15 years old or older) Cognitive Status Response Date of Assessment Because of a physical, mental, or emotional condition, do No 05/31/2018 you have serious difficulty concentrating, remembering, or making decisions? (5 years old or older) documented as of this encounter Plan of Treatment Not on filedocumented as of this encounter Procedures Procedure Name Priority Date/Time Associated Diagnosis Comme nts COVID-19 TEST [facility] Today 05/13/2020 13:20 LAB PCR EST COVID-19 TESTING Routine 05/13/2020 13:20 Results for this EST procedure are i n the results section. documented in this encounter Results COVID-19 TEST [facility] LAB PCR (05/13/2020 13:20 EST) Specimen Anatomical Location Collection Method Collection Time Received Time (Source) / Laterality / Volume Swab ENTIRE NASOPHARYNX 05/13/2020 13:20 05/13 / Unknown EST 21:12 EST Provider Outr Resulting Lab MICROBIOLOGY - GENERAL ORD ERABLES Performing Organization Address City/State/ZIP Code Phon e Number [facility] [address] [place] [id number] SERVICES COVID-19 TESTING (05/13/2020 13:20 EST) Analysis Performed At Patho logist Time Signature COVID-19 Negative Negative 05/14/2020 [facility] rt-PCR Result 14:59 EST [facility] Comment: This test has not been FDA cleared or ap proved. This test has been authorized by FDA under an EUA for use by authorized laboratories. This test has been authorized only for detection of nucleic acid fro m 2019-nCoV, not for any other viruses o r pathogens. This test is only authorized for the duration of the declaration that circumstances exist justifying the authorization of emergency use of in vitro d iagnostic tests for detection and/or lakesha gnosis of 2019-nCoV under section 564(b)(1) of Act, 21 U.S.C ?? 360bbb-3(b) (1), unless the authorization is terminated or revoked sooner. Negative results do not preclude 2019-nC oV infection and should not be used as the sole basis for treatment or other patient management decisions. Negative results must be combined with clinical observa tions, patient history, and epidemiologi nat information. This test was developed and its performa nce characteristics determined by [facility]. It has not been cleared or approved by the US Food and Drug Administration. FDA does not require this test to go through premarket FDA review. This test is used for clinical purposes. It should not be regarded as investigational or for research. This laboratory is certified under the Clinical Laboratory Improvement Amendm ents (CLIA) as qualified to perform high complexity clinical laboratory testing. This test is based on the [facility] COVID-19 E mergency Use Authorization (EUA) assay, with minor modification as defined by the FDA Performed on the Greener[employer] Flex RT-PCR System. Performing Lab [facility] 05/14/2020 14:59 EST [facility] SERVICES Specimen Anatomical Collection Method Collection Time Receive d Time (Source) Location / / Volume Laterality Swab 05/13/2020 13:20 05/13/2020 EST 21:12 EST Provider Outr Resulting Lab MICROBIOLOGY - GENERAL ORD ERABLES Performing Organization Address City/State/ZIP Code Phon e Number [facility] [address] [place] [address] SERVICES documented in this encounter Visit Diagnoses Not on filedocumented in this encounter Care Teams Lease Analyst Relationship Specialty Start Date End Date Enrike Brown MD PCP - General 10/19/18 [address], [place] [id number] documented as of this encounter
--- OUTSIDE RECORDS SUMMARY | 2022-02-06 00:51 | XMS_ITS | Encounter Summary ---
:1955 Author Organization [facility] Address [address] [place] [address] Care Team Providers Name Role Phone Enrike Brown MD Primary Care Provider [phone] Reason for Visit Reason Onset Date Comments Coordination Of Care 05/23/2021 Encounter Details Date Type Department Care Team Description 05/23/2021 Telephone [facility] Jia Lau [facility] Cardiology - Suzie AMADOR [address] [place], [place] [address] Social History Tobacco Use Types Packs/Day Years Used Date Smoking Tobacco: Former Cigarettes 30 Quit : 04/07/2018 Smokeless Tobacco: Never [...] or older) documented as of this encounter Miscellaneous Notes Telephone Encounter - Jia Lau, MARJORIE - 05/23/2021 1259 EST Faxed ILR reports from 04/09/21 and 03/06/[address] Perry as requested. Messaged device clinic for ILR report for April. documented in this encounter Plan of Treatment Not on filedocumented as of this encounter Visit Diagnoses Not on filedocumented in this encounter Care Teams Valve Seater Operator Relationship Specialty Start Date End Date Enrike Brown MD PCP - General 10/19/[address] [place] [address] documented as of this encounter
--- OUTSIDE RECORDS SUMMARY | 2022-02-06 00:51 | XMS_ITS | Encounter Summary ---
:1955 Author Organization [facility] Address [address] [place] [address] Care Team Providers Name Role Phone Enrike Brown MD Primary Care Provider [phone] Encounter Details Date Type Department Care Team Description 05/31/2020 Lab Requisition [facility] Outr Resulting Lab, Pathology & Laboratory Provider [facility] [address] [place] [address] Social History Tobacco Use Types [...] encounter Procedures Procedure Name Priority Date/Time Associated Comments Diagnosis SSA ANTIBODIES BY Routine 05/31/2020 9:39 EST Res ults for this BRIAN procedure are i n the results section. documented in this encounter Results SSA ANTIBODIES BY BRIAN (05/31/2020 9:39 EST) athologist Signature SSA Antibody 2.1 <20.0 Units 06/04/2020 [facility] 13:19 EDT [facility] Comment: ? Negative: <20.0 Units ? Weak Positive: 20.0 - 39.9 Units ? Moderate Positive: 40 .0 - 80.0 Units ? Strong Positive: >80. 0 Units Results were obtained with the [employer] JASSI NTA Lite SS-A BRIAN. ??SS-A values obtained with different manufacturers' assay methods may not be used interchangeably. ??The magnitude of the reported IgG levels cannot be correlated to an endpoint titer. Specimen Anatomical Collection Method Collection Time Receive d Time (Source) Location / / Volume Laterality Blood VENOUS BLOOD / 05/31/2020 9:39 05/31/2020 Unknown EST 16:31 EST Provider Outr Resulting Lab IMMUNOLOGY AND SEROLOGY OR DERABLES Performing Organization Address City/State/ZIP Code Phon e Number [facility] [address] [place] [address] SERVICES documented in this encounter Visit Diagnoses Not on filedocumented in this encounter Care Teams Boot Liner Maker Relationship Specialty Start Date End Date Enrike Brown MD PCP - General 10/19/[address] [place] [address] documented as of this encounter
--- OUTSIDE RECORDS SUMMARY | 2022-02-06 00:51 | XMS_ITS | Encounter Summary ---
:1955 Author Organization [facility] Address [address] [place] [address] Care Team Providers Name Role Phone Enrike Brown MD Primary Care Provider [phone] Reason for Visit Reason Onset Date Comments Medication Management 01/01/2022 Encounter Details Date Type Department Care Team Description 01/01/2022 Telephone [facility] Joseph Torre, Medication Management Cardiology - Suzie [address] [place] [phone] (Wo rk) Social History Tobacco Use Types Packs/Day Years [...] this encounter Miscellaneous Notes Telephone Encounter - Leidy Chandler RN - 01/01/2022 1129 EDT Carrier Washer spoke with patient regarding d/c of eliquis and metoprolol. Per provider's note patient can stop the medications.Patient stated she will whine off the metoprolol. Patient also asked about ILR. Carrier Washer informed patient when the battery has 3 months left the device clinic will reach out and the office will reschedule for the replacement. Leidy AMADOR Telephone Encounter - Mariel Dickson - 01/01/2022 0813 EDT Patient calling discussed on Wednesday on getting off Eliquis and metoprolol with providerl. Off from Eliquis currently. Metoprolol started cutting 25mg in half and is taking 12.5. How long should she take the half doses until she can stop that medication all together Please call back to advise documented in this encounter Plan of Treatment Not on filedocumented as of this encounter Visit Diagnoses Not on filedocumented in this encounter Care Teams Dental Ceramist Helper Relationship Specialty Start Date End Date Enrike Brown MD PCP - General 10/19/[address] [place] [id number] documented as of this encounter
--- OUTSIDE RECORDS SUMMARY | 2022-02-06 00:51 | XMS_ITS | Encounter Summary ---
:1955 Author Organization [facility] Address [address] [place] [address] Care Team Providers Name Role Phone Enrike Brown MD Primary Care Provider [phone] Reason for Visit Reason Onset Date Comments Pacemaker/Device Check 08/21/2021 Encounter Details Date Type Department Care Team Description 08/21/2021 Telephone [facility] Jojo Steiner Pa cemaker/Device Check Cardiology - Suzie MAYNARD 62 Suzie Rodriguez [address] [place] [phone] (Wo rk) Social History Tobacco Use Types Packs/Day Years Used Date Smoking Tobacco: Former Cigarettes 04 20 Quit : 04/07/2018 Smokeless Tobacco: Never Alcohol [...] this encounter Miscellaneous Notes Telephone Encounter - Jessica Toledo - 08/21/2021 1226 EDT Faxed Telephone Encounter - Lamar Guzman - 08/21/2021 1043 EDT Teresa asking to have the last year of device checks to be faxed to her at [facility]. Patient is having her last visit there on August 25. Please call with any questions. documented in this encounter Plan of Treatment Not on filedocumented as of this encounter Visit Diagnoses Not on filedocumented in this encounter Care Teams Rug Touch Up Painter Relationship Specialty Start Date End Date Enrike Brown MD PCP - General 10/19/[address] [place] [address] documented as of this encounter
--- OUTSIDE RECORDS SUMMARY | 2022-02-06 00:51 | XMS_ITS | Encounter Summary ---
:1955 Author Organization [facility] Address [address] [place] [address] Care Team Providers Name Role Phone Enrike Brown MD Primary Care Provider [phone] Reason for Visit Reason Onset Date Comments Medical Records 10/08/2020 Encounter Details Date Type Department Care Team Description 10/08/2020 Telephone [facility] James Nogueira [facility] Records Cardiology - Suzie Samano MD PhD 62 Suzie Rodriguez [address] [place], [place] [address] [place] [address] [address] [place] [address] (Wo rk) Social History Tobacco Use Types [...] this encounter Miscellaneous Notes Telephone Encounter - Jojo Vidal RN - 10/09/2020 1221 EDT Sending 10/09 Telephone Encounter - Renae Sun - 10/08/2020 1432 EDT January calling to get reports from pacemaker checks that were done since 03/24/19 pacemaker procedure sent to [phone]. documented in this encounter Plan of Treatment Not on filedocumented as of this encounter Visit Diagnoses Not on filedocumented in this encounter Care Teams Eye Glass Frame Polisher Relationship Specialty Start Date End Date Enrike Brown MD PCP - General 10/19/[address] [place] [address] documented as of this encounter
--- OUTSIDE RECORDS SUMMARY | 2022-02-06 00:51 | XMS_ITS | Encounter Summary ---
:1955 Author Organization [facility] Address [address] [place] [address] Care Team Providers Name Role Phone Enrike Brown MD Primary Care Provider [phone] Reason for Visit Reason Onset Date Comments Coordination Of Care 02/26/2021 Encounter Details Date Type Department Care Team Description 02/26/2021 Telephone [facility] Jojo Steiner, Co ordination Of Care Cardiology - Suzie MAYNARD 62 Suzie Rodriguez [address] [place] [phone] (Wo rk) Social History Tobacco Use Types [...] Telephone Encounter - Leidy Chandler RN - 02/26/2021 1521 EST Spar Finisher sent 3 months of Loop Recorder reports to Dr. oByer office. Leidy RN Telephone Encounter - Celsa Rios - 02/26/2021 1440 EST Teresa calling looking for the Loop recorder report and the last time she had Afib so they can look atall her medications and decide what she needs to come off from. Please fax report to [phone] Boyer. Please call back with any questions or please just fax the requested info. documented in this encounter Plan of Treatment Not on filedocumented as of this encounter Visit Diagnoses Not on filedocumented in this encounter Care Teams Superintendent Refuse Disposal Relationship Specialty Start Date End Date Enrike Brown MD PCP - General 10/19/[address] [place] [address] documented as of this encounter
--- OUTSIDE RECORDS SUMMARY | 2022-02-06 00:51 | XMS_ITS | Encounter Summary ---
:1955 Author Organization [facility] Address [address] [place] [address] Care Team Providers Name Role Phone Enrike Brown MD Primary Care Provider [phone] Reason for Referral (Routine) - Authorization Not Required Specialty Diagnoses / Procedures Referred By Contact Refer red To Contact Diagnoses Atrial fibrillation and flutter (HCC) Jojo Steiner, CAESAR Procedures CARDIAC IMPLANT CHECK - REMOTE MONITOR [address] [address] Referral ID Status Reason Start Expiration Visits Visits Date Date Requested Authorized [id number] Authorization Not 10/25/2020 1 1 Required Reason for Visit (Routine) - Authorization Not Required Specialty Diagnoses / Procedures Referred By Contact Refer red To Contact Diagnoses Atrial fibrillation and flutter (HCC) Jojo Steiner, CAESAR Procedures CARDIAC IMPLANT CHECK - REMOTE MONITOR [address] [address] Referral ID Status Reason Start Expiration Visits Visits Date Date Requested Authorized [id number] Authorization Not 10/25/2020 1 1 Required Encounter Details Date Type Department Care Team Description 11/27/2020 Hospital Encounter Suzie Remote Device Atrial fibrillation and 62 Suzie hurtado ([facility]) [place] [address] Social History Tobacco Use Types Packs/Day Years [...] or older) documented as of this encounter Medications at Time of Discharge Medication Sig Dispensed Refills Start Date End Date acetaminophen (TYLENOL) 325 Take 650 mg by 0 mg capsule mouth as needed. amoxicillin (AMOXIL) 500 mg Take 2,000 mg by 0 capsuleIndications: Dental mouth PRE-OP PRN. Procedures apixaban (ELIQUIS) 5 mg Take 1 tablet by 180 tablet 1 2018 tablet mouth 2 times daily. aspirin chewable 81 mg Take 81 mg by mouth 0 04/0 06/2018 tablet daily. diltiazem (DILACOR XR) 120 Take 120 mg by 0 10/17 mg XR capsule mouth 2 times daily. famotidine (PEPCID AC) 20 Take 20 mg by mouth 0 mg tablet 2 times daily as needed. FLUoxetine (PROZAC) 10 mg Take 10 mg by mouth 0 0 10/10/2018 capsule daily. LORazepam (ATIVAN) 0.5 mg Take 1 mg by mouth 0 tablet 3 times daily as needed. documented as of this encounter Discharge Disposition Disposition Code Departure Means Destination Home or Self Care documented in this encounter Plan of Treatment Not on filedocumented as of this encounter Procedures Procedure Name Priority Date/Time Associated Diagnosis Comme nts CARDIAC IMPLANT Routine 11/27/2020 13:32 Atrial fibrillation R esults for this CHECK - REMOTE EDT and flutter ([facility]) proc edure are in MONITOR the results section. documented in this encounter Results CARDIAC IMPLANT CHECK - REMOTE - LOOP RECORDER (ILR) (11/27/2020 13:32 EDT) Anatomical Region Laterality Modality Device Specimen (Source) Anatomical Location Collection Method / Collectio n Time Received Time / Laterality Volume Narrative 11/28/2020 12:13 EDT I have reviewed the implantable loop recorder interrogation. ??I agree with the findings. ?? SCHEDULED ILR REMOTE TRANSMISSION. 2 AF ??EPISODES RECORDED SINCE LAST INTE RROGATION IS RATHER SINUS CM WITH PAC, AVERAGE V RATE RANGING FROM 41 -54 BPM. AT/AF BURDEN 0.0% BATTERY STATUS OK. NEXT CHECK IN 1 MO. DC Jojo Steiner NP CV IMPLANTABLE CARDIAC DEVIC E documented in this encounter Visit Diagnoses Diagnosis Atrial fibrillation and flutter (HCC) Atrial fibrillation documented in this encounter Care Teams Field Services Director Relationship Specialty Start Date End Date Enrike Brown MD PCP - General 10/19/18 [address] [place] [address] documented as of this encounter
--- OUTSIDE RECORDS SUMMARY | 2022-02-06 00:51 | XMS_ITS | Encounter Summary ---
:1955 Author Organization [facility] Address [address] [place] [address] Care Team Providers Name Role Phone Enrike Brown MD Primary Care Provider [phone] Reason for Referral (Routine/Next Available) - Authorization Not Required Specialty Diagnoses / Procedures Referred By Contact Refer red To Contact Diagnoses Atrial fibrillation and flutter (HCC) Jojo Steiner NP [facility] Procedures CARDIAC IMPLANT CHECK - REMOTE MONITOR [address] [address] Referral ID Status Reason Start Expiration Visits Visits Date Date Requested Authorized [id number] Authorization Not 1 1 Required 1 Reason for Visit (Routine/Next Available) - Authorization Not Required Specialty Diagnoses / Procedures Referred By Contact Refer red To Contact Diagnoses Atrial fibrillation and flutter (HCC) Jojo Steiner NP [facility] Procedures CARDIAC IMPLANT CHECK - REMOTE MONITOR [address] [phone] Referral ID Status Reason Start Expiration Visits Visits Date Date Requested Authorized [id number] Authorization Not 1 1 Required 1 Encounter Details Date Type Department Care Team Description 04/09/2021 Hospital Encounter Suzie Remote Device Atrial fibrillation and 62 Suzie hurtado ([facility]) [place] [address] Social History Tobacco Use Types Packs/Day Years [...] 0 tablet 3 times daily as needed. losartan (COZAAR) 25 mg Take 25 mg by mouth 0 tablet daily. metoprolol SUCCinate 25 mg Take 25 mg by mouth 0 capsule,sprinkle,ER 24hr daily. documented as of this encounter Discharge Disposition Disposition Code Departure Means Destination Home or Self Care documented in this encounter Plan of Treatment Not on filedocumented as of this encounter Procedures Procedure Name Priority Date/Time Associated Diagnosis Comme nts CARDIAC IMPLANT Routine 04/09/2021 13:54 Atrial fibrillation R esults for this CHECK - REMOTE EST and flutter (HCC) procedur e are in MONITOR the results section. documented in this encounter Results CARDIAC IMPLANT CHECK - REMOTE - LOOP RECORDER (ILR) (04/09/2021 13:54 EST) Anatomical Region Laterality Modality Device Specimen (Source) Anatomical Location Collection Method / Collectio n Time Received Time / Laterality Volume Narrative 04/11/2021 17:55 EST I have reviewed the implantable loop recorder interrogation. ??I agree with the findings. ?? SCHEDULED ILR REMOTE TRANSMISSION. 2 PAUSE AND 4 AF ??EPISODES RECORDED SIN CE LAST INTERROGATION. PAUSE EPISODES SHOW NOCTURNAL 3 SECOND P AUSES. AF IS RATHER SINUS RHYTHM/SINUS CM WI TH RATES 44 - 57 BPM. BATTERY STATUS OK. NEXT CHECK IN 1 MO. DC Faxed report to Dr Mukherjee Jojo Steiner NP CV IMPLANTABLE CARDIAC DEVIC E documented in this encounter Visit Diagnoses Diagnosis Atrial fibrillation and flutter (HCC) Atrial fibrillation documented in this encounter Care Teams Inverform Machine Operator Relationship Specialty Start Date End Date Enrike Brown MD PCP - General 10/19/18 [address] [place] [address] documented as of this encounter
--- OUTSIDE RECORDS SUMMARY | 2022-02-06 00:51 | XMS_ITS | Encounter Summary ---
:1955 Author Organization [facility] Address [address] [place] [address] Care Team Providers Name Role Phone Enrike Brown MD Primary Care Provider [phone] Reason for Referral (Routine/Next Available) - Authorization Not Required Specialty Diagnoses / Procedures Referred By Contact Refer red To Contact Diagnoses Atrial fibrillation ([facility]) ([facility]) James Nogueira [facility] Procedures CARDIAC IMPLANT CHECK - REMOTE MONITOR MD Selwyn PhD [address] [place] [phone] Referral ID Status Reason Start Expiration Visits Visits Date Date Requested Authorized [id number] Authorization Not 10/16/2021 1 1 Required Reason for Visit (Routine/Next Available) - Authorization Not Required Specialty Diagnoses / Procedures Referred By Contact Refer red To Contact Diagnoses Atrial fibrillation ([facility]) ([facility]) James Nogueira [facility] Procedures CARDIAC IMPLANT CHECK - REMOTE MONITOR MD Selwyn PhD [address] [phone] Referral ID Status Reason Start Expiration Visits Visits Date Date Requested Authorized [id number] Authorization Not 10/16/2021 1 1 Required Encounter Details Date Type Department Care Team Description 12/19/2021 Hospital Encounter Suzie Remote Device Atrial fibrillation 62 Suzie Rodriguez ([facility]) ([facility]) [place] [address] Social History Tobacco Use Types Packs/Day Years [...] Associated Diagnosis Comme nts CARDIAC IMPLANT Routine 12/19/2021 16:05 Atrial fibrillation R esults for this CHECK - REMOTE EDT ([facility]) ([facility]) procedure are in MONITOR the results section. documented in this encounter Results CARDIAC IMPLANT CHECK - REMOTE - LOOP RECORDER (ILR) (12/19/2021 16:05 EDT) Anatomical Region Laterality Modality Device Specimen (Source) Anatomical Location Collection Method / Collectio n Time Received Time / Laterality Volume Narrative 12/22/2021 14:19 EDT I have reviewed the implantable loop recorder interrogation. ??I agree with the findings. SCHEDULED ILR REMOTE TRANSMISSION. 2 AF EPISODES RECORDED SINCE LAST INTERR OGATION. INAPPROPRIATE, RATHER SINUS RHYTHM, SINU S ARRHYTHMIA BATTERY STATUS OK. NEXT CHECK IN 2 MO. MP James Nogueira MD PhD CV IMPLANTABLE CARDI AC DEVICE documented in this encounter Visit Diagnoses Diagnosis Atrial fibrillation ([facility]) ([facility]) Atrial fibrillation documented in this encounter Care Teams Waste Water Operator Relationship Specialty Start Date End Date Enrike Brown MD PCP - General 10/19/[address] [place] [address] documented as of this encounter
--- OUTSIDE RECORDS SUMMARY | 2022-02-06 00:51 | XMS_ITS | Clinical Summary ---
:1955 Author Organization [facility] Address [address] [place] [address] Care Team Providers Name Role Phone Enrike Brown MD Primary Care Provider [phone] Allergies No known active allergies Medications Medication Sig Dispensed Refills Start Date End Date Status LORazepam (ATIVAN) 0.5 Take 1 mg by 0 Active mg tablet mouth 3 times daily as needed. apixaban (ELIQUIS) 5 mg Take 1 tablet by 180 tablet 1 05/18/19 19 Active tablet mouth 2 times daily. aspirin chewable 81 mg Take 81 mg by 0 06/23/2018 Active tablet mouth daily. acetaminophen (TYLENOL) Take 650 mg by 0 Active 325 mg capsule mouth as needed. diltiazem (DILACOR XR) Take 120 mg by 0 10/17/2018 Active 120 mg XR capsule mouth 2 times daily. FLUoxetine (PROZAC) 10 Take 10 mg by 0 10/10/2018 Active mg capsule mouth daily. amoxicillin (AMOXIL) Take 2,000 mg by 0 09/08/2018 Active 500 mg mouth PRE-OP capsuleIndications: PRN. Dental Procedures famotidine (PEPCID AC) Take 20 mg by 0 Active 20 mg tablet mouth 2 times daily as needed. metoprolol SUCCinate 25 Take 25 mg by 0 Active mg capsule,sprinkle,ER mouth daily. 24hr losartan (COZAAR) 25 mg Take 25 mg by 0 Active tablet mouth daily. Active Problems Problem Noted Date Other persistent atrial fibrillation 03/07/2019 Overview: Added automatically from request for stephanie das [id number] Persistent atrial fibrillation 05/31/2018 Typical atrial flutter (HCC-CMS) 05/31/2018 ASD (atrial septal defect) 04/23/2018 Atrial fibrillation (HCC-CMS) 04/21/2018 Overview: S/p DCCV 04/22/18 x1 successful to normal sinus Encounters Date Type Specialty Care Team Description 01/22/2022 Telephone Cardiology Joseph Torre Medication Aurea Dawson MD 01/01/2022 Telephone Cardiology Joseph Torre Medication Aurea Dawson MD 12/29/2021 Office Visit Cardiology Joseph Torre Typical atria l flutter ([facility]) ([facility]) (Primary Dx); MD Eunice Atrial fibrilla tion, unspecified type ([facility]) ([facility]) 12/19/2021 Hospital Encounter Cardiology Atrial fi brillation ([facility]) ([facility]) from Last 3 Months Surgical History Surgery Date Site/Laterality Comments ABLATION OF DYSRHYTHMIC FOCUS 05/31/2018 SV T ablation TUBAL LIGATION ID IMPLANTATION PT-ACTIVATED 03/24/2019 Chest/Left Loo p Insertion performed by CARDIAC EVENT RECORDER James Adames MD at [facility] EP Lab Medical devices from this surgery are in t he Medical Devices section. Medical History Medical History Date Comments A-fib (HCC-CMS) ([facility]) ASD (atrial septal defect) Family History Medical History Relation Comments No Known Brother Lung Cancer Father Blindness Mother Hypertension Mother Macular Degeneration Mother Pt is 99, now blind from [facility] Glaucoma Neg Hx Relation Status Comments Brother Alive Father Mother Alive Social History Tobacco Use Types Packs/Day Years [...] Assigned at Date Recorded Not on file Obstetrics History Last Filed Vital Signs Vital Sign Reading Time Taken Comments Blood Pressure 118/60 12/29/2021 0847 EDT Pulse 56 12/29/2021 0847 EDT Temperature 35.9 ??C (96.6 ??F) 03/24/2019 1325 EST Respiratory Rate 18 03/24/2019 1336 EST Oxygen Saturation 96% 12/29/2021 0847 EDT Inhaled Oxygen Concentration - - Weight 87.1 kg (192 lb) 12/29/2021 0847 EDT Height 165.1 cm (5' 5) 10/24/2018 1202 EDT Body Mass Index 31.95 10/24/2018 1202 EDT Plan of Treatment Health Maintenance Due Date Last Done Comments Hepatitis C Screen 1955 Lung Cancer Screening 1955 COVID-19 Vaccine (#1) 02/16/1956 Fall Risk Screening 12/29/2022 12/29/2021 Medical Devices Implanted Type Area Tape Edge Machine Operator Device Identifier Shelf Model / Expiration Serial / Date Lot [id number] Reveal Linq Implantable Medtronic [id number] 01/02 [id number] REVEAL / Implanted: Qty: 1 on 03/24/2019 by James Ventura MD PhD at [facility] Loop Recorder [id number] / Procedures Procedure Name Priority Date/Time Associated Diagnosis Comme nts CARDIAC IMPLANT Routine 12/19/2021 16:05 Atrial fibrillation R esults for this CHECK - REMOTE EDT ([facility]) ([facility]) procedure are in MONITOR the results section. from Last 3 Months Results CARDIAC IMPLANT CHECK - REMOTE - [...] MD PhD CV IMPLANTABLE CARDI AC DEVICE from Last 3 Months Insurance Payer Benefit Plan / Subscriber ID Effective Phone Address T ype Group Dates MEDICARE MEDICARE A/B [id number] 2018-Prese [address] [place] [phone] [place] [id number] 2020-Prese [address] [place] [phone] (Work) Chantel Rosas Personal/Family Self 1955 [address] (Home) [place] [phone] (Work) Chantel Rosas Personal/Family Self 1955 [address] (Home) [place] [address] (Work) Chantel Rosas Personal/Family Self 1955 [address]Home) [place] [address] (Work) Chantel Rosas Personal/Family Self 1955 [address] (Home) [place] [address] (Work) Chantel Rosas Personal/Family Self 1955 [address] (Home) [place] [address] (Work) Chantel Rosas Personal/Family Self 1955 [address] ([place]) [place] [address] (Work) Advance Directives For more information, please contact: [phone] Latest Code Status on File Code Status Date Activated Date Inactivated Comments Full Code 03/24/2019 12:35 03/24/2019 15:50 Reason for decision includes: Full code consistent with over all plan of care Who participated in the discussion? Not Discussed Full Code 06/24/2018 9:27 06/24/2018 20:30 Reason for decision includes: Full code consistent with over all plan of care Who participated in the discussion? Not Discussed Full Code 05/31/2018 20:42 06/01/2018 14:08 Reason for decision includes: Full code consistent with over all plan of care Who participated in the discussion? Not Discussed Full Code 05/31/2018 10:51 05/31/2018 20:42 Reason for decision includes: Full code consistent with over all plan of care Who participated in the discussion? Not Discussed Full Code 04/21/2018 17:55 04/23/2018 17:19 Reason for decision includes: Full code consistent with over all plan of care Who participated in the discussion? Not Discussed Care Teams Intelligence Clerk Relationship Specialty Start Date End Date Enrike Brown MD PCP - General 10/19/[address] [place] [address] [place] [address]
--- OUTSIDE RECORDS SUMMARY | 2022-02-06 00:51 | XMS_ITS | Encounter Summary ---
:[address] [facility] Address [address] [place] [address] Care Team Providers Name Role Phone Enrike Brown MD Primary Care Provider [phone] Reason for Referral (Routine/Next Available) - Authorization Not Required Specialty Diagnoses / Procedures Referred By Contact Refer red To Contact Diagnoses Atrial fibrillation and flutter (HCC) Jojo Steiner NP Procedures CARDIAC IMPLANT CHECK - REMOTE MONITOR [address] [address] Referral ID Status Reason Start Expiration Visits Visits Date Date Requested Authorized [id number] Authorization Not 1 1 Required 1 Reason for Visit (Routine/Next Available) - Authorization Not Required Specialty Diagnoses / Procedures Referred By Contact Refer red To Contact Diagnoses Atrial fibrillation and flutter (HCC) Jojo Steiner NP Procedures CARDIAC IMPLANT CHECK - REMOTE MONITOR [address] [address] Referral ID Status Reason Start Expiration Visits Visits Date Date Requested Authorized [id number] Authorization Not 1 1 Required 1 Encounter Details Date Type Department Care Team Description 01/30/2021 Hospital Encounter Suzie Remote Device Atrial fibrillation and 62 Suzie hurtado ([facility]) [place] [address] Social History Tobacco Use Types Packs/Day Years [...] Associated Diagnosis Comme nts CARDIAC IMPLANT Routine 01/30/2021 13:07 Atrial fibrillation R esults for this CHECK - REMOTE EST and flutter (HCC) procedur e are in MONITOR the results section. documented in this encounter Results CARDIAC IMPLANT CHECK - REMOTE - LOOP RECORDER (ILR) (01/30/2021 13:07 EST) Anatomical Region Laterality Modality Device Specimen (Source) Anatomical Location Collection Method / Collectio n Time Received Time / Laterality Volume Narrative 01/30/2021 13:43 EST I have reviewed the implantable loop recorder interrogation. ??I agree with the findings. SCHEDULED ILR REMOTE TRANSMISSION. 0 EPISODES RECORDED SINCE LAST INTERROGA TION. BATTERY STATUS OK. NEXT CHECK IN 1 MO. DC Jojo Steiner NP CV IMPLANTABLE CARDIAC DEVIC E documented in this encounter Visit Diagnoses Diagnosis Atrial fibrillation and flutter (HCC) Atrial fibrillation documented in this encounter Care Teams Children'S Librarian Relationship Specialty Start Date End Date Enrike Brown MD PCP - General 10/19/[address] [place] [address] documented as of this encounter
--- OUTSIDE RECORDS SUMMARY | 2022-02-06 00:51 | XMS_ITS | Encounter Summary ---
:1955 Author Organization [facility] Address [address] [place] [address] Care Team Providers Name Role Phone Enrike Brown MD Primary Care Provider [phone] Reason for Visit Reason Onset Date Comments Medication Management 01/22/2022 Encounter Details Date Type Department Care Team Description 01/22/2022 Telephone [facility] Joseph Torre, Medication Management Cardiology - Suzie MEZA 62 Suzie Rodriguez [address] [place] [phone] (Wo rk) Social History Tobacco Use Types [...] this encounter Miscellaneous Notes Telephone Encounter - Sarah Donovan RN - 01/23/2022 0837 EDT Images from the original note were not included. Called patient to let her know the provider looked over her results from the outside hospital she went to on Wednesday as well as the loop recorder readings we were able to receive, and all seemed normal. The patient stated she took 12.5 mg of metop before bed and she didn't wake up with a racy heart feeling. Pt stated she will continue to take 12.5mg in the morning and 12.5mg of metop again at night. Chilling Hood Operator advised pt to check her blood pressure and heart rate and not take dose if her heart rate is below 60. Pt understood and denied further questions. Pt stated she will call back when she gets the new monitor to send over the rest of the transmissions. No barriers to learning identified. Kamilah Amos MD You; Joseph Torre MD 13 hours ago (19:00) ECGs from that visit in scans were normal sinus rhythm but would be good to get the ILR report to make sure like you are doing. Thanks, Elise Telephone Encounter - Sarah Donovan RN - 01/22/2022 0903 EDT Returned Patient's call regarding weaning herself off the metoprolol as recommended by Dr Torre ather last visit. Patient is currently at 1/2 tablet daily but has not gone to every other day becauseshe wakes in the middle of the night feeling like her heart is pounding, has heart monitor states ithas gone up to HR of 105 and goes back to normal after a few minutes. Fluctuates throughout the morning and regulates per patient. Chilling Hood Operator informed pt normal HR is between 60-100. Pt stated she has beenunder allot of stress lately and she isn't sure if its anxiety or her heart issues. when she gets out of bed in the morning her pulse is high (105) and fluctuates on the high end in the morning. Pt states she currently takes 12.5mg of Metop daily, she is wondering if she should go back to a full 25mg daily or continue weaning. MD notified. Also routed to device clinic to see if arrhythmia seen. Pt also stated she went to [facility] ED on Wednesday for back pain and chest pain. Chilling Hood Operator called facility to have after visit summary faxed over. Will call pt back with MD recommendations. No barriers to le arning identified. Telephone Encounter - Rajani Rizo - 01/22/2022 0814 EDT Patient is calling because she has been weaning herself off the metoprolol as recommended by Dr Torre at her last visit. Patient is currently at 1/2 tablet daily but has not gone to every other day because when she gets out of bed in the morning her pulse is high (105) and fluctuates on the high endin the morning. Please call to discuss. documented in this encounter Plan of Treatment Not on filedocumented as of this encounter Visit Diagnoses Not on filedocumented in this encounter Care Teams Analytical Lab Technician Relationship Specialty Start Date End Date Enrike Brown MD PCP - General 10/19/18 [address] [place] [address] documented as of this encounter
--- OUTSIDE RECORDS SUMMARY | 2022-02-06 00:51 | XMS_ITS | Encounter Summary ---
:1955 Author Organization [facility] Address [address] [place] [address] Care Team Providers Name Role Phone Enrike Brown MD Primary Care Provider [phone] Reason for Visit Reason Onset Date Comments Coordination Of Care 08/25/2021 Encounter Details Date Type Department Care Team Description 08/25/[address] [facility] Card[facility] - Suzie Samano MD PhD 62 Suzie Rodriguez [address] [place] [address] (Wo rk) Social History Tobacco [...] this encounter Miscellaneous Notes Telephone Encounter - Singh Smart RN - 08/25/2021 1417 EDT hung up before I could speak to him. There is no referral on file for the patient to be seen by anyone. She follows with our device clinic only. Message sent to practice supervisor farm equipment maintenance for further clarification on this. SINGH SMART RN Telephone Encounter - Rajani Rizo - 08/25/[address] Liao from [facility] is calling and requesting to speak to a nurse regarding having the patient seen within the next (2) weeks by Dr Nogueira. documented in this encounter Plan of Treatment Not on filedocumented as of this encounter Visit Diagnoses Not on filedocumented in this encounter Care Teams Naturopath Relationship Specialty Start Date End Date Enrike Brown MD PCP - General 10/19/[address] [place] [address] [place] [address] documented as of this encounter
--- OUTSIDE RECORDS SUMMARY | 2022-02-06 00:51 | XMS_ITS | Encounter Summary ---
:1955 Author Organization [facility] Address [address] [place] [address] Care Team Providers Name Role Phone Enrike Brown MD Primary Care Provider [phone] Reason for Referral (Routine/Next Available) - Authorization Not Required Specialty Diagnoses / Procedures Referred By Contact Refer red To Contact Diagnoses Atrial fibrillation and flutter (HCC) Jojo Steiner NP [facility] Procedures CARDIAC IMPLANT CHECK - REMOTE MONITOR [address] [address] Referral ID Status Reason Start Expiration Visits Visits Date Date Requested Authorized [id number] Authorization Not 1 1 Required 1 Reason for Visit (Routine/Next Available) - Authorization Not Required Specialty Diagnoses / Procedures Referred By Contact Refer red To Contact Diagnoses Atrial fibrillation and flutter (HCC) Jojo Steiner NP [facility] Procedures CARDIAC IMPLANT CHECK - REMOTE MONITOR [address] [address] Referral ID Status Reason Start Expiration Visits Visits Date Date Requested Authorized [id number] Authorization Not 1 1 Required 1 Encounter Details Date Type Department Care Team Description 03/06/2021 Hospital Encounter Suzie Remote Device Atrial fibrillation and 62 Suzie hurtado ([facility]) [place] [address] Social History Tobacco Use Types Packs/Day Years [...] Associated Diagnosis Comme nts CARDIAC IMPLANT Routine 03/06/2021 11:24 Atrial fibrillation R esults for this CHECK - REMOTE EST and flutter (HCC) procedur e are in MONITOR the results section. documented in this encounter Results CARDIAC IMPLANT CHECK - REMOTE - LOOP RECORDER (ILR) (03/06/2021 11:24 EST) Anatomical Region Laterality Modality Device Specimen (Source) Anatomical Location Collection Method / Collectio n Time Received Time / Laterality Volume Narrative 03/10/2021 14:39 EST I have reviewed the implantable loop recorder interrogation. ??I agree with the findings. ?? SCHEDULED ILR REMOTE TRANSMISSION. 2 PAUSE AND 1 AF ??EPISODES RECORDED SIN CE LAST INTERROGATION. PAUSE EPISODES SHOW NOCTURNAL CM WITH 3 SECOND PAUSE. AF IS RATHER NOCTURNAL SINUS CM WITH AVERAGE V RATES 46 BPM. DURATION 2 MINUTES. BATTERY STATUS OK. NEXT CHECK IN 1 MO. DC Faxed report to Dr Boyer Jojo Steiner NP CV IMPLANTABLE CARDIAC DEVIC E documented in this encounter Visit Diagnoses Diagnosis Atrial fibrillation and flutter (HCC) Atrial fibrillation documented in this encounter Care Teams Physiotherapy Practice Manager Relationship Specialty Start Date End Date Enrike Brown MD PCP - General 10/19/18 [address] [place] [address] documented as of this encounter
--- OUTSIDE RECORDS SUMMARY | 2022-02-06 00:51 | XMS_ITS | Encounter Summary ---
:1955 Author Organization [facility] Address [address] [place] [address] Care Team Providers Name Role Phone Enrike Brown MD Primary Care Provider [phone] Reason for Referral (Routine) - Authorization Not Required Specialty Diagnoses / Procedures Referred By Contact Refer red To Contact Diagnoses Atrial fibrillation and flutter (HCC) Jojo Steiner, [place] Procedures CARDIAC IMPLANT CHECK - REMOTE MONITOR [address] [phone] Referral ID Status Reason Start Expiration Visits Visits Date Date Requested Authorized [id number] Authorization Not 1 1 Required 0 Reason for Visit (Routine) - Authorization Not Required Specialty Diagnoses / Procedures Referred By Contact Refer red To Contact Diagnoses Atrial fibrillation and flutter (HCC) Jojo Steiner, [place] Procedures CARDIAC IMPLANT CHECK - REMOTE MONITOR [address] [address] Referral ID Status Reason Start Expiration Visits Visits Date Date Requested Authorized [id number] Authorization Not 1 1 Required 0 Encounter Details Date Type Department Care Team Description 04/09/2020 Hospital Encounter Suzie Remote Device Atrial fibrillation and 60 Suzie hurtado ([facility]) [place] [address] Social History Tobacco Use Types Packs/Day Years [...] Associated Diagnosis Comme nts CARDIAC IMPLANT Routine 04/09/2020 16:27 Atrial fibrillation R esults for this CHECK - REMOTE EST and flutter ([facility]) proc edure are in MONITOR the results section. documented in this encounter Results CARDIAC IMPLANT CHECK - REMOTE - LOOP RECORDER (ILR) (04/09/2020 16:27 EST) Anatomical Region Laterality Modality Device Specimen (Source) Anatomical Location Collection Method / Collectio n Time Received Time / Laterality Volume Narrative 04/10/2020 15:43 EST I have reviewed the implantable loop recorder interrogation. ??I agree with the findings. SCHEDULED ILR REMOTE TRANSMISSION. 1 AF EPISODES RECORDED SINCE LAST INTERR OGATION. APPEARS TO BE INAPPROPRIATE, SINUS ARRHYTHMIA. BATTERY STATUS OK. NEXT CHECK IN 1 MO. MP Jojo Steiner NP CV IMPLANTABLE CARDIAC DEVIC E documented in this encounter Visit Diagnoses Diagnosis Atrial fibrillation and flutter (HCC) Atrial fibrillation documented in this encounter Care Teams Inventory Control/Shipping Receiving Relationship Specialty Start Date End Date Enrike Brown MD PCP - General 10/19/18 [address] [place] [address] documented as of this encounter
--- OUTSIDE RECORDS SUMMARY | 2022-02-06 00:51 | XMS_ITS | Encounter Summary ---
:1955 Author Organization [facility] Address [address] [place] [address] Care Team Providers Name Role Phone Enrike Brown MD Primary Care Provider Reason for Visit Reason Onset Date Comments Paperwork request 05/23/2021 Encounter Details Date Type Department Care Team Description 05/23/2021 Telephone [facility] Jojo Steiner NP Paperwork request Cardiology - [address] [facility], [place], [place] [address] [facility] [place] [phone] (Wo rk) Social History Tobacco Use Types [...] this encounter Miscellaneous Notes Telephone Encounter - Venessa Ambrocio - 05/23/[address] Boyer office is meeting with the patient on Wednesday and the patient is asking o be taken off of Eliquis but they would like to see if her link report can be faxed over so they can review her whole history and see the last time she was in A-Fib before they make that decision to take her off thatmedication. Please fax to [phone] Liao. Please call with any questions. documented in this encounter Plan of Treatment Not on filedocumented as of this encounter Visit Diagnoses Not on filedocumented in this encounter Care Teams Outbound Supervisor Relationship Specialty Start Date End Date Enrike Brown MD PCP - General 10/19/[address] [place] [address] documented as of this encounter
--- OUTSIDE RECORDS SUMMARY | 2022-02-06 00:51 | XMS_ITS | Encounter Summary ---
:1955 Author Organization [facility] Address [address] [place] [address] Care Team Providers Name Role Phone Enrike Brown MD Primary Care Provider [phone] Reason for Visit Reason Onset Date Comments Pacemaker/Device Check 08/28/2021 Returning Call 08/28/2021 Encounter Details Date Type Department Care Team Description 08/28/2021 Telephone [facility] James Nogueira emaker/Device Cardiology - Suzie Samano MD PhD Check; Returning Call 62 Suzie Rodriguez [address] [place] [address] (Wo rk) Social History Tobacco [...] Notes Telephone Encounter - Venessa Ambrocio - 08/28/2021 1430 EDT Pt called with Dr. Mukherjee phone number at [facility]. It is . Please call back with any other questions. Telephone Encounter - Pamela Bower RN - 08/28/2021 1338 EDT Fax sent to Dr. Liao' requesting referral for pt to see provider at Currently. Called pt to request providers phone number as well for OSH- call got disconnected. Telephone Encounter - Gerardo Ford - 08/28/2021 1014 EDT Patient is calling to schedule with Dr. Nogueira as per Dr. Liao ([facility]). Steward/Stewardess Third informed patient that a referral was not received from Dr. Liao, that to schedule with Dr. Nogueira areferral would be needed from him or patient's PCP. Patient is requesting a nurse reach out to Dr. Keshawn Moore' research nurse, by fax at [phone], to obtain a referral. documented in this encounter Plan of Treatment Not on filedocumented as of this encounter Visit Diagnoses Not on filedocumented in this encounter Care Teams Envelope Fold Operator Relationship Specialty Start Date End Date Enrike Brown MD PCP - General 10/19/18 [address] [address] documented as of this encounter
--- OUTSIDE RECORDS SUMMARY | 2022-02-06 00:51 | XMS_ITS | Encounter Summary ---
:1955 Author Organization [facility] Address [address] [place] [address] Care Team Providers Name Role Phone Enrike Brown MD Primary Care Provider [phone] Reason for Referral (Routine/Next Available) - Authorization Not Required Specialty Diagnoses / Procedures Referred By Contact Refer red To Contact Diagnoses Atrial fibrillation and flutter (HCC) Jojo Steiner NP [facility] Procedures CARDIAC IMPLANT CHECK - REMOTE MONITOR [address] [address] Referral ID Status Reason Start Expiration Visits Visits Date Date Requested Authorized [id number] Authorization Not 04/09/2021 1 1 Required Reason for Visit (Routine/Next Available) - Authorization Not Required Specialty Diagnoses / Procedures Referred By Contact Refer red To Contact Diagnoses Atrial fibrillation and flutter (HCC) Jojo Steiner NP [facility] Procedures CARDIAC IMPLANT CHECK - REMOTE MONITOR [address] [phone] Referral ID Status Reason Start Expiration Visits Visits Date Date Requested Authorized [id number] Authorization Not 04/09/2021 1 1 Required Encounter Details Date Type Department Care Team Description 06/09/2021 Hospital Encounter Suzie Remote Device Atrial fibrillation and 62 Suzie hurtado ([facility]) [place] [address] Social History Tobacco Use Types Packs/Day Years [...] Associated Diagnosis Comme nts CARDIAC IMPLANT Routine 06/09/2021 13:40 Atrial fibrillation R esults for this CHECK - REMOTE EDT and flutter (HCC) procedur e are in MONITOR the results section. documented in this encounter Results CARDIAC IMPLANT CHECK - REMOTE - LOOP RECORDER (ILR) (06/09/2021 13:40 EDT) Anatomical Region Laterality Modality Device Specimen (Source) Anatomical Location Collection Method / Collectio n Time Received Time / Laterality Volume Narrative 06/13/2021 9:38 EDT I have reviewed the implantable loop recorder interrogation. ??I agree with the findings. ?? SCHEDULED ILR REMOTE TRANSMISSION. 1 CM AND 1 AF ??EPISODES RECORDED SIN CE LAST INTERROGATION. CM SHOWS NOCTURNAL SINUS CM, AVERA GE V RATES 44 BPM, DURATION 13 SECONDS. AF IS RATHER SINUS CM WITH PAC'S. AVE RAGE V RATE 50 BPM. BATTERY STATUS OK. NEXT CHECK IN 2 MO. DC Jojo Steiner NP CV IMPLANTABLE CARDIAC DEVIC E documented in this encounter Visit Diagnoses Diagnosis Atrial fibrillation and flutter (HCC) Atrial fibrillation documented in this encounter Care Teams Software Validation Engineer Relationship Specialty Start Date End Date Enrike Brown MD PCP - General 10/19/18 [address] [place] [address] documented as of this encounter
--- OUTSIDE RECORDS SUMMARY | 2022-02-06 00:51 | XMS_ITS | Encounter Summary ---
:1955 Author Organization [facility] Address [address] [place] [address] Care Team Providers Name Role Phone Enrike Brown MD Primary Care Provider [phone] Reason for Visit Reason Comments New Patient Visit Establish care Consult (Routine) - Authorization Not Required Specialty Diagnoses / Procedures Referred By Contact Refer red To Contact Cardiology Diagnoses Arrhythmia Inglessis-Yeyo Wilson Lustgarten, Daniel MD Lawrence, MD PhD [address] [place] [phone] [place] [address] Phone: Fax: Referral ID Status Reason Start Expiration Visits Visits Date Date Requested Authorized [id number] Authorization Not 1 1 Required Encounter Details Date Type Department Care Team Description 12/29/2021 Office Visit [facility] Joseph Torre Typical atrial flutter ([facility]-CMS) (HCC) (Primary Dx); Cardiology - Suzie Dawson MD Atrial fibrillation, unspecified type (H CC-CMS) (HCC) 62 [facility] [address] [place], [place] [id number] [place] [address], [facility] [address] [place] [address] (Wo rk) Social History Tobacco [...] on file documented as of this encounter Last Filed Vital Signs Vital Sign Reading Time Taken Comments Blood Pressure 118/60 12/29/2021 0847 EDT Pulse 56 12/29/2021 0847 EDT Temperature - - Respiratory Rate - - Oxygen Saturation 96% 12/29/2021 08 EDT Inhaled Oxygen Concentration - - Weight 87.1 kg (192 lb) 12/29/2021 08 EDT Height - - Body Mass Index 31.95 10/24/2018 1202 EDT documented in this encounter Functional Status Functional Status Response [...] or older) documented as of this encounter Progress Notes Kamilah Amos MD - 12/29/2021 0900 EDT Images from the original note were not included. Cardiology Electrophysiology Office Visit Date of service: 12/29/21 Reason for visit: post-op AF in 2019, history of flutter s/p CTI A/P: Chantel Rosas is a 66 y.o. female patient with a secundum ASD s/p percutaneous ASD closurewith a 48mm [place] Large ASD device 08/2018 at [facility], atrial flutter s/p CTI ablation 05/[address] Torre ([id number] 2 for age, female) on apixaban who presents to clinic to discuss atrial arrhythmias and need for continued OAC. She had perioperative AF following her ASD procedure but has not had any documented AF or aflutter since. We looked through all of her ILR reports and episodes of AF were allsinus rhythm with PACs or sinus arrhythmia - she did not have any true AF documented on her ILR since it was placed in 03/2019. She did have an episode of a racing heartbeat sensation in May that she thought was AF but was not. - given no AF other than in the post-operative period after ASD closure, we recommended stopping apixaban and metoprolol - we recommend replacing the ILR once battery dies because she is feeling symptoms of palpitations (including in May) when she was not in fact in AF - she will think about this and let us know Thank you for involving us in the care of this patient. Please call us with questions. Patient seen and examined with Dr. Yelitza Amos MD Electrophysiology Fellow Pager #[phone] HPI: Chantel Rosas is a 66 y.o. female patient with a secundum ASD s/p percutaneous ASD closurewith a 48mm [place] Large ASD device 08/2018 at [facility], atrial flutter s/p CTI ablation 05/[address] Torre ([id number] 2 for age, female) on apixaban who presents to clinic to discuss atrial arrhythmias and need for continued OAC. In September 2018, she had 4 ED for palpitations visits in the week or two following discharge from her ASD closure surgery. She was seen at [facility] and was found to be in AF (ECGs below). She was DCCV once, the other episodes spontaneously terminated. She was started on diltiazem, which was later switched to metoprolol, in addition to apixaban. Following her presentations to [facility] her episodes of irregular palpitations decreased. She discussed the possibility of AF ablation with Dr. Torre at an office visit in 10/2018, however, this was postponed given that her sandi-procedural AF could have been due to myocardial irritation from the recent ASD closure procedure and because additional time was needed between her ASD closure procedure to allow for hte device to endothelialize before attempting a TSP for a left sided ablation procedure. She had an ILR placed 03/2019 to monitor her AF burden. This has not shown any episodes of AF since it was placed. Episodes labelled as AF are inappropriately labeled and in fact are either sinus arrhythmia or sinus rhythm with PACs. She did have 3 nocturnal pauses lasting 3 seconds each. Her past symptoms when in aflutter and afib were racing heartbeat and shortness of breath. She has not had any of these symptoms since September 2018 when she was presenting to [facility] ED for AF (shortly after her ASD closure). In May of this year she felt somewhat similar symptoms of a racing heartbeat sensation after being started on prednisone for a back injury. However, looking through her ILR recordings during this time period she did not in fact have AF or any sustained atrial arrhythmia. Sometimes she will feel tired and sluggish and will check her pulse and will be low in the 40s and so she will move around and her HR increases. With exercise or anxiety her heart rate does increase. No prolonged pauses on Never had presyncope or syncope. ROS: A 10-point review of systems was conducted. Pertinent positives are noted in HPI. All other systems were reviewed and are negative. Past Cardiac History: ILRs - rare episdoes of AF are actually sinus bradycardia or sinus rhythm with sinus arrhythmia or PACs Having rare nocturnal pauses, greatest 3 seconds 05/2018 Atrial Flutter ablation: SUMMARY OF PROCEDURE: - Baseline rhythm sinus rhythm. - Successful cavo-tricuspid isthmus ablation. - At the conclusion of the procedure the patient was in sinus rhythm. - There were no complications. ?? 04/21/2018 EC06/2018 RHC/LHC: 1. Mild coronary artery disease. 2. Large left to right shunt at the atrial level, with pulmonary overcirculation. SUMMARY: 1. HPI and indications: Exertional dyspnea. 2. Coronary arteries: The coronary circulation is right dominant. 3. Left main: Minor luminal irregularities. 4. LAD: Minor luminal irregularities. 5. Left circumflex: Minor luminal irregularities. 6. Right coronary: Minor luminal irregularities. RECOMMENDATIONS: Recommend closure of secundum atrial septal defect due to 2:1 shunt. 09/24/18 ECG [facility]: 10/01/18 ECG [facility]: Past Medical History: Diagnosis Date ??? A-fib (HCC-CMS) (HCC) ??? ASD (atrial septal defect) Current Outpatient Medications Medication ??? acetaminophen (TYLENOL) 325 mg capsule ??? amoxicillin (AMOXIL) 500 mg capsule ??? apixaban (ELIQUIS) 5 mg tablet ??? aspirin chewable 81 mg tablet ??? diltiazem (DILACOR XR) 120 mg XR capsule ??? famotidine (PEPCID AC) 20 mg tablet ??? FLUoxetine (PROZAC) 10 mg capsule ??? LORazepam (ATIVAN) 0.5 mg tablet ??? losartan (COZAAR) 25 mg tablet ??? metoprolol SUCCinate 25 mg capsule,sprinkle,ER 24hr No current facility-administered medications for this visit. Allergies as of 12/29/2021 ??? (No Known Allergies) Social History Socioeconomic History ??? Marital status: Single Spouse name: Not on file ??? Number of children: Not on file ??? Years of education: Not on file ??? Highest education level: Not on file Occupational History ??? 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 Smoking status: Former Smoker Packs/day: 1.00 Years: 30.00 Pack years: 30.00 Types: Cigarettes Quit date: 04/07/2018 Years since quittin.7 ??? Smokeless tobacco: Never Used Vaping Use ??? Vaping Use: Never used Substance and Sexual Activity ??? Alcohol use: Yes Comment: occasional beer ??? Drug use: No ??? Sexual activity: Not on file Other Topics Concern ??? Not on file Social History Narrative ??? Not on file Social Determinants of Health Financial Resource Strain: Not on file Food Insecurity: Not on file Transportation Needs: Not on file Physical Activity: Not on file Stress: Not on file Social Connections: Not on file Family History Problem Relation Age of Onset ??? Hypertension Mother ??? Blindness Mother ??? Macular Degeneration Mother 85 Pt is 99, now blind from [employer] ??? Lung Cancer Father ??? No Known Brother ??? Glaucoma Neg Hx Physical Exam Blood pressure 118/60, pulse 56, weight 87.1 kg (192 lb), SpO2 96 %. General: Middle aged female patient in NAD HEENT: NCAT, No scleral icterus Neck: Supple, No JVD CVS: S1, S2, RRR, no m/r/g Chest: Chest CTA b/l with good air movement Abdomen: Soft, NT, ND, BS+ Extremities: No LE edema, PPP 2+ Neuro: AAO x3, no focal deficits appreciated Skin: No rashes or lesions Labs CBC: No results for input(s): WBC, HGB, HCT, MCV, PLT in the last 72 hours. BMP: No results for input(s): CREATININE, BUN, NA, K, CL, CO2, CALCIUM, PHOS, MG in the last 72 hours. Coags: No results for input(s): PROTIME, INR, PTT in the last 72 hours. LFTs: No results for input(s): ALT, AST, GGT, ALKPHOS in the last 72 hours. Incorrect component name entered: TBILI FSBS: No results for input(s): GLUCOSEFINGE in the last 72 hours. Cardiac Biomarkers: No results for input(s): CK, MB, CKMBINDEX, TROPONINI in the last 72 hours. Hemoglobin A1C: Lab Results Component Value Date HGBA1C 5.7 06/01/2018 Joseph Torre MD - 12/29/2021 0900 EDT I have seen and examined the patient and agree with the above history and physical exam and assessment and plan. Joseph Torre MD documented in this encounter Plan of Treatment Not on filedocumented as of this encounter Visit Diagnoses Diagnosis Typical atrial flutter (HCC-CMS) (HCC) - Primary Atrial flutter Atrial fibrillation, unspecified type (H CC-CMS) (HCC) documented in this encounter Care Teams Flexo Press Operator Relationship Specialty Start Date End Date Enrike Brown MD PCP - General 10/19/[address] [place] [id number] documented as of this encounter
--- OUTSIDE RECORDS SUMMARY | 2022-02-06 00:51 | XMS_ITS | Encounter Summary ---
:1955 Author Organization [facility] Address [address] [place] [address] Care Team Providers Name Role Phone Enrike Brown MD Primary Care Provider [phone] Reason for Referral (Routine/Next Available) - Authorization Not Required Specialty Diagnoses / Procedures Referred By Contact Refer red To Contact Diagnoses Atrial fibrillation and flutter (HCC) Jojo Steiner NP [facility] Procedures CARDIAC IMPLANT CHECK - REMOTE MONITOR [address] [phone] Referral ID Status Reason Start Expiration Visits Visits Date Date Requested Authorized [id number] Authorization Not 06/09/2021 1 1 Required Reason for Visit (Routine/Next Available) - Authorization Not Required Specialty Diagnoses / Procedures Referred By Contact Refer red To Contact Diagnoses Atrial fibrillation and flutter (HCC) Jojo Steiner NP [facility] Procedures CARDIAC IMPLANT CHECK - REMOTE MONITOR [address] [phone] Referral ID Status Reason Start Expiration Visits Visits Date Date Requested Authorized [id number] Authorization Not 06/09/2021 1 1 Required Encounter Details Date Type Department Care Team Description 08/11/2021 Hospital Encounter Suzie Remote Device Atrial fibrillation and 62 Suzie hurtado ([facility]) [place] [address] Social History Tobacco Use Types Packs/Day Years [...] Associated Diagnosis Comme nts CARDIAC IMPLANT Routine 08/12/2021 8:26 Atrial fibrillation Re sults for this CHECK - REMOTE EDT and flutter (HCC) procedur e are in MONITOR the results section. documented in this encounter Results CARDIAC IMPLANT CHECK - REMOTE - LOOP RECORDER (ILR) (08/12/2021 8:26 EDT) Anatomical Region Laterality Modality Device Specimen (Source) Anatomical Location Collection Method / Collectio n Time Received Time / Laterality Volume Narrative 08/13/2021 11:20 EDT I have reviewed the implantable loop recorder interrogation. ??I agree with the findings. SCHEDULED ILR REMOTE TRANSMISSION. 11 AF ??EPISODES RECORDED SINCE LAST INT ERROGATION. AF IS RATHER SINUS RHYTHM/SINUS CM WI TH RATES 44 - 52 BPM. BATTERY STATUS OK. NEXT CHECK IN 2 MO. AG Jojo Steiner NP CV IMPLANTABLE CARDIAC DEVIC E documented in this encounter Visit Diagnoses Diagnosis Atrial fibrillation and flutter (HCC) Atrial fibrillation documented in this encounter Care Teams Die Cutting Machine Operator Relationship Specialty Start Date End Date Enrike Brown MD PCP - General 10/19/18 [address] [place] [address] documented as of this encounter
--- OUTSIDE RECORDS SUMMARY | 2022-02-06 00:51 | XMS_ITS | Encounter Summary ---
:1955 Author Organization [facility] Address [address] [place] [address] Care Team Providers Name Role Phone Enrike Brown MD Primary Care Provider [phone] Reason for Referral (Routine) - Authorization Not Required Specialty Diagnoses / Procedures Referred By Contact Refer red To Contact Diagnoses Atrial fibrillation and flutter (HCC) Jojo Steiner, [place] Procedures CARDIAC IMPLANT CHECK - REMOTE MONITOR [address] [phone] Referral ID Status Reason Start Expiration Visits Visits Date Date Requested Authorized [id number] Authorization Not 04/09/2020 1 1 Required Reason for Visit (Routine) - Authorization Not Required Specialty Diagnoses / Procedures Referred By Contact Refer red To Contact Diagnoses Atrial fibrillation and flutter (HCC) Jojo Steiner NP Procedures CARDIAC IMPLANT CHECK - REMOTE MONITOR [address] [phone] Referral ID Status Reason Start Expiration Visits Visits Date Date Requested Authorized [id number] Authorization Not 04/09/2020 1 1 Required Encounter Details Date Type Department Care Team Description 05/13/2020 Hospital Encounter Suzie Remote Device Atrial fibrillation and 62 Suzie hurtado ([facility]) [place] [address] Social History Tobacco Use Types Packs/Day Years [...] Associated Diagnosis Comme nts CARDIAC IMPLANT Routine 05/13/2020 14:29 Atrial fibrillation R esults for this CHECK - REMOTE EST and flutter ([facility]) proc edure are in MONITOR the results section. documented in this encounter Results CARDIAC IMPLANT CHECK - REMOTE - LOOP RECORDER (ILR) (05/13/2020 14:29 EST) Anatomical Region Laterality Modality Device Specimen (Source) Anatomical Location Collection Method / Collectio n Time Received Time / Laterality Volume Narrative 05/15/2020 16:19 EST I have reviewed the implantable loop recorder interrogation. ??I agree with the findings. ?? SCHEDULED ILR REMOTE TRANSMISSION. 0 EPISODES RECORDED SINCE LAST INTERROGA TION. BATTERY STATUS OK. NEXT CHECK IN 1 MO. DC Jojo Steiner NP CV IMPLANTABLE CARDIAC DEVIC E documented in this encounter Visit Diagnoses Diagnosis Atrial fibrillation and flutter (HCC) Atrial fibrillation documented in this encounter Care Teams Recording Studio Internship Relationship Specialty Start Date End Date Enrike Brown MD PCP - General 10/19/18 [address] [place] [address] documented as of this encounter
--- OUTSIDE RECORDS SUMMARY | 2022-02-06 00:51 | XMS_ITS | Encounter Summary ---
:[address] [facility] Address [address] [place] [address] Care Team Providers Name Role Phone Enrike Brown MD Primary Care Provider [phone] Reason for Referral (Routine/Next Available) - Authorization Not Required Specialty Diagnoses / Procedures Referred By Contact Refer red To Contact Diagnoses Atrial fibrillation ([facility]) ([facility]) James Nogueira [facility] Procedures CARDIAC IMPLANT CHECK - REMOTE MONITOR MD Selwyn PhD [address] [phone] Referral ID Status Reason Start Expiration Visits Visits Date Date Requested Authorized [id number] Authorization Not 10/10/2021 1 1 Required Reason for Visit (Routine/Next Available) - Authorization Not Required Specialty Diagnoses / Procedures Referred By Contact Refer red To Contact Diagnoses Atrial fibrillation ([facility]) ([facility]) James Nogueira [facility] Procedures CARDIAC IMPLANT CHECK - REMOTE MONITOR MD Selwyn PhD [address] [phone] Referral ID Status Reason Start Expiration Visits Visits Date Date Requested Authorized [id number] Authorization Not 10/10/2021 1 1 Required Encounter Details Date Type Department Care Team Description 10/16/2021 Hospital Encounter Suzie Remote Device Atrial fibrillation 62 Suzie Rodriguez ([facility]) ([facility]) [place] [address] Social History Tobacco Use Types Packs/Day Years [...] Associated Diagnosis Comme nts CARDIAC IMPLANT Routine 10/16/2021 12:51 Atrial fibrillation R esults for this CHECK - REMOTE EDT ([facility]) ([facility]) procedure are in MONITOR the results section. documented in this encounter Results CARDIAC IMPLANT CHECK - REMOTE - LOOP RECORDER (ILR) (10/16/2021 12:51 EDT) Anatomical Region Laterality Modality Device Specimen (Source) Anatomical Location Collection Method / Collectio n Time Received Time / Laterality Volume Narrative 10/16/2021 15:43 EDT I have reviewed the implantable loop recorder interrogation. ??I agree with the findings. SCHEDULED ILR REMOTE TRANSMISSION. 1 AF ??EPISODE RECORDED SINCE LAST INTER ROGATION IS RATHER SINUS CM AVERAGE V RATE 47 BPM. BATTERY STATUS OK. NEXT CHECK IN 2 MO. DC James Nogueira MD PhD CV IMPLANTABLE CARDI AC DEVICE documented in this encounter Visit Diagnoses Diagnosis Atrial fibrillation ([facility] ([facility]) Atrial fibrillation documented in this encounter Care Teams Relay Repairer Relationship Specialty Start Date End Date Enrike Brown MD PCP - General 10/19/[address] [place] [phone] documented as of this encounter
--- OUTSIDE RECORDS SUMMARY | 2022-02-06 00:51 | XMS_ITS | Encounter Summary ---
:1955 Author Organization [facility] Address [address] [place] [address] Care Team Providers Name Role Phone Enrike Brown MD Primary Care Provider [phone] Reason for Visit Reason Comments Eye Problem Consult, Test and Treat (Routine) - Authorization Not Required Specialty Diagnoses / Procedures Referred By Contact Refer red To Contact Ophthalmology Diagnoses Excessive tearing Braden Carnes, Lizbeth Jaquez MD [address] [place] [address] [facility] 5 [place] [address] Phone: Fax: Referral ID Status Reason Start Expiration Visits Visits Date Date Requested Authorized [id number] Authorization Not 1 1 Required Encounter Details Date Type Department Care Team Description 01/06/2021 Office Visit [facility] Sherron Sanhcez MD Ophthalmology - [address], [facility] 5 [place], [place] [address] [place] [address] [phone] (Wo rk) Social History Tobacco Use [...] documented as of this encounter Progress Notes Lizbeth Sanchez MD - 01/06/2021 1300 EDT Chief Complaint Patient presents with ??? Eye Problem Comments Pt c/o chronically dry/irritated left eye for years. Pt states left eye tears constantly. Pt was onRestasis for 1 year, stopped approximately 6 mos ago, states did not help at all. Pt uses OTC ATs BID OU (with preservatives). When left eye is not tearing, then it feels very dry and irritated, pt rubs eye all the time, and then eye becomes infected. Pt's current glasses are a couple months old. [facility] w/current correction. Left eye itches often, and severely, is intermittently red. Occ mild burning. Left eye particularly tears on windy days. Pt denies gritty/scratchy sensation. No eye pain. No floaters, no flashes. 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 Pt has been prescribed erythromycin ophthalmic priscila ~6x in last year by her PCP (for left eye). HPI The patient is a 65 y.o. female seen for the first time at the request of Dr. Carnes for eval of chronically dry/irritated left eye for years. Pt states left eye tears constantly. Pt was on Restasis for1 year, stopped approximately 6 mos ago, states did not help at all. Pt uses OTC ATs BID OU (with preservatives). When left eye is not tearing, then it feels very dry and irritated, pt rubs eye all thetime, and then eye becomes infected. Pt's current glasses are a couple months old. [facility] w/current[facility]rection. Left eye itches often, and severely, is intermittently red. Occ mild burning. Left eye particularly tears on windy days. Pt denies gritty/scratchy sensation. No eye pain. No floaters, no flashes. 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 Pt has been prescribed erythromycin ophthalmic priscila ~6x in last year by her PCP (for left eye). ROS Constitutional: ENT/Mouth (TMJ left side) Cardiovascular: High Blood Pressure (ASD repair 2019) Respiratory: NL Gastrointestinal: Genitourinary: Musculoskeletal: Integumentary: Neurologic: NL Psychiatric: Endocrine: NL Hematologic: NL Immunologic: NL Business Continuity Planner: Exposures: Other: Attestation: Allergies include: Patient has no known allergies. Patient Active Problem List Diagnosis ??? Atrial fibrillation (HCC-CMS) (HCC) ??? ASD (atrial septal defect) ??? Persistent atrial fibrillation (HCC) ??? Typical atrial flutter (HCC-CMS) (HCC) ??? Other persistent atrial fibrillation (HCC) Outpatient Medications Marked as Taking for the 01/06/21 encounter (Office Visit) with Lizbeth Sanchez MD Medication Sig ??? acetaminophen (TYLENOL) 325 mg capsule Take 650 mg by mouth as needed. ??? apixaban (ELIQUIS) 5 mg tablet Take 1 tablet by mouth 2 times daily. ??? famotidine (PEPCID AC) 20 mg tablet Take 20 mg by mouth 2 times daily as needed. ??? LORazepam (ATIVAN) 0.5 mg tablet Take 1 mg by mouth 3 times daily as needed. ??? losartan (COZAAR) 25 mg tablet Take 25 mg by mouth daily. ??? metoprolol SUCCinate 25 mg capsule,sprinkle,ER 24hr Take 25 mg by mouth daily. Base Eye Exam Visual Acuity (Snellen - Linear) Right Left Dist cc 20/20 20/20 Near sc J1+ -2 J2 Correction: Glasses Tonometry (Applanation, 13:29) Right Left Pressure 16 17 Pupils Dark Light Shape React APD Right 4 3.5 Round Brisk None Left 4.5 4 Round Brisk None Visual Almaraz (Counting fingers) Right Left Full Full Extraocular Movement Right Left Full, Ortho Full, Ortho Neuro/Psych Oriented x3: Yes Mood/Affect: Normal Additional Tests Color Right Left Ishihara Slit Lamp and Fundus Exam External Exam Right Left External Normal Normal Slit Lamp Exam Right Left Lids/Lashes mild MGD, MGD, mild LL laxity Conjunctiva/Sclera White and quiet White and quiet Cornea Clear Clear Anterior Chamber Deep and quiet Deep and quiet Iris Round and reactive Round and reactive Lens NS NS Irrigated both lower eyelid punctum Right lower eyelid: flushed thru, no blockage Left lower eyelid: blocked Refraction Wearing Rx Sphere Cylinder Add Right -2.00 Sphere +2.50 Left -1.75 Sphere +2.50 Age: 2m Type: PAL DIAGNOSTIC TESTS:After verbal consent was obtained, proparacaine was administered in both eyes and aproparacaine soaked cotton tipped applicator was held over the inferior punctum on both sides for 30seconds. An irrigating cannula was introduced into the lower punctum and advanced into the lower nina liculus. The lacrimal drainage system was irrigated with BSS. The system was patent on the right side and was occluded on the left with 100% reflux. An identical procedure was carried out on both sides. IMPRESSION & PLAN: Encounter Diagnosis Name Primary? Nasolacrimal duct obstruction, acquired, left Yes 1. Nasolacrimal duct obstruction, acquired, left We discussed the meaning of this diagnosis and that she is at risk for developing dacryocystitis. Wediscussed treatment options and the definitive treatment for this is dacryocystorhinostomy, which can be done either externally or endoscopically. Discussed the risks of surgery including pain, bleeding, infection, recurrent tearing, CSF leak, diplopia and need for additional surgery. The patient would like to think about lef external DCR and will call to schedule if she wishes to proceed. She is currently on Eliquis, so if she decides to proceed will need to check with her financial engineer about the safety of holding this pre-operatively. I have reviewed the patient's past medical, family, social and surgical history. I have also reviewed the patient's medications, allergies, and problem list. I performed my own HPI and have reviewed the tech's ROS as well. I personally completed this exam myself. Lizbeth Sanchez MD I am scribing for Lizbeth Sanchez MD while she personally performs the service. Jacquie Hunt, COA, 01/06/2021, 13:51 The patient was instructed to call our office or go to emergency room if worse vision, worse symptoms, or new/other concerns arise. documented in this encounter Plan of Treatment Not on filedocumented as of this encounter Visit Diagnoses Diagnosis Nasolacrimal duct obstruction, acquired, left - Primary documented in this encounter Historical Medications This list may reflect changes made after this encounter. Medication Sig Dispensed Refills Start Date End Date losartan (COZAAR) 25 mg Take 25 mg by mouth 0 tablet daily. metoprolol SUCCinate 25 mg Take 25 mg by mouth 0 capsule,sprinkle,ER 24hr daily. added in this encounter Eye Exam Visual Acuity (Snellen - Linear) Right eye Left eye Dist cc 20/20 20/20 Near ak J1+ -2 J2 Correction: Glasses Tonometry (Applanation, 13:29) Right eye Left eye Pressure 16 17 Pupils Dark Light Shape React APD Right eye 4 3.5 Round Brisk None Left eye 4.5 4 Round Brisk None Visual Almaraz (Counting fingers) Right eye Left eye Full Full Extraocular Movement Right eye Left eye Full, Ortho Full, Ortho Neuro/Psych Oriented x3: Yes Mood/Affect: Normal Color Right eye Left eye Ishihara External Exam Right eye Left eye External Normal Normal Slit Lamp Exam Right eye Left eye Lids/Lashes mild MGD, MGD, mild LL laxity Conjunctiva/Sclera White and quiet White and quiet Cornea Clear Clear Anterior Chamber Deep and quiet Deep and quiet Iris Round and reactive Round and reactive Lens NS NS Irrigated both lower eyelid punctum Right lower eyelid: flushed thru, no blockage Left lower eyelid: blocked Wearing Rx Sphere Cylinder Add Right eye -2.00 Sphere +2.50 Left eye -1.75 Sphere +2.50 Age: 2m Type: PAL Care Teams Trimmer Operator Relationship Specialty Start Date End Date Enrike Brown MD PCP - General 10/19/[address] [place] [address] documented as of this encounter
--- OUTSIDE RECORDS SUMMARY | 2022-02-06 00:51 | XMS_ITS | Encounter Summary ---
:1955 Author Organization [facility] Address [address] [place] [address] Care Team Providers Name Role Phone Enrike Brown MD Primary Care Provider [phone] Reason for Referral (Routine/Next Available) - Authorization Not Required Specialty Diagnoses / Procedures Referred By Contact Refer red To Contact Diagnoses Atrial fibrillation and flutter (HCC) Jojo Steiner NP Procedures CARDIAC IMPLANT CHECK - REMOTE MONITOR [address] [address] Referral ID Status Reason Start Expiration Visits Visits Date Date Requested Authorized [id number] Authorization Not 11/27/2020 1 1 Required Reason for Visit (Routine/Next Available) - Authorization Not Required Specialty Diagnoses / Procedures Referred By Contact Refer red To Contact Diagnoses Atrial fibrillation and flutter (HCC) Jojo Steiner NP Procedures CARDIAC IMPLANT CHECK - REMOTE MONITOR [address] [address] Referral ID Status Reason Start Expiration Visits Visits Date Date Requested Authorized [id number] Authorization Not 11/27/2020 1 1 Required Encounter Details Date Type Department Care Team Description 12/30/2020 Hospital Encounter Suzie Remote Device Atrial fibrillation and 60 Suzie hurt[address] ([facility]) [place] [address] Social History Tobacco Use Types Packs/Day Years [...] Associated Diagnosis Comme nts CARDIAC IMPLANT Routine 12/30/2020 13:47 Atrial fibrillation R esults for this CHECK - REMOTE EDT and flutter (HCC) procedur e are in MONITOR the results section. documented in this encounter Results CARDIAC IMPLANT CHECK - REMOTE - LOOP RECORDER (ILR) (12/30/2020 13:47 EDT) Anatomical Region Laterality Modality Device Specimen (Source) Anatomical Location Collection Method / Collectio n Time Received Time / Laterality Volume Narrative 01/01/2021 14:10 EDT I have reviewed the implantable loop recorder interrogation. ??I agree with the findings. SCHEDULED ILR REMOTE TRANSMISSION. 1 PAUSE ??EPISODE RECORDED SINCE LAST IN TERROGATION CONSISTENT WITH NOCTURNAL SINUS CM WITH 3 SECOND PAUS E. AT/AF BURDEN 0.0% BATTERY STATUS OK. NEXT CHECK IN 1 MO. DC Jojo Steiner NP CV IMPLANTABLE CARDIAC DEVIC E documented in this encounter Visit Diagnoses Diagnosis Atrial fibrillation and flutter (HCC) Atrial fibrillation documented in this encounter Care Teams Agricultural Appraiser Relationship Specialty Start Date End Date Enrike Brown MD PCP - General 10/19/18 [address] [place] [address] documented as of this encounter
--- OUTSIDE RECORDS SUMMARY | 2022-02-06 00:51 | XMS_ITS | Encounter Summary ---
:[address] [facility] Address [address] [place] [address] Care Team Providers Name Role Phone Enrike Brown MD Primary Care Provider [phone] Reason for Referral (Routine) - Authorization Not Required Specialty Diagnoses / Procedures Referred By Contact Refer red To Contact Diagnoses Atrial fibrillation and flutter (HCC) Jojo Steiner, CAESAR Procedures CARDIAC IMPLANT CHECK - REMOTE MONITOR [address] [address] Referral ID Status Reason Start Expiration Visits Visits Date Date Requested Authorized [id number] Authorization Not 06/13/2020 1 1 Required Reason for Visit (Routine) - Authorization Not Required Specialty Diagnoses / Procedures Referred By Contact Refer red To Contact Diagnoses Atrial fibrillation and flutter (HCC) Jojo Steiner, CAESAR Procedures CARDIAC IMPLANT CHECK - REMOTE MONITOR [address] [address] Referral ID Status Reason Start Expiration Visits Visits Date Date Requested Authorized [id number] Authorization Not 06/13/2020 1 1 Required Encounter Details Date Type Department Care Team Description 07/17/2020 Hospital Encounter Suzie Remote Device Atrial fibrillation and 60 Suzie [address] ([facility]) [place] [address] Social History Tobacco Use Types Packs/Day Years [...] Associated Diagnosis Comme nts CARDIAC IMPLANT Routine 07/17/2020 12:53 Atrial fibrillation R esults for this CHECK - REMOTE EDT and flutter ([facility]) proc edure are in MONITOR the results section. documented in this encounter Results CARDIAC IMPLANT CHECK - REMOTE - LOOP RECORDER (ILR) (07/17/2020 12:53 EDT) Anatomical Region Laterality Modality Device Specimen (Source) Anatomical Location Collection Method / Collectio n Time Received Time / Laterality Volume Narrative 07/17/2020 15:41 EDT I have reviewed the implantable loop recorder interrogation. ??I agree with the findings. ?? SCHEDULED ILR REMOTE TRANSMISSION. 0 EPISODES RECORDED SINCE LAST INTERROGA TION. BATTERY STATUS OK. NEXT CHECK IN 1 MO. DC Jojo Steiner NP CV IMPLANTABLE CARDIAC DEVIC E documented in this encounter Visit Diagnoses Diagnosis Atrial fibrillation and flutter (HCC) Atrial fibrillation documented in this encounter Care Teams Bank President Relationship Specialty Start Date End Date Enrike Brown MD PCP - General 10/19/18 [address] [place] [address] documented as of this encounter
--- OUTSIDE RECORDS SUMMARY | 2022-02-06 00:51 | XMS_ITS | Encounter Summary ---
:1955 Author Organization [facility] Address [address] [place] [address] Care Team Providers Name Role Phone Enrike Brown MD Primary Care Provider [phone] Reason for Referral (Routine) - Authorization Not Required Specialty Diagnoses / Procedures Referred By Contact Refer red To Contact Diagnoses Atrial fibrillation and flutter (HCC) Jojo Steiner, CAESAR Procedures CARDIAC IMPLANT CHECK - REMOTE MONITOR [address] [address] Referral ID Status Reason Start Expiration Visits Visits Date Date Requested Authorized [id number] Authorization Not 07/17/2020 1 1 Required Reason for Visit (Routine) - Authorization Not Required Specialty Diagnoses / Procedures Referred By Contact Refer red To Contact Diagnoses Atrial fibrillation and flutter (HCC) Jojo Steiner, CAESAR Procedures CARDIAC IMPLANT CHECK - REMOTE MONITOR [address] [address] Referral ID Status Reason Start Expiration Visits Visits Date Date Requested Authorized [id number] Authorization Not 07/17/2020 1 1 Required Encounter Details Date Type Department Care Team Description 08/21/2020 Hospital Encounter Suzie Remote Device Atrial fibrillation and 60 Suzie [address] ([facility]) [place] [address] Social History Tobacco Use Types Packs/Day Years [...] Associated Diagnosis Comme nts CARDIAC IMPLANT Routine 08/21/2020 13:47 Atrial fibrillation R esults for this CHECK - REMOTE EDT and flutter ([facility]) proc edure are in MONITOR the results section. documented in this encounter Results CARDIAC IMPLANT CHECK - REMOTE - LOOP RECORDER (ILR) (08/21/2020 13:47 EDT) Anatomical Region Laterality Modality Device Specimen (Source) Anatomical Location Collection Method / Collectio n Time Received Time / Laterality Volume Narrative 08/23/2020 14:32 EDT I have reviewed the implantable loop recorder interrogation. ??I agree with the findings. SCHEDULED ILR REMOTE TRANSMISSION. 0 EPISODES RECORDED SINCE LAST INTERROGA TION. BATTERY STATUS OK. NEXT CHECK IN 1 MO. DC Jojo Steiner NP CV IMPLANTABLE CARDIAC DEVIC E documented in this encounter Visit Diagnoses Diagnosis Atrial fibrillation and flutter (HCC) Atrial fibrillation documented in this encounter Care Teams Facility Attendant Relationship Specialty Start Date End Date Enrike Brown MD PCP - General 10/19/18 [address] [place] [address] documented as of this encounter
--- OUTSIDE RECORDS SUMMARY | 2022-02-06 00:51 | XMS_ITS | Encounter Summary ---
:1955 Author Organization [facility] Address [address] [place] [address] Care Team Providers Name Role Phone Enrike Brown MD Primary Care Provider [phone] Reason for Referral (Routine) - Authorization Not Required Specialty Diagnoses / Procedures Referred By Contact Refer red To Contact Diagnoses Atrial fibrillation and flutter (HCC) Jojo Steiner, CAESAR Procedures CARDIAC IMPLANT CHECK - REMOTE MONITOR [address] [address] Referral ID Status Reason Start Expiration Visits Visits Date Date Requested Authorized [id number] Authorization Not 08/21/2020 1 1 Required Reason for Visit (Routine) - Authorization Not Required Specialty Diagnoses / Procedures Referred By Contact Refer red To Contact Diagnoses Atrial fibrillation and flutter (HCC) Jojo Steiner, CAESAR Procedures CARDIAC IMPLANT CHECK - REMOTE MONITOR [address] [address] Referral ID Status Reason Start Expiration Visits Visits Date Date Requested Authorized [id number] Authorization Not 08/21/2020 1 1 Required Encounter Details Date Type Department Care Team Description 09/24/2020 Hospital Encounter Suzie Remote Device Atrial fibrillation and 60 Suzie [address] ([facility]) [place] [address] Social History Tobacco Use Types Packs/Day Years [...] Associated Diagnosis Comme nts CARDIAC IMPLANT Routine 09/24/2020 12:41 Atrial fibrillation R esults for this CHECK - REMOTE EDT and flutter ([facility]) proc edure are in MONITOR the results section. documented in this encounter Results CARDIAC IMPLANT CHECK - REMOTE - LOOP RECORDER (ILR) (09/24/2020 12:41 EDT) Anatomical Region Laterality Modality Device Specimen (Source) Anatomical Location Collection Method / Collectio n Time Received Time / Laterality Volume Narrative 09/26/2020 8:06 EDT I have reviewed the implantable loop recorder interrogation. ??I agree with the findings. SCHEDULED ILR REMOTE TRANSMISSION. 0 EPISODES RECORDED SINCE LAST INTERROGA TION. BATTERY STATUS OK. NEXT CHECK IN 1 MO. MF Jojo Steiner NP CV IMPLANTABLE CARDIAC DEVIC E documented in this encounter Visit Diagnoses Diagnosis Atrial fibrillation and flutter (HCC) Atrial fibrillation documented in this encounter Care Teams Gm Relationship Specialty Start Date End Date Enrike Brown MD PCP - General 10/19/18 [address] [place] [address] documented as of this encounter
--- OUTSIDE RECORDS SUMMARY | 2022-02-06 00:52 | XMS_ITS | Encounter Summary ---
:1955 Author Organization [facility] Address [address] [place] [address] Care Team Providers Name Role Phone Enrike Brown MD Primary Care Provider [phone] Reason for Referral (Routine) - Authorization Not Required Specialty Diagnoses / Procedures Referred By Contact Refer red To Contact Diagnoses Atrial fibrillation and flutter ([facility]) aHydee Sin NP Procedures CARDIAC IMPLANT CHECK - REMOTE MONITOR [address] [address] Referral ID Status Reason Start Expiration Visits Visits Date Date Requested Authorized [id number] Authorization Not 06/30/2019 1 1 Required Reason for Visit (Routine) - Authorization Not Required Specialty Diagnoses / Procedures Referred By Contact Refer red To Contact Diagnoses Atrial fibrillation and flutter ([facility]) Haydee Sin NP Procedures CARDIAC IMPLANT CHECK - REMOTE MONITOR [address] [address] Referral ID Status Reason Start Expiration Visits Visits Date Date Requested Authorized [id number] Authorization Not 06/30/2019 1 1 Required Encounter Details Date Type Department Care Team Description 06/30/2019 Hospital Encounter [facility] Remote Device Atrial fibrillation and [address] hurtado ([facility]) [place] [address] Social History Tobacco Use Types Packs/Day Years [...] Associated Diagnosis Comme nts CARDIAC IMPLANT Routine 06/30/2019 14:36 Atrial fibrillation R esults for this CHECK - REMOTE EDT and flutter (HCC-CMS) proc edure are in MONITOR the results section. documented in this encounter Results CARDIAC IMPLANT CHECK - REMOTE - LOOP RECORDER (ILR) (06/30/2019 14:36 EDT) Anatomical Region Laterality Modality Device Specimen (Source) Anatomical Location Collection Method / Collectio n Time Received Time / Laterality Volume Narrative 07/03/2019 9:02 EDT I have reviewed the implantable loop recorder interrogation. ??I agree with the findings. 06/29/2019 MDT ILR Summary Report: Present ing Rhythm: Sinus Bradycardia 50 bpm. Battery Status: OK. Diagnostic Data : No arrhythmias were detected from 05/28/19- 06/29/19. Haydee Sin NP CV IMPLANTABLE CARDIAC DEVIC E documented in this encounter Visit Diagnoses Diagnosis Atrial fibrillation and flutter (HCC) Atrial fibrillation documented in this encounter Care Teams Registration Specialist Relationship Specialty Start Date End Date Enrike Brown MD PCP - General 10/19/[address] [place] [address] documented as of this encounter
--- OUTSIDE RECORDS SUMMARY | 2022-02-06 00:52 | XMS_ITS | Encounter Summary ---
:[address] [facility] Address [address] [place] [address] Care Team Providers Name Role Phone Enrike Brown MD Primary Care Provider [phone] Reason for Referral (Routine) - Authorization Not Required Specialty Diagnoses / Procedures Referred By Contact Refer red To Contact Diagnoses Atrial fibrillation and flutter (HCC) Jojo Steiner, CAESAR Procedures CARDIAC IMPLANT CHECK - REMOTE MONITOR [address] [address] Referral ID Status Reason Start Expiration Visits Visits Date Date Requested Authorized [id number] Authorization Not 10/02/2019 1 1 Required Reason for Visit (Routine) - Authorization Not Required Specialty Diagnoses / Procedures Referred By Contact Refer red To Contact Diagnoses Atrial fibrillation and flutter (HCC) Jojo Steiner, CAESAR Procedures CARDIAC IMPLANT CHECK - REMOTE MONITOR [address] [address] Referral ID Status Reason Start Expiration Visits Visits Date Date Requested Authorized [id number] Authorization Not 10/02/2019 1 1 Required Encounter Details Date Type Department Care Team Description 11/08/2019 Hospital Encounter Suzie Remote Device Atrial fibrillation and 60 Suzie hurtado ([facility]) [place] [address] Social History Tobacco Use Types Packs/Day Years [...] Associated Diagnosis Comme nts CARDIAC IMPLANT Routine 11/08/2019 10:11 Atrial fibrillation R esults for this CHECK - REMOTE EDT and flutter ([facility]) proc edure are in MONITOR the results section. documented in this encounter Results CARDIAC IMPLANT CHECK - REMOTE - LOOP RECORDER (ILR) (11/08/2019 10:11 EDT) Anatomical Region Laterality Modality Device Specimen (Source) Anatomical Location Collection Method / Collectio n Time Received Time / Laterality Volume Narrative 11/10/2019 11:25 EDT I have reviewed the implantable loop recorder interrogation. ??I agree with the findings. ?? SCHEDULED ILR REMOTE TRANSMISSION. 1 AF ??EPISODE RECORDED SINCE LAST INTER ROGATION SHOWING ??SINUS ARRHYTHMIA WITH RATE 61 BPM. BATTERY STATUS OK. NEXT CHECK IN 1 MO. DC Jojo Steiner NP CV IMPLANTABLE CARDIAC DEVIC E documented in this encounter Visit Diagnoses Diagnosis Atrial fibrillation and flutter (HCC) Atrial fibrillation documented in this encounter Care Teams Hotel Front Desk Clerk Relationship Specialty Start Date End Date Enrike Brown MD PCP - General 10/19/18 [address] [place] [address] documented as of this encounter
--- OUTSIDE RECORDS SUMMARY | 2022-02-06 00:52 | XMS_ITS | Encounter Summary ---
:1955 Author Organization [facility] Address [address] [place] [address] Care Team Providers Name Role Phone Enrike Brown MD Primary Care Provider Encounter Details Date Type Department Care Team Description 03/01/2019 Orders Only [facility] Joseph Torre p ersistent Cardiology - Suzie Dawson MD atrial fibrillation 62 Suzie Rodriguez [address] [place] (Primary Dx) So [address], [facility] [address] [place] [address] (Wo rk) Social History Tobacco [...] as of this encounter Visit Diagnoses Diagnosis Other persistent atrial fibrillation (HC C) - Primary documented in this encounter Orders Case Request Count Last Ordered Date First Ordered Date CASE REQUEST EP LAB 1 03/06/2019 documented in this encounter Care Teams Energy And Conservation Technician Relationship Specialty Start Date End Date Enrike Brown MD PCP - General 10/19/[address] [place] [id number] documented as of this encounter
--- OUTSIDE RECORDS SUMMARY | 2022-02-06 00:52 | XMS_ITS | Encounter Summary ---
:1955 Author Organization [facility] Address [address] [place] [address] Care Team Providers Name Role Phone Enrike Brown MD Primary Care Provider Encounter Details Date Type Department Care Team Description 11/08/2019 Lab Requisition [facility] Outr Resulting Lab, Pathology & Laboratory Provider [facility] [address] [place], [place] [id number] Social History Tobacco Use Types Packs/Day Years [...] Name Priority Date/Time Associated Diagnosis Comme nts LYME AB Routine 11/08/2019 9:50 EDT Results for this procedure are i n the results section . documented in this encounter Results LYME AB (11/08/2019 9:50 EDT) athologist Signature Lyme Ab Negative Negative 11/09/2019 [facility] 9:51 EDT [facility] Comment: New 3rd generation assay in use 08/30/2019 Specimen Anatomical Collection Method Collection Time Receive d Time (Source) Location / / Volume Laterality Blood VENOUS BLOOD / 11/08/2019 9:50 11/08/2019 Unknown EDT 16:17 EDT Provider Outr Resulting Lab IMMUNOLOGY AND SEROLOGY OR DERABLES Performing Organization Address City/State/ZIP Code Phon e Number [facility] [address] [place] [address] SERVICES documented in this encounter Visit Diagnoses Not on filedocumented in this encounter Care Teams Shoe Sticks Repairer Relationship Specialty Start Date End Date Enrike Brown MD PCP - General 10/19/18 [address] [place] [address] documented as of this encounter
--- OUTSIDE RECORDS SUMMARY | 2022-02-06 00:52 | XMS_ITS | Encounter Summary ---
:1955 Author Organization [facility] Address [address] [place] [address] Care Team Providers Name Role Phone Enrike Brown MD Primary Care Provider [phone] Reason for Visit Reason Comments Atrial Fibrillation 6 mo FUR Encounter Details Date Type Department Care Team Description 10/24/2018 Office Visit [facility] Joseph Torre nt atrial Cardiology - Suzie Dawson MD fibrillation 62 Suzie [address] [place] ([facility]) (Primary So [place], [place] Avenue Dx) [address] [facility], [facility] [address] [place] [address] (Wo rk) Social History Tobacco [...] Sign Reading Time Taken Comments Blood Pressure 142/64 10/24/2018 1202 EDT Pulse 60 10/24/2018 1202 EDT irregular Temperature - - Respiratory Rate - - Oxygen Saturation 98% 10/24/2018 1202 EDT Inhaled Oxygen Concentration - - Weight 76.7 kg (169 lb) 10/24/2018 1202 EDT Height 165.1 cm (5' 5) 10/24/2018 1202 EDT Body Mass Index 28.12 10/24/2018 1202 EDT documented in this encounter [...] or older) documented as of this encounter Discharge Diagnoses Diagnosis I48.2 Chronic atrial fibrillation-I48.2[ ICD-10-CM] documented in this encounter Discharge Disposition Disposition Code Departure Means Destination Auto Discharge documented in this encounter Progress Notes Marshall Marx MD - 10/24/2018 1200 EDT Subjective: Patient is a 63 y.o. female who presents for follow-up after recent atrial flutter ablation and ASD closure. Patient underwent CTI line for typical atrial flutter on May 31, 2018. On September 07 she underwent percutaneous ASD closure with a 48 mm Tavernier device at [facility]. [facility] she returned home and in the subsequent week had 4 emergency room visits to [facility] complaining of irregular palpitations. Patient was cardioverted one time from atrial fibrillation with RVR. The other 3 presentations were consistent with the first other than she spontaneously reverted to normal sinus rhythm without intervention. Since this flurry of symptomatic atrial fibrillation patient states she has not experienced any other long-lasting episodes of irregular palpitations associated shortness of breath, anxiety and exercise intolerance. Denies - fever, chills, nausea, vomitting, diarrhea, constipation, light headedness, dizziness, chest pain or discomfort, shortness of breath. She has been compliant with her medications. Medications side effects include none Past Medical History: Diagnosis Date ??? A-fib (HCC-CMS) ??? ASD (atrial septal defect) Current Outpatient Medications Medication Sig Dispense Refill ??? acetaminophen (TYLENOL) 325 mg capsule Take 650 mg by mouth as needed. ??? amoxicillin (AMOXIL) 500 mg capsule Take 2,000 mg by mouth PRE-OP PRN. ??? apixaban (ELIQUIS) 5 mg tablet Take 1 tablet by mouth 2 times daily. 180 tablet 1 ??? aspirin chewable 81 mg tablet Take 81 mg by mouth daily. ??? diltiazem (DILACOR XR) 120 mg XR capsule Take 120 mg by mouth 2 times daily. ??? famotidine (PEPCID AC) 20 mg tablet Take 20 mg by mouth 2 times daily as needed. ??? FLUoxetine (PROZAC) 10 mg capsule Take 10 mg by mouth daily. 0 ??? LORazepam (ATIVAN) 0.5 mg tablet Take 1 mg by mouth 3 times daily as needed. ??? pantoprazole (PROTONIX) 40 mg tablet Take one tablet daily the 3 days prior to your ablation procedure and for 30 days afterwards. (Patient not taking: Reported on 10/24/2018) 33 tablet 0 No current facility-administered medications for this visit. Review of Systems Pertinent items are noted in Subjective/HPI Objective: BP (!) 142/64 (BP Cuff Location: Left arm, Patient Position: Sitting, BP Cuff Sizes: Adult, regular) Pulse 60 Comment: irregular Ht 165.1 cm (65) Wt 76.7 kg (169 lb) SpO2 98% BMI 28.12 kg/m?? Body mass index is 28.12 kg/m??. Physical Exam: General appearance: alert, cooperative Lungs: clear to auscultation bilaterally Heart: regular rate and rhythm, S1, S2 normal, no murmur, click, rub or gallop Neurologic: Grossly normal Extremities: extremities warm, atraumatic, no cyanosis or edema positive pulses bilat Assessment: Chantel Rosas is a 63 y.o. year old female who presents for follow-up after presenting to the emergency room at [facility] with atrial fibrillation RVR after percutaneous closure of her ASD. Patient states that since her presentations at [facility] she has experienced much less irregular palpitations and the symptoms associated with them. Is important to note here that she did not have atrial fibrillation ablation in May, has no A. fibwas detected. CTI line did demonstrate bidirectional block. That she has demonstrated luc atrial fibrillation it is possible to cross the left side to ablate her AF however we must allow the percutaneous ASD closure time to endothelialized before attempting to crossover. Additionally her atrial fibrillation may be totally secondary to the irritation of the endocardium from the ASD closure device and after it endothelialize is her atrial fibrillation may resolve. Greater than 50% of this 25-minute visit was spent in consultation Plan: Continue current medical management Follow-up in clinic as symptoms dictate documented in this encounter Plan of Treatment Not on filedocumented as of this encounter Visit Diagnoses Diagnosis Permanent atrial fibrillation (HCC-CMS) (HCC) - Primary Atrial fibrillation documented in this encounter Historical Medications This list may reflect changes made after this encounter. Medication Sig Dispensed Refills Start Date End Date famotidine (PEPCID AC) 20 Take 20 mg by mouth 0 mg tablet 2 times daily as needed. amoxicillin (AMOXIL) 500 mg Take 2,000 mg by 0 capsuleIndications: Dental mouth PRE-OP PRN. Procedures FLUoxetine (PROZAC) 10 mg Take 10 mg by mouth 0 0 10/10/2018 capsule daily. diltiazem (DILACOR XR) 120 Take 120 mg by mouth 0 10/17/2018 mg XR capsule 2 times daily. added in this encounter Care Teams Cytology Teacher Relationship Specialty Start Date End Date Enrike Brown MD PCP - General 10/19/[address] [place] [address] documented as of this encounter
--- OUTSIDE RECORDS SUMMARY | 2022-02-06 00:52 | XMS_ITS | Encounter Summary ---
:1955 Author Organization [facility] Address [address] [place] [address] Care Team Providers Name Role Phone Elisha Morrell MD Primary Care Provider Reason for Visit Reason Onset Date Comments Follow-up 07/04/2018 Heart Cath jadiel step s Follow-up 07/05/2018 Encounter Details Date Type Department Care Team Description 07/04/2018 Telephone [facility] Pablo Coelho Jr., Follow-up (Heart Cath Cardiology - Suzie cherry); Follow-up 62 Suzie Rodriguez [address] [place] [address] (Wo rk) Social History Tobacco [...] this encounter Miscellaneous Notes Telephone Encounter - Wendy Sexton RN - 07/12/2018 1536 EDT Pt has many answers I cannot answer Asking for Dr. Coelho to call her WENDY SEXTON RN Telephone Encounter - Wendy Sexton RN - 07/06/2018 1127 EDT Pt needed calrification Telephone Encounter - Jose Eller - 07/05/2018 1529 EDT Patient called back, state they have some more questions. Please call Telephone Encounter - Wendy Sexton RN - 07/05/2018 1503 EDT Chantel is going to discuss with family. Doesn't know what she wants to do. She is anxious about just waiting around . Pt expresses A good understanding about the plan for Her ASD procedure WENDY SEXTON RN Telephone Encounter - Laquita Rogers, Pablo Escobar Jr., MD - 07/05/2018 1033 EDT Here's an update: Spoke with Dr. Boyer, the newer device (Cardioform ASD occluder) had a delay in apporval from the FDA and is not yet available outside of the research study. He took a preliminary look at the images, but said that her ASD configuration is at times also troublesome for the newer devices. He is to review the full images via a DVD which I sent yesterday for his final word. The only closure procedure which she could get locally would be the open heart sugery to close it with one of our CT Surgeons. If she is a candidate for the percutaneous option, it will have to be performed in [place]. Thus, if she strictly wants to stay local, we can refer her to CT Surgery. If she is interested in apercutaneous approach, she'll have to wait a bit and possible get the procedure done in [place]. Telephone Encounter - Wendy Sexton RN - 07/05/[address] Coelho have you heard from [place] about pt's occluder ? She had a cath on June 24 . WENDY SEXTON RN Telephone Encounter - Madelyn Thakur RN - 07/04/2018 1548 EDT Will route to Vanessa AMADOR to Dr Coelho, see Dr oCelho's note from 06-24-18. Telephone Encounter - Renae Sun - 07/04/2018 0841 EDT Patient would like to know what next steps are after her recent heart cath procedure that done on 06/24/18. Please call. documented in this encounter Plan of Treatment Not on filedocumented as of this encounter Visit Diagnoses Not on filedocumented in this encounter Care Teams Umbrella Tipper Hand Relationship Specialty Start Date End Date Elisha Morrell MD PCP - General 04/20/18 10/18/18 [address] [place] [address] documented as of this encounter
--- OUTSIDE RECORDS SUMMARY | 2022-02-06 00:52 | XMS_ITS | Encounter Summary ---
:1955 Author Organization [facility] Address [address] [place] [address] Care Team Providers Name Role Phone Enrike Brown MD Primary Care Provider [phone] Reason for Referral (Routine) - Authorization Not Required Specialty Diagnoses / Procedures Referred By Contact Refer red To Contact Diagnoses Atrial fibrillation and flutter (HCC) Jojo Steiner, CAESAR Procedures CARDIAC IMPLANT CHECK - REMOTE MONITOR [address] [phone] Referral ID Status Reason Start Expiration Visits Visits Date Date Requested Authorized [id number] Authorization Not 08/03/2019 1 1 Required Reason for Visit (Routine) - Authorization Not Required Specialty Diagnoses / Procedures Referred By Contact Refer red To Contact Diagnoses Atrial fibrillation and flutter (HCC) Jojo Steiner, CAESAR Procedures CARDIAC IMPLANT CHECK - REMOTE MONITOR [address] [phone] Referral ID Status Reason Start Expiration Visits Visits Date Date Requested Authorized [id number] Authorization Not 08/03/2019 1 1 Required Encounter Details Date Type Department Care Team Description 08/03/2019 Hospital Encounter Suzie Remote Device Atrial fibrillation and [address] Suzie hurtado ([facility]) [place] [address] Social History Tobacco Use Types Packs/Day Years [...] Associated Diagnosis Comme nts CARDIAC IMPLANT Routine 08/03/2019 15:39 Atrial fibrillation R esults for this CHECK - REMOTE EDT and flutter ([facility]) proc edure are in MONITOR the results section. documented in this encounter Results CARDIAC IMPLANT CHECK - REMOTE - LOOP RECORDER (ILR) (08/03/2019 15:39 EDT) Anatomical Region Laterality Modality Device Specimen (Source) Anatomical Location Collection Method / Collectio n Time Received Time / Laterality Volume Narrative 08/03/2019 16:25 EDT I have reviewed the implantable loop recorder interrogation. ??I agree with the findings. 07/30/2019 MDT ILR Summary Report: Presen ting Rhythm: Sinus Bradycardia 50 bpm. Battery Status: OK. Diagnostic Data : 3 AF episodes, available egms appear inappropriate due to PACs were de tected from 06/29/19- 07/29/19. Jojo Steiner NP CV IMPLANTABLE CARDIAC DEVIC E documented in this encounter Visit Diagnoses Diagnosis Atrial fibrillation and flutter (HCC) Atrial fibrillation documented in this encounter Care Teams Upper Leather Sorter Relationship Specialty Start Date End Date Enrike Brown MD PCP - General 10/19/18 [address] [place] [address] documented as of this encounter
--- OUTSIDE RECORDS SUMMARY | 2022-02-06 00:52 | XMS_ITS | Encounter Summary ---
:1955 Author Organization [facility] Address [address] [place] [address] Care Team Providers Name Role Phone Elisha Morrell MD Primary Care Provider Encounter Details Date Type Department Care Team Description 05/27/2018 [facility] [address] [place] [address] [facility] [phone] Level [address] [place] [phone] (Wo rk) Social History Tobacco Use Types Packs/Day Years Used Date Smoking Tobacco: Former Cigarettes 04 20 Quit : 04/07/2018 Smokeless Tobacco: Never Alcohol Use Standard Drinks/Week Comments No 0 (1 standard drink = 0.6 oz pure alcoho l) Alcohol Habits Answer Date Recorded How often [...] do you have serious difficulty hearing? No 04/21/2018 Are you blind or do you have serious difficulty seeing, No 04/21/2018 even when wearing glasses? Do you have serious difficulty walking or climbing No 04/21/2018 stairs? (5 years old or older) Do you have difficulty dressing or bathing? (5 years old No 04/21/2018 or older) Because of a physical, mental, or emotional condition, No 05/05/2018 does this person have difficulty doing errands alone such as visiting a doctor's office or shopping? Cognitive Status Response Date of Assessment Because of a physical, mental, or emotional condition, No 05/05/2018 does this person have serious difficulty concentrating, remembering, or making decisions? documented as of this encounter Discharge Diagnoses Diagnosis I48.1 PERSISTENT ATRIAL FIBRILATION[ICD- 10-CM] documented in this encounter Medications at Time of Discharge Medication Sig Dispensed Refills Start Date End Date apixaban (ELIQUIS) 5 mg Take 1 tablet by 180 tablet 1 2018 tablet mouth 2 times daily. LORazepam (ATIVAN) 0.5 Take 1 mg by mouth 3 0 mg tablet times daily as needed. DILTiazem (CARDIZEM CD) Take 2 capsules by 90 capsule 1 04/2306/01/2018 120 mg capsule mouth daily. DILTiazem (CARDIZEM) 30 Take 1 Tab by mouth 12 Tab 0 04/201806/17/2018 mg tablet daily as needed (palpitations). furosemide (LASIX) 20 mg Take 20 mg by mouth 0 06/01/2018 tablet daily. ibuprofen (MOTRIN) 200 Take 200 mg by mouth 0 06/01/2018 mg tablet every 8 hours as needed for Pain. pantoprazole (PROTONIX) Take one tablet 33 tablet 0 019 03/07/2019 40 mg tablet daily the 3 days prior to your ablation procedure and for 30 days afterwards. documented as of this encounter Discharge Disposition Disposition Code Departure Means Destination Auto Discharge Home documented in this encounter Plan of Treatment Not on filedocumented as of this encounter Visit Diagnoses Not on filedocumented in this encounter Care Teams Clutch Operator Relationship Specialty Start Date End Date Elisha Morrell MD PCP - General 04/20/18 10/18/18 [address] [place] [address] documented as of this encounter
--- OUTSIDE RECORDS SUMMARY | 2022-02-06 00:52 | XMS_ITS | Encounter Summary ---
:1955 Author Organization [facility] Address [address] [place] [address] Care Team Providers Name Role Phone Enrike Brown MD Primary Care Provider [phone] Reason for Referral (Routine) - Authorization Not Required Specialty Diagnoses / Procedures Referred By Contact Refer red To Contact Diagnoses Atrial fibrillation and flutter (HCC) James Nogueira Procedures CARDIAC IMPLANT CHECK - REMOTE MONITOR MD Selwyn PhD [address] [phone] Referral ID Status Reason Start Expiration Visits Visits Date Date Requested Authorized [id number] Authorization Not 05/30/2019 1 1 Required Reason for Visit (Routine) - Authorization Not Required Specialty Diagnoses / Procedures Referred By Contact Refer red To Contact Diagnoses Atrial fibrillation and flutter (HCC) James Nogueira Procedures CARDIAC IMPLANT CHECK - REMOTE MONITOR MD Selwyn PhD [address] [phone] Referral ID Status Reason Start Expiration Visits Visits Date Date Requested Authorized [id number] Authorization Not 05/30/2019 1 1 Required Encounter Details Date Type Department Care Team Description 05/30/2019 Hospital Encounter Suzie Remote Device Atrial fibrillation and [address] Suzie [address] ([facility] [place] [address] Social History Tobacco Use Types Packs/Day Years [...] Associated Diagnosis Comme nts CARDIAC IMPLANT Routine 05/30/2019 10:52 Atrial fibrillation R esults for this CHECK - REMOTE EDT and flutter ([facility]) proc edure are in MONITOR the results section. documented in this encounter Results CARDIAC IMPLANT CHECK - REMOTE - LOOP RECORDER (ILR) (05/30/2019 10:52 EDT) Anatomical Region Laterality Modality Device Specimen (Source) Anatomical Location Collection Method / Collectio n Time Received Time / Laterality Volume Narrative 06/05/2019 9:45 EDT I have reviewed the implantable loop recorder interrogation. ??I agree with the findings. 05/28/2019 MDT ILR Summary Report: Prese nting Rhythm: Sinus Bradycardia 53 bpm. Battery Status: OK. Diagnostic Data : 3 AF episodes detected from 04/25/19 - 05/28/19. Available ECG appears t o be sinus arrhythmia 39 - 60 bpm. AT/AF 0.0%. apixaban James Nogueira MD PhD CV IMPLANTABLE CARDI AC DEVICE documented in this encounter Visit Diagnoses Diagnosis Atrial fibrillation and flutter (HCC) Atrial fibrillation documented in this encounter Care Teams Boxing And Pressing Supervisor Relationship Specialty Start Date End Date Enrike Brown MD PCP - General 10/19/18 [address] [place] [address] documented as of this encounter
--- OUTSIDE RECORDS SUMMARY | 2022-02-06 00:52 | XMS_ITS | Encounter Summary ---
:[address] [facility] Address [address] [place] [address] Care Team Providers Name Role Phone Enrike Brown MD Primary Care Provider [phone] Reason for Visit Auth/Cert Specialty Diagnoses / Procedures Referred By Contact Refer red To Contact Diagnoses Other persistent atrial fibrillation [I48.19] Joseph Torre MD [address] [facility], [facility] [address] [place], [place] [address] Phone: Fax: Referral ID Status Reason Start Date Expiration Date Visits Requ ested Visits Authorized [id number] 03/06/2019 1 1 Encounter Details Date Type Department Care Team Description 03/24/2019 Hospital Encounter [facility] Adi Nogueira Other persistent atrial fibrillation; ANGELITA Samano MD PhD Atrial fibrillation, unspecified type ([facility]) [address], [address] [place] [address] [place] [address] Social History Tobacco Use Types Packs/Day Years [...] Sign Reading Time Taken Comments Blood Pressure 134/52 03/24/2019 1336 EST Pulse - - Temperature 35.9 ??C (96.6 ??F) 03/24/2019 1325 EST Respiratory Rate 18 03/24/2019 1336 EST Oxygen Saturation 95% 03/24/2019 1336 EST Inhaled Oxygen Concentration - - Weight 85.7 kg (188 lb 15 oz) 03/24/2019 1243 EST Height - - Body Mass Index 31.44 10/24/2018 1202 EDT documented in this encounter [...] older) documented as of this encounter Discharge Instructions Randy Madden RN - 03/24/2019 documented in this encounter Medications at Time [...] Code Departure Means Destination Home or Self Penitentiary documented in this encounter Progress Notes Randy King, MARJORIE - 03/24/2019 1341 EST DC instructions handout was given by labor delivery specialist nurse. Instructions on medical facilities section director were given by product hospital sales representative. Pt was given an opportunity to ask questions, and final eval by Nia was done prior to dc Maribell Rodriguez RN - 03/07/2019 0945 EST Images from the original note were not included. [facility] [address] [place] [id number] Melyssa Golden, Here is important information regarding your upcoming Loop Recorder Device implant procedure. Feel free to call with any questions or concerns to the appropriate number listed at the bottom of the letter. We will ensure we have prior authorization from your insurance company (if needed) for your procedure and notify you if there are any issues. Any questions regarding deductibles will need to be directed to your insurance company. Procedure Date March Check in at 12:00PM Pre-procedure Nursing Instructions You may have a light meal prior to your procedure. 1. On _03/24/2019_please take ALL your regular morning medications with a small amount of water.____ 2. Please shower the evening before and the morning of your procedure scrubbing your chest well withthe EZ sponge that has been provided to you. 3. Please do not bring any medications with you to the hospital; it is important however to bring anaccurate list of the medications you are currently taking. 4. The plan is for you to be discharged on the day of your procedure once you have recovered. You can drive yourself home. 5. Please remove all jewelry including rings and body piercings before coming to in for your procedure 6. The pre-registration department will call you 1 to 2 business days before your surgery to verify your address and insurance information. This call will simplify your admission on the day of surgery. When you arrive at the Hospital 1. Park in the underground garage, and take any elevator to the 3rd floor registration. Agribusiness Professor parking is also available at the Main Entrance. The registration staff will direct you to the surgical waiting room. Please check in with the legal receptionist and they will notify pre op of your arrival 2. When you arrive in [facility] where you will be prepped for your procedure, the pre op nurse will initiate your pre-procedure admission by reviewing your information, medications, etc. 3. You will meet your care team as a part of the pre procedure process. This will include your doctor and nursing staff. 4. When the procedure is over, you will be taken to the recovery area, while the doctor meets with your family/friends to review the results. Post Procedure Appointment and Device check location: Two week wound check with DR. ENRIKE BROWN on March at 2:00PM at [address] PHONE: [phone] Should the above appointment(s) not be convenient, please call at the number(s) listed to re-schedule to a time that works for you. We are here to help, so should you need assistance feel free to call anyone listed below with questions. EP Tuber Machine Operator - [phone] [facility] Device nurse - [phone] documented in this encounter H&P Notes James Nogueira MD - 03/24/2019 1213 EST Chantel Rosas is a 63 y.o.yo female presenting in clinic today hx of ASD and flutter ablation here for ILR implant to assist withj AF management. No chief complaint on file. Past Medical History: Diagnosis Date ??? A-fib (HCC-CMS) ??? ASD (atrial septal defect) Patient Active Problem List Diagnosis Date Noted ??? Persistent atrial fibrillation 05/31/2018 Priority: Medium ??? Typical atrial flutter (HCC-CMS) 05/31/2018 Priority: Medium ??? ASD (atrial septal defect) 04/23/2018 Priority: Medium ??? Atrial fibrillation (HCC-CMS) 04/21/2018 Priority: Medium ??? Other persistent atrial fibrillation 03/07/2019 Past Surgical History: Procedure Laterality Date ??? ABLATION OF DYSRHYTHMIC FOCUS 05/31/2018 SVT ablation ??? TUBAL LIGATION Family History Problem Relation Age of Onset ??? Hypertension Mother ??? Lung Cancer Father ??? No Known Brother Social History Socioeconomic History ??? Marital status: Single Spouse name: Not on file ??? Number of children: Not on file ??? Years of education: Not on file ??? Highest education level: Not on file Occupational History ??? 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 Financial resource strain: Not on file ??? Food insecurity: Worry: Not on file Inability: Not on file ??? Transportation needs: Medical: Not on file Non-medical: Not on file Tobacco Use ??? Smoking status: Former Smoker Packs/day: 1.00 Years: 30.00 Pack years: 30.00 Types: Cigarettes Last attempt to quit: 04/07/2018 Years since quittin.9 ??? Smokeless tobacco: Never Used Substance and Sexual Activity ??? Alcohol use: Yes Frequency: Never Comment: occasional beer ??? Drug use: No ??? Sexual activity: Not on file Lifestyle ??? Physical activity: Days per week: Not on file Minutes per session: Not on file ??? Stress: Not on file Relationships ??? Social connections: Talks on phone: Not on file Gets together: Not on file Attends baptism service: Not on file Active member of club or organization: Not on file Attends meetings of clubs or organizations: Not on file Relationship status: Not on file ??? Intimate partner violence: Fear of current or ex partner: Not on file Emotionally abused: Not on file Physically abused: Not on file Forced sexual activity: Not on file Other Topics Concern ??? Not on file Social History Narrative ??? Not on file @FASTARTOFENCMEDS@ No Known Allergies ROS: Comprehensive 10 point ROS otherwise negative. Objective: BP 138/61 (BP Cuff Location: Right arm, BP Patient Position: Semi fowlers) Temp 36.9 ??C (98.4 ??F) (Oral) Resp 16 Wt 85.7 kg (188 lb 15 oz) SpO2 95% BMI 31.44 kg/m?? Body mass index is 31.44 kg/m??. Physical Exam: General: Alert, cooperative, no distress, appears stated age. Eyes: Conjunctivae not injected, not pale, nonicteric. Ears: Hearing grossly intact. Neck: Trachea midline, no adenopathy, no thyromegaly. Carotid upstroke normal, no carotid bruit and no JVD. Lungs: Clear to auscultation bilaterally. Chest wall: No tenderness or deformity. Heart: Regular heart sounds, S1, S2 normal, no murmur or rub heard. Normal apical impulse. Abdomen: Soft, non-tender to palpation. No masses felt, No organomegaly. No bruits heard. Extremities: No peripheral edema. No cyanosis. Pulses: Radial pulses 2+ bilaterally. Dorsalis pedis and tibialis posterior 2+ bilaterally. Skin: No pallor, rashes or lesions. Lymph nodes: Cervical, supraclavicular, and axillary nodes normal. Neurologic: Normal strength, nonfocal on exam. Lab Review: No visits with results within 2 Month(s) from this visit. Latest known visit with results is: No results found for any previous visit. No visits with results within 6 Month(s) from this visit. Latest known visit with results is: No results found for any previous visit. Assessment and Plan: Pt presenting for ILR: proceed as planned James Nogueira MD 03/24/2019 12:13 documented in this encounter OR Notes Post-Procedure Note - James Nogueira MD - 03/24/2019 1332 EST Loop recorder implant Indication AF No cx No sedation local only See post op orders and cardiology tab for details documented in this encounter Plan of Treatment Not on filedocumented as of this encounter Procedures Procedure Name Priority Date/Time Associated Diagnosis Comme nts INSERTABLE LOOP Routine 03/24/2019 13:25 Other persistent Resu lts for this RECORDER EST atrial fibrillation procedur e are in the results section. documented in this encounter Results LOOP INSERTION (03/24/2019 13:25 EST) Anatomical Region Laterality Modality Cardiac Electrophysi ology Specimen (Source) Anatomical Collection Method Collection Time Re ceived Time Location / / Volume Laterality 03/24/2019 13:00 EST Narrative 03/24/2019 13:29 EST *Cardiology* [address] [place] [address] Loop Recorder Implantation Patient: Chantel Rosas ? Study Date: ?03/24/2019 ?Accession #: ? [id number] : ? 1955 Referring: Attending: James Nogueira MD, PhD Fellow: Assisting: Copies: ATTESTATION: I, Dr. James Nogueira performed th e entire procedure and was the initial and only author of the report.. SUMMARY OF PROCEDURE: - There were no complications. - Successful Implantable loop recorder i mplant. HISTORY AND INDICATIONS: ??Non-valvular atrial fibrillation. PROCEDURE: - Loop recorder implant ANESTHESIA: Conscious sedation and local anesthesia. PROCEDURE: The risks, benefits, and alternatives to the procedure and sedation were explained and informed consent was obtai inder. The patient name, date of , [facility], and procedure were verified prior to the procedure. The jackson sepulveda was brought to the OR in the fasting state. The chest was prepped and draped in the usual sterile manner. ??Lidocaine 2% and Bupivacaine 0 .5% was administered to the left parasternal-submammary region. A 1cm incision was made and an [employer] le loop recorder was implanted via standard tunneling technique. Hemostasis was obtained using direct pre ssure and the wound was closed with dermabond skin adhesive. IMPLANTED HARDWARE: Implanted device: [employer] Systems[employer] model L NQ11 - [id number]. ILR SETTINGS: The device was programmed to record mitzi ent activated event and auto-activated events (HR >176 bpm) as w ell as atrial fibrillation. ARRYTHMIA DETECTION AND SETTINGS + + + +---- ------+--------+ Zone ? Zone 1 ? Zone 2 ? Anil ? Asystole + + + +---- ------+--------+ Cycle length CL: 320ms CL: 400ms CL: 2000ms ? + + + +---- ------+--------+ Heart rate ?? HR: 188bpm HR: 150bpm HR: 30bpm ? + + + +---- ------+--------+ Interval ? 30/40 ? 32 ? 3 sec ?? + + + +---- ------+--------+ STUDY COMPLETION - Patient in-room time: 01:07 PM. - Patient out-of-room time: 01:27 PM. - Intake: 0ml - Output: 0ml - Estimated blood loss: 1ml. PLAN: ??See post procedure orders. Bed r est for 10hours. At the completion of the procedure, find ings, results, any complications, and treatment plan were c ommunicated to the patient and reinforced after recovery from anesthesi a. With the patient's consent, the attending physician communicated fin dings, results, any complications, and treatment plan to [facility] members and patient support persons who were present at the conclusi on of the procedure. POST PROCEDURAL DISPOSITION: Outpatient status is indicated. ? Electronically signed by James Nogueira MD, PhD 03/24/2019 13:29 Procedure Note James Nogueira MD - 2019 *Cardiology* [address] [place] [address] Loop Recorder Implantation Patient: Chantel Rosas Study Date: 03/24/2019 : 1955 Referring: Attending: James Nogueira MD, PhD Fellow: Assisting: Copies: ATTESTATION: Dr. James Mckenzie performed th e entire procedure and was the initial and only author of the report.. SUMMARY OF PROCEDURE: - There were no complications. - Successful Implantable loop recorder i mplant. HISTORY AND INDICATIONS: Non-valvular at rial fibrillation. PROCEDURE: - Loop recorder implant ANESTHESIA: Conscious sedation and local anesthesia. PROCEDURE: The risks, benefits, and alternatives to the procedure and sedation were explained and informed consent was obtai inder. The patient name, date of , surgica l site, and procedure were verified prior to the procedure. The pat ient was brought to the OR in the fasting state. The chest was prepped and draped in the usual sterile manner. Lidocaine 2% and Bupivacaine 0.5 % was administered to the left parasternal-submammary region. A 1cm incision was made and an implantab le loop recorder was implanted via standard tunneling technique. Hemostasis was obtained using direct pre ssure and the wound was closed with dermabond skin adhesive. IMPLANTED HARDWARE: Implanted device: [employer]Q model L NQ11 - [id number]. ILR SETTINGS: The device was programmed to record mitzi ent activated event and auto-activated events (HR >176 bpm) as w ell as atrial fibrillation. ARRYTHMIA DETECTION AND SETTINGS + + + +---- ------+--------+ Zone Zone 1 Zone 2 Anil Asystole + + + +---- ------+--------+ Cycle length CL: 320ms CL: 400ms CL: 2000ms + + + +---- ------+--------+ Heart rate HR: 188bpm HR: 150bpm HR: 3 0bpm + + + +---- ------+--------+ Interval 30/40 32 3 sec + + + +---- ------+--------+ STUDY COMPLETION - Patient in-room time: 01:07 PM. - Patient out-of-room time: 01:27 PM. - Intake: 0ml - Output: 0ml - Estimated blood loss: 1ml. PLAN: See post procedure orders. Bed res t for 10hours. At the completion of the procedure, find ings, results, any complications, and treatment plan were c ommunicated to the patient and reinforced after recovery from anesthesi a. With the patient's consent, the attending physician communicated fin dings, results, any complications, and treatment plan to [facility] members and patient support persons who were present at the conclusi on of the procedure. POST PROCEDURAL DISPOSITION: Outpatient status is indicated. Lalita garcia signed by James Nogueira MD, PhD 03/24/2019 13:29 Joseph Torre MD CARDIAC EP ORDERABLES documented in this encounter Visit Diagnoses Diagnosis Other persistent atrial fibrillation (HC C) - Primary Atrial fibrillation, unspecified type (H CC-CMS) (HCC) Other persistent atrial fibrillation (HC C) documented in this encounter Admitting Diagnoses Diagnosis Other persistent atrial fibrillation (HC C) documented in this encounter Administered Medications Inactive Administered Medications - up to 3 most recent administrations Medication Order MAR Action Action Date Dose Rate Site bupivacaine (PF) (MARCAINE) 0.5% injecti on 1 dose, Starting on Wed03/24/19 at 1333, Until Wed at 1545 chlorhexidine gluconate 2 % cloth 1 Each Given 03/24/2019 12:46 EST 1 Each Chest 1 Each, topical, PRE-OP MULTIPLE, 1 dose, Starting on Wed03/24/19 at 1235, Until Wed03/24/19 at 1246, Other, Pre-Procedure, Routine, Preprocedure fentaNYL citrate (PF) 50 mcg/mL injectio n 1 dose, Starting on Wed03/24/19 at 1333, Until Wed at 1545 lidocaine 20 mg/mL (2 %) injection 1 dose, Starting on Wed03/24/19 at 1333, Until Wed at 1545 lidocaine-EPINEPHrine 2 %-1:100,000 inje ction 1 dose, Starting on Wed03/24/19 at 1314, Until Wed at 1545 midazolam (PF) (VERSED) 1 mg/mL injectio n 1 dose, Starting on Wed03/24/19 at 1333, Until Wed at 1545 documented in this encounter Discontinued Medications Medication Sig Discontinue Reason Start Date End Date pantoprazole (PROTONIX) Take one tablet 05/23/2018 1 05/08/2018 40 mg tablet daily the 3 days prior to your ablation procedure and for 30 days afterwards. documented as of this encounter Active and Recently Administered Medications Times are shown in EST. PRN Medication Order 03/22/2019 03/23/2019 03/24/2019 chlorhexidine gluconate 2 % cloth 1 Each (COMPLETED) 1246 (Given - Provider: Yamila Saldivar RN) 1 Each, topical, PRE-OP MULTIPLE, 1 dose , Starting on Wed03/24/19 at 1235, Until Wed03/24/19 at 1246, Other, Pre-Procedure, Routine, Preprocedure No Frequency Medication Order 03/22/2019 03/23/2019 03/24/2019 bupivacaine (PF) (MARCAINE) 0.5% injection 1 dose, Starting Wed03/24/19 at 1333, Until Discontinued fentaNYL citrate (PF) 50 mcg/mL injection 1 dose, Starting 03/24/19 at 1333, Until Discontinued lidocaine 20 mg/mL (2 %) injection 1 dose, Starting 03/24/19 at 1333, Until Discontinued lidocaine-EPINEPHrine 2 %-1:100,000 injection 1 dose, Starting 03/24/19 at 1314, Until Discontinued midazolam (PF) (VERSED) 1 mg/mL injection 1 dose, Starting 03/24/19 at 1333, Until Discontinued documented in this encounter Orders Medications Ordered That Might Not Have Count Last Ord ered Date First Ordered Date Been Administered bupivacaine (PF) (MARCAINE) 0.5% injection 1 03/24 chlorhexidine gluconate 2 % cloth 1 Each 1 020 fentaNYL citrate (PF) 50 mcg/mL injection 1 2019 lidocaine 20 mg/mL (2 %) injection 1 03/24/2019 lidocaine-EPINEPHrine 2 %-1:100,000 1 03/24/2019 injection midazolam (PF) (VERSED) 1 mg/mL injection 1 2019 Nursing Count Last Ordered Date First Ordered Date PATIENT AT LOW RISK FOR VTE: RISK OF 1 03/24/2019 PHARMACOLOGIC PROPHYLAXIS OUTWEIG Transfer Count Last Ordered Date First Ordered Date TEACHING SERVICE 1 03/24/2019 Discharge Count Last Ordered Date First Ordered Date DISCHARGE PATIENT 1 03/24/2019 documented in this encounter Care Teams Radiological Metallurgist Relationship Specialty Start Date End Date Enrike Brown MD PCP - General 10/19/18 [address] [place] [address] documented as of this encounter
--- OUTSIDE RECORDS SUMMARY | 2022-02-06 00:52 | XMS_ITS | Encounter Summary ---
:[address] [facility] Address [address] [place] [address] Care Team Providers Name Role Phone Enrike Brown MD Primary Care Provider [phone] Reason for Referral (Routine) - Authorization Not Required Specialty Diagnoses / Procedures Referred By Contact Refer red To Contact Diagnoses Atrial fibrillation and flutter ([facility]) Joseph Torre MD Procedures CARDIAC IMPLANT CHECK - REMOTE MONITOR [address] [phone] Referral ID Status Reason Start Expiration Visits Visits Date Date Requested Authorized [id number] Authorization Not 04/27/2019 1 1 Required Reason for Visit (Routine) - Authorization Not Required Specialty Diagnoses / Procedures Referred By Contact Refer red To Contact Diagnoses Atrial fibrillation and flutter (HCC) Joseph Torre MD Procedures CARDIAC IMPLANT CHECK - REMOTE MONITOR [address] [phone] Referral ID Status Reason Start Expiration Visits Visits Date Date Requested Authorized [id number] Authorization Not 04/27/2019 1 1 Required Encounter Details Date Type Department Care Team Description 04/27/2019 Hospital Encounter Suzie Remote Device Atrial fibrillation and 60 Suzie hurtado ([facility] [place] [address] Social History Tobacco Use Types Packs/Day Years Used Date Smoking Tobacco: Former Cigarettes 1 Quit : 04/07/2018 Smokeless Tobacco: Never Alcohol [...] Associated Diagnosis Comme nts CARDIAC IMPLANT Routine 04/27/2019 10:52 Atrial fibrillation R esults for this CHECK - REMOTE EST and flutter (HCC-CMS) proc edure are in MONITOR the results section. documented in this encounter Results CARDIAC IMPLANT CHECK - REMOTE - LOOP RECORDER (ILR) (04/27/2019 10:52 EST) Anatomical Region Laterality Modality Device Specimen (Source) Anatomical Location Collection Method / Collectio n Time Received Time / Laterality Volume Narrative 05/01/2019 11:10 EST I have reviewed the pacemaker interrogation. ??I agree with the findings below. 04/26/2019 MDT ILR Summary Report: Prese nting Rhythm: Sinus Bradycardia 55 bpm. Battery Status: OK. Diagnostic Data: 1 AF episode detected f rom 03/24/19 - 04/25/19 appears inappropriate due to PACs. APIXABAN Joseph Torre MD CV IMPLANTABLE CARDIAC DEVIC E documented in this encounter Visit Diagnoses Diagnosis Atrial fibrillation and flutter (HCC) Atrial fibrillation documented in this encounter Care Teams Computer Drafter Relationship Specialty Start Date End Date Enrike Brown MD PCP - General 10/19/[address] [place] [id number] documented as of this encounter
--- OUTSIDE RECORDS SUMMARY | 2022-02-06 00:52 | XMS_ITS | Encounter Summary ---
:1955 Author Organization [facility] Address [address] [place] [address] Care Team Providers Name Role Phone Elisha Morrell MD Primary Care Provider Reason for Referral Cardiology (Routine/Next Available) - Authorization Not Required Specialty Diagnoses / Procedures Referred By Contact Refer red To Contact Diagnoses ASD (atrial septal defect) Pablo Coelho Jr., MD Procedures LEFT AND RIGHT HEART CATH [address] [phone] Referral ID Status Reason Start Expiration Visits Visits Date Date Requested Authorized [id number] Authorization Not 06/09/2018 1 1 Required Reason for Visit Reason Comments Atrial Fibrillation NPV consult Fatigue Shortness of Breath little bit with anxiety and exertion Encounter Details Date Type Department Care Team Description 06/09/2018 Office Visit [facility] Pablo Coelho ASD ( atrial septal Cardiology - Suzie Mullen MD defect) (Primary Dx) 62 Suzie Rodriguez [address], [address] [address] (Wo rk) Social History Tobacco Use [...] Sign Reading Time Taken Comments Blood Pressure 142/62 06/09/2018 1328 EDT Pulse 77 06/09/2018 1328 EDT Temperature - - Respiratory Rate - - Oxygen Saturation 97% 06/09/2018 1328 EDT Inhaled Oxygen Concentration - - Weight 77.6 kg (171 lb) 06/09/2018 1328 EDT Height 165.1 cm (5' 5) 06/09/2018 1328 EDT Body Mass Index 28.46 06/09/2018 1328 EDT documented in this encounter Functional Status [...] documented as of this encounter Progress Notes Laquita Rogers, Pablo Escobar Jr., MD - 06/09/2018 1340 EDT 06/09/2018 NEW PATIENT PATIENT: Chantel Rosas CHIEF COMPLAINT Atrial Fibrillation (NPV consult); Fatigue; and Shortness of Breath (little bit with anxiety and exertion) HISTORY OF PRESENT ILLNESS Chnatel Rosas is a very pleasant 62 y.o. female who presents with secundum atrial septal defect HPI The patient is a 62-year-old female who initially presented with symptoms of cardiac arrhythmia, butwas found incidentally to have an atrial septal defect. She initially presented in April, and echocardiography discover the issue. She was initially treated medically for her atrial flutter, but with recurrent symptoms, she subsequently went for cardiac ablation several weeks ago. This appears to have been successful, as she has not had any recurrent symptoms since the ablation. On both transthoracic and transesophageal echo, she was found to have a large secundum atrial septaldefect. The aortic rim appears to be deficient, and the total resting diameter of the defect is close to 20 mm. There is also associated biatrial enlargement and right ventricular dilatation. In retrospect, she has not had any overt symptoms related to the atrial septal defect, as this has been her baseline throughout her life. She was active in sports as a child, and played softball. She also had 2 pregnancies without any difficulty. She does have a bit of anxiety related to her newly discovered medical conditions, and feels a bit overwhelmed. PAST HISTORY Past Medical History: Diagnosis Date ??? A-fib ([facility]) ??? ASD (atrial septal defect) No past surgical history on file. Family History Problem Relation Age of Onset ??? Hypertension Mother ??? Lung Cancer Father ??? No Known Brother Social History Tobacco Use ??? Smoking status: Former Smoker Packs/day: 1.00 Years: 30.00 Pack years: 30.00 Types: Cigarettes Last attempt to quit: 04/07/2018 Years since quittin.1 ??? Smokeless tobacco: Never Used Substance Use Topics ??? Alcohol use: No Frequency: Never ??? Drug use: No MEDICATIONS Current Outpatient Medications Medication Sig Dispense Refill ??? apixaban (ELIQUIS) 5 mg tablet Take 1 tablet by mouth 2 times daily. 180 tablet 1 ??? DILTiazem (CARDIZEM) 30 mg tablet Take 1 Tab by mouth daily as needed (palpitations). 12 Tab 0 ??? doxycycline (VIBRAMYCIN) 100 mg capsule Take 100 mg by mouth 2 times daily. 0 ??? LORazepam (ATIVAN) 0.5 mg tablet Take 1 mg by mouth 3 times daily. ??? pantoprazole (PROTONIX) 40 mg tablet Take one tablet daily the 3 days prior to your ablation procedure and for 30 days afterwards. (Patient taking differently: Take one tablet daily the 3 days prior to your ablation procedure and for 30 days afterwards.) 33 tablet 0 No current facility-administered medications for this visit. ALLERGIES No Known Allergies REVIEW OF SYSTEMS Review of Systems I personally conducted a ten point review of systems only notable for the above. VITALS Vitals: 06/09/18 1328 BP: (!) 142/62 BP Cuff Location: Left arm Patient Position: Sitting BP Cuff Sizes: Adult, regular Pulse: 77 SpO2: 97% Weight: 77.6 kg (171 lb) Height: 165.1 cm (65) PHYSICAL EXAM Physical Exam She is in no acute distress. She is alert and oriented x3. She has no jugular venous distention assessable secondary to body habitus. Lungs are clear to auscultate bilaterally. The heart is regular with normal S1 and a thick split S2. There is a 2-6 systolic murmur heard best at the right upper sternal border. The abdomen is soft and the lower extremities are free of any significant pitting edema. There are 2+ pulses at the radial arteries bilaterally. ASSESSMENT Mrs. Rosas is a 62-year-old female with secundum atrial septal defect of moderate size with a deficient aortic rim. She has biatrial enlargement and right ventricular dilatation indicating that the defect is hemodynamically significant. This defect should be closed in order to prevent sequelae downthe line consisting of congestive heart failure, and possibly more atrial arrhythmia. PLAN It is unclear to me whether this should be close via a transcatheter modality or open chest surgery.The deficient aortic rim may preclude safe placement of a closure device. I will have her undergo left and right heart catheterization to evaluate the health of her coronary arteries. This may be another issue in terms of an indication to proceed with open chest surgery. I will also quantify her shunt, and evaluate her for pulmonary hypertension. If it appears that closure is indicated and that there is no other indication for open chest surgery, I will forward her images to partners in [employer] in regards to possible closure with a transcatheterdevice. Follow-up will be as needed from this point forward. Electronicaly signed by: Pablo Coelho MD documented in this encounter Plan of Treatment Not on filedocumented as of this encounter Procedures Procedure Name Priority Date/Time Associated Diagnosis Comme nts LEFT AND RIGHT Routine 06/24/2018 15:34 ASD (atrial septal Res ults for this HEART CATH EDT defect) procedure are i n the results section. documented in this encounter Results LEFT AND RIGHT HEART CATH (06/24/2018 15:34 EDT) Anatomical Region Laterality Modality Other Specimen (Source) Anatomical Collection Method Collection Time Re ceived Time Location / / Volume Laterality 06/24/2018 15:34 EDT Narrative 06/27/2018 15:35 EDT Cardiology [address] [place] [address] Catheterization Laboratory Study Patient: Chantel Rosas ?Study Date: ? 06/24/2018 ? Accession #: ?[id number] : ? 1955 Referring: Elisha Morrell Diagnostic Attending: ??Pablo Coelho Interventional Attending: ?? Tao Coelho ATTESTATION: I, Dr. Blaine Solomon was the initial aut hor of this report. Dr. Pablo Coelho was present and supervising for the entire procedure. I, Dr. Pablo Coelho have reviewed and agreed w ith the findings of this report. PROCEDURE PLAN: A diagnostic study was performed without intervention. RESEARCH STUDY: Patient is not enrolled in any research studies. IMPRESSIONS: 1. Mild coronary artery disease. 2. Large left to right shunt at the atri al level, with pulmonary ?? overcirculation. SUMMARY: 1. HPI and indications: Exertional dyspn ea. 2. Coronary arteries: The coronary circu lation is right dominant. 3. Left main: Minor luminal irregulariti es. 4. LAD: Minor luminal irregularities. 5. Left circumflex: Minor luminal irregu larities. 6. Right coronary: Minor luminal irregul arities. RECOMMENDATIONS: Recommend closure of secundum atrial sep edinson defect due to 2:1 shunt. HISTORY: Exertional dyspnea. ??Allergies: ??No kn own allergies. LABS, PRIOR TESTS, PROCEDURES AND SURGER Y: Serum creatinine (current admission) of 0.6 mg/dl. ??Hemoglobin (pre-procedure) of 16.5 g/dl. STUDY DATA: Study status: ??Cardiac cath: elective. ??Patient status: ??Outpatient. Location: ??Catheterization laboratory. Sex: female. Patient is 62yr old. Height: 165cm. Weight: 78kg. BSA: 1.91m^ 2. Procedures performed: ?Right radi al artery access. ?Right femoral vein access. ?Left coronary angiogra phy. ?Right coronary angiography. ANESTHESIA: Conscious sedation. PROCEDURE: 1. Initial setup. The patient was mari t to the laboratory in the ?? fasting state. A baseline ECG was re corded. Surface ECG leads, ?? automatic cuff blood pressure measur ements, and pulse oximetric ?? signals were monitored. 2. Skin preparation. The planned punctur e sites were prepped with ?? chlorhexidine and draped in the usua l sterile manner. 3. Local anesthesia. Using 2% Lidocaine, local anesthetic was ?? administered to the access site(s). 4. Right radial artery access. A 5 Fr/.0 21 Vernalis Sheath Slender sheath ?? was advanced into the vessel. 5. Right femoral vein access. A [address] Tera ACT Ultimum sheath was ?? advanced into the vessel. 6. Selective left coronary angiography. A 5 FR Keo catheter was ?? advanced into the left coronary vess el ostium under fluoroscopic ?? guidance. Contrast was injected. Angela ges were obtained in multiple ?? projections. 7. Selective right coronary angiography. A 5 FR Keo catheter was ?? advanced into the right coronary ves ely ostium under fluoroscopic ?? guidance. Contrast was injected. Angela ges were obtained in multiple ?? projections. 8. Right radial artery hemostasis. Mecha nical compression was applied. 9. Right femoral vein hemostasis. The sh richard was removed. STUDY COMPLETION: The estimated blood loss was 10ml. All c atheters inserted during the procedure were removed. The patient joshua rated the procedure well and was discharged from the lab. There were no c omplications. ??Contrast: Isovue 40ml (total dose). ??Isovue 160ml (wasted). ??Fluoroscopy time: 6.6min. ??Fluoroscopy dose: ??41.3cGy. CORONARY ARTERIES: The coronary circulation is right domina nt. Left main: ??Minor luminal irregularitie s. LAD: ??Minor luminal irregularities. Left circumflex: ??Minor luminal irregul arities. Right coronary: ??Minor luminal irregula rities. HEMODYNAMICS: Sats Ao0.90 PA0.79 SVC0.66 IVC0.74 LlPV0 .88 There was no gradient across the aortic valve. Qp:Qs 2:1 A large, left to right, atrial-level kelle nt is identified. + + + Venous saturation ? IVC: 74.5%, SVC: 66.3%, PA: 79.8% + + + Arterial saturation ? 92.1%, pulmonary venous: 89.7% ?? + + + O2 uptake, hemoglobin ? Hgb: 16 .5g/dl ? + + + Systemic cardiac output (Qs) 3.99L/(min -m^2) ? + + + RA pressure a/v (m) ? 1311 (9) ? + + + RV pressure s/d ? 40/9 ? + + + PA pressure s/d (m) ? 39/15 (25) ? + + + LV pressure s/ed ? 124/ 16 ? + + + Arterial pressure s/d (m) ?? 137/64 (9 5) ? + + + * Electronically signed by Pablo Coelho Jr., MD 2018-06-27 15:35 Procedure Note Pablo Coelho Md, Jr., MD - 06/27/[address] [place] [address] Catheterization Laboratory Study Patient: Chantel Rosas Study Date: 06/24/2018 : 1955 Referring: Elisha Morrell Diagnostic Attending: Pablo Coelho Interventional Attending: Pablo Coelho ATTESTATION: Dr. Blaine Mckenzie was the initial aut hor of this report. Dr. Pablo Coelho was present and supervising for the entire procedure. Jonah, Dr. Pablo Coelho have reviewed and agreed w ith the findings of this report. PROCEDURE PLAN: A diagnostic study was performed without intervention. RESEARCH STUDY: Patient is not enrolled in any research studies. IMPRESSIONS: 1. Mild coronary artery disease. 2. Large left to right shunt at the atri al level, with pulmonary overcirculation. SUMMARY: 1. HPI and indications: Exertional dyspn ea. 2. Coronary arteries: The coronary circu lation is right dominant. 3. Left main: Minor luminal irregulariti es. 4. LAD: Minor luminal irregularities. 5. Left circumflex: Minor luminal irregu larities. 6. Right coronary: Minor luminal irregul arities. RECOMMENDATIONS: Recommend closure of secundum atrial sep edinson defect due to 2:1 shunt. HISTORY: Exertional dyspnea. Allergies: No known allergies. LABS, PRIOR TESTS, PROCEDURES AND SURGER Y: Serum creatinine (current admission) of 0.6 mg/dl. Hemoglobin (pre-procedure) of 16.5 g/dl. STUDY DATA: Study status: Cardiac cath: elective. Travis schumacher status: Outpatient. Location: Catheterization laboratory. Se x: female. Patient is 62yr old. Height: 165cm. Weight: 78kg. BSA: 1.91m^ 2. Procedures performed: Right radial arter y access. Right femoral vein access. Left coronary angiography. Right coronary angiography. ANESTHESIA: Conscious sedation. PROCEDURE: 1. Initial setup. The patient was mari t to the laboratory in the fasting state. A baseline ECG was recor ded. Surface ECG leads, automatic cuff blood pressure measureme nts, and pulse oximetric signals were monitored. 2. Skin preparation. The planned punctur e sites were prepped with chlorhexidine and draped in the usual s terile manner. 3. Local anesthesia. Using 2% Lidocaine, local anesthetic was administered to the access site(s). 4. Right radial artery access. A 5 Fr/.0 21 Vernalis Sheath Slender sheath was advanced into the vessel. 5. Right femoral vein access. A [address] Tera ACT Ultimum sheath was advanced into the vessel. 6. Selective left coronary angiography. A 5 FR Keo catheter was advanced into the left coronary vessel ostium under fluoroscopic guidance. Contrast was injected. Images were obtained in multiple projections. 7. Selective right coronary angiography. A 5 FR Keo catheter was advanced into the right coronary vessel ostium under fluoroscopic guidance. Contrast was injected. Images were obtained in multiple projections. 8. Right radial artery hemostasis. Mecha nical compression was applied. 9. Right femoral vein hemostasis. The ken ramos was removed. STUDY COMPLETION: The estimated blood loss was 10ml. All c atheters inserted during the procedure were removed. The patient joshua rated the procedure well and was discharged from the lab. There were no c omplications. Contrast: Isovue 40ml (total dose). Isovue 160ml ( wasted). Fluoroscopy time: 6.6min. Fluoroscopy dose: 41.3cGy. CORONARY ARTERIES: The coronary circulation is right domina nt. Left main: Minor luminal irregularities. LAD: Minor luminal irregularities. Left circumflex: Minor luminal irregular ities. Right coronary: Minor luminal irregulari ties. HEMODYNAMICS: Sats Ao0.90 PA0.79 SVC0.66 IVC0.74 LlPV0 .88 There was no gradient across the aortic valve. Qp:Qs 2:1 A large, left to right, atrial-level kelle nt is identified. + + + Venous saturation IVC: 74.5%, SVC: 66. 3%, PA: 79.8% + + + Arterial saturation 92.1%, pulmonary v enous: 89.7% + + + O2 uptake, hemoglobin Hgb: 16.5g/dl + + + Systemic cardiac output (Qs) 3.99L/(min -m^2) + + + RA pressure a/v (m) 13/11 (9) + + + RV pressure s/d 40/9 + + + PA pressure s/d (m) 39/15 (25) + + + LV pressure s/ed 124/16 + + + Arterial pressure s/d (m) 137/64 (95) + + + * Electronically signed by Pablo Coelho Jr., MD 2018-06-27 15:35 Pablo Coelho Jr., MD CARDIAC CATH ORDERABLES documented in this encounter Visit Diagnoses Diagnosis ASD (atrial septal defect) - Primary Ostium secundum type atrial septal defec t documented in this encounter Historical Medications This list may reflect changes made after this encounter. Medication Sig Dispensed Refills Start Date End Date doxycycline (VIBRAMYCIN) Take 100 mg by 0 019 06/17/2018 100 mg capsule mouth 2 times daily. added in this encounter Care Teams Performance Analyst Relationship Specialty Start Date End Date Elisha Morrell MD PCP - General 04/20/18 10/18/18 [address] [place] [address] documented as of this encounter
--- OUTSIDE RECORDS SUMMARY | 2022-02-06 00:52 | XMS_ITS | Encounter Summary ---
:1955 Author Organization [facility] Address [address] [place] [address] Care Team Providers Name Role Phone Elisha Morrell MD Primary Care Provider Reason for Visit Reason Onset Date Comments Atrial Fibrillation 10/03/2018 Follow-up 10/03/2018 Encounter Details Date Type Department Care Team Description 10/03/2018 Telephone [facility] Joseph Torre, Atrial Fibrillation ; Cardiology - Suzie MEZA Follow-up 62 Suzie Rodriguez [address] [place] [address] (Wo rk) Social History Tobacco [...] this encounter Miscellaneous Notes Telephone Encounter - Lizbeth Clark RN - 10/06/2018 1029 EDT Spoke to pt. She's now on diltiazem 120 bid and has been feeling good, pulse is more stable 56-60s. She'll follow up at 8-5 OV. Telephone Encounter - Lizbeth Clark RN - 10/06/2018 1024 EDT LM with pt to . Fax request sent to [facility] to fax ED notes,ekg. Telephone Encounter - Cordelia Kirkpatrick - 10/06/2018 0804 EDT Patient called back to let Dr. Torre know the the patient was in the ER this past Wednesday for Afibagain the ER and they increased the med Diltiazem 24 extended 120 mg from 1 tab a day to 2 tabs a day Patient would like a call back Telephone Encounter - Lizbeth Clark RN - 10/03/2018 0929 EDT Pt has a hx aflutter abl this past May. She had her ASD repair done in [place] in August. She has been to the ED 3x in the past 2 weeks with an atrial arrythmia. She initially was no longer on rate control meds. She was placed on diltiazem which was switched to metoprolol. She felt presyncopal on the metoprolol with heart rates in the 40s and was switched back to diltiazem last Wednesday. Today she's feeling okay, not great. She is in a regular rhythm, rate 74, BP 130/65. She remains on eliquis along with diltiazem 120 daily. Pt would like to move up Nov with Dr. Torre. Appt made for Oct 24, offered STAFF THERAPIST sooner-pt declined. Requested ED notes, ekgs from [facility]. Pt will cb if symtoms in the meantime or go to the ED if she feels poorly. Telephone Encounter - Eboni Danielson - 10/03/2018 0801 EDT Patient has been to the ER 3 times in the last 2 weeks for AFIB. Patient wondering if she should seeDrRosa sooner than November. Please call to discuss. documented in this encounter Plan of Treatment Not on filedocumented as of this encounter Visit Diagnoses Not on filedocumented in this encounter Care Teams Tax Services Intern Relationship Specialty Start Date End Date Elisha Morrell MD PCP - General 04/20/18 10/18/[address] [place] [address] documented as of this encounter
--- OUTSIDE RECORDS SUMMARY | 2022-02-06 00:52 | XMS_ITS | Encounter Summary ---
:[address] [facility] Address [address] [place] [address] Care Team Providers Name Role Phone Enrike Brown MD Primary Care Provider [phone] Reason for Visit Auth/Cert Specialty Diagnoses / Procedures Referred By Contact Refer red To Contact Diagnoses Other persistent atrial fibrillation [I48.19] Joseph Torre MD [address] [address] Phone: Fax: Referral ID Status Reason Start Date Expiration Date Visits Requ ested Visits Authorized [id number] 03/06/2019 1 1 Encounter Details Date Type Department Care Team Description 03/24/2019 Surgery [place] [address] EP Lab James Nogueira Loop Insertion [[id number] Tiny Samano MD PhD (CPT??)] [place] [address] [place] [address] [address] (Wo rk) Surgery Details Date/Time Status Location OR Service Patient Class Case Case Trauma Class Type Case? 03/24/19 1300 Posted [facility] EP EP Lab [facility] Lab 2 Outpatient Procedure Panel 1 Procedure LRB Anes Op Region Wound Class Commen ts Loop Insertion Left Chest Surgeon Surgeon Role Service Panel James Nogueira MD PhD Primary Cardiovascul ar 1 documented in this encounter Social History Tobacco Use Types Packs/Day Years [...] Sign Reading Time Taken Comments Blood Pressure 125/46 03/24/2019 1325 EST Pulse - - Temperature 35.9 ??C (96.6 ??F) 03/24/2019 1325 EST Respiratory Rate 17 03/24/2019 1325 EST Oxygen Saturation 94% 03/24/2019 1325 EST Inhaled Oxygen Concentration - - Weight [...] mg Take 81 mg by mouth 0 /0 06/2018 tablet daily. diltiazem (DILACOR XR) 120 [...] Code Departure Means Destination Home or Self Senior Living documented in this encounter Progress Notes Randy King, MARJORIE - 03/24/2019 1341 EST DC instructions handout was given by blood bank laboratory professional nurse. Instructions on director medical were given by product technical services representative. Pt was given an opportunity to ask questions, and final eval by Nia was done prior to dc Maribell Rodriguez RN - 03/07/2019 0945 EST Images from the original note were not included. [facility] Cardiology Services [address] [place] [address] Melyssa Golden, Here is important information regarding [...] any elevator to the 3rd floor registration. Sole Conforming Machine Operator parking is also available at the Main Entrance. The registration staff will direct you to the surgical waiting room. Please check in with the inspector of dredging and they will notify pre op of your arrival 2. When you arrive in [facility] where you will be prepped for [...] ENRIKE BROWN on March at 2:00PM at [facility], [address] [place] [address]. PHONE: [phone] Should the above appointment(s) not be convenient, please call at the number(s) listed to re-schedule to a time that works for you. We are here to help, so should you need assistance feel free to call anyone listed below with questions. EP Casino Banker - [phone] [facility] Device nurse - [phone] documented in this encounter H&P Notes James [...] on file Occupational History ??? 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 Financial resource strain: Not [...] file Gets together: Not on file Attends judaism service: Not on file Active member of [...] 13:00 EST Narrative 03/24/2019 13:29 EST *Cardiology* [address] [place] [address] Loop Recorder Implantation Patient: Chantel Rosas ? Study Date: ?03/24/2019 ?Accession #: ? [id number] : ? 1955 Referring: Attending: James Nogueira [...] dermabond skin adhesive. IMPLANTED HARDWARE: Implanted device: Schedule Savvy LINQ model L NQ11 - [id number]. ILR SETTINGS: The device was programmed to [...] results, any complications, and treatment plan to [facility] members and patient support persons who were present at the conclusi on of the procedure. POST PROCEDURAL DISPOSITION: Outpatient status is indicated. ? Electronically signed by James Nogueira MD, PhD 03/24/2019 13:29 Procedure Note James Nogueira MD - 2019 *Cardiology* [address] [place] [address] Loop Recorder Implantation Patient: Chantel Rosas Study [...] dermabond skin adhesive. IMPLANTED HARDWARE: Implanted device: Schedule Savvy LINQ model L NQ11 - [id number]. ILR SETTINGS: The device was programmed to [...] results, any complications, and treatment plan to [facility] members and patient support persons who were [...] (PF) 50 mcg/mL injection 1 dose, Starting Wed03/24/19 at 1333, Until Discontinued lidocaine 20 mg/mL (2 %) injection 1 dose, Starting Wed03/24/19 at 1333, Until Discontinued lidocaine-EPINEPHrine 2 %-1:100,000 injection 1 dose, Starting Wed03/24/19 at 1314, Until Discontinued midazolam (PF) (VERSED) 1 mg/mL injection 1 dose, Starting Wed03/24/19 at 1333, Until Discontinued documented in this [...] 03/24/2019 documented in this encounter Care Teams Business Relations Manager Relationship Specialty Start Date End Date Enrike Brown MD PCP - General 10/19/[address] [place] [address] documented as of this encounter
--- OUTSIDE RECORDS SUMMARY | 2022-02-06 00:52 | XMS_ITS | Encounter Summary ---
:1955 Author Organization [facility] Address [address] [place] [address] Care Team Providers Name Role Phone Elisha Morrell MD Primary Care Provider Reason for Visit Reason Onset Date Comments Other 05/06/2018 Encounter Details Date Type Department Care Team Description 05/06/2018 Telephone [facility] Jojo Steiner NP Other Cardiology - [address], [place], [place] [address] [facility] Level [place], [place] [phone] (Wo rk) Social History Tobacco Use Types [...] making decisions? documented as of this encounter Miscellaneous Notes Telephone Encounter - Doyle Coleman - 05/06/2018 1356 EST Called pt to get info about her recent ER visit at [facility]. ( ) EKG and ER visit notes will be faxed over STAT. documented in this encounter Plan of Treatment Not on filedocumented as of this encounter Visit Diagnoses Not on filedocumented in this encounter Care Teams Manager Card Relationship Specialty Start Date End Date Elisha Morrell MD PCP - General 04/20/18 10/18/18 [address] [place] [address] documented as of this encounter
--- OUTSIDE RECORDS SUMMARY | 2022-02-06 00:52 | XMS_ITS | Encounter Summary ---
:1955 Author Organization [facility] Address [address] [place] [address] Care Team Providers Name Role Phone Elisha Morrell MD Primary Care Provider Encounter Details Date Type Department Care Team Description 06/24/2018 Hospital Encounter [facility] Pablo Coelho Cardiovascular Unit MD [place] [address] [facility] [address] [place] [address] [address] [phone] [facility] [address] [place] [address] (Wo rk) Social History Tobacco [...] Sign Reading Time Taken Comments Blood Pressure 115/65 06/24/2018 1630 EDT Pulse - - Temperature 36.1 ??C (97 ??F) 06/24/2018 1630 EDT Respiratory Rate 18 06/24/2018 1630 EDT Oxygen Saturation 96% 06/24/2018 1630 EDT Inhaled Oxygen Concentration - - Weight 77.9 kg (171 lb 11.2 06/24/2018 0941 EDT by CVU scale oz) Height 165.1 cm (5' 5) 06/24/2018 0958 EDT Body Mass Index 28.57 06/24/2018 0941 EDT documented in this encounter Functional Status [...] as of this encounter Discharge Diagnoses Diagnosis I25.10 Atherosclerotic heart disease of [place] coronary artery without angina pectoris-I25.10[ICD-10-CM] R06.09 Other forms of dyspnea-R06.09[ICD -10-CM] I77.89 Other specified disorders of jamari luis felipe and arterioles-I77.89[ICD-10-CM] documented in this encounter Discharge Instructions Enma Hayden RN - 06/24/2018 Diagnostic Cardiovascular Catheterization Discharge Instructions Department of Cardiology Chantel White, your Procedure was performed by Dr. Coelho . You have had a Cardiovascular Catheterization performed through a small incision in the artery in your right wrist and vein in your left groin. Your artery was closed using the following method: TR band close and tegaderm dressing. Your groin was dressed with a tegaderm dressing Care of your Incision: For your wrist and groin incision, keep the area clean & dry. Leave the sterile dressing in place for 24 hours. After this you may shower but no tub baths, swimming, or hot tubs for 5 days. You may remove your dressing the next day in the shower & wash area gently. (It is best to soak the dressing off with water in the shower. ) Apply a sterile bandage such as a Band Aid to the site after your shower daily until the site heals. DO NOT apply powder or lotion or antibiotic ointment to this area. Activity: Unless your physician instructs you otherwise, continue to drink a lot of fluids for the next 24 hours to flush the dye out of your system. Avoid Driving x 24 hours. For LEG incisions, avoid climbing multiple flights of stairs and other activity that involves a lot of leg bending for 48-72 hours, particularly for the first 24 hours. If you had an ARM approach, Keep your arm comfortably straight for the first 24 hours and AVOID Bending or Lifting with your ARM for 48-72 hours. No Heavy lifting (>10 pounds) for one week. Normal Observations: Soreness or tenderness at the site that may last one week. Bruising that could last 2 weeks. Formation of a small lump (dime to quarter size) which may last up to 6 weeks. Call your Physician immediately if you experience any of the following: Fever (temp >101), swelling, redness or signs of infection (including yellow discharge). Persistent and increasing pain at the site of the wound, in your extremity or your back. Numbness or tingling at a point below the wound Skin Rash If you have not been able to Urinate within 24 hours of the procedure. *If you note any signs of bleeding, such as bulging under the skin (size of a golf ball or larger)put Direct Pressure on the area and Call your Doctor immediately.If bleeding persists after 10 minutes with pressure held call 911. *Please make a follow-up appointment with your Primary Care Physician 2 weeks after your Cardiac Catheterization was performed. documented in this encounter Medications at Time of Discharge Medication Sig Dispensed Refills Start Date End Date acetaminophen (TYLENOL) Take 650 mg by mouth 0 325 mg capsule as needed. apixaban (ELIQUIS) 5 mg Take 1 tablet by 180 tablet 1 2018 tablet mouth 2 times daily. aspirin chewable 81 mg Take 81 mg by mouth 0 04/0 06/2018 tablet daily. LORazepam (ATIVAN) 0.5 Take 1 mg by mouth 3 0 mg tablet times daily as needed. pantoprazole (PROTONIX) Take one tablet 33 tablet 0 03/04/2 019 03/07/2019 40 mg tablet daily the 3 days prior to your ablation procedure and for 30 days afterwards. documented as of this encounter Discharge Disposition Disposition Code Departure Means Destination Home or Self Care documented in this encounter Progress Notes Lamar Evans RN - 06/24/2018 1549 EDT 1510 Patient resting without distress. IV infusing without complication at right radial TR Band siteor right femoral groin site. 1550 Patient passed orthos and helped to walk to bathroom. Refuses to sit out of bed at this time. Complains of right wrist pain. 2cc of air taken out of TR Band. 1625 Tolerating being out of bed. 1635 Given more to eat and drink. Pain in right wrist down to 3-4/10, from 11/29. 1730 Paged to clarify when patient should take her Eliquis. 1735 states patient may take Eliquis tonight. 1745 Patient discharged to home. Patient left CVU In a wheelchair pushed by her son. 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 Tegaderm o right groin cdi. TR band to right wrist with 14 cc. cdi. . Bed in lowest position. Side rails up. Call waller within reach. Harry PO food & liquids. Son at bedside. Patient demonstrates willingness and understanding of post-procedure instructions. Tele: SR 50-60 Mine Amezcua RN - 06/24/2018 1123 EDT Ambulated to bathroom, voided, updated on wait time for procedure. Denies any questions/concerns at this time. Serenity Duvall RN - 06/24/2018 0951 EDT Chantel White arrived to the Cardiovascular Unit via ambulation. Patient alert and oriented x3.Transfers to stretcher independently. Patient greeted and identified per [facility] medical center policy. Allergies and procedure verified & patient oriented to Unit. Reviewed all pre-procedure instructions with Chantel White. All questions answered & patient verbalizes willingness and understan ding of pre-procedure education. Patient stretcher in low position with side rails up & call waller within patient reach. 1027 Patient's son, Best, is at bedside. Patient's discharge plan is home with Best. Maribell Rodriguez RN - 06/17/2018 0836 EDT Precardiac Cath Nursing Checklist Recent Labs: Lab Results Component Value Date BUN 21 06/01/2018 CREATININE 0.87 06/01/2018 HGB 13.3 06/01/2018 CALCGFR 71 06/01/2018 Hgt: 165.1cm Wgt: 77.6kg Allergies: No Known Allergies Local Pharmacy [address] [address] Cardiac History: Stress Test? No Reason for Cath: ASD At fib Anginal equivalent::SOB, fatigue Cardiac Procedures: yes, date: at fib ablation 05/2018 Cardiac surgery: no Medical/Surgical History: Patient has a past medical history of A-fib (HCC-CMS) and ASD (atrial septal defect). Patient has no past surgical history on file. Chronic Risk Factors: none Smoking and Alcohol intake: reports that she quit smoking about 2 months ago. Her smoking use included cigarettes. She has a 30.00 pack-year smoking history. she has never used smokeless tobacco. She reports that she does not drink alcohol. History of complications from sedation: No Patient Instructions: Patient Instructed by: Patient instructed by Advanced Testing Nurse Instructions sent to patient by postal mail NPO Instructions: Patient/family instructed to have no solid food after midnight and to stop drinking clear liquids 3 hours prior to registration time. Diabetic Pre procedure Instructions: N/A Shower Instructions: Patient/family instructed to shower the night before or the day of the procedure. Registration location: Patient/family instructed to register on the 3rd floor [facility]. Transportation Issues: No Patient/family instructed that they will need a designated driver service technician if they are discharged on the day of the procedure. Medications: Medication list: Patient/family instructed to bring medication list with them on the day of the procedure. Anticoagulants/Antiplatelets: Instructed to start Aspirin 81 mg daily, 06/23- 06/24/2018 on ELIQUIS hold 06/22-06/24/2018 Anti-Anginal meds: DONTAE RODRIGUEZ RN Maribell Rodriguez RN - 06/13/2018 1103 EDT Images from the original note were not included. [facility] [address] [place] [address] Melyssa Golden, Here is important information regarding your upcoming Cardiac Catheterization procedure. Feel free to call with any questions or concerns. We will ensure we have prior authorization from your insurance company, if needed, for your procedure and notify you if there are any issues. Please make sure you copy and paste this link into your web browser in order to read it. [email or web address] Procedure Date: June 24, 2018 Check in at : 9:30 am Performing Physician: Dr. Coelho Pre-procedure Nursing Instructions Have no solid food or liquids containing fats, including milk, after midnight before your procedure. You may have fat free liquids (clear liquids) until 4 hours before the scheduled time of check in. Fat free clear liquids include water, clear fruit juices (apple or cranberry), carbonated beverages, Gatorade, black or sweetened coffee and tea. 1. On 06/24/2018 Please take your regular morning medications with a small amount of water. Please take Aspirin 81 mg once a day 06/23 and 06/24/2018. 2. On_06/22-06/24/2018__Please hold the following medications: _ELIQUIS 3. Please shower the evening before or the morning of your procedure. 4. Please do not bring any medications with you to the hospital; it is important however to bring anaccurate list of the medications you are currently taking. 5. You may need to spend the night in the hospital, so please plan accordingly by bringing an overnight bag with simple items, such as a tooth brush, change of clothes, etc. If you do not need to spendthe night, you will be discharged once you have recovered. When you go home you will need a designated driver service technician or a responsible adult to accompany you if you are taking public transportation or a cab //We request that you leave any valuables at home unless you are able to hand them over to the support person with you. 6. The pre-registration department will call you 1 to 2 business days before your procedure to verify your address and insurance information. You will still need to stop by registration the day of yourprocedure. When you arrive at the Hospital 1. Park in the underground garage, and take any elevator to the 3rd floor registration. Manager Revenue parking is also available at the Main Entrance. The registration staff will direct you to the Cardiovascular Unit waiting room. Please check in with the receptionist nurse and they will notify of your arrival. 2. Please request a wheelchair within the lobby if needed. There is a long walk (the length of 2 football hernandez) between registration and the cardiovascular unit. We have volunteers available to escort you. 3. When you arrive where you will be prepped for your procedure, the nurse will initiate your pre-procedure admission by reviewing your information, medications, etc. You will also have an intravenous started and possible some blood work drawn. 4. When the procedure is over, the doctor meets with your family/friends to review the results. 5. Your family/friends will go with you to where you will recover and will be allowed to visit when it is appropriate. We are here to help, so should you need assistance feel free to call anyone listed below with questions. Rita Thompson International Student Advisor - [phone] Samantha Rodriguez RN Advanced Testing Nurse- [phone] Please make sure you copy and paste this link into your web browser in order to read it Patients & Visitors Information [email or web address] Information [email or web address] documented in this encounter H&P Notes Blaine Solomon MD - 06/22/2018 3647 EDT Cardiology H&P Admit Date: 06/24/18 PCP: Elisha Morrell CC: [facility] HPI: Chantel White is a 62 y.o. female with a PMH significant for aflutter s/p ablation and secundum ASD who is here for RHC/[facility] for further evalution for possible ASD closure. Incidental ASD finding during workup of aflutter and subsequent ablation in April. Symptoms improved after ablation so less likely from ASD. NISSA demonstrated 1.8cm defect with biatrial enlargement and RV dilation. Although symptoms improved, she still has been feeling fatigue since March. Relevant prior Cardiac Studies: NISSA 05/31/18: Summary: 1. Left ventricle: The cavity size was normal. Wall thickness was ? normal. Systolic function was normal. The estimated ejection fraction ? was 60-65%. 2. Right ventricle: The cavity size was dilated. Systolic function was ? reduced. 3. Left atrium: No evidence of thrombus in the atrial cavity or ? appendage. Emptying velocity was mildly reduced. 4. Atrial septum: There was a large secundum atrial septal defect. NISSA 04/22/18: Summary: 1. Left ventricle: Systolic function was normal. The estimated ejection ? fraction was 60-65%. Wall motion was normal; there were no regional ? wall motion abnormalities. 2. Aortic valve: There was mild regurgitation. 3. Mitral valve: There was mild regurgitation. 4. Left atrium: No evidence of thrombus in the atrial cavity or ? appendage. 5. Right ventricle: The cavity size was mildly to moderately dilated. ? Wall thickness was normal. Systolic function was low normal. 6. Right atrium: The atrium was dilated. 7. Atrial septum: There was a large secundum atrial septal defect ? measuring 1.8cm. ROS: Full 10 point system obtained; negative unless indicated in the HPI Past Medical History: Past Medical History: Diagnosis Date ??? A-fib (HCC-CMS) ??? ASD (atrial septal defect) Prior to admission medications Current Outpatient Medications on File Prior to Encounter Medication Sig Dispense Refill ??? apixaban (ELIQUIS) 5 mg tablet Take 1 tablet by mouth 2 times daily. 180 tablet 1 ??? LORazepam (ATIVAN) 0.5 mg tablet Take [...] 33 tablet 0 No current facility-administered medications on file prior to encounter. Past Surgical History: Reviewed, non-contributory History reviewed. No pertinent surgical history. Family History: Reviewed, negative for premature CAD or sudden cardiac Family History Problem Relation Age of Onset ??? Hypertension Mother ??? Lung Cancer Father ??? No Known Brother Social History: Social History Tobacco Use ??? Smoking status: Former Smoker Packs/day: 1.00 Years: 30.00 Pack years: 30.00 Types: Cigarettes Last attempt to quit: 04/07/2018 Years since quittin.2 ??? Smokeless tobacco: Never Used Substance Use Topics ??? Alcohol use: No Frequency: Never Allergies: Reviewed No Known Allergies Exam: General appearance: alert, cooperative, no acute distress Mouth: MMM Neck: Supple, symmetrical, trachea midline Lungs: Clear to auscultation bilaterally, good air entry, normal respiratory effort CVS: RRR, S1, S2 normal, 2/6 systolic murmur loudest of JULIA border, barbeau B R radial pulse Abdomen: obese, soft, non-tender; positive bowel soundsNeurologic:moving all extremities, strength and sensation equal and intact throughout Extremities: extremities warm, atraumatic, no cyanosis or edema, 2+ DP pulses bilaterally Data review: EKG: Reviewed Labs: Reviewed BMP: No results for input(s): NA, K, CL, CO2, BUN, CREATININE, MG, PHOS, CALCIUM, CALCCA, CAION, SERGLU in the last 72 hours. Angina CCS Classification: 1 Anti-Anginal Medications: none Cardiomyopathy: N Heart Failure: N Aortic stenosis: N IV Contrast Allergy: N Cr (GFR): nl No known PAD Diabetes : N ASA Class: 2 Clopidogrel: N Anticoagulation: Y A/P: Chantel White is a 62 y.o. female with a PMH significant for aflutter s/p ablation and secundum ASD who is here for RHC/LHC for further evalution for possible ASD closure. - Plan for LHC and RHC PATIENT CONSENT TO CARDIOVASCULAR CATHETERIZATION OR INTERVENTION: ?? I, Blaine Solomon MD, have explained the risks and benefits of cardiac catheterization and/or intervention to the patient (or responsible libertarian) and have answered the patient's (or responsible libertarian's)questions. To the best of my knowledge, the patient (or responsible libertarian) has been adequately informed. The patient (or responsible libertarian) has consented to the interventional cardiac procedure. As part of the consent we reviewed that, like surgical procedures, interventional procedures require aggressive short term support to determine the potential benefits of the procedures. For this reason, the patient (or responsible libertarian) has agreed to remain FULL CODE for a minimum of 48 hours after the procedure. Blaine Solomon, PGY-4 Sales Rep Pager #[phone] documented in this encounter Procedure Notes Laquita Rogers, Pablo Escobar Jr., MD - 06/24/2018 1415 EDT Cardiovascular Catheterization Laboratory Preliminary Report -- Catheterization Date of Service/Procedure: 06/24/[address] Morrell, I had the pleasure performing cardiac catheterization on Chantel White today. Details are below. She has a secundum atrial septal defect. In summary, the defect should be closed because of a 2:1 shunt. This does put her at increased risk of developing right-sided heart failure, and she also has hadsequelae related to this with her recent atrial arrhythmia episodes. She has no coronary disease, and so a coronary artery bypass graft surgery or stent is not indicated. Because of the particular configuration of her atrial septal defect, I feel it would be inappropriate to place a stiff occluder device which we have available locally. I am going to send her information to [facility] to see what their opinion is on a possible percutaneous closure with a newer generation device. Thank you for allowing me to participate in the care of this patient. Attending Physician: Pablo Coelho MD Fellow: Ryne Abernathy MD and Blaine Solomon MD Pre-Procedure Diagnosis /NCDR Indication: Chantel White is a 62 y.o. year old female with atrial septal defect. CHSA Clinical Frailty Scale: 2: Well Anesthesia: A moderate level of anesthesia/conscious sedation was used in addition to local anesthesia. Access: Right radial artery and Right femoral vein Procedure: She was brought to [facility] Cardiac Catheterization Laboratory for the procedure: Diagnostic coronary/graft angiography, Right heart cath and Left heart cath. Closure: TR Band Post-Procedure Condition: The condition of the patient was Good. Complications: None. IV Contrast Total: 40 mL X-ray Dose: 250 mGy Estimated Blood Loss: Minimal. Unless otherwise noted,there were no specimens removed, cultures obtained, or drains retained. Research Study: Patient is not enrolled in a research study. Diagnostic Cardiac Study Results Left main: Free of angiographically significant disease. Left anterior descending: Minor luminal irregularities. Left circumflex: Minor luminal irregularities. Right coronary artery: Dominant. Minor luminal irregularities. Hemodynamic Results RA 9 RV 40/9 PA mean 25 CO 3.9 L/min (Luis Carlos) systemic CI 2.07 LVEDP 16 PVR normal Sats Ao0.90 PA0.79 SVC0.66 IVC0.74 LlPV0.88 There was no gradient across the aortic valve. Qp:Qs 2:1 Post-Procedure Diagnostic Conclusion: Further diagnostic testing is indicated. Plan: See post-procedure orders. Deciding percutaneous closure versus surgery At the completion of the procedure, the attending physician has explained the findings, therapies, any complications and treatment plan to the patient. With the patients consent, all family members andpatient support persons who were present at the conclusion of the procedure have been notified of these results and treatment plans as well. Pablo Coelho MD PagerNumber: [phone] 06/24/2018 14:15 documented in this encounter Plan of Treatment Not on filedocumented as of this encounter Procedures Procedure Name Priority Date/Time Associated Comments Diagnosis ECG REPORT - SCANNED 06/29/2018 7:20 EDT ECG REPORT - SCANNED 06/28/2018 20:43 EDT ECG REPORT - SCANNED 06/28/2018 13:32 EDT ECG REPORT - SCANNED 06/28/2018 13:32 EDT EKG 12-LEAD Routine 06/24/2018 9:57 Results for this EDT procedure are i n the results section. PROTIME STAT 06/24/2018 9:53 Results for this EDT procedure are i n the results section. COMPLETE BLOOD COUNT STAT 06/24/2018 9:53 Resu lts for this EDT procedure are i n the results section. BUN STAT 06/24/2018 9:53 Results for this EDT procedure are i n the results section. CREATININE STAT 06/24/2018 9:53 Results for this EDT procedure are i n the results section. ELECTROLYTES STAT 06/24/2018 9:53 Results for this EDT procedure are i n the results section. documented in this encounter Results ECG REPORT - SCANNED (06/29/2018 7:20 EDT) Specimen (Source) Anatomical Collection Method Collection Time Re ceived Time Location / / Volume Laterality 06/29/2018 7:20 EDT Narrative This result has an attachment that is no t available. Scan 2 Ditching Machine Operator PROCEDURE/MINOR SURGICAL ORD ERABLES ECG REPORT - SCANNED (06/28/2018 20:43 EDT) Specimen (Source) Anatomical Collection Method Collection Time Re ceived Time Location / / Volume Laterality 06/28/2018 20:43 EDT Narrative This result has an attachment that is no t available. Scan 2 Ditching Machine Operator PROCEDURE/MINOR SURGICAL ORD ERABLES ECG REPORT - SCANNED (06/28/2018 13:32 EDT) Specimen (Source) Anatomical Collection Method Collection Time Re ceived Time Location / / Volume Laterality 06/28/2018 13:32 EDT Narrative This result has an attachment that is no t available. Scan 2 Ditching Machine Operator PROCEDURE/MINOR SURGICAL ORD ERABLES ECG REPORT - SCANNED (06/28/2018 13:32 EDT) Specimen (Source) Anatomical Collection Method Collection Time Re ceived Time Location / / Volume Laterality 06/28/2018 13:32 EDT Narrative This result has an attachment that is no t available. Scan 2 Ditching Machine Operator PROCEDURE/MINOR SURGICAL ORD ERABLES EKG 12-LEAD (06/24/2018 9:57 EDT) Specimen (Source) Anatomical Collection Method Collection Time Re ceived Time Location / / Volume Laterality 06/24/2018 9:57 EDT Narrative [facility] EKG - 06/28/2018 20:3 8 EDT ? [facility] ? Test Date: ?2018-06-24 Pat Name: ? CHANTEL WHITE ? Department: ?? CVU ? Room: ? CVU37 Gender: ? Female ? 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 [id number] : ?1955 ? Requested By: AIMEE TOM Order Number: [id number] ? Reading MD: ?? ROGERIO HARRIS MD ? Measurements Intervals ?[place] ? Rate: ? 68 ? P: ?42 TX: ? 175 ?QRS: ?0 QRSD: ? 116 ?T: ?17 QT: ? 431 ? QTc: ?459 ? Interpretive Statements SINUS RHYTHM MODERATE INTRAVENTRICULAR CONDUCTION DEL AY Compared to ECG 05/31/2018 19:13:36 Intraventricular conduction delay now pr esent First degree AV block no longer present Incomplete right bundle-branch block no longer present I reviewed the tracing and have either a greed or edited the findings in this report. Electronically Signed On 20:38:31 EDT by ROGERIO HARRIS MD. Procedure Note Rogerio Harris MD - 06/28/2018Formattin g of this note might be different from the original. 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 Electronically Signed On 20:38:31 EDT by ROGERIO HARRIS MD. Blaine Solomon MD CARDIAC ECG ORDERABLES Performing Organization Address City/State/ZIP Code Phon e Number [facility] EKG PROTIME (06/24/2018 9:53 EDT) athologist Signature Pro Time 12.1 10.3 - 13.4 06/24/2018 [facility] secs 11:23 EDT [facility] I.N.R. 1.0 0.9 - 1.1 06/24/2018 [facility] Ratio 11:23 EDT [facility] Comment: Moderate Intensity Coumadin INR = 2.0-3. 0 Adjustments in anticoagulant therapy dos e should be based upon the INR and NOT the Pro Ti me. Specimen Anatomical Collection Method Collection Time Receive d Time (Source) Location / / Volume Laterality Blood specimen BLOOD SPECIMEN / 06/24/2018 9:53 2018 (specimen) Unknown EDT 10:19 EDT Blaine Solomon MD HEMATOLOGY & PF4 ORDERABLES Performing Organization Address City/State/ZIP Code Phon e Number [facility] LABORATORY [address] [place] [address] SERVICES (ABNORMAL) COMPLETE BLOOD COUNT (06/24/2018 9:53 EDT) athologist Signature WBC 8.30 4.0 - 12.4 06/24/2018 [facility] K/cmm 10:32 EDT [facility] RBC 5.49 (H) 3.86 - 06/24/2018 [facility] 5.04 M/cmm 10:32 [facility] SERVICES Hemoglobin 16.5 (H) 11.6 - 06/24/2018 [facility] 15.2 gm/dl 10:32 EDT [facility] HCT 46.4 (H) 34.9 - 06/24/2018 [facility] 44.4 % 10:32 EDT [facility] MCV 85 81 - 98 fl 06/24/2018 [facility] 10:32 EDT [facility] MCH 30.1 26.7 - 06/24/2018 [facility] 33.3 pg 10:32 EDT [facility] MCHC 35.6 32.1 - 06/24/2018 [facility] 35.9 gm/dl 10:32 EDT [facility] RDW-CV 13.2 <14.7 % 06/24/2018 [facility] 10:32 EDT [facility] RDW-SD 41.1 <50.4 fl 06/24/2018 [facility] 10:32 EDT [facility] PLT 240 141 - 377 06/24/2018 [facility] K/cmm 10:32 [facility] MPV 10.3 9.5 - 12.7 06/24/2018 [facility] fl 10:32 [facility] SERVICES Specimen Anatomical Collection Method Collection Time Receive d Time (Source) Location / / Volume Laterality Blood specimen BLOOD SPECIMEN / 06/24/2018 9:53 2018 (specimen) Unknown EDT 10:19 EDT Blaine Solomon MD HEMATOLOGY & PF4 ORDERABLES Performing Organization Address City/State/ZIP [facility] Phon e Number [facility] LABORATORY [address] [place] [address] SERVICES ELECTROLYTES (06/24/2018 9:53 EDT) athologist Signature Sodium 140 136 - 145 06/24/2018 [facility] mEq/L 10:41 [facility] LABORATORY SERVICES Comment: Slight hemolysis Potassium 4.8 3.5 - 5.0 mEq/L 06/24/2018 10:41 EDT [facility] LABORATORY SERVICES Comment: Slight hemolysis Hemolysis may elevate potassium result. Chloride 102 96 - 110 mEq/L 06/24/2018 10:41 EDT [facility] LABORATORY SERVICES Comment: Slight hemolysis CO2 27 22 - 32 mEq/L 06/24/2018 10:41 EDT [facility] LAB[facility] SERVICES Comment: Slight hemolysis Specimen Anatomical Collection Method Collection Time Receive d Time (Source) Location / / Volume Laterality Blood specimen BLOOD SPECIMEN / 06/24/2018 9:53 2018 (specimen) Unknown EDT 10:19 EDT Blaine Solomon MD CHEMISTRY & BLOOD GAS ORDERA BLES Performing Organization Address City/State/ZIP Code Phon e Number [facility] LABORATORY [address] [place] [address] SERVICES CREATININE (06/24/2018 9:53 EDT) P athologist Signature Creatinine 0.62 0.52 - 1.04 06/24/2018 [facility] mg/dl 10:41 [facility] LABOR[facility]ORY SERVICES Comment: Slight hemolysis GFR, Calculated 96 >60 ml/min/1.73m2 06/24/2018 10:41 EDT [facility]ORAT[facility] SERVICES Comment: eGFR calculated using CKD-EPI equation f or non Americans. Multiply eGFR by 1.16 for Americans. Specimen Anatomical Collection Method Collection Time Receive d Time (Source) Location / / Volume Laterality Blood specimen BLOOD SPECIMEN / 06/24/2018 9:53 2018 (specimen) Unknown EDT 10:19 EDT Blaine Solomon MD CHEMISTRY & BLOOD GAS ORDERA BLES Performing Organization Address City/State/ZIP Code Phon e Number [facility] [address] [place] [address] SERVICES BUN (06/24/2018 9:53 EDT) P athologist Signature BUN 15 10 - 26 06/24/2018 [facility] mg/dl 10:41 EDT [facility]ENTER [facility] Comment: Slight hemolysis Results may be affected due to hemolysis . Specimen Anatomical Collection Method Collection Time Receive d Time (Source) Location / / Volume Laterality Blood specimen BLOOD SPECIMEN / 06/24/2018 9:53 2018 (specimen) Unknown EDT 10:19 EDT Blaine Solomon MD CHEMISTRY & BLOOD GAS ORDERA BLES Performing Organization Address City/State/ZIP Code Phon e Number [facility] [address] [place] [address] SERVICES documented in this encounter Visit Diagnoses Not on filedocumented in this encounter Administered Medications Inactive Administered Medications - up to 3 most recent administrations Medication Order MAR Action Action Date Dose Rate Site acetaminophen (TYLENOL) tablet 650 Given 06/24/2018 16:07 EDT 65 0 mg mg 650 mg, oral, EVERY 4 HOURS PRN, Starting on Wed06/24/18 at 1423, Until Wed06/24/18 at 2023, Pain, Routine fentaNYL citrate (PF) 50 mcg/mL injectio n 1 dose, Starting on Wed06/24/18 at 1328, Until Wed at 2023 fentaNYL citrate (PF) injection Given 06/24/2018 13:55 EDT 50 mcg intravenous, PRN, Starting on Wed06/24/18 at 1353, Until Wed06/24/18 at 1355, Routine Given 06/24/2018 13:53 EDT 50 mcg heparin 1,000 unit/mL injection 1 dose, Starting on Wed06/24/18 at 1328, Until Wed at 2023 lidocaine 20 mg/mL (2 %) injection 1 dose, Starting on Wed06/24/18 at 1328, Until Wed at 2023 lidocaine-EPINEPHrine 2 %-1:100,000 inje ction 5-10 mL 5-10 mL, intradermal, PRN, 1 dose, Start ing on Wed06/24/18 at 1423, Until Wed06/24/18 at 2023, Other, to control bleeding , Routine midazolam (PF) (VERSED) 1 mg/mL injectio n 1 dose, Starting on Wed06/24/18 at 1328, Until Wed at 2023 midazolam (PF) (VERSED) injection Given 06/24/2018 13:55 EDT 1 mg intravenous, PRN, Starting on Wed06/24/18 at 1353, Until Wed06/24/18 at 1355, Routine Given 06/24/2018 13:53 EDT 1 mg nitroglycerin 100 mcg/mL syringe 1 dose, Starting on Wed06/24/18 at 1328, Until Wed at 2023 sodium chloride 0.9 % (NS) Rate Documented 06/24/2018 14:47 EDT 30 mL/hr 30 mL/hr infusion 30 mL/hr, intravenous, CONTINUOUS, Starting on Wed06/24/18 at 0945, Until Wed06/24/18 at 2023, Routine, Preprocedure New Bag 06/24/2018 10:26 EDT 30 mL/hr 30 mL/hr verapamil (ISOPTIN) 2.5 mg/mL injection 1 dose, Starting on Wed06/24/18 at 1328, Until Wed at 2023 documented in this encounter Discontinued Medications Medication Sig Discontinue Reason Start Date End Date DILTiazem (CARDIZEM) 30 Take 1 Tab by mouth Error 04/23/2018 06/17/2018 mg tablet daily as needed (palpitations). doxycycline (VIBRAMYCIN) Take 100 mg by Error 06/07/2018 0 06/17/2018 100 mg capsule mouth 2 times daily. documented as of this encounter Historical Medications This list may reflect changes made after this encounter. Medication Sig Dispensed Refills Start Date End Date acetaminophen (TYLENOL) 325 Take 650 mg by 0 mg capsule mouth as needed. aspirin chewable 81 mg Take 81 mg by mouth 0 06/2018 tablet daily. added in this encounter Active and Recently Administered Medications Times are shown in EDT. Continuous Medication Order 06/22/2018 06/23/2018 06/24/2018 sodium chloride 0.9 % (NS) infusion 1026 (New Bag - Provider: Serenity Duvall, RN)1447 (Rate Documented - Provider: Enma Sommer, RN)1630 (IV Stopped - Provider: Lamar Evans, MARJORIE) at 30 mL/hr, 30 mL/hr, intravenous, CONT INUOUS, Starting Wed06/24/18 at 0945, Until Wed06/24/18 at 2023, Routine PRN Medication Order 06/22/2018 06/23/2018 06/24/2018 acetaminophen (TYLENOL) tablet 650 mg 1607 (Given - Provider: Lamar Evans RN) 650 mg, oral, EVERY 4 HOURS PRN, Startin g Wed06/24/18 at 1423, Until Wed06/24/18 at 2023, Pain, Routine fentaNYL citrate (PF) injection (COMPLETED) 1353 (Given - Provider: Bre Adame RN)1355 (Given - Provider: Bre Adame RN) intravenous, PRN, Starting Wed06/24/18 at 1353, Until Discontinue d, Routine lidocaine-EPINEPHrine 2 %-1:100,000 injection 5-10 mL 5-10 mL, intradermal, PRN, 1 dose, Start ing Wed06/24/18 at 1423, Until Wed06/24/18 at 2023, Other, to control bleeding , Routine midazolam (PF) (VERSED) injection (COMPLETED) 1353 (Given - Provider: Bre Adame RN)1355 (Given - Provider: Bre Adame RN) intravenous, PRN, Starting Wed06/24/18 at 1353, Until Discontinue d, Routine No Frequency Medication Order 06/22/2018 06/23/2018 06/24/2018 fentaNYL citrate (PF) 50 mcg/mL injection 1 dose, Starting Wed06/24/18 at 1328, Until Discontinued heparin 1,000 unit/mL injection 1 dose, Starting Wed06/24/18 at 1328, Until Discontinued lidocaine 20 mg/mL (2 %) injection 1 dose, Starting Wed06/24/18 at 1328, Until Discontinued midazolam (PF) (VERSED) 1 mg/mL injection 1 dose, Starting Wed06/24/18 at 1328, Until Discontinued nitroglycerin 100 mcg/mL syringe 1 dose, Starting Wed06/24/18 at 1328, Until Discontinued verapamil (ISOPTIN) 2.5 mg/mL injection 1 dose, Starting Wed06/24/18 at 1328, Until Discontinued documented in this encounter Orders Medications Ordered That Might Not Have Count Last Ord ered Date First Ordered Date Been Administered fentaNYL citrate (PF) 50 mcg/mL injection 1 2018 heparin 1,000 unit/mL injection 1 06/24/2018 lidocaine 20 mg/mL (2 %) injection 1 06/24/2018 lidocaine-EPINEPHrine 2 %-1:100,000 1 06/24/2018 injection 5-10 mL midazolam (PF) (VERSED) 1 mg/mL injection 1 2018 nitroglycerin 100 mcg/mL syringe 1 06/24/2018 verapamil (ISOPTIN) 2.5 mg/mL injection 1 06/25/19 19 Nursing Count Last Ordered Date First Ordered Date AMBULATE PATIENT 1 06/24/2018 CARDIAC PROCEDURE ACCESS SITE 1 06/24/2018 DISCONTINUE SALINE LOCK/IV 1 06/24/2018 INSERT PERIPHERAL IV 1 06/24/2018 MAINTAIN SEQUENTIAL COMPRESSION DEVICE 1 9 NOTIFY PHYSICIAN (SPECIFY) 2 06/24/2018 NURSING COMMUNICATION 1 06/24/2018 PATIENT AT LOW RISK FOR VTE: RISK OF 1 06/24/2018 PHARMACOLOGIC PROPHYLAXIS OUTWEIG Transfer Count Last Ordered Date First Ordered Date NOTIFY PPS OF DISCHARGE COMPLETE 1 06/24/2018 Discharge Count Last Ordered Date First Ordered Date DISCHARGE PATIENT 1 06/24/2018 documented in this encounter Care Teams Cloth Inspector Relationship Specialty Start Date End Date Elisha Morrell MD PCP - General 04/20/18 10/18/18 [address] [place] [address] documented as of this encounter
--- OUTSIDE RECORDS SUMMARY | 2022-02-06 00:52 | XMS_ITS | Encounter Summary ---
:1955 Author Organization [facility] Address [address] [place] [address] Care Team Providers Name Role Phone Enrike Brown MD Primary Care Provider [phone] Reason for Visit Reason Onset Date Comments Pacemaker/Device Check 10/02/2019 Encounter Details Date Type Department Care Team Description 10/02/2019 Telephone [facility] Pacemaker, Pace Pacema ker/Device Check Cardiology - Suzie [address] [place], [place] [address] Social History Tobacco Use [...] this encounter Miscellaneous Notes Telephone Encounter - Prachi Ocampo - 10/04/2019 0292 EDT [facility] General stated that the patient was not a patient of theirs - therefore they could not monitor the Loop recorder. documented in this encounter Plan of Treatment Not on filedocumented as of this encounter Visit Diagnoses Not on filedocumented in this encounter Care Teams Screw Machine Operator Single Spindle Relationship Specialty Start Date End Date Enrike Brown MD PCP - General 10/19/[address] [place] [address] documented as of this encounter
--- OUTSIDE RECORDS SUMMARY | 2022-02-06 00:52 | XMS_ITS | Encounter Summary ---
:1955 Author Organization Health system Address [address] [place] [address] Care Team Providers Name Role Phone Enrike Brown MD Primary Care Provider [phone] Reason for Referral (Routine) - Authorization Not Required Specialty Diagnoses / Procedures Referred By Contact Refer red To Contact Diagnoses Atrial fibrillation and flutter (HCC) Jojo Steiner, CAESAR Procedures CARDIAC IMPLANT CHECK - REMOTE MONITOR [address] [phone] Referral ID Status Reason Start Expiration Visits Visits Date Date Requested Authorized [id number] Authorization Not 09/20/2019 1 1 Required Reason for Visit (Routine) - Authorization Not Required Specialty Diagnoses / Procedures Referred By Contact Refer red To Contact Diagnoses Atrial fibrillation and flutter (HCC) Jojo Steiner, CAESAR Procedures CARDIAC IMPLANT CHECK - REMOTE MONITOR [address] [phone] Referral ID Status Reason Start Expiration Visits Visits Date Date Requested Authorized [id number] Authorization Not 09/20/2019 1 1 Required Encounter Details Date Type Department Care Team Description 09/20/2019 Hospital Encounter Suzie Remote Device Atrial fibrillation and [address] ([facility]) [place] [address] Social History Tobacco Use Types Packs/Day Years [...] Associated Diagnosis Comme nts CARDIAC IMPLANT Routine 09/20/2019 11:49 Atrial fibrillation R esults for this CHECK - REMOTE EDT and flutter ([facility]) proc edure are in MONITOR the results section. documented in this encounter Results CARDIAC IMPLANT CHECK - REMOTE - LOOP RECORDER (ILR) (09/20/2019 11:49 EDT) Anatomical Region Laterality Modality Device Specimen (Source) Anatomical Location Collection Method / Collectio n Time Received Time / Laterality Volume Narrative 10/10/2019 17:12 EDT I have reviewed the implantable loop recorder interrogation. ??I agree with the findings. 08/30/2019 MDT ILR Summary Report: Prese nting Rhythm: Sinus Bradycardia 50 bpm. Battery Status: OK. Diagnostic Data : No arrhythmias were detected from 07/29/19- 08/30/19. Jojo Steiner NP CV IMPLANTABLE CARDIAC DEVIC E documented in this encounter Visit Diagnoses Diagnosis Atrial fibrillation and flutter (HCC) Atrial fibrillation documented in this encounter Care Teams Project Landscape Architect Relationship Specialty Start Date End Date Enrike Brown MD PCP - General 10/19/[address] [place] [id number] documented as of this encounter
--- OUTSIDE RECORDS SUMMARY | 2022-02-06 00:52 | XMS_ITS | Encounter Summary ---
:1955 Author Organization [facility] Address [address] [place] [address] Care Team Providers Name Role Phone Elisha Morrell MD Primary Care Provider Reason for Visit Reason Onset Date Comments Returning Call 05/11/2018 Encounter Details Date Type Department Care Team Description 05/11/2018 Telephone [facility], Returning Call Cardiology - Suzie Nieves RN [address] [place], [place] [address] Social History Tobacco Use [...] Telephone Encounter - Lizbeth Clark RN - 05/11/2018 1616 EST Pt verified she will be here 2-25 for OV. Telephone Encounter - Lamar Guzman V. - 05/11/2018 1556 EST Pt returning call Telephone Encounter - Lizbeth Clark RN - 05/11/2018 1432 EST Jojo Steiner HEAVY TRUCK MECHANIC advises OV with Dr. Torre to evaluate Rx options for tachy arrythmia. Pt requesting an afternoon appt, has a long drive. She will call back to verify if 2-25 will work after speaking to her son. documented in this encounter Plan of Treatment Not on filedocumented as of this encounter Visit Diagnoses Not on filedocumented in this encounter Care Teams Applied Exercise Physiologist Relationship Specialty Start Date End Date Elisha Morrell MD PCP - General 04/20/18 10/18/18 [address] [place] [address] documented as of this encounter
--- OUTSIDE RECORDS SUMMARY | 2022-02-06 00:52 | XMS_ITS | Encounter Summary ---
:1955 Author Organization [facility] Address [address] [place] [address] Care Team Providers Name Role Phone Enrike Brown MD Primary Care Provider [phone] Reason for Referral (Routine) - Authorization Not Required Specialty Diagnoses / Procedures Referred By Contact Refer red To Contact Diagnoses Atrial fibrillation and flutter (HCC) Jojo Steiner, CAESAR Procedures CARDIAC IMPLANT CHECK - REMOTE MONITOR [address] [phone] Referral ID Status Reason Start Expiration Visits Visits Date Date Requested Authorized [id number] Authorization Not 12/12/2019 1 1 Required Reason for Visit (Routine) - Authorization Not Required Specialty Diagnoses / Procedures Referred By Contact Refer red To Contact Diagnoses Atrial fibrillation and flutter (HCC) Jojo Steiner, CAESAR Procedures CARDIAC IMPLANT CHECK - REMOTE MONITOR [address] [phone] Referral ID Status Reason Start Expiration Visits Visits Date Date Requested Authorized [id number] Authorization Not 12/12/2019 1 1 Required Encounter Details Date Type Department Care Team Description 01/12/2020 Hospital Encounter Suzie Remote Device Atrial fibrillation and [address] ([facility]) [place] [address] Social History Tobacco Use Types Packs/Day Years [...] Associated Diagnosis Comme nts CARDIAC IMPLANT Routine 01/12/2020 13:24 Atrial fibrillation R esults for this CHECK - REMOTE EDT and flutter ([facility]) proc edure are in MONITOR the results section. documented in this encounter Results CARDIAC IMPLANT CHECK - REMOTE - LOOP RECORDER (ILR) (01/12/2020 13:24 EDT) Anatomical Region Laterality Modality Device Specimen (Source) Anatomical Location Collection Method / Collectio n Time Received Time / Laterality Volume Narrative 01/15/2020 11:44 EDT I have reviewed the implantable loop recorder interrogation. ??I agree with the findings. ?? SCHEDULED ILR REMOTE TRANSMISSION. 11 AF ??EPISODES RECORDED SINCE LAST INT ERROGATION ARE INAPPROPRIATE DUE TO SINUS BRADYCARDIA WITH PAC'S. RATES RANG ING FROM 41 - 61 BPM. LONGEST DURATION 6 MINS. ?? BATTERY STATUS OK. NEXT CHECK IN 1 MO. DC Jojo Steiner NP CV IMPLANTABLE CARDIAC DEVIC E documented in this encounter Visit Diagnoses Diagnosis Atrial fibrillation and flutter (HCC) Atrial fibrillation documented in this encounter Care Teams Automobile Club Information Clerk Relationship Specialty Start Date End Date Enrike Brown MD PCP - General 10/19/18 [address] [place] [address] documented as of this encounter
--- OUTSIDE RECORDS SUMMARY | 2022-02-06 00:52 | XMS_ITS | Encounter Summary ---
:1955 Author Organization [facility] Address [address] [place] [address] Care Team Providers Name Role Phone Enrike Brown MD Primary Care Provider Reason for Referral (Routine) - Authorization Not Required Specialty Diagnoses / Procedures Referred By Contact Refer red To Contact Diagnoses Atrial fibrillation and flutter (HCC) Jojo Steiner, CAESAR Procedures CARDIAC IMPLANT CHECK - REMOTE MONITOR [address] [phone] Referral ID Status Reason Start Expiration Visits Visits Date Date Requested Authorized [id number] Authorization Not 1 1 Required 0 Reason for Visit (Routine) - Authorization Not Required Specialty Diagnoses / Procedures Referred By Contact Refer red To Contact Diagnoses Atrial fibrillation and flutter (HCC) Jojo Steiner, CAESAR Procedures CARDIAC IMPLANT CHECK - REMOTE MONITOR [address] [phone] Referral ID Status Reason Start Expiration Visits Visits Date Date Requested Authorized [id number] Authorization Not 1 1 Required 0 Encounter Details Date Type Department Care Team Description 03/06/2020 Hospital Encounter Suzie Remote Device Atrial fibrillation and [address] ([facility] [place] [address] Social History Tobacco Use Types Packs/Day Years [...] Associated Diagnosis Comme nts CARDIAC IMPLANT Routine 03/06/2020 10:39 Atrial fibrillation R esults for this CHECK - REMOTE EST and flutter ([facility]) proc edure are in MONITOR the results section. documented in this encounter Results CARDIAC IMPLANT CHECK - REMOTE - LOOP RECORDER (ILR) (03/06/2020 10:39 EST) Anatomical Region Laterality Modality Device Specimen (Source) Anatomical Location Collection Method / Collectio n Time Received Time / Laterality Volume Narrative 03/11/2020 13:11 EST I have reviewed the implantable loop recorder interrogation. ??I agree with the findings. ?? SCHEDULED ILR REMOTE TRANSMISSION. 0 EPISODES RECORDED SINCE LAST INTERROGA TION. BATTERY STATUS OK. NEXT CHECK IN 1 MO. DC Jojo Steiner NP CV IMPLANTABLE CARDIAC DEVIC E documented in this encounter Visit Diagnoses Diagnosis Atrial fibrillation and flutter (HCC) Atrial fibrillation documented in this encounter Care Teams Pipe Production Worker Relationship Specialty Start Date End Date Enrike Brown MD PCP - General 10/19/18 [address] [place] [address] documented as of this encounter
--- OUTSIDE RECORDS SUMMARY | 2022-02-06 00:52 | XMS_ITS | Encounter Summary ---
:1955 Author Organization [facility] Address [address] [place] [address] Care Team Providers Name Role Phone Elisha Morrell MD Primary Care Provider Reason for Visit Reason Onset Date Comments Procedure 08/03/2018 Encounter Details Date Type Department Care Team Description 08/03/2018 Telephone [facility] Heriberto Coelho Jr., MD Procedure Cardiology - [address] [address] [place], [place] [address] (Wo rk) Social History [...] this encounter Miscellaneous Notes Telephone Encounter - Alfonso Sexton RN - 08/04/2018 0941 EDT The surgeon would be Dre Faulkner. I'll call her this afternoon. Routing Comment Telephone Encounter - Alfonso Sexton RN - 08/03/[address] Laquita Golden is unsure whether she wants to have the PFO closure done in [place].Now she would like to talk with a CT surgeon before she makes a decision. Has many questions about the size of incision, hospital stay Who would be doing the surgery ? I talked with her about this. Can you call her again ? She is very anxious Thanks ALFONSO SEXTON RN Telephone Encounter - Lamar Guzman V. - 08/03/2018 1103 EDT Chantel has questions for the nurse regarding a procedure that she wants to do. documented in this encounter Plan of Treatment Not on filedocumented as of this encounter Visit Diagnoses Not on filedocumented in this encounter Care Teams Bottle Sorter Relationship Specialty Start Date End Date Elisha Morrell MD PCP - General 04/20/18 10/18/18 [address] [place] [address] documented as of this encounter
--- OUTSIDE RECORDS SUMMARY | 2022-02-06 00:52 | XMS_ITS | Encounter Summary ---
:[address] [facility] Address [address] [place] [address] Care Team Providers Name Role Phone Elisha Morrell MD Primary Care Provider Encounter Details Date Type Department Care Team Description 05/31/2018 - [facility] YelitzaOsbaldo MD [address] [id number] Typical atrial flutter (HCC-CMS) (Primar y Dx); 06/01/2018 Encounter Cardiac/Telemetry James Nogueira MD PhD [address] [id number] Persistent atrial fibrillation (HCC-CMS) [address] [place] [address] Social History Tobacco Use Types [...] Sign Reading Time Taken Comments Blood Pressure 98/45 06/01/2018 0815 EDT Pulse 67 05/31/2018 1106 EDT Temperature 37.1 ??C (98.8 ??F) 06/01/2018 0815 EDT Respiratory Rate 16 06/01/2018 0815 EDT Oxygen Saturation 97% 06/01/2018 0815 EDT Inhaled Oxygen Concentration - - Weight 79.8 kg (176 lb) 05/31/2018 1106 EDT Height 165.1 cm (5' 5) 05/31/2018 1106 EDT Body Mass Index 29.29 05/31/2018 1106 EDT documented in this encounter Functional Status [...] as of this encounter Discharge Diagnoses Diagnosis I48.92 Unspecified atrial flutter-I48.92 [ICD-10-CM] I47.1 Supraventricular tachycardia-I47.1 [ICD-10-CM] Q21.1 Atrial septal defect-Q21.1[ICD-10- CM] Z98.890 Other specified postprocedural s tates-Z98.890[ICD-10-CM] I51.7 Cardiomegaly-I51.7[ICD-10-CM] documented in this encounter Discharge Summaries Haydee Sin APRN - 05/31/2018 1312 EDT Cardiology Discharge Summary Primary Care Provider: Elisha Morrell Attending Physician: Joseph Torre MD Admit Date: 05/31/2018 Discharge Date: 06/01/2018 Disposition: Home or self care Problems and Procedures Admitting Diagnosis: Atrial Flutter Final Hospital Diagnosis: Atrial flutter post RFA performed 05/31/2018 Additional Problems Managed in the Hospital Active Hospital Problems Diagnosis Date Noted ??? Persistent atrial fibrillation ([facility]) 05/31/2018 Resolved Hospital Problems No resolved problems to display. Principal Procedure: AFL RFA Date: 05/31/2018 Secondary Procedures: Hospital Course Mrs. White is a 62-year-old female with no prior medical history who presented to [facility] on 04/19/18 for management of atrial tachyarrhythmia and newly found atrial septal defect on echocardiogram at outside hospital. Outside hospital course complicated by tachyarrhythmia refractory to adenosine, metoprolol and diltiazem drip that was further complicated by hypotension. Her chest x-ray showed cardiomegaly and mild CHF. A CT scan showed no pulmonary emboli. HerTSH was normal. Her BNP was 5274. She was transferred to [facility] and was still in atrial t achyarrhythmia that was unresponsive to oral diltiazem. A NISSA was performed and she had a successfulcardioversion x1. She was discharged to home on 04/23/18.She was started on Eliquis 5 mg p.o. twice daily, diltiazem extended release 240 mg daily and diltiazem short-acting pill in the pocket. She followed up recently in the office and reports she went back to the emergency department at [facility] with palpitations and overwhelming anxiety. She was given Ativan. In the office she complained of fatigue and shortness of breath on exertion. After a discussion in the office she has elected to undergo the ablation procedure. She is on Eliquis for a [id number] score of 1 for female. Post atrial flutter ablation she is feeling well. She denies CP, shortness of breath, dizziness, or syncope. The Diltiazem will be discontinued and she is aware to carry the bottle with her and use forepisodes of palpitations. Continue Eliquis 5 mg twice daily and has been instructed to take Protonixonce daily for 30 days for esophageal protection. She is aware to contact the office with any melena, hematuria, and if she hits her head, proceed to the ED. She will follow up with Dr. Brown on 06/10/18 at 1:[address] Torre on 12/05/18 at 11:00am. Allergies and Immunizations No Known Allergies There is no immunization history on file for this patient. Transition of Care Plans Condition at Discharge Good Assessment at Discharge Vital signs: Patient Vitals for the past 12 hrs: BP Heart Rate Resp Temp SpO2 O2 Device 06/01/18 0815 98/45 67 BPM 16 37.1 ??C (98.8 ??F) 97 % None 06/01/18 0313 101/57 58 BPM 18 36.1 ??C (97 ??F) 96 % None Is the patient being discharged with a diagnosis of Systolic Heart Failure? No Eliquis Non-Cardiac Studies at Time of Discharge Results Pending at Discharge Last Lab Results at Discharge Na: Lab Results Component Value Date NA 138 06/01/2018 Lab Results Component Value Date WBC 10.07 06/01/2018 HGB 13.3 06/01/2018 HCT 38.4 06/01/2018 MCV 86 06/01/2018 PLT 215 06/01/2018 Discharge Follow Up Upcoming Appointments Jun 09, 2018 10:20 EDT New Patient Visit with Pablo Johnson Jr., MD [facility] Cardiology - [place] (--) [address] [place] [address] Dr. Brown on 06/10/18 at 1:00 Appointments We Recommend but have not been Scheduled Haydee Sin APRN 06/01/2018 11:07 Associated attestation - Joseph Torre MD - 06/06/2018 0941 EDT I have seen and examined the patient and agree with the above history and physical exam and assessment and plan. Joseph Torre MD documented in this encounter Discharge Instructions Discharge Instr - Other Haydee Acevedo APRN - 05/31/2018 13:15 EDT Discharge Instructions for A-fib Ablation Patients 1. Wound Care: ?? You may remove the Band-Aids/Dressings from the sites the next morning ?? You may shower the following day. ?? No tub bathing for five days. This includes hot tubs and pools. 2. Call your physician or nurse if: ?? You develop drainage, redness, or swelling at any of the sites ?? You develop a fever ?? You develop increased tenderness and/or increased bruising over sites which doesn't resolve in 2 days ?? You develop a persistent and/or productive cough ?? Your symptoms reoccur ?? Pain or difficulty swallowing associated with flu like symptoms, fever or chills 3. Activity: ?? You can resume your normal activities in one week, unless you have been instructed otherwise ?? If you are traveling by car or airplane in the next week, you will need to stand and move around every 2 hours to promote circulation ?? No vigorous activity for 2 weeks. Avoid running, squatting and heavy lifting (>10 lbs) during this time period. ?? You may resume driving after 48 hours unless instructed otherwise ?? You may return to work after 5 days if your work demands are not physical. If your job entails strenuous activity, a two week waiting period is recommended. 4. Medications: ?? Resume prior medications unless otherwise instructed ?? Continue Cardizem as pill in the pocket when you have symptoms of palpitations. Continue Eliquis 5 mg twice daily, do not stop the medication unless Dr. Torre tells you to. Please contact the office with any blood in the urine or stool. If you hit your head please proceed to the emergency room. ?? Stop the Furosemide ?? Stop the Cardizem 120 mg daily ?? Please take Protonix once daily for 30 days to keep the acid levels down in your stomach. You should have filled a prescription prior to the procedure. Please let your nurse know if you do not have a prescription. ?? 5. Appointments: Dr. Brown on 06/10/18 at 1:[address] Torre on 12/05/18 at 11:00* If you have any questions or concerns, please don't hesitate to call the [facility]hythmia Serviceat [facility] at x [phone] (or dial direct-[phone]) Additional InstructionsKhalida Hammonds RN - 05/31/2018 documented in this encounter Medications at Time of Discharge Medication Sig Dispensed Refills Start Date End Date apixaban (ELIQUIS) 5 mg Take 1 tablet by 180 tablet 1 2018 tablet mouth 2 times daily. LORazepam (ATIVAN) 0.5 Take 1 mg by mouth 3 0 mg tablet times daily as needed. DILTiazem (CARDIZEM) 30 Take 1 Tab by mouth 12 Tab 0 04/201806/17/2018 mg tablet daily as needed (palpitations). pantoprazole (PROTONIX) Take one tablet 33 tablet 0 019 03/07/2019 40 mg tablet daily the 3 days prior to your ablation procedure and for 30 days afterwards. documented as of this encounter Discharge Disposition Disposition Code Departure Means Destination Home or Self Care documented in this encounter Progress Notes Mine Amezcua RN - 05/31/2018 1115 EDT Chantel White arrived to the Cardiovascular Unit via ambulation. Patient alert and oriented x3.Transfers to stretcher independently. Patient greeted and identified per [facility] policy. Allergies and procedure verified & patient oriented to Unit. Reviewed all pre-procedure instructions with Chantel White. All questions answered & patient verbalizes willingness and understan ding of pre-procedure education. Patient stretcher in low position with side rails up & call waller within patient reach. Patient's son is at bedside. Patient's plan is to be admitted overnight post-procedure. documented in this encounter H&P Notes Jaspreet Tovar MD - 05/31/2018 1128 EDT The preoperative history and physical which was performed within 30 days of this procedure has been reviewed and the clinically appropriate elements of the physical examination havebeen repeated. There are no changes to the documented history and physical or if so such changes aredocumented below The patient has been informed and understands the information and situation provided to them about the procedure. They have capacity and ability to weigh risks, goals and benefits as well as the alternatives of proposed treatments including the option of not undergoing the procedure. The patient has expressed their rationale and executed the choice to proceed forward with the procedure with no undue influence or coercion. If the patient is DNR, a required reconsideration has been completed? N/A Reports no further episodes since end of March (only had 2 episodes, one brief and other more severe requiring ED and DCCV). Taking apixaban. Denies odynophagia, dysphagia. A&P Symptomatic Persistent AT and PAF refractory to rate control s/p DCCV x1, ASD - plan NISSA + AF ablation - ?possibly try to induce, map, and ablate AT (?circuit around ASD or possibly atypical flutter around tricuspid or mitral?) Jaspreet Tovar MD 05/31/2018 11:28 Associated attestation - Joseph Torre MD - 06/06/2018 0940 EDT I have seen and examined the patient and agree with the above history and physical exam and assessment and plan. Joseph Torre MD Source Note - Joseph Torre MD - 05/16/2018 12:00 EST CC: AF HPI had 1st episode of AF in March. Very symptomatic. Was found to have ASD (1.8cm) preserved EF. Required Cardioversion. Feels fatigue but no other sxs. PMH: see problem list Meds See med list (on apixiban) PE: Gen NAD Cor RRR S1S2, -MRG Lungs CTA (crackles at left base clear with cough). A/P: I spent 25 minutes >50% in counseling. Symptomatic Persistent AF and ASD. Will f/u with Dr. Johnson re: ASD. Would like ablation for AF Risk benefits and alternatives discussed. Will schedule procedure at her earliest convenience. documented in this encounter Procedure Notes Marshall Marx MD - 05/31/2018 5122 EDT Atrial Flutter Ablation Yelitza/Francisco J/Skye ?? Baseline - SR SCL 1200ms Access - R fem V: 8.5F,7F L fem V: 7Fx3 No evidence of Atrial Fibrillation Atrial Flutter induced CTI line Bidirectional block Sinus rhythm at end of case. ?? Plan: - Bedrest 3h - Continue Eliquis - Continue Protonix - Follow up with Dr. Johnson for ASD closure consideration ? Marshall Marx Scrap Drop Crane Operator Pager [phone] Associated attestation - Joseph Torre MD - 06/06/2018 0942 EDT I was present for the ventura and critical portions of the procedure. Ej Arrington MD - 05/31/2018 1533 EDTProcedure(s): TRANSESOPHAGEAL ECHO (NISSA) Pre-Procedure Diagnose(s): Atrial fibrillation, unspecified type (HCC-CMS) (HCC) Post-Procedure Diagnose(s): Atrial fibrillation, unspecified type (HCC-CMS) (HCC) Transesophageal Echocardiogram Brief Post-Procedure Note Date of Procedure: 05/31/2018 Attending: Marshall Madison MD Fellow: Ej Arrington MD Pre-Op Diagnosis: atrial fibrillation Post-Op Diagnosis: atrial fibrillation Procedure: Transesophageal echocardiogram. Findings: No left atrial or left atrial appendage thrombus. LVEF normal. RV dilated with reduced systolic function. Large secundum atrial septal defect. Anesthesia Type: General anesthesia sedation was used. Estimated Blood Loss: Unless otherwise noted, there was no blood loss, specimens removed, cultures obtained, or drains retained. Complications: None Disposition and Condition: The patient remained in EP lab in unchanged condition. Ej Arrington MD 05/31/2018 15:33 documented in this encounter Miscellaneous Notes Plan of Care - Cinthia Ibrahim RN - 06/01/2018 1203 EDT Problem: Daily Care Plan Goals Goal: Care Plan Documentation Outcome: Met This Shift 06/01/18 0815 Care Plan Focus Area of Focus Discharge Plan Goal This Shift pt laverne be discharged this shift D: Patient discharged home per MD. A: IV removed, catheter tip intact. Telemetry removed. RN reviewed discharge instructions and medications with patient. Patient received discharge instructions. R: Patient expressed good understanding of discharge instructions. They have no questions at this time. Patient dressed independently. They left via wheelchair. Plan of Care - Juanito Carrillo RN - 06/01/2018 0430 EDT Problem: Daily Care Plan Goals Goal: Care Plan Documentation Outcome: Ongoing 06/01/18 0313 Care Plan Focus Area of Focus Circulatory Status Goal This Shift vss D: Patient arrived to [place] [address]-1 @ 2100 s/p Afib ablation via bilateral groin sites. Vital signs noted, and tele applied. Patient in SR/SB with heart rate in 60s. Patient denies chest pain, SOB, anddiscomfort. RFV/LFV C/D/I with +CSMTs. Neuros WNL. A: Assessment as documented in flow sheet. Admission database completed. Patient orientated to room,equipment, and care plan. Assessed orthos-->passed. Removed santos--> voiding appropriately. R: Continue to monitor and document per protocol. VSS. Remains in SR. CTM. Blood pressure 101/57, pulse 67, temperature 36.1 ??C (97 ??F), temperature source Tympanic, resp. rate 18, height 165.1 cm (65), weight 79.8 kg (176 lb), SpO2 96 %. Anesthesia Post-Eval - Nidia Coley - 05/31/2018 2937 EDT Anesthesia Post op Note Chantel White [id number] Anesthesia received: General; Vital Signs: Temp: 36.2 ??C (97.2 ??F), Heart Rate: 59 BPM, Pulse: 67, BP: 111/47, Resp: 18, SpO2: 97 % Vital signs Stable: Yes Consciousness: Recovered to baseline Patient's participation in evaluation:Able to participate Temperature Status: Normothermic Respiratory Status: Airway patent Supplemental O2: Nasal cannula Oxygen Saturation: Within patient's normal range Cardiovascular Status: Within patient's normal range Post-op Hydration: Adequate Nausea / Vomiting: None Pain Control: Adequate Current Pain Score: Numeric Pain Level (Scale 1-10): 0 Post-op Assessment: Tolerated procedure well Disposition: Inpatient Complications: No apparent anesthetic complications Doing well. No apparent anesthetic complications. Nidia Coley MD 05/31/2018 18:47 documented in this encounter Plan of Treatment Not on filedocumented as of this encounter Procedures Procedure Name Priority Date/Time Associated Comments Diagnosis ECG REPORT - SCANNED 06/06/2018 8:29 EDT ECG REPORT - SCANNED 06/01/2018 21:24 EDT COMPLETE BLOOD COUNT Routine 06/01/2018 6:09 Resu lts for this EDT procedure are i n the results section. BUN Routine 06/01/2018 6:09 Results for this EDT procedure are i n the results section. HEMOGLOBIN A1C Routine 06/01/2018 6:09 Results fo r this EDT procedure are i n the results section. CREATININE Routine 06/01/2018 6:09 Results for this EDT procedure are i n the results section. ELECTROLYTES Routine 06/01/2018 6:09 Results for this EDT procedure are i n the results section. EKG 12-LEAD Routine 05/31/2018 19:13 Results for this EDT procedure are i n the results section. ACT, KAOLIN ISTAT Routine 05/31/2018 15:59 Result s for this EDT procedure are i n the results section. TYPE AND SCREEN Routine 05/31/2018 11:40 Results for this EDT procedure are i n the results section. PROTIME STAT 05/31/2018 11:20 Results for this EDT procedure are i n the results section. COMPLETE BLOOD COUNT STAT 05/31/2018 11:20 Res ults for this EDT procedure are i n the results section. BUN STAT 05/31/2018 11:20 Results for this EDT procedure are i n the results section. CREATININE STAT 05/31/2018 11:20 Results for this EDT procedure are i n the results section. ELECTROLYTES STAT 05/31/2018 11:20 Results for this EDT procedure are i n the results section. documented in this encounter Results ECG REPORT - SCANNED (06/06/2018 8:29 EDT) Specimen (Source) Anatomical Collection Method Collection Time Re ceived Time Location / / Volume Laterality 06/06/2018 8:29 EDT Narrative This result has an attachment that is no t available. Scan 2 Water Taxi Operator PROCEDURE/MINOR SURGICAL ORD ERABLES ECG REPORT - SCANNED (06/01/2018 21:24 EDT) Specimen (Source) Anatomical Collection Method Collection Time Re ceived Time Location / / Volume Laterality 06/01/2018 21:24 EDT Narrative This result has an attachment that is no t available. Scan 2 Water Taxi Operator PROCEDURE/MINOR SURGICAL ORD ERABLES CREATININE (06/01/2018 6:09 EDT) athologist Signature Creatinine 0.87 0.52 - 06/01/2018 [facility] 1.04 mg/dl 7:01 EDT [facility] GFR, Calculated 71 >60 06/01/2018 [facility] ml/min/1.7 7:01 EDT [facility]ENTER 3m2 [facility] Comment: eGFR calculated using CKD-EPI equation f or non Americans. Multiply eGFR by 1.16 for Americans. Specimen Anatomical Collection Method Collection Time Receive d Time (Source) Location / / Volume Laterality Blood specimen BLOOD SPECIMEN / 06/01/2018 6:09 2018 6:28 (specimen) Unknown EDT EDT Marshall Marx MD CHEMISTRY & BLOOD GAS ORDERA BLES Performing Organization Address City/State/ZIP Code Phon e Number [facility] [address] [place] [address] SERVICES BUN (06/01/2018 6:09 EDT) athologist Signature BUN 21 10 - 26 06/01/2018 [facility] mg/dl 7:01 EDT [facility] Specimen Anatomical Collection Method Collection Time Receive d Time (Source) Location / / Volume Laterality Blood specimen BLOOD SPECIMEN / 06/01/2018 6:09 2018 6:28 (specimen) Unknown EDT EDT Marshall Marx MD CHEMISTRY & BLOOD GAS ORDERA BLES Performing Organization Address City/[facility]/ZIP Code Phon e Number [facility] [address] [place] [phone] SERVICES ELECTROLYTES (06/01/2018 6:09 EDT) athologist Signature Sodium 138 136 - 145 06/01/2018 [facility] mEq/L 7:01 EDT [facility] Potassium 4.6 3.5 - 5.0 06/01/2018 [facility] mEq/L 7:01 EDT [facility] Chloride 105 96 - 110 06/01/2018 [facility] mEq/L 7:01 EDT [facility] CO2 27 22 - 32 06/01/2018 [facility] mEq/L 7:01 EDT [facility] Specimen Anatomical Collection Method Collection Time Receive d Time (Source) Location / / Volume Laterality Blood specimen BLOOD SPECIMEN / 06/01/2018 6:09 2018 6:28 (specimen) Unknown EDT EDT Marshall Marx MD CHEMISTRY & BLOOD GAS ORDERA BLES Performing Organization Address City/State/ZIP Code Phon e Number [facility] [address] [place] [address] SERVICES COMPLETE BLOOD COUNT (06/01/2018 6:09 EDT) P athologist Signature WBC 10.07 4.0 - 12.4 06/01/2018 [facility] K/cmm 6:42 EDT [facility] RBC 4.47 3.86 - 5.04 06/01/2018 [facility] M/cmm 6:42 EDT [facility] Hemoglobin 13.3 11.6 - 15.2 06/01/2018 [facility] gm/dl 6:42 EDT [facility] HCT 38.4 34.9 - 44.4 06/01/2018 [facility] % 6:42 EDT [facility] MCV 86 81 - 98 fl 06/01/2018 [facility] 6:42 EDT [facility] MCH 29.8 26.7 - 33.3 06/01/2018 [facility] pg 6:42 EDT [facility] MCHC 34.6 32.1 - 35.9 06/01/2018 [facility] gm/dl 6:42 EDT [facility] RDW-CV 13.2 <14.7 % 06/01/2018 [facility] 6:42 EDT [facility] RDW-SD 41.5 <50.4 fl 06/01/2018 [facility] 6:42 EDT [facility] PLT 215 141 - 377 06/01/2018 [facility] K/cmm 6:42 EDT [facility] MPV 10.2 9.5 - 12.7 06/01/2018 [facility] fl 6:42 EDT [facility] Specimen Anatomical Collection Method Collection Time Receive d Time (Source) Location / / Volume Laterality Blood specimen BLOOD SPECIMEN / 06/01/2018 6:09 2018 6:28 (specimen) Unknown EDT EDT Marshall Marx MD HEMATOLOGY & PF4 ORDERABLES Performing Organization Address City/State/ZIP Code Phon e Number [facility] [address] [place] [address] SERVICES HEMOGLOBIN A1C (06/01/2018 6:09 EDT) athologist Signature Hemoglobin A1C 5.7 % 06/01/2018 [facility] 9:04 EDT [facility] Comment: Reference Range: <5.7% Normal 5.7-6.4% Prediabetes =>6.5% Diagnostic for diabetes (if confi rmed) Goals for glycemic control in diabetes A DA 2017 For non adults with diabetes: ?? Target <7.0% For children and adolescents with type 1 diabetes: ?? Target <7.5% More or less stringent targets may be appropriate for individual patients. Est Avg Glucose 117 mg/dl 06/01/2018 9:04 EDT [facility] Comment: eAG represents the A1c result expressed as average glucose in mg/dl. Specimen Anatomical Collection Method Collection Time Receive d Time (Source) Location / / Volume Laterality Blood specimen BLOOD SPECIMEN / 06/01/2018 6:09 2018 6:28 (specimen) Unknown EDT EDT Marshall Marx MD CHEMISTRY & BLOOD GAS ORDERA BLES Performing Organization Address City/State/ZIP Code Phon e Number [facility] [address] [place] [address] SERVICES EKG 12-LEAD (05/31/2018 19:13 EDT) Specimen (Source) Anatomical Collection Method Collection Time Re ceived Time Location / / Volume Laterality 05/31/2018 19:13 EDT Narrative [facility] - 06/01/2018 21:1 9 EDT ? [facility] ? Test Date: ?2018-05-31 Pat Name: ? CHANTEL WHITE ? Department: ?? [facility] ? Room: ? [id number] Gender: ? Female ? Branch Service Leader: ?? [id number] : ?1955 ? Requested By: FRANCISCO J Padilla Order Number: [id number] ? Reading MD: ?? LINDA DIANA MD ? Measurements Intervals ?[place] ? Rate: ? 63 ? P: ?17 PA: ? 205 ?QRS: ?35 QRSD: ? 105 ?T: ?27 QT: ? 448 ? QTc: ?462 ? Interpretive Statements SINUS RHYTHM AND SINUS ARRYTHMIA WITH FI RST DEGREE AV BLOCK INCOMPLETE RIGHT BUNDLE BRANCH BLOCK Compared to ECG 05/05/2018 15:59:44 Incomplete right bundle-branch block sti ll present Sinus bradycardia no longer present First degree AV block still present I reviewed the tracing and have either a greed or edited the findings in this report. Electronically Signed On 06-02-19 21:19:40 EDT by LINDA DIANA MD. Procedure Note Linda Diana MD - 06/01/2018Formatti ng of this note might be different from the original. [facility] Test Date: 2018-05-31 Pat Name: CHANTELChanel WHITE Department: [facility] Room: [id number] Gender: Female Branch Service Leader: [id number] : 1955 Requested By: FRANCISCO J RDZ J Order Number: [id number] Reading MD: Randy DIANA MD Measurements Intervals [place] Rate: 63 P: 17 PA: 205 QRS: 35 QRSD: 105 T: 27 QT: 448 QTc: 462 Interpretive Statements SINUS RHYTHM AND SINUS ARRYTHMIA WITH FI RST DEGREE AV BLOCK INCOMPLETE RIGHT BUNDLE BRANCH BLOCK Compared to ECG 05/05/2018 15:59:44 Incomplete right bundle-branch block sti ll present Sinus bradycardia no longer present First degree AV block still present I reviewed the tracing and have either a greed or edited the findings in this report. Electronically Signed On 06-02-19 21:19:40 EDT by LINDA DIANA MD. Marshall Marx MD CARDIAC ECG ORDERABLES Performing Organization Address City/State/ZIP Code Phon e Number [facility] EKG (ABNORMAL) DESI CHOE [place] (05/31/2018 15:59 EDT) athologist Signature Activated 296 (H) 74 - 137 05/31/2018 [facility] Clotting Time sec 16:16 EDT [facility] malted milk supervisor ID [phone] 05/31/2018 [facility] 16:16 T [facility]ENTER LAB[facility] SERVICES Comment: Test performed by Cardiology Therapeutic interventional range is depe ndent upon patient population and procedure type. Specimen Anatomical Collection Method Collection Time Receive d Time (Source) Location / / Volume Laterality BLOOD SPECIMEN / 05/31/2018 15:59 019 Unknown EDT 16:16 EDT Joseph Torre MD POINT OF CARE TEST ORDERABLE S Performing Organization Address City/State/ZIP Code Phon e Number [facility] [address] [place] [address] SERVICES TYPE AND SCREEN (05/31/2018 11:40 EDT) Patholo gist Method Time Signature ABO B [facility] BLO[facility] Rh Factor Positive [facility] BLOOD [facility] Antibody Negative [facility] BLOOD BANK Specimen 06/03/2018 @ [facility] Expires: 23:59 CENTER BLOOD BANK Specimen (Source) Anatomical Collection Method Collection Time Re ceived Time Location / / Volume Laterality Blood specimen 05/31/2018 11:40 (specimen) EDT Joseph Torre MD BLOOD BANK TESTS Performing Organization Address City/State/ZIP Code Phon e Number [facility] BLOOD B[facility] [address] BLOOD BANK (ABNORMAL) PROTIME (05/31/2018 11:20 EDT) P athologist Signature Pro Time 16.5 (H) 10.3 - 13.4 05/31/2018 [facility] secs 12:16 EDT [facility]ENTER [facility] SERVICES I.N.R. 1.4 (H) 0.9 - 1.1 05/31/2018 [facility] Ratio 12:16 EDT [facility]ENTER [facility] SERVICES Comment: Moderate Intensity Coumadin INR = 2.0-3. 0 Adjustments in anticoagulant therapy dos e should be based upon the INR and NOT the Pro Ti me. Specimen Anatomical Collection Method Collection Time Receive d Time (Source) Location / / Volume Laterality Blood specimen BLOOD SPECIMEN / 05/31/2018 11:20 05/31 (specimen) Unknown EDT 11:45 EDT Joseph Torre MD HEMATOLOGY & PF4 ORDERABLES Performing Organization Address City/State/ZIP Code Phon e Number [facility] [address] [place] [address] SERVICES ELECTROLYTES (05/31/2018 11:20 EDT) athologist Signature Sodium 138 136 - 145 05/31/2018 [facility] mEq/L 12:18 EDT [facility] Potassium 4.2 3.5 - 5.0 05/31/2018 [facility] mEq/L 12:18 EDT [facility] Chloride 103 96 - 110 05/31/2018 [facility] mEq/L 12:18 EDT [facility]ENTER [facility] SERVICES CO2 26 22 - 32 05/31/2018 [facility] mEq/L 12:18 EDT [facility] Specimen Anatomical Collection Method Collection Time Receive d Time (Source) Location / / Volume Laterality Blood specimen BLOOD SPECIMEN / 05/31/2018 11:20 05/31 (specimen) Unknown EDT 11:45 EDT Joseph Torre MD CHEMISTRY & BLOOD GAS ORDERA BLES Performing Organization Address [facility]/ZIP Code Phon e Number [facility] [address] [place] [phone] SERVICES CREATININE (05/31/2018 11:20 EDT) athologist Signature Creatinine 0.66 0.52 - 05/31/2018 [facility] 1.04 mg/dl 12:18 EDT [facility]ENTER [facility] SERVICES GFR, Calculated 94 >60 05/31/2018 [facility] ml/min/1.7 12:18 EDT CENTER 3m2 LABORATORY SERVICES Comment: eGFR calculated using CKD-EPI equation f or non Americans. Multiply eGFR by 1.16 for Americans. Specimen Anatomical Collection Method Collection Time Receive d Time (Source) Location / / Volume Laterality Blood specimen BLOOD SPECIMEN / 05/31/2018 11:20 05/31 (specimen) Unknown EDT 11:45 EDT Joseph Torre MD CHEMISTRY & BLOOD GAS ORDERA BLES Performing Organization Address City/[facility]/ZIP Code Phon e Number [facility] [address] [place] [address] SERVICES COMPLETE BLOOD COUNT (05/31/2018 11:20 EDT) athologist Signature WBC 11.33 4.0 - 12.4 05/31/2018 [facility] K/cmm 12:08 EDT [facility] RBC 4.97 3.86 - 5.04 05/31/2018 [facility] M/cmm 12:08 EDT [facility] SERVICES Hemoglobin 14.7 11.6 - 15.2 05/31/2018 [facility] gm/dl 12:08 EDT [facility] HCT 40.9 34.9 - 44.4 05/31/2018 [facility] % 12:08 EDT [facility]ENTER [facility] SERVICES MCV 82 81 - 98 fl 05/31/2018 [facility] 12:08 EDT [facility] SERVICES MCH 29.6 26.7 - 33.3 05/31/2018 [facility] pg 12:08 EDT [facility] SERVICES MCHC 35.9 32.1 - 35.9 05/31/2018 [facility] gm/dl 12:08 EDT [facility]ENTER LAB[facility] SERVICES RDW-CV 13.0 <14.7 % 05/31/2018 [facility] 12:08 EDT [facility]ENTER [facility] SERVICES RDW-SD 38.9 <50.4 fl 05/31/2018 [facility] 12:08 EDT [facility]ENTER LAB[facility] SERVICES PLT 239 141 - 377 05/31/2018 [facility] K/cmm 12:08 EDT [facility] MPV 10.3 9.5 - 12.7 05/31/2018 [facility] fl 12:08 EDT [facility]ENTER [facility] SERVICES Specimen Anatomical Collection Method Collection Time Receive d Time (Source) Location / / Volume Laterality Blood specimen BLOOD SPECIMEN / 05/31/2018 11:20 05/31 (specimen) Unknown EDT 11:45 EDT Joseph Torre MD HEMATOLOGY & PF4 ORDERABLES Performing Organization Address City/State/ZIP Code Phon e Number [facility] [address] [place] [address] SERVICES BUN (05/31/2018 11:20 EDT) P athologist Signature BUN 14 10 - 26 05/31/2018 [facility] mg/dl 12:18 EDT [facility] SERVICES Specimen Anatomical Collection Method Collection Time Receive d Time (Source) Location / / Volume Laterality Blood specimen BLOOD SPECIMEN / 05/31/2018 11:20 05/31 (specimen) Unknown EDT 11:45 EDT Joseph Torre MD CHEMISTRY & BLOOD GAS ORDERA BLES Performing Organization Address City/State/ZIP Code Phon e Number [facility]ATORY [address] [place] [address] SERVICES documented in this encounter Visit Diagnoses Diagnosis Typical atrial flutter (HCC-CMS) (HCC) - Primary Atrial flutter Persistent atrial fibrillation (HCC) Atrial fibrillation documented in this encounter Administered Medications Inactive Administered Medications - up to 3 most recent administrations Medication Order MAR Action Action Date Dose Rate Site acetaminophen (TYLENOL) 500 mg tablet 1 dose, Starting on Wed05/31/18 at 1750, Until 05/20 at 1403 acetaminophen (TYLENOL) tablet 1,000 mg Given 05/31/2018 17:51 EDT 1,000 mg 1,000 mg, oral, PRN, 1 dose, Starting on Wed05/31/18 at 1738, Until Wed05/31/18 at 1751, Fever, Routine, Recovery (only) acetaminophen (TYLENOL) tablet 650 mg 650 mg, oral, EVERY 4 HOURS PRN, Startin g on Wed05/31/18 at 2042, Until Wed06/01/18 at 1403, Pain, Routine, Postprocedure apixaban (ELIQUIS) tablet 5 mg Given 06/01/2018 8:52 EDT 5 mg 5 mg, oral, 2 TIMES DAILY, First dose on Wed05/31/18 at 2100, Until Discontinued, Indication for apixaban: Non valvular atrial fibrillation, Routine Given 05/31/2018 22:30 EDT 5 mg fentaNYL citrate (PF) injection 25-50 mc g Given 05/31/2018 18:27 EDT 25 mcg 25-50 mcg, intravenous, EVERY 5 MIN PRN, Starting on Wed05/31/18 at 1738, Until Wed05/31/18 at 2056, Pain, Routine, Recovery (only) furosemide (LASIX) 10 mg/mL injection 1 dose, Starting on Wed05/31/18 at 1828, Until 05/20 at 1403 furosemide (LASIX) tablet 20 mg Given 05/31/2018 19:28 EDT 20 mg 20 mg, oral, DAILY, First dose on Wed05/31/18 at 1700, Until Discontinued, Routine heparin 1,000 unit/mL injection 1 dose, Starting on Wed05/31/18 at 1323, Until 05/20 at 1403 heparin 1,000 unit/mL injection Given 05/31/2018 15:23 EDT 12,000 Units intravenous, PRN, Starting on Wed05/31/18 at 1523, Until Wed05/31/18 at 1523, Routine heparin in 1/2 NS 25,000 unit/250 mL inf usion 1 dose, Starting on Wed05/31/18 at 1323, Until 05/20 at 1403 heparin in 1/2 NS 25,000 New Bag 05/31/2018 15:24 1,200 Units/hr 1 2 mL/hr unit/250 mL infusion EDT intravenous, FA IP EQF CONTINUOUS PRN FOR ONE STEP MEDS, Starting on Wed05/31/18 at 1524, Until Wed05/31/18 at 1524, Routine ketOROLAC (TORADOL) 30 mg/mL (1 mL) inje ction 1 dose, Starting on Wed05/31/18 at 1750, Until 05/20 at 1403 ketOROLAC (TORADOL) injection 15 mg Given 06/01/2018 6:35 EDT 15 mg 15 mg, intravenous, EVERY 6 HOURS, 20 doses, First dose on Wed05/31/18 at 1800, Last dose on Wed06/05/18 at 1200, Routine, Postprocedure Given 05/31/2018 23:41 EDT 15 mg Given 05/31/2018 17:51 EDT 15 mg LORazepam (ATIVAN) tablet 1 mg Given 06/01/2018 8:52 EDT 1 mg 1 mg, oral, 3 TIMES DAILY, First dose on Wed05/31/18 at 1700, Until Discontinued, Routine Given 05/31/2018 23:40 EDT 1 mg Given 05/31/2018 18:24 EDT 1 mg pantoprazole (PROTONIX) tablet 40 mg Given 06/01/2018 8:52 EDT 40 mg 40 mg, oral, DAILY, First dose on Wed05/31/18 at 1700, Until Discontinued, Routine protamine 10 mg/mL injection 1 dose, Starting on Wed05/31/18 at 1323, Until 05/20 at 1403 protamine injection Given 05/31/2018 16:51 EDT 50 mg intravenous, PRN, Starting on Wed05/31/18 at 1651, Until Wed05/31/18 at 1651, Routine sodium chloride 0.9 % (NS) infusion New Bag 05/31/2018 11:45 EDT 30 mL/hr 30 mL/hr 30 mL/hr, intravenous, CONTINUOUS, Starting on Wed05/31/18 at 1115, Until Wed06/01/18 at 1403, Routine, Preprocedure documented in this encounter Discontinued Medications Medication Sig Discontinue Reason Start Date End Date DILTiazem (CARDIZEM CD) Take 2 capsules by Therapy completed 201806/01/2018 120 mg capsule mouth daily. furosemide (LASIX) 20 Take 20 mg by mouth Therapy completed 06/01/2018 mg tablet daily. ibuprofen (MOTRIN) 200 Take 200 mg by mouth 06/01/2018 mg tablet every 8 hours as needed for Pain. documented as of this encounter Active and Recently Administered Medications Times are shown in EDT. Scheduled Medication Order 05/30/2018 05/31/2018 06/01/2018 apixaban (ELIQUIS) tablet 5 mg 2230 (Given - Pro vider: Juanito Carrillo RN) 0852 (Given - Provider: Cinthia Ibrahim, MARJORIE) 5 mg, oral, 2 TIMES DAILY, First dose on Wed05/31/18 at 2100, Until Discontinued, Routine furosemide (LASIX) tablet 20 mg 1928 (Given - Pr ovider: Jagjit Hunt RN) 0853 (Not Given - Provider: Cinthia Ibrahim, MARJORIE - Reason: Patient/family refused) 20 mg, oral, DAILY, First dose on 03/09 at 1700, Until Discontinued, Routine ketOROLAC (TORADOL) injection 15 mg 1751 (Given - Provider: Jagjit Hunt RN)2341 (Given - Provider: Juanito Carrillo RN) 0635 (Given - Provider: Juanito Carrillo RN)1157 (Not Given - Provider: Cinthia Ibrahim, MARJORIE - Reason: Other - Comment: pt discharged, IV removed) 15 mg, intravenous, EVERY 6 HOURS, 20 do ses, First dose on Wed05/31/18 at 1800, Last dose on Wed06/05/18 at 1200, Routine LORazepam (ATIVAN) tablet 1 mg 1824 (Giv en - Provider: Jagjit Hunt RN)2340 (Given - Provider: Juanito Carrillo RN) 0852 (Given - Provider: Cinthia Ibrahim RN)1400 (Canceled Entry - Provider: Batch Job User Admin - Comment: Automatically canceled at discontinue of medication order) 1 mg, oral, 3 TIMES DAILY, First dose on e 05/31/18 at 1700, Until Discontinued, Routine pantoprazole (PROTONIX) tablet 40 mg 190 0 (Not Given - Provider: Jagjit Hunt RN - Reason: Patient/family refused) 0852 (Given - Provider: Corina Clarke N) 40 mg, oral, DAILY, First dose on 03/09 at 1700, Until Discontinued, Routine Continuous Medication Order 05/30/2018 05/31/2018 06/01/2018 sodium chloride 0.9 % (NS) infusion 1145 (New Bag - Provider: Mine Amezcua RN - Comment: Filter on end of IV-patient has ASD) at 30 mL/hr, 30 mL/hr, intravenous, CONT INUOUS, Starting Wed05/31/18 at 1115, Until Wed06/01/18 at 1403, Routine PRN Medication Order 05/30/2018 05/31/2018 06/01/2018 acetaminophen (TYLENOL) tablet 1,000 mg (COMPLETED) 1751 (Given - Provider: Jagjit Hunt RN) 1,000 mg, oral, PRN, 1 dose, Starting Tu e 05/31/18 at 1738, Until Wed05/31/18 at 1751, Fever, Routine acetaminophen (TYLENOL) tablet 650 mg 650 mg, oral, EVERY 4 HOURS PRN, Startin g Wed05/31/18 at 2042, Until Wed06/01/18 at 1403, Pain, Routine fentaNYL citrate (PF) injection 25-50 mcg (CANCELED) 1827 (Given - Provider: Jagjit Hunt RN) 25-50 mcg, intravenous, EVERY 5 MIN PRN, Starting e 05/31/18 at 1738, Until e 05/31/18 at 2056, Pain, Routine heparin 1,000 unit/mL injection (COMPLETED) 1523 (Given - Provider: Uday Carpenter) intravenous, PRN, Starting Wed05/31/18 at 1523, Until Discontinu ed, Routine heparin in 1 NS 25,000 unit/250 mL infusion (COMPLETED) 1524 (New Bag - Provider: Uday Carpenter) intravenous, FA IP EQF CONTINUOUS PRN FO R ONE STEP MEDS, Starting 05/31/18 at 1524, Until Discontinued, Routine protamine injection (COMPLETED) 1651 (Given - Pr ovider: Uday Carpenter) intravenous, PRN, Starting on Wed 9 at 1651, Until 05/31/18 at 1651, Routine No Frequency Medication Order 05/30/2018 05/31/2018 06/01/2018 acetaminophen (TYLENOL) 500 mg tablet 1 dose, Starting 05/31/18 at 1750, Until Discontinued furosemide (LASIX) 10 mg/mL injection 1 dose, Starting 05/31/18 at 1828, Until Discontinued heparin 1,000 unit/mL injection 1 dose, Starting 05/31/18 at 1323, Until Discontinued heparin in 03/23 NS 25,000 unit/250 mL infusion 1 dose, Starting 05/31/18 at 1323, Until Discontinued ketOROLAC (TORADOL) 30 mg/mL (1 mL) injection 1 dose, Starting 05/31/18 at 1750, Until Discontinued protamine 10 mg/mL injection 1 dose, Starting 05/31/18 at 1323, Until Discontinued documented in this encounter Orders Medications Ordered That Might Not Have Count Last Ord ered Date First Ordered Date Been Administered acetaminophen (TYLENOL) 500 mg tablet 1 05/31/2018 acetaminophen (TYLENOL) solution unit dose 1 05/31 cup 995 mg acetaminophen (TYLENOL) tablet 650 mg 1 05/31/2018 atropine 0.1 mg/mL syringe 0.5 mg 2 05/31/2018 diphenhydrAMINE (BENADRYL) injection 12.5 1 2018 mg furosemide (LASIX) 10 mg/mL injection 1 05/31/2018 heparin 1,000 unit/mL injection 1 05/31/2018 heparin in 1/2 NS 25,000 unit/250 mL 1 05/31/2018 infusion ketOROLAC (TORADOL) 30 mg/mL (1 mL) 1 05/31/2018 injection lactated ringers (LR) infusion 2 05/31/2018 metoCLOPramide (REGLAN) injection 10 mg 1 06/01/19 19 naloxone (NARCAN) injection 0.2 mg 2 05/31/2018 protamine 10 mg/mL injection 1 05/31/2018 Nursing Count Last Ordered Date First Ordered Date APPLY WARMING BLANKET 1 05/31/2018 DISCHARGE INSTRUCTIONS 1 05/31/2018 DISCONTINUE SALINE LOCK/IV 1 05/31/2018 INSERT PERIPHERAL IV 1 05/31/2018 MAINTAIN SEQUENTIAL COMPRESSION DEVICE 1 9 VTE PHARMACOLOGIC PROPHYLAXIS CURRENTLY 2 06/01/19 19 ORDERED OR ON ALTERNATIVE THER Admission Count Last Ordered Date First Ordered Date STATUS: OUTPATIENT MEDICAL OP BED/SERVICES 2 05/31 Transfer Count Last Ordered Date First Ordered Date CHANGE ATTENDING TO: 1 06/01/2018 NOTIFY PPS OF DISCHARGE COMPLETE 1 06/01/2018 NOTIFY PPS PATIENT ARRIVAL IN PACU 1 05/31/2018 NOTIFY PPS PATIENT TRANSFERRED OUT OF PACU 1 05/31 PPS NOTIFICATION OF PATIENT ARRIVAL ON 3 9 UNIT Discharge Count Last Ordered Date First Ordered Date DISCHARGE PATIENT 1 06/01/2018 documented in this encounter Care Teams Supervisor Securities V[employer] Relationship Specialty Start Date End Date Elisha Morrell MD PCP - General 04/20/18 10/18/18 [address] [place] [address] documented as of this encounter
--- OUTSIDE RECORDS SUMMARY | 2022-02-06 00:52 | XMS_ITS | Encounter Summary ---
:1955 Author Organization [facility] Address [address] [place] [address] Care Team Providers Name Role Phone Enrike Brown MD Primary Care Provider [phone] Reason for Referral (Routine) - Authorization Not Required Specialty Diagnoses / Procedures Referred By Contact Refer red To Contact Diagnoses Atrial fibrillation and flutter (HCC) Jojo Steiner, CAESAR Procedures CARDIAC IMPLANT CHECK - REMOTE MONITOR [address] [phone] Referral ID Status Reason Start Expiration Visits Visits Date Date Requested Authorized [id number] Authorization Not 10/02/2019 1 1 Required Reason for Visit (Routine) - Authorization Not Required Specialty Diagnoses / Procedures Referred By Contact Refer red To Contact Diagnoses Atrial fibrillation and flutter (HCC) Jojo Steiner, CAESAR Procedures CARDIAC IMPLANT CHECK - REMOTE MONITOR [address] [phone] Referral ID Status Reason Start Expiration Visits Visits Date Date Requested Authorized [id number] Authorization Not 10/02/2019 1 1 Required Encounter Details Date Type Department Care Team Description 10/02/2019 Hospital Encounter Suzie Remote Device Atrial fibrillation and 60 Suzie hurtado ([facility] [place] [address] Social History Tobacco Use Types Packs/Day Years [...] Associated Diagnosis Comme nts CARDIAC IMPLANT Routine 10/02/2019 12:02 Atrial fibrillation R esults for this CHECK - REMOTE EDT and flutter ([facility]) proc edure are in MONITOR the results section. documented in this encounter Results CARDIAC IMPLANT CHECK - REMOTE - LOOP RECORDER (ILR) (10/02/2019 12:02 EDT) Anatomical Region Laterality Modality Device Specimen (Source) Anatomical Location Collection Method / Collectio n Time Received Time / Laterality Volume Narrative 10/02/2019 21:56 EDT I have reviewed the implantable loop recorder interrogation. ??I agree with the findings. SCHEDULED ILR REMOTE TRANSMISSION. 1 AF ??EPISODE RECORDED SINCE LAST INTER ROGATION CONSISTENT WITH SINUS WITH OCCASIONAL PAC. BATTERY STATUS OK. NEXT CHECK IN 1 MO. DC Jojo Steiner NP CV IMPLANTABLE CARDIAC DEVIC E documented in this encounter Visit Diagnoses Diagnosis Atrial fibrillation and flutter (HCC) Atrial fibrillation documented in this encounter Care Teams Mergers And Acquisitions Manager Relationship Specialty Start Date End Date Enrike Brown MD PCP - General 10/19/18 [address] [place] [address] documented as of this encounter
--- OUTSIDE RECORDS SUMMARY | 2022-02-06 00:52 | XMS_ITS | Encounter Summary ---
:1955 Author Organization [facility] Address [address] [place] [address] Care Team Providers Name Role Phone Elisha Morrell MD Primary Care Provider Reason for Visit Reason Onset Date Comments Medication Management 05/23/2018 Encounter Details Date Type Department Care Team Description 05/23/2018 Telephone [facility] Joseph Torre, Medication Management Cardiology - Suzie MEZA 62 Suzie Rodriguez [address] [place] [address] (Wo rk) Social History Tobacco [...] making decisions? documented as of this encounter Ordered Prescriptions Prescription Sig Dispensed Refills Start Date End Date pantoprazole (PROTONIX) Take one tablet daily 33 tablet 0 0 05/23/2018 03/07/2019 40 mg tablet the 3 days prior to your ablation procedure and for 30 days afterwards. documented in this encounter Miscellaneous Notes Telephone Encounter - Lizbeth Clark RN - 05/23/2018 1019 EST Spoke to pt and reviewed ablation instructions and also mailed. Pt has been on eliquis uninterruptedat least 4 weeks. Telephone Encounter - Adriana Kevin - 05/23/2018 1015 EST Bernice Pre op nurse calling with medication questions Please call her back documented in this encounter Plan of Treatment Not on filedocumented as of this encounter Visit Diagnoses Not on filedocumented in this encounter Care Teams Plating Tank Operator Relationship Specialty Start Date End Date Elisha Morrell MD PCP - General 04/20/18 10/18/18 [address] [place] [address] documented as of this encounter
--- OUTSIDE RECORDS SUMMARY | 2022-02-06 00:52 | XMS_ITS | Encounter Summary ---
:1955 Author Organization [facility] Address [address] [place] [address] Care Team Providers Name Role Phone Elisha Morrell MD Primary Care Provider Reason for Visit Reason Onset Date Comments Referral Request 08/04/2018 Follow-up 08/08/2018 Encounter Details Date Type Department Care Team Description 08/04/2018 Telephone [facility] Pablo Coelho Jr., Referral Request; Cardiology - Suzie MEZA Follow-up 62 Suzie Rodriguez [address] [place] [address] (Wo rk) Social History Tobacco [...] Telephone Encounter - Wendy Sexton RN - 08/09/2018 0854 EDT Pt is now refusing to have herself tested for nickel in [place]. Cancelled the appointment in [place]. States she wears all kinds of earrings with nickel and never had a reaction WENDY SEXTON RN Telephone Encounter - Eboni Danielson - 08/08/2018 1412 EDT Patient calling to follow up on referral request. Please call to discuss. Telephone Encounter - Geovanna Del Rio RN - 08/05/2018 1046 EDT Could you please put in a new external referral for this request? Thank you. Geovanna Del Rio RN Spoke with pt to let her know request for new referral has been requested and to give us a call backMonday if she has not heard back from us or scheduling. Geovanna Del Rio RN Telephone Encounter - Jose Eller - 08/04/2018 1542 EDT Pt called asking if it can get a referral to see a electrical prospecting operator in [facility] as it would be closer to them. It would be to see Dr parkinson. Pt would like to know about the possibilities before cancelling the current appointment. Please advise documented in this encounter Plan of Treatment Not on filedocumented as of this encounter Visit Diagnoses Not on filedocumented in this encounter Care Teams Rating Officer Relationship Specialty Start Date End Date Elisha Morrell MD PCP - General 04/20/18 10/18/18 [address] [place] [address] documented as of this encounter
--- OUTSIDE RECORDS SUMMARY | 2022-02-06 00:52 | XMS_ITS | Encounter Summary ---
:1955 Author Organization [facility] Address [address] [place] [address] Care Team Providers Name Role Phone Elisha Morrell MD Primary Care Provider Reason for Visit Reason Comments Atrial Fibrillation [facility] Follow Up (Routine/Next Available) - Authorization Not Required Specialty Diagnoses / Procedures Referred By Contact Refer red To Contact Cardiology Diagnoses Atrial fibrillation with rapid ventricular response (HCC-CMS) (HCC) ASD (atrial septal defect) Best Martinez MD Spector, Peter Salem, MD [address] [place] [address] Level 1 [phone] [place] [address] Phone: Fax: Referral ID Status Reason Start Expiration Visits Visits Date Date Requested Authorized [id number] Authorization Specialty 04/23/2018 1 1 Not Required Services Required Encounter Details Date Type Department Care Team Description 05/05/2018 Office Visit [facility] Jojo Steiner Pa roxysmal atrial fibrillation (HCC-CMS) (Primary Dx); Cardiology - Suzie MAYNARD ASD (atrial septal defect) [address] Suzie Rodriguez [address] [place] [address], [place], [address] [place] [phone] (Wo rk) Social History Tobacco Use Types [...] Sign Reading Time Taken Comments Blood Pressure 110/62 05/05/2018 1552 EST Pulse 67 05/05/2018 1552 EST Temperature - - Respiratory Rate - - Oxygen Saturation 96% 05/05/2018 1552 EST Inhaled Oxygen Concentration - - Weight 79.8 kg (176 lb) 05/05/2018 1552 EST Height 165.1 cm (5' 5) 05/05/2018 1552 EST Body Mass Index 29.29 05/05/2018 1552 EST documented in this encounter Functional Status Functional [...] as of this encounter Discharge Diagnoses Diagnosis I48.0 Atrial fibrillation-I48.0[ICD-10-C M] Q21.1 Atrial septal defect-Q21.1[ICD-10- CM] documented in this encounter Ordered Prescriptions Prescription Sig Dispensed Refills Start Date End Date DILTiazem (CARDIZEM CD) Take 2 Caps by 60 Cap 1 05/05/19 19 05/18/2018 120 mg capsule mouth daily. documented in this encounter Discharge Disposition Disposition Code Departure Means Destination Auto Discharge documented in this encounter Progress Notes Jojo Steiner NP - 05/05/2018 1530 EST Subjective: Patient ID: Nik White is an 62 y.o. female. No chief complaint on file. HPI Nik White Is a pleasant 62-year-old female with no prior medical history who presented to [facility] on 04/19/18 for management of atrial tachyarrhythmia and newly found atrial septal defect on echocardiogram at outside hospital. Outside hospital complicated by tachyarrhythmia refractory to adenosine, metoprolol and diltiazem drip that was further complicated by hypotension. Her chest x-ray showed cardiomegaly and mild CHF. A CT scan showed no pulmonary emboli. Her TSH was normal. Her BNP was 5274. She was transferred to [facility] and was still in atrial tachyarrhythmia that was unresponsive to oral diltiazem. A NISSA was performed and she had a successful cardioversion x1. She was discharged to home on 04/23/18. She was started on Eliquis 5 mg p.o. twice daily, diltiazem extended release 240 mg daily and diltiazem short-acting 60 mg tablets which she will cut in half with instructions to take half a tablets ifexperiencing any palpitations and to call the cardiology office if she needed more than 1 full tablet. She comes to the office today for follow-up. She reports she went back to the emergency department at [facility] with palpitations and overwhelming anxiety. She was given Ativan. Todayshe complains of fatigue and shortness of breath on exertion. She is quite anxious and requesting Ativan. She was referred to her PCP for an Ativan prescription. Today she denies chest pain, palpitations, peripheral edema, blood in her stool, dizziness and syncope. She has been compliant with her medications. Patient Active Problem List Diagnosis ??? Atrial fibrillation (HCC-CMS) ??? ASD (atrial septal defect) No past medical history on file. No past surgical history on file. Family History Problem Relation Age of Onset ??? Hypertension Mother ??? Lung Cancer Father ??? No Known Brother Social Social History Tobacco Use ??? Smoking status: Former Smoker Packs/day: 1.00 Years: 30.00 Pack years: 30.00 Types: Cigarettes Last attempt to quit: 04/07/2018 Years since quittin.0 ??? Smokeless tobacco: Never Used Substance Use Topics ??? Alcohol use: No Frequency: Never ??? Drug use: No Current Outpatient Medications on File Prior to Visit Medication Sig Dispense Refill ??? apixaban (ELIQUIS) 5 mg tablet Take 1 Tab by mouth 2 times daily. 60 Tab 1 ??? DILTiazem (CARDIZEM CD) 120 mg capsule Take 2 Caps by mouth daily. 60 Cap 1 ??? DILTiazem (CARDIZEM) 30 mg tablet Take 1 Tab by mouth daily as needed (palpitations). 12 Tab 0 ??? ibuprofen (MOTRIN) 200 mg tablet Take 200 mg by mouth every 8 hours as needed for Pain. No current facility-administered medications on file prior to visit. Allergies not on file Review of Systems Constitutional: Positive for malaise/fatigue. Respiratory: Positive for shortness of breath. Cardiovascular: Negative for chest pain, palpitations and leg swelling. Gastrointestinal: Negative for blood in stool. Neurological: Negative for dizziness and loss of consciousness. Psychiatric/Behavioral: The patient is nervous/anxious. - See HPI Objective: There were no vitals taken for this visit. Physical Exam Constitutional: She is oriented to person, place, and time. She appears well- developed and well-nourished. HENT: Head: Normocephalic and atraumatic. Eyes: EOM are normal. Pupils are equal, round, and reactive to light. Neck: Normal range of motion. Neck supple. No JVD present. Cardiovascular: Regular rhythm and normal heart sounds. Pulmonary/Chest: Effort normal and breath sounds normal. Musculoskeletal: Normal range of motion. She exhibits no edema. Neurological: She is alert and oriented to person, place, and time. Skin: Skin is warm and dry. Psychiatric: She has a normal mood and affect. Echocardiogram 04/22/18 *STUDY CONCLUSIONS* Summary: 1. Left ventricle: Systolic function was [...] secundum atrial septal defect ? measuring 1.8cm. ECG personally reviewed: EKG: Sinus bradycardia with moderate ST depressions Assessment: Mrs. White presented to [facility] with an atrial tachyarrhythmia which was refractory tooral and IV diltiazem. She had a NISSA and was cardioverted to normal sinus rhythm. She had an echocardiogram which showed a large secundum atrial septal defect measuring 1.8 cm. The atrial arrhythmias most likely due to her atrial septal defect. She was discharged on 04/23/18 on Eliquis and oral diltiazem. She comes to the office today for follow-up. She is in normal sinus rhythm. She is quite anxious. Her atrial septal defect hasis not been evaluated and she has been referred to Dr. Coelho for evaluation. The case was discussed with Dr. Harris. He recommended more definitive treatment of the atrial arrh ythmia prior to treatment of atrial septal defect. She will continue her current medications, call the office for new symptoms and follow-up in the office with Dr. Harris and Dr. Coelho. Plan: 1 continue current meds 2 call the office for new symptoms 3 follow-up with Dr. Harris and Dr. Coelho (I48.0) Paroxysmal atrial fibrillation (HCC-CMS) (primary encounter diagnosis) Plan: EKG 12-LEAD (Q21.1) ASD (atrial septal defect) Jojo Steiner NP No orders of the defined types were placed in this encounter. documented in this encounter Plan of Treatment Not on filedocumented as of this encounter Procedures Procedure Name Priority Date/Time Associated Diagnosis Comme nts ECG REPORT - 05/09/2018 13:27 SCANNED EST EKG 12-LEAD Routine 05/05/2018 15:59 Paroxysmal atrial Result s for this EST fibrillation procedure are i n (HCC-CMS) the results section. documented in this encounter Results ECG REPORT - SCANNED (05/09/2018 13:27 EST) Specimen (Source) Anatomical Collection Method Collection Time Re ceived Time Location / / Volume Laterality 05/09/2018 13:27 EST Narrative This result has an attachment that is no t available. Scan 2 Software Manager PROCEDURE/MINOR SURGICAL ORD ERABLES EKG 12-LEAD (05/05/2018 15:59 EST) Specimen (Source) Anatomical Collection Method Collection Time Re ceived Time Location / / Volume Laterality 05/05/2018 15:59 EST Narrative [facility] EKG - 05/09/2018 13:2 1 EST ? [facility] ? Test Date: ?2018-05-05 Pat Name: ? NIK WHITE ? Department: ?? Suzie Montoya ? Room: ? Gender: ? Female ? 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 [id number] : ?1955 ? Requested By: DEVORAH Ruiz Number: [id number] ? Karen MEZA: ?? KATERINE WAHL MD ? Measurements Intervals ?[place] ? Rate: ? 59 ? P: ?-4 MO: ? 211 ?QRS: ?39 QRSD: ? 121 ?T: ?49 QT: ? 439 ? QTc: ?435 ? Interpretive Statements SINUS BRADYCARDIA WITH MARKED SINUS ARRH YTHMIA WITH FIRST DEGREE AV BLOCK POSSIBLE RIGHT VENTRICULAR CONDUCTION DE LAY Compared to ECG 04/22/2018 17:05:29 First degree AV block now present I reviewed the tracing and have either a greed or edited the findings in this report. Electronically Signed On 05-09-19 13:21:39 EST by KATERINE WAHL MD. Procedure Note Katerine Wahl MD - 05/09/2018For matting of this note might be different from the original. 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 Electronically Signed On 05-09-19 13:21:39 EST by KATERINE WAHL MD. Jojo Steiner NP CARDIAC ECG ORDERABLES Performing Organization Address City/State/ZIP Code Phon e Number [facility] EKG documented in this encounter Visit Diagnoses Diagnosis Paroxysmal atrial fibrillation (HCC-CMS) (HCC) - Primary Atrial fibrillation ASD (atrial septal defect) Ostium secundum type atrial septal defec t documented in this encounter Discontinued Medications Medication Sig Discontinue Reason Start Date End Date DILTiazem (CARDIZEM CD) Take 2 Caps by Reorder 04/23/2018 120 mg capsule mouth daily. documented as of this encounter Historical Medications This list may reflect changes made after this encounter. Medication Sig Dispensed Refills Start Date End Date LORazepam (ATIVAN) 0.5 mg Take 1 mg by mouth 3 0 tablet times daily as needed. furosemide (LASIX) 20 mg Take 20 mg by mouth 0 06/01/2018 tablet daily. added in this encounter Care Teams Form Setter Relationship Specialty Start Date End Date Elisha Morrell MD PCP - General 04/20/18 10/18/18 [address] [place] [address] documented as of this encounter
--- OUTSIDE RECORDS SUMMARY | 2022-02-06 00:52 | XMS_ITS | Encounter Summary ---
:1955 Author Organization [facility] Address [address] [place] [address] Care Team Providers Name Role Phone Elisha Morrell MD Primary Care Provider Reason for Visit Reason Onset Date Comments Procedure 05/23/2018 AF abl 05-31-18 with PS on eliquis Encounter Details Date Type Department Care Team Description 05/23/2018 Pre-Procedure [facility] Marcy lCark nt atrial Orders Encounter Cardiology - Suzie Nieves RN fibrillation 62 Suzie Rodriguez ([facility]) (Primary So [place], [place] Dx) [phone] Social History Tobacco Use Types Packs/Day Years [...] making decisions? documented as of this encounter Plan of Treatment Not on filedocumented as of this encounter Visit Diagnoses Diagnosis Persistent atrial fibrillation (HCC) - P rimary Atrial fibrillation documented in this encounter Care Teams Cad Detailer Relationship Specialty Start Date End Date Elisha Morrell MD PCP - General 04/20/18 10/18/18 [address] [place] [address] documented as of this encounter
--- OUTSIDE RECORDS SUMMARY | 2022-02-06 00:52 | XMS_ITS | Encounter Summary ---
:1955 Author Organization [facility] Address [address] [place] [address] Care Team Providers Name Role Phone Elisha Morrell MD Primary Care Provider Reason for Visit Reason Onset Date Comments Follow-up 07/13/2018 Encounter Details Date Type Department Care Team Description 07/13/2018 Telephone [facility] Heriberto Coelho Jr., MD Follow-up Cardiology - [address] [place], [place] [address] (Wo rk) Social History [...] this encounter Miscellaneous Notes Telephone Encounter - Keyana Kruse RN - 07/13/2018 1010 EDT Pt stated that after talking to Dr. Coelho and her her family, she has decided to chose the option at [place] [facility] and wanted to let Dr. Coelho know. Pt could not remember the name of the doctor that Dr. Coelho had told her. Pt would like to be called with the date and information about her appointment at [facility]. Pt aware that the encounter would be sent to Dr. Coelho for advise. No learning barrier noted. Telephone Encounter - Jose Eller - 07/13/2018 0846 EDT Patient called back. Please call documented in this encounter Plan of Treatment Not on filedocumented as of this encounter Visit Diagnoses Not on filedocumented in this encounter Care Teams Assistant Track And Field Coach Relationship Specialty Start Date End Date Elisha Morrell MD PCP - General 04/20/18 10/18/18 [address] [place] [address] documented as of this encounter
--- OUTSIDE RECORDS SUMMARY | 2022-02-06 00:52 | XMS_ITS | Encounter Summary ---
:1955 Author Organization [facility] Address [address] [place] [address] Care Team Providers Name Role Phone Elisha Morrell MD Primary Care Provider Reason for Referral Referral (3 - 10 Business Days) - Closed Specialty Diagnoses / Procedures Referred By Contact Refer red To Contact Dermatology Diagnoses PFO (patent foramen ovale) Pablo Coelho Jr., MD [place] [address] Dermatology [address] [facility] [address] [place] [address] Level 1 [place], [place] Fax: [phone] Referral ID Status Reason Start Date Expiration Date Visits V isits Requested Authorized [id number] Closed Specialty 08/02/2018 1 1 Services Required Question Answer Reason for Request: Pt needs patch testing for n familia. She is having a device placed in he r hear PFO Closure . She will have the procedure done on August 29 in [place] Scheduling Comments (optional ? Before August 29 2018 describe specific scheduling needs if applicable): Reason for Visit Reason Onset Date Comments Other 08/02/2018 Encounter Details Date Type Department Care Team Description 08/02/2018 Telephone [facility] Annalee Sexton RN Other Cardiology - Suzie [address] [place] [address] [place] [address] [place] [address] Social History Tobacco Use Types Packs/Day Years [...] Telephone Encounter - Wendy Sexton RN - 08/02/2018 3419 EDT Pt notified I will be calling the [facility] to set up an appointment to have pt tested for nickel . The device that will be placed in her heart has nickel in it. Pt was unable to take the appointment from allergy office.She had a previous appointment scheduled. Called dermatology. Place a referral for patch testing . Testing can be done before August 29 Pt will be notified WENDY SEXTON RN documented in this encounter Plan of Treatment Scheduled Referrals Name Type Priority Associated Order Schedule Diagnoses AMB CONS/FOLLOW UP Outpatient Referral Routine PFO (patent for amen Ordered: DERMATOLOGY ovale) 08/02/2018 documented as of this encounter Visit Diagnoses Diagnosis PFO (patent foramen ovale) - Primary Ostium secundum type atrial septal defec t documented in this encounter Care Teams Animal Attendant Relationship Specialty Start Date End Date Elisha Morrell MD PCP - General 04/20/18 10/18/18 [address] [place] [address] documented as of this encounter
--- OUTSIDE RECORDS SUMMARY | 2022-02-06 00:52 | XMS_ITS | Encounter Summary ---
:1955 Author Organization [facility] Address [address] [place] [address] Care Team Providers Name Role Phone Elisha Morrell MD Primary Care Provider Reason for Visit Reason Onset Date Comments Follow-up 09/26/2018 To ED 09/24 Returning Call 09/26/2018 Encounter Details Date Type Department Care Team Description 09/26/2018 Telephone [facility] Pablo Coelho Jr., Follow-up (To ED 09/24); Cardiology - Suzie MEZA Returning Call 62 Suzie Rodriguez [address] [place] [address] (Wo rk) Social History Tobacco [...] Telephone Encounter - Singh Smart RN - 09/26/2018 1013 EDT Called [facility] to have them fax ER records to me. SINGH SMART RN Telephone Encounter - Singh Smart RN - 09/26/2018 1008 EDT Called patient back and she is feeling well. Reminded her of her appt. In October with Jojo Steiner. Patient verbalized an understanding. No learning barriers identified. SINGH SMART RN Telephone Encounter - Staci Mike - 09/26/2018 0921 EDT Patient is returning call. Please call back as soon as possible. Telephone Encounter - Singh Smart RN - 09/26/2018 0915 EDT Called patient to check in, but no answer. Will try again later. SINGH SMART RN Telephone Encounter - Jolly Espinal - 09/26/2018 0832 EDT Patient was in the [facility] Wednesday night with AFIB. She wanted her Dr;'s to be aware and they want her to follow up. Metoprolol 50mg 1x daily is a new RX documented in this encounter Plan of Treatment Not on filedocumented as of this encounter Visit Diagnoses Not on filedocumented in this encounter Care Teams Licensing Director Relationship Specialty Start Date End Date Elisha Morrell MD PCP - General 04/20/18 10/18/18 [address] [place] [address] documented as of this encounter
--- OUTSIDE RECORDS SUMMARY | 2022-02-06 00:52 | XMS_ITS | Encounter Summary ---
:1955 Author Organization [facility] Address [address] [place] [address] Care Team Providers Name Role Phone Elisha Morrell MD Primary Care Provider Reason for Visit Reason Onset Date Comments Medications Refill 05/18/2018 Encounter Details Date Type Department Care Team Description 05/18/2018 Refill [facility] Osbaldo Torre MD Medications Refill Cardiology - [address] [facility] [place] [phone] (Wo rk) Social History Tobacco Use Types [...] 1 2018 tablet mouth 2 times daily. DILTiazem (CARDIZEM CD) Take 2 capsules by 90 capsule 1 04/2306/01/2018 120 mg capsule mouth daily. documented in this encounter Miscellaneous Notes Telephone Encounter - Wendy Youngblood RN - 05/18/2018 1058 EST Last Visit Date with Jojo Steiner NP on 05/05/18 per OV note: Assessment: Mrs. Rosas presented to [facility] with an atrial tachyarrhythmia which was refractory [...] (HCC-CMS) (primary encounter diagnosis) Plan: EKG 12-LEAD ?? (Q21.1) ASD (atrial septal defect) ? Jojo Steiner NP Refill completed for Requested Prescriptions Pending Prescriptions Disp Refills ??? apixaban (ELIQUIS) 5 mg tablet 60 tablet 1 Sig: Take 1 tablet by mouth 2 times daily. ??? DILTiazem (CARDIZEM CD) 120 mg capsule 60 capsule 1 Sig: Take 2 capsules by mouth daily. Next visit Date 11/01/18 Telephone Encounter - Adriana Kevin - 05/18/2018 0833 EST Medication(s) Requested Diltiazem 120 mg capsul eliquis 5 mg tab Pharmacy [facility] Next Visit Date 06/09/2018 Out of Medication No {Adriana Kevin 05/18/2018 8:33 documented in this encounter Plan of Treatment Not on filedocumented as of this encounter Visit Diagnoses Not on filedocumented in this encounter Discontinued Medications Medication Sig Discontinue Reason Start Date End Date apixaban (ELIQUIS) 5 mg Take 1 Tab by mouth Reorder 04/23/2018 05/18/2018 tablet 2 times daily. DILTiazem (CARDIZEM CD) Take 2 Caps by Reorder 05/05/2018 120 mg capsule mouth daily. documented as of this encounter Care Teams Supervisor Fish Processing Relationship Specialty Start Date End Date Elisha Morrell MD PCP - General 04/20/18 10/18/[address] [place] [address] documented as of this encounter
--- OUTSIDE RECORDS SUMMARY | 2022-02-06 00:53 | XMS_ITS | Encounter Summary ---
:1955 Author Organization [facility] Address [address] [place] [address] Care Team Providers Name Role Phone Elisha Morrell MD Primary Care Provider Encounter Details Date Type Department Care Team Description 04/21/2018 Results Only Imaging [facility]- Unknown, PRISM Provider, Social History Tobacco Use Types Packs/Day Years [...] physical, mental, or emotional condition, do No 04/21/2018 you have difficulty doing errands alone such as visiting a doctor's office or shopping? (15 years old or older) Cognitive Status Response Date of Assessment Because of a physical, mental, or emotional condition, do No 04/21/2018 you have serious difficulty concentrating, remembering, or making decisions? (5 years old or older) documented as of this encounter Plan of Treatment Pending Results Name Type Priority Associated Diagnoses Date/Ti me OUTSIDE IMAGES - CT CHEST Imaging 22:02 EST OUTSIDE IMAGES - OTHER Imaging 04/21 22:02 EST CHEST documented as of this encounter Visit Diagnoses Not on filedocumented in this encounter Care Teams Inside Sales Administrator Relationship Specialty Start Date End Date Elisha Morrell MD PCP - General 04/20/18 10/18/18 [address] [place] [address] documented as of this encounter
--- OUTSIDE RECORDS SUMMARY | 2022-02-06 00:53 | XMS_ITS | Encounter Summary ---
:1955 Author Organization [facility] Address [address] [place] [address] Care Team Providers Name Role Phone Elisha Morrell MD Primary Care Provider Reason for Referral Anticoagulation Enrollment (Urgent) - New Request Specialty Diagnoses / Procedures Referred By Contact Refer red To Contact Diagnoses Atrial fibrillation with rapid ventricular response (HCC-CMS) (HCC) Best Martinez MD [address] [phone] Referral ID Status Reason Start Expiration Visits Visits Date Date Requested Authorized [id number] New Anticoagulation 04/23/2018 1 1 Request Management Question Answer Will [facility] Hematology be managing this patient's antic oagulation? No ollow Up (Routine/Next Available) - Authorization Not Required Specialty Diagnoses / Procedures Referred By Contact Refer red To Contact Cardiology Diagnoses Atrial fibrillation with rapid ventricular response (HCC-CMS) ([facility]) ASD (atrial septal defect) Best Martinez MD Spector, Peter Salem, MD 111 [facility] e [address] [phone] [place] [address] Phone: Fax: Referral ID Status Reason Start Expiration Visits Visits Date Date Requested Authorized [id number] Authorization Specialty 04/23/2018 1 1 Not Required Services Required Question Answer Reason for Request: hospitalization f/u for afib with RVR s/p cardioversion, found to have ASD Scheduling Comments (optional ? 2-4 weeks describe specific scheduling needs if applicable): Expected Discharge Date (Inpatient 04/25/2018 Only): ollow Up (Routine) - New Request Specialty Diagnoses / Procedures Referred By Contact Refer red To Contact Diagnoses Atrial fibrillation with rapid ventricular response (HCC-CMS) ([facility]) ASD (atrial septal defect) Best Martinez MD [address] [place] [phone] Referral ID Status Reason Start Expiration Visits Visits Date Date Requested Authorized [id number] New Request Continuity of 04/23/2018 1 1 Care Question Answer Reason for Request: hospitalization f/u for new onset afib with RVR, new found ASD Expected Discharge Date (Inpatient 04/25/2018 Only): Encounter Details Date Type Department Care Team Description 04/21/2018 - [facility] Inderjittonsil hospitalRey MD PhD [address] [place] [phone] Tachycardia (Primary Dx); 04/23/2018 Encounter Cardiac/Telemetry Jayson Brar MD [address] [phone] Atrial fibrillation with rapid ventricul ar response (HCC-CMS); Unit ASD (atrial septal defect) [address] [place] [id number] Social History Tobacco Use Types Packs/Day [...] Sign Reading Time Taken Comments Blood Pressure 116/64 04/23/2018 1235 EST Pulse - - Temperature 36.9 ??C (98.4 ??F) 04/23/2018 1235 EST Respiratory Rate 16 04/23/2018 1235 EST Oxygen Saturation 93% 04/23/2018 1235 EST Inhaled Oxygen Concentration - - Weight 79.6 kg (175 lb 8 oz) 04/21/2018 1800 EST Height 165.1 cm (5' 5) 04/21/2018 1800 EST Body Mass Index 29.2 04/21/2018 1800 EST documented in this encounter Functional Status [...] as of this encounter Discharge Diagnoses Diagnosis I48.91 Unspecified atrial fibrillation-I 48.91[ICD-10-CM] Q21.1 Atrial septal defect-Q21.1[ICD-10- CM] I48.92 Unspecified atrial flutter-I48.92 [ICD-10-CM] I27.20 Pulmonary hypertension, unspecifi ed-I27.20[ICD-10-CM] I08.0 Rheumatic disorders of both mitral and aortic valves-I08.0[ICD-10-CM] Z87.891 Personal history of nicotine dep endence-Z87.891[ICD-10-CM] documented in this encounter Discharge Summaries Best Martinez MD - 04/23/2018 1102 EST Cardiology Discharge Summary Primary Care Provider: Elisha Morrell Attending Physician: Jayson Brar MD Admit Date: 04/21/2018 Discharge Date: 04/23/18 Disposition: Home or self care Problems and Procedures Admitting Diagnosis: Tachycardia Final Hospital Diagnosis: Atrial fibrillation with rapid ventricular rate, atrial septal defect Additional Problems Managed in the Hospital Active Hospital Problems Diagnosis Date Noted ??? Tachycardia 04/21/2018 Resolved Hospital Problems No resolved problems to display. Principal Procedure: NISSA Date: 04/22/2018 Summary: 1. Left ventricle: Systolic function was [...] secundum atrial septal defect ? measuring 1.8cm. Secondary Procedures: Cardioversion Date: 04/22/2018 Cardioversion basis: elective Pre-procedure rhythm: atrial fibrillation Patient position: patient was placed in a supine position Chest area: chest area exposed Electrodes: pads Electrodes placed: anterior-posterior Number of attempts: 1 Attempt 1 mode: synchronous Attempt 1 waveform: biphasic Attempt 1 shock (in Joules): 200 Attempt 1 outcome: conversion to normal sinus rhythm Post-procedure rhythm: normal sinus rhythm Patient tolerance: Patient tolerated the procedure well with no immediate complications Hospital Course Chantel White is a 62 y.o. female without a notable medical history who presented to [facility] on 04/19/2018 for further management of atrial tachyarrhythmia and newly found atrial septal defect found on echocardiogram at outside hospital. Hospitalization at OSH complicated by tachyarrhythmia refractory to oral and IV rate control medications that was further complicated by hypotension. While hospitalized at [facility], patient was still in atrial tachyarrhythmia that wasunresponsive to oral diltiazem. A NISSA was performed with results above and a successful cardioversion x 1. Patient was discharged home on 04/23/2018. On day of discharge, patient was hemodynamically stable, tolerating a regular diet, voiding and ambulating without difficulty. Patient discharged home on apixaban 5 mg twice daily, diltiazem extended release 240 mg daily, and diltiazem short acting 60 mg tablets (will be pre-cut in half) with instructions to take a half-tabletif experiencing any palpitations (and to call Cardiology if needing to take more than 1 full tablet). Patient to follow up with [facility] Cardiology in next 2-4 weeks (order placed). Allergies and Immunizations Allergies not on file There is no immunization history on file for this patient. Transition of Care Plans Condition at Discharge Good Assessment at Discharge Vital signs: Patient Vitals for the past 12 hrs: BP Heart Rate Resp Temp SpO2 O2 Device 04/23/18 0919 118/65 77 BPM 16 36.6 ??C (97.9 ??F) 94 % None 04/23/18 0600 -- 75 BPM -- -- -- -- 04/23/18 0541 111/63 76 BPM 16 36.4 ??C (97.5 ??F) 96 % None 04/23/18 0500 -- 70 BPM -- -- -- -- 04/23/18 0200 -- 73 BPM -- -- -- -- 04/23/18 0100 -- 74 BPM -- -- -- -- Is the patient being discharged with a diagnosis of Systolic Heart Failure? No Coumadin Management N/A Non-Cardiac Studies at Time of Discharge none Results Pending at Discharge Test results still pending from this admission None Last Lab Results at Discharge BUN: Lab Results Component Value Date BUN 21 04/23/2018 Creatinine: Lab Results Component Value Date CREATININE 0.79 04/23/2018 CBC: Lab Results Component Value Date WBC 8.16 04/23/2018 RBC 4.80 04/23/2018 HGB 14.4 04/23/2018 HCT 41.1 04/23/2018 MCV 86 04/23/2018 MCH 30.0 04/23/2018 MCHC 35.0 04/23/2018 PLT 230 04/23/2018 Electrolytes: Lab Results Component Value Date NA 137 04/23/2018 K 4.6 04/23/2018 CL 101 04/23/2018 CO2 26 04/23/2018 Lipid Profile: No results found for: CHOL, TRIG, HDL, LDLBASE, CHOLHDL No results found for: HGBA1C Discharge Follow Up Follow-up appointments and procedures Amb Consult/Follow Up Anticoagulation (Other than Warfarin) Management Will [facility] Hematology be managing this patient's anticoagulation?: No Authorizing Provider: Best Martinez MD Amb Consult/Follow Up Cardiology Reason for Request: hospitalization f/u for afib with RVR s/p cardioversion, found to have ASD Scheduling Time Frame: 2-4 weeks Expected Discharge Date (Inpatient Only): 04/25/2018 Authorizing Provider: Best Martinez MD Amb Consult/Follow Up Primary Care Physician Reason for Request: hospitalization f/u for new onset afib with RVR, new found ASD Expected Discharge Date (Inpatient Only): 04/25/2018 Authorizing Provider: Best Martinez MD Follow-up labs and tests Complete Blood Count Complete by: May 07, 2018 (Approximate) Authorizing Provider: Best Martinez MD Appointments We Recommend but have not been Scheduled Best Martinez MD MS PGY-1 Internal Medicine [phone] 04/23/2018 11:02 Associated attestation - Joseph Torre MD - 04/25/2018 0849 EST I have seen and examined the patient and agree with the above history and physical exam and assessment and plan. Joseph Torre MD documented in this encounter Discharge Instructions Discharge Instr - AVS First YayaUna waddellne - 04/23/2018 12:13 EST Take 1 tablets of the 60 mg diltiazem (short acting) tonight around 6 pm. Starting tomorrow take 2 tablets of the 120 mg diltiazem (long acting) every day. Always keep with you a few tablets of the 60 mg diltiazem (they will be cut in half for you). Take ahalf tablet if you have any palpitations (and do not take more than 1 full tablet, call Cardiology if you are taking more than a full tablet) Your Medical Insurance: You have applied for Medicaid. You have applied for [employer]. If you become covered by either of these, it will help a lot with the cost of your medications. In the meantime, your first month of medications have been paid for. Please call [phone] during the work week. This is our Health Assistance Program. They will continue to monitor your insurance eligibility ( once you ask them to do so) and can help with cost of medications. You have a handout about this program. You should also call Agency on Aging in your area. This is a great resource that is free to you. You have Jose A's card and can call her 04-25-18 or after to see how you stand with the insurance coverage. Wishing you lots of rest after your hospitalization and good health. documented in this encounter Medications at Time of Discharge Medication Sig Dispensed Refills Start Date End Date apixaban (ELIQUIS) 5 mg Take 1 Tab by mouth 60 Tab 1 04/201805/18/2018 tablet 2 times daily. DILTiazem (CARDIZEM CD) Take 2 Caps by mouth 60 Cap 1 05/05/2018 120 mg capsule daily. DILTiazem (CARDIZEM) 30 Take 1 Tab by mouth 12 Tab 0 04/201806/17/2018 mg tablet daily as needed (palpitations). ibuprofen (MOTRIN) 200 mg Take 200 mg by mouth 0 06/01/2018 tablet every 8 hours as needed for Pain. documented as of this encounter Ordered Prescriptions Prescription Sig Dispensed Refills Start Date End Date DILTiazem (CARDIZEM CD) Take 2 Caps by 60 Cap 1 04/23/19 19 05/05/2018 120 mg capsule mouth daily. DILTiazem (CARDIZEM) 30 mg Take 1 Tab by mouth 12 Tab 0 04/23/2018 06/17/2018 tablet daily as needed (palpitations). apixaban (ELIQUIS) 5 mg Take 1 Tab by mouth 60 Tab 1 04/201805/18/2018 tablet 2 times daily. documented in this encounter Discharge Disposition Disposition Code Departure Means Destination Home or Self Care documented in this encounter Progress Notes Yeni Ramirez - 04/23/2018 1325 EST CM visit to patient at patient bedside. CM notifies patient that she has applied for Medicaid and [employer]. Patient medications are paid for and waiting in [facility] pharmacy. Gave patient handout for Health Assistance Program to assist with ongoing cost of medications, and to assist with monitoring insurance status. Patient tells that her brother will pick her up at discharge, keep her over nightand drive her home tomorrow. Yadi Brizuela - 04/22/2018 1313 EST Pt was not in room at time of visit. TTS will try again at a later time. Kamilah Jaffe - 04/22/2018 1104 EST Initial Case Management/Social Work Assessment and Discharge Plan/Readmission Risk Assessment REASON FOR ADMISSION: Shortness of breath Patient understands reason for admission: Yes PATIENT CONTACT INFO VERIFIED: Yes(Son Jhonatan Borges [phone]) PATIENT ADDRESS VERIFIED: Yes([address] [place] [address]) LIVING ARRANGEMENTS AND ACCESSIBILITY ISSUES: Living Arrangements: Family members Levels: 1 Stairs to enter: 2 Handicap access: Railings into home Bathroom located on bedroom level?: Yes What in home social supports are available to the patient? Family member(s), Children. Patient livesin [place] and her 97 year old mother lives with her. Patient is her primary caregiver as she isvisually impaired. Patient states she is independent with self care and home management. She has twosons who live nearby and a brother that can help out with her mother when needed. Is 12/10 care available? No ADVANCED DIRECTIVES, POA &/or COLST IN PLACE: Healthcare Directive: No, patient does not have advance directive for healthcare treatment Information Provided on Healthcare Directives: No Information on Healthcare Directives Requested: No Patient Requests Assistance: Yes, referral made to social work/case management DIRECTIVES FOR FINANCES: Directive For Finances: No TRANSPORTATION: Transportation: Family CULTURAL, RASTAFARI and/or LANGUAGE factors affecting health care/discharge planning: Spiritual/Cultural Requests: None Any factors affecting health care/discharge planning?: No Insurance in Place: No Medical Insurance: No Referred to patient financial services: Yes DISCHARGE RISK ASSESSMENT: Total # selected above: Tentative plan to address the risk of re-hospitalization for those at HIGH MODERATE RISK: RAPT TOOL: Patient expects to be discharged to: Home SBIRT: SASQ (Single Alcohol Screening Question) How many times in the past year have you had 4 or more drinks in a single day?: Never How many times in the past year have you used an illegal drug or used a prescription medication for non-medical reasons?: Never Intervention in place/initiated?: No, not indicated FUNCTIONAL STATUS: Activities patient requires assistance: None Assistive Device: None COMMUNITY RESOURCES/SUPPORTS: Primary Care Provider: Elisha Morrell PCP Verified: Yes(Elisha Morrell MD) Specialists: None Type of Home Health Services: None DME Provider: None Pharmacy: [facility] Home Health: None Other: POST HOSPITAL TRANSITION PLAN: Case management will continue to follow through transition to discharge. Patient is awaiting testing and treatment plan. Anticipate discharge to home when medically stable. No needs are identified at this time. Patient has no medical or prescription insurance so we will have to address prescription costs closer to discharge. Kamilah Jaffe RN Case Manager #[id number] GuillermoBest johnson MD - 04/22/2018 0701 EST Cardiology Progress note Service Date: 04/22/2018 Admit Date: 04/21/2018 18:20 Reason for Admission: 62 y.o. female admitted with a chief complaint of palpitations and now with a principal diagnosis of atrial tachyarrhythmia. Events/ Procedures in the last 24 Hours: - admitted to cardiology - HR sustained 130s on oral diltiazem Subjective/Objective Subjective Ms. White this morning has no acute complaints, wanting to know when the procedure can be completed so she can eat. Denies any chest pain or shortness of breath, but can feel palpitations when lyingon her left side. Review of Systems Pertinent items are noted in Subjective/HPI Objective Vital Signs Patient Vitals for the past 8 hrs: BP Heart Rate Resp Temp SpO2 O2 Device 04/22/18 0544 114/71 -- -- -- -- -- 04/22/18 0303 100/68 136 BPM -- -- 95 % -- 04/21/18 2346 102/75 138 BPM 18 36.8 ??C (98.2 ??F) 96 % None 04/21/18 2344 102/75 -- -- -- -- -- Weight: No data found. No intake or output data in the 24 hours ending 04/22/18 0701 Physical Exam Gen: NAD, alert, cooperative, well-appearing female HEENT: AT/NC, conjunctivae/sclera clear, benign oropharynx CV: tachycardic with fixed S2 appreciated with inspiration hold Resp: CTA b/l, no wheezes/rales/rhonchi Abd: soft, NTTP, NABS, no hepatosplenomegaly Extr: no peripheral edema, atraumatic Neuro: fluent speech, no facial droop, spontaneously moving all extremities against gravity, AAOx4 Psych: affect appropriate Skin: no bruising, rashes, or lesions Is PICC or central line present? No, PICC/Central line not present. Medications Reviewed: No changes Labs Reviewed: Results notable for as below. CBC: Recent Labs 04/21/18203704/22/18 0546 WBC 14.45* 13.06* HGB 16.2* 15.6* HCT 44.6* 43.6 MCV 85 85 PLT 260 230 BMP: Recent Labs 04/21/18203704/22/18 0546 CREATININE 0.80 0.81 BUN 21 21 NA 137 138 K 4.0 4.7 CL 105 103 CO2 21* 25 Coags: No results for input(s): PROTIME, INR, PTT in the last 72 hours. LFTs: No results for input(s): ALT, AST, GGT, ALKPHOS, TBIL in the last 72 hours. Cardiac Biomarkers: No results for input(s): TROPONINI in the last 72 hours. Lipids: No results for input(s): CHOL, TRIG, HDL, LDLBASE, CHOLHDL in the last 72 hours. Non-Invasive Findings last 24 hours: N/A Telemetry: yes, atrial tachycardia with HR sustained in the 130s ECG: atrial tachycardia Does the patient have active heart failure? no Assessment/Plan Assessment/Plan Chantel White is a 62 y.o. female with history significant for tobacco use (recently quit) who presented to [facility] with palpitations, shortness of breath, and lightheadedness found to be in atrial tachycardia and echocardiogram demonstrating biatrial enlargement and likely ASD. Continue oral diltiazem rate control with up titration as tolerable to her hemodynamics (patient became hypotensive while on combined beta hazel and diltiazem regimen at outside hospital). ?? Tachyarrhythmia/ASD: HR sustained in the 130s-140s on telemetry; tachyarrhythmia potentially secondary to ASD - f/u NISSA results; pending results of imaging would determine if amenable to trans-catheter defect closure versus CT surgery consult - diltiazem 60 mg q6H with plan for up titration for goal HR < 110 - heparin gtt VTE Prophylaxis Pharmacologic Prophylaxis: heparin gtt Discharge Plan Home or self care Best Martinez MD 04/22/2018 7:01 documented in this encounter H&P Notes Kathe Skinner MD - 04/22/2018 1105 EST NISSA Sedation for Procedure History & Physical Date: 04/22/2018 Time: 11:05 Location: Echo lab Planned Procedure: NISSA Chief Complaint/Indications for Procedure: 62 yo woman with PMH of tobacco use who presents with new atrial flutter/atrial tachycardia with RVRand found to have possible ASD with possible L->R shunt with pulmonary hypertension on TTE. Plan for NISSA to assess ASD and prior to DCCV. History Previous Complication with Sedation and/or Anesthesia? No Allergies: Allergies not on file Current Medications: Current Facility-Administered Medications: acetaminophen (TYLENOL) tablet 650 mg oral Q4H PRN DILTiazem (CARDIZEM) tablet 60 mg oral Q6H fentaNYL citrate (PF) 50 mcg/mL injection heparin 1,000 unit/mL injection 4,600 Units intravenous PRN Or heparin 1,000 unit/mL injection 2,300 Units intravenous PRN heparin in 1/2 NS 25,000 unit/250 mL infusion intravenous CONTINUOUS lidocaine (XYLOCAINE) 2 % viscous solution midazolam (PF) (VERSED) 1 mg/mL injection sodium chloride 0.9 % flush 3 mL intravenous Q8H Past Medical History: History reviewed. No pertinent past medical history. Social History: History reviewed. No pertinent surgical history. Social History Tobacco Use ??? Smoking status: Former Smoker Packs/day: 1.00 Years: 30.00 Pack years: 30.00 Types: Cigarettes Last attempt to quit: 04/07/2018 Years since quittin.0 ??? Smokeless tobacco: Never Used Substance Use Topics ??? Alcohol use: No Frequency: Never Family History: Family History Problem Relation Age of Onset ??? Hypertension Mother ??? Lung Cancer Father ??? No Known Brother Review of Systems as pertinent: A complete 10 point review of systems was performed and is otherwise negative. Physical Exam Vital Signs: BP (!) 113/95 Temp 37 ??C (98.6 ??F) (Oral) Resp 18 Ht 165.1 cm (65) Wt 79.6 kg (175 lb 8 oz) SpO2 96% BMI 29.20 kg/m?? Heart Examination: Cardiac Regularity: Irregular Respiratory Examination: Respiratory Pattern: Regular Breath Sounds Right: Clear Breath Sounds Left: Clear Abdominal Examination: Soft, non-tender, bowel sounds normal, no masses, no organomegaly Additional physical exam related to the proposed procedure, patient activity, disease state and treatment as pertinent: N/A Assessment Previous complications with sedation or anesthesia?: No Airway Concerns: None Anesthesia Classification: ASA 2 Plan: Proceed with sedation for procedure Fasting Time: Time of last liquid intake: 0600 Date of Last Liquid Intake: 04/22/18 Time of last solid intake: 1800 Date of last solid intake: 04/21/18 Patient Appropriate Candidate for Planned Sedation?: No Kathe Skinner MD Field Services Director Best Martinez MD - 04/21/2018 8183 EST Cardiology Admission H&P Admit Date: 04/21/2018 PCP: Elisha Morrell CC: transfer from [facility] for consideration of ASD closure HPI: Chantel White is a 62 y.o. female without a significant medical history who presented to [facility] ED on 04/19/18 with complaint of heart flutter and found to be tachycardic to the 130s that was determined to be sustained atrial flutter but was refractory to multiple boluses of IV adenosine, metoprolol, diltiazem and was subsequently hypotensive on a diltiazem infusion with oral metoprolol that did not resolve with the discontinuation of both. An echocardiogram was performed showing ASD with a ubvd-wo-robwv shunt and pulmonary hypertension, prompting transfer to [facility] for further evaluation of her ASD defect. Work up at [facility] notable for BNP in 5000s, d-dimer 931, CXR with cardiomegaly and volume overload, and negative CT chest for PE; patient started on apixaban. Rest of HPI obtained from patient. Patient reports normal state of health before experiencing palpitations, lightheadedness and dyspneawhile volunteering at local animal [facility] with immediate symptom resolution on 04/18. Patient had a restful night of sleep and next day woke up with the feeling of return of aforementioned symptoms and feeling like she was going to pass out. She also endorses emesis x 1 on the same morning. In retrospect, she thinks she has been more tired for about the last six months and that she may have had decreasing exercise tolerance. She denies orthopnea, PND, peripheral edema, abdominal swelling, chest painand dyspnea, syncope. She denies unintentional changes in weight, skin or hair changes, changes in bowel habits, changes in sleep pattern. She reports that she was told she had a heart murmur when she was a young child and does report thatshe sits at bedside for a few moments before standing up due to worry of dizziness, which has been ongoing for as long as she can remember. She does not recall ever having testing or treatment with this issue. She has a niece who has a hole in her heart. She quit smoking about two weeks ago. She did this at the urging of her granddaughter who has been persistently trying to get her to quit. She smoked 1ppd for about 30 years. She is full code. Relevant prior Cardiac Studies: 04/20/18 [facility] Echocardiogram: mild LVH, EF 65-70%, mild /AR, mild MR, dilated LA, dilated RV/RA, possible ASD with left to right shunt, atrial septal aneurysm, pulmonary artery pressures 35-45 mmHg ROS: Full 10 point system obtained; pertinent positives and negatives noted in HPI Past Medical History: History reviewed. No pertinent past medical history. Heart murmur as a child Prior to admission medications No current facility-administered medications on file prior to encounter. Current Outpatient Medications on File Prior to Encounter Medication Sig Dispense Refill ??? ibuprofen (MOTRIN) 200 mg tablet Take 200 mg by mouth every 8 hours as needed for Pain. Past Surgical History: History reviewed. No pertinent surgical history. Family History: Family History Problem Relation Age of Onset ??? Hypertension Mother ??? Lung Cancer Father ??? No Known Brother Mother alive at age 97. Social History: Social History Tobacco Use ??? Smoking status: Former Smoker Packs/day: 1.00 Years: 30.00 Pack years: 30.00 Types: Cigarettes Last attempt to quit: 04/07/2018 Years since quittin.0 ??? Smokeless tobacco: Never Used Substance Use Topics ??? 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 rate 20, height 165.1 cm (65), weight 79.6 kg (175 lb 8 oz), SpO2 94 %. Physical Exam Gen: NAD, alert, cooperative, well appearing female HEENT: AT/NC, conjunctivae/sclera clear, PERRL, EOMI, benign oropharynx, MMM CV: extremely tachycardic and unable to appreciate any murmurs Resp: CTA b/l, no wheezes/rales/rhonchi Abd: soft, NTTP, NABS, no hepatosplenomegaly Extr: no peripheral edema, atraumatic Neuro: fluent speech, no facial droop, CNII-XII grossly intact, spontaneously moving all extremitiesagainst gravity, sensation intact Psych: affect appropriate Skin: no bruising, rashes, or lesions Data review: ECG: reviewed OSH with atrial tachycardia HR in the 130s Labs, Reviewed in PRISM, notable for: BMP: No results for input(s): NA, K, CL, CO2, BUN, CREATININE, MG, PHOS, CALCIUM, CALCCA, CAION, SERGLU in the last 72 hours. LFTs: No results found for: ALT, AST, ALKPHOS, GGT, TBIL Cardiac Biomarkers: No results for input(s): CK, MB, CKMBINDEX, TROPONINI in the last 72 hours. Imaging/Other Studies: Reviewed OSH imaging/study reports Assessment/Plan: Chantel White is a 62 y.o. female with history significant for tobacco use (recently quit) who presented to [facility] with palpitations, shortness of breath, and lightheadedness found parag in atrial tachycardia and echocardiogram demonstrating biatrial enlargement and likely ASD. Plan for NISSA in the AM, will keep NPO after midnight and rate control with oral diltiazem with plan for uptitration. Tachyarrhythmia/ASD: HR sustained in the 130s-140s on telemetry; tachyarrhythmia potentially secondary to ASD - diltiazem 30 mg q6H with plan for up titration for goal HR < 110 - heparin gtt - NPO after midnight for NISSA Diet: regular diet VTE Prophylaxis: heparin gtt Discharge Plan: pending clinical course Consults: none Code Status: full Best Martinez MD Associated attestation - Jayson Brar MD - 04/22/2018 1159 EST Attestation: I saw and examined the patient 04/22/2018. I agree with the resident's/fellow's findings and plans as documented. Patient with arrhythmia, likely atypical atrial flutter with 2:1 AV conduction, will obtain NISSA to evaluate for ASD and also to rule out thrombus, if no thrombus could cardiovert the patient. Jayson Brar MD 04/22/2018 11:59 documented in this encounter Procedure Notes Marshall Marx MD - 04/22/2018 1606 ESTAssociated Order(s): Electrical Cardioversion Bedside Procedure Note Electrical Cardioversion Date/Time: 04/22/2018 16:06 Performed by: Marshall Marx MD Authorized by: Marshall Marx MD Consent: Verbal consent obtained. Written consent obtained. Risks and benefits: risks, benefits and alternatives were discussed Consent given by: patient Patient understanding: patient states understanding of the procedure being performed Patient consent: the patient's understanding of the procedure matches consent given Procedure consent: procedure consent matches procedure scheduled Relevant documents: relevant documents present and verified Test results: test results available and properly labeled Site marked: the operative site was marked Imaging studies: imaging studies available Required items: required blood products, implants, devices, and special equipment available Patient identity confirmed: verbally with patient and arm band Sedation: Patient sedated: yes Sedation type: moderate (conscious) sedation Sedatives: propofol Cardioversion basis: elective Pre-procedure rhythm: atrial fibrillation Patient position: patient was placed in a supine position Chest area: chest area exposed Electrodes: pads Electrodes placed: anterior-posterior Number of attempts: 1 Attempt 1 mode: synchronous Attempt 1 waveform: biphasic Attempt 1 shock (in Joules): 200 Attempt 1 outcome: conversion to normal sinus rhythm Post-procedure rhythm: normal sinus rhythm Patient tolerance: Patient tolerated the procedure well with no immediate complications Marshall Marx MD 04/22/2018 16:06 Associated attestation - James Nogueira MD PhD - 04/30/2018 1346 EST Attending Attestation: I saw and evaluated the patient. I discussed the case with the fellow and agree with the findings and plan as documented above. James Nogueira MD PhD Pt seen 04-22-18 Kathe Skinner MD - 04/22/2018 1306 EST Transesophageal Echocardiogram Brief Post-Procedure Note Date of Procedure: 04/22/2018 Attending: Joseph Degroot MD Fellow: Kathe Skinner MD Pre-Op Diagnosis: Atrial flutter/Atrial tachycardia Post-Op Diagnosis: Atrial flutter/Atrial tachycardia Procedure: Transesophageal echocardiogram. Findings: LVEF 55%. No ZACHARY/LA thrombus. ASD present. Please see NISSA report in Epic for further details. Anesthesia Type: A moderate level of anesthesia/conscious sedation was used. Estimated Blood Loss: Unless otherwise noted, there was no blood loss, specimens removed, cultures obtained, or drains retained. Complications: None Disposition and Condition: The patient was sent back to the original unit in Good condition. Kathe Skinner MD Field Services Director documented in this encounter Consult Notes Yadi Brizuela - 04/22/2018 1349 ESTAssociated Order(s): CONSULT SMOKING CESSATION Tobacco Cessation Initial Consult Note Subjective: Pt stated she has not thought about smoking. Pt quit a few weeks ago. Pt is overall good spirits. Ptstated she has been too busy to thinking about smoking Pt is aware she can ask for inhaler and/or patch if she is feeling withdrawal symptoms. Objective: Last cigarette smoked: 2weeks ago Started smoking at age: 9 - 15 Number of quit attempts over the past year: 1 Quantity of tobacco products used: Living Environment: Number of household members:not asked Number of household members who smoke:none Number of children in the home under age 18:n/a Smoking allowed in the home:n/a Smoking allowed in the car:n/a Assessment: Readiness to quit tobacco use: Already quit Nicotine Withdrawal symptoms being reported: no symptoms reported Current Management of Withdrawal symptoms: No current management Plan: Discussed management of withdrawal symptoms and cravings while hospitalized Yadi Brizuela 04/22/2018 13:49 documented in this encounter Miscellaneous Notes Plan of Care - Tanisha Cruz RN - 04/23/2018 1406 EST Problem: Daily Care Plan Goals Goal: Care Plan Documentation Outcome: Completed Date Met: 04/23/18 04/23/18 0925 Care Plan Focus Area of Focus Circulatory Status Goal This Shift VSS BP 116/64 (BP Cuff Location: Right arm, Patient Position: Semi fowlers) Temp 36.9 ??C (98.4 ??F) (Tympanic) Resp 16 Ht 165.1 cm (65) Wt 79.6 kg (175 lb 8 oz) SpO2 93% BMI 29.20 kg/m?? Data: Assumed care at approx 0700. Pt admitted in afib, now s/p cardioversion. NSR, VSS. On Eliquis & PO Diltiazem. Denies distress. Discharge orders in place. Action: IV removed, tele discontinued. Discharge instructions reviewed with pt. Response: Pt verbalized understanding of discharge instructions. Wheelchair transport requested. Tanisha Cruz RN 04/23/2018 14:04 Plan of Care - Jenae Kothari RN - 04/23/2018 0430 EST Problem: Daily Care Plan Goals Goal: Care Plan Documentation Outcome: Ongoing 04/22/18 1935 Care Plan Focus Area of Focus Circulatory Status Goal This Shift VSS BP 91/49 (BP Cuff Location: Left arm, Patient Position: Semi fowlers) Temp 37.1 ??C (98.8 ??F) (Tympanic) Resp 16 Ht 165.1 cm (65) Wt 79.6 kg (175 lb 8 oz) SpO2 96% BMI 29.20 kg/m?? Constant Observation Plan of Care Note Data: Began patient care at 19:00. Transfer from [facility] ED for atrial flutter/tachycardia. TTE showed ASD w/ L to R shunt w/ pulmonary HTN. HR 130's. Action: S/P CV 2/1. 1 shock at 200. Afib to NSR post procedure and has remained in NSR 60's-70's. Per team currently holding her dilt ordered as she remains in NSR. Will continue to monitor rhythm, vitals, and labs. No complaints of pain. BP's have been soft 90's/40's-60's. Remains Asymptomatic. Will continue to monitor. UA and protein creatinine sample sent & resulted. Up ad julio c walking independently. Response: Will monitor rhythm & BP. Pending discharge today? JENAE KOTHARI RN 04/23/2018 4:24 Problem: High Fall Risk: Add only for + Hendrich score - Add only risk factors indicated by assessment Goal: Patient will Remain Free of Falls due to Med. Side Effects Outcome: Ongoing Goal: Patient Will Remain Free from Fall-Related Injury Outcome: Ongoing Problem: Sensory: Goal: Ability to compensate for vision loss will be supported Outcome: Ongoing Plan of Care - Carli Cuevas RN - 04/22/2018 1856 EST Problem: Daily Care Plan Goals Goal: Care Plan Documentation 04/22/18 1635 Care Plan Focus Area of Focus Circulatory Status Goal This Shift VSS BP 116/73 (BP Cuff Location: Right arm, Patient Position: Standing) Temp 36.4 ??C (97.5 ??F) (Tympanic) Resp 16 Ht 165.1 cm (65) Wt 79.6 kg (175 lb 8 oz) SpO2 94% BMI 29.20 kg/m?? Data: Pt A&O x3. Independent. NSR. Room Air. Pt admitted for A-flutter. S/p CCV; converted to NSR after one shock. Pt passed orthostatic Vitals. Action: Assessed pt as ordered. Response: Pt does not endorse CP or SOB. CARLI CUEVAS RN 04/22/2018 18:51 Sedation Documentation - Chase Venegas RN - 04/22/2018 1609 EST Patient Transported to PACU with anesthesia. Report to be given on arrival Anesthesia Post-Eval - Sanchez Warner CRNA - 04/22/2018 1607 EST Anesthesia Post op Note Chantelelizabeth White [id number] Anesthesia received: General; Vital Signs: Temp: 36.4 ??C (97.5 ??F), Heart Rate: 79 BPM, BP: 109/75, Resp: 16, SpO2: 96 % Vital signs Stable: Yes Consciousness: Alert, Awake Patient's participation in evaluation:Able to participate Temperature Status: Normothermic Respiratory Status: Airway patent Supplemental O2: Nasal cannula Oxygen Saturation: Within patient's normal range Cardiovascular Status: Within patient's normal range Post-op Hydration: Adequate Nausea / Vomiting: None Pain Control: Adequate Current Pain Score: Numeric Pain Level (Scale 1-10): 0 Post-op Assessment: Tolerated procedure well Disposition: Inpatient Complications: No apparent anesthetic complications Sanchez Warner CRNA 04/22/2018 16:07 Sedation Documentation - Chase Venegas RN - 04/22/2018 1605 EST Anesthesia present for GA monitoring vital signs and sedation Sedation Documentation - Chase Venegas RN - 04/22/2018 1603 EST Patient cardioverted with 200 Joules to nsr Sedation Documentation - Chase Venegas RN - 04/22/2018 1602 EST Attending here Sedation Documentation - Chase Venegas RN - 04/22/2018 1602 EST Anesthesia present for GA monitoring vital signs and sedation Plan of Care - Lorin Martinez, MARJORIE - 04/22/2018 1345 EST Problem: Daily Care Plan Goals Goal: Care Plan Documentation 04/22/18 0805 04/22/18 1343 Care Plan Focus Area of Focus -- Circulatory Status Goal This Shift Patient will have stable VS -- BP 107/78 Temp 37 ??C (98.6 ??F) (Oral) Resp 17 Ht 165.1 cm (65) Wt 79.6 kg (175 lb 8 oz) SpO2 96% BMI 29.20 kg/m?? D: Pt. Denies chest pain and shortness of breath. VSS. Pt. Is a tach on tele 120's. Patient had NISSA and adenosine while at procedure; awaiting cardioversion A: Continue to monitor VS and tele per protocol/PRN. Pt. Verbalized understanding of plan during current hospitalization. All questions answered. R: At time of this note, pt. In bed. Daughter at bedside. No s/s of distress noted. Plan of Care - Ishmael Patterson RN - 04/22/2018 0155 EST Problem: Daily Care Plan Goals Goal: Care Plan Documentation 04/21/18 9946 Care Plan Focus Area of Focus Circulatory Status Goal This Shift Vital signs will remain stable Patient is alert and oriented x4. VSS, Tele monitoring in place. Patient is independent with all adl's at this time. NPO after midnight for NISSA tomorrow. Patient denies pain or discomfort at this time.No PRN medications given. Call light and personal belongings within reach. Patient is calm, cooperative and able to make needs known. Nursing to continue to monitor. documented in this encounter Plan of Treatment Pending Results Name Type Priority Associated Diagnoses Date/Ti me CARDIOVERSION Electrophysiology Routine 9 13:45 EST Scheduled Referrals Name Type Priority Associated Diagnoses Order S chedule AMB CONS/FOLLOW UP Outpatient Routine Atrial fibrillation Or dered: PRIMARY CARE PHYSICIAN Referral with rapid 04/23 ventricular response (HCC-CMS) ASD (atrial septal defect) AMB CONS/FOLLOW UP Outpatient Routine Atrial fibrillation Or dered: CARDIOLOGY Referral with rapid 04/23/2018 ventricular response (HCC-CMS) ASD (atrial septal defect) AMB CONS/FOLLOW UP Outpatient STAT Atrial fibrillation Or dered: ANTICOAGULATION (OTHER Referral with rapid 04/23 THAN [facility]) ventricular response MANAGEMENT (HCC-CMS) documented as of this encounter Procedures Procedure Name Priority Date/Time Associated Comments Diagnosis ECG REPORT - SCANNED 05/01/2018 13:10 EST ECG REPORT - SCANNED 04/27/2018 13:45 EST ECG REPORT - SCANNED 04/27/2018 13:45 EST ECG REPORT - SCANNED 04/23/2018 12:02 EST COMPLETE BLOOD COUNT Routine 04/23/2018 7:04 Resu lts for this EST procedure are i n the results section. BUN Routine 04/23/2018 7:04 Results for this EST procedure are i n the results section. CREATININE Routine 04/23/2018 7:04 Results for this EST procedure are i n the results section. ELECTROLYTES Routine 04/23/2018 7:04 Results for this EST procedure are i n the results section. PROTEIN/CREATININE Routine 04/22/2018 22:00 Resul ts for this RATIO, URINE EST procedure are i n the results section. URINE CHEMICAL (DIP) & Routine 04/22/2018 22:00 R esults for this SEDIMENT (MICRO) WITHOUT EST pro cedure are in REFLEX TO CULTURE the result s section. EKG 12-LEAD Routine 04/22/2018 17:05 Results for this EST procedure are i n the results section. ELECTRICAL CARDIOVERSION Routine 04/22/2018 16:06 Results for this EST procedure are i n the results section. TRANSESOPHAGEAL ECHO Routine 04/22/2018 11:47 Res ults for this (NISSA) EST procedure are i n the results section. PTT Routine 04/22/2018 10:38 Results for this EST procedure are i n the results section. HEPARIN LEVEL - STAT 04/22/2018 10:38 Results for this UNFRACTIONATED HEPARIN EST proce dure are in the results section. HEPARIN LEVEL - STAT 04/22/2018 5:46 Results f or this UNFRACTIONATED HEPARIN EST proce dure are in the results section. COMPLETE BLOOD COUNT Routine 04/22/2018 5:46 Resu lts for this EST procedure are i n the results section. BUN Routine 04/22/2018 5:46 Results for this EST procedure are i n the results section. CREATININE Routine 04/22/2018 5:46 Results for this EST procedure are i n the results section. ELECTROLYTES Routine 04/22/2018 5:46 Results for this EST procedure are i n the results section. HEPARIN LEVEL - STAT 04/22/2018 2:20 Results f or this UNFRACTIONATED HEPARIN EST proce dure are in the results section. COMPLETE BLOOD COUNT Routine 04/21/2018 20:38 Res ults for this EST procedure are i n the results section. BUN Routine 04/21/2018 20:38 Results for this EST procedure are i n the results section. CREATININE Routine 04/21/2018 20:38 Results for this EST procedure are i n the results section. ELECTROLYTES Routine 04/21/2018 20:38 Results for this EST procedure are i n the results section. EKG 12-LEAD Routine 04/21/2018 20:10 Results for this EST procedure are i n the results section. documented in this encounter Results ECG REPORT - SCANNED (05/01/2018 13:10 EST) Specimen (Source) Anatomical Collection Method Collection Time Re ceived Time Location / / Volume Laterality 05/01/2018 13:10 EST Narrative This result has an attachment that is no t available. Scan 2 Production Clerk PROCEDURE/MINOR SURGICAL ORD ERABLES ECG REPORT - SCANNED (04/27/2018 13:45 EST) Specimen (Source) Anatomical Collection Method Collection Time Re ceived Time Location / / Volume Laterality 04/27/2018 13:45 EST Narrative This result has an attachment that is no t available. Scan 2 Production Clerk PROCEDURE/MINOR SURGICAL ORD ERABLES ECG REPORT - SCANNED (04/27/2018 13:45 EST) Specimen (Source) Anatomical Collection Method Collection Time Re ceived Time Location / / Volume Laterality 04/27/2018 13:45 EST Narrative This result has an attachment that is no t available. Scan 2 Production Clerk PROCEDURE/MINOR SURGICAL ORD ERABLES ECG REPORT - SCANNED (04/23/2018 12:02 EST) Specimen (Source) Anatomical Collection Method Collection Time Re ceived Time Location / / Volume Laterality 04/23/2018 12:02 EST Narrative This result has an attachment that is no t available. Scan 2 Production Clerk PROCEDURE/MINOR SURGICAL ORD ERABLES CREATININE (04/23/2018 7:04 EST) athologist Signature Creatinine 0.79 0.52 - 04/23/2018 [facility] 1.04 mg/dl 8:00 [facility] SERVICES GFR, Calculated 79 >60 04/23/2018 [facility] ml/min/1.7 8:00 [facility] 3m2 LABORATORY SERVICES Comment: eGFR calculated using CKD-EPI equation f or non Americans. Multiply eGFR by 1.16 for Americans. Specimen Anatomical Collection Method Collection Time Receive d Time (Source) Location / / Volume Laterality Blood specimen BLOOD SPECIMEN / 04/23/2018 7:04 2018 7:26 (specimen) Unknown EST EST Pauline Draper MD CHEMISTRY & BLOOD GAS ORDERA BLES Performing Organization Address City/State/ZIP Code Phon e Number [facility] [address] [place] [address] SERVICES BUN (04/23/2018 7:04 EST) athologist Signature BUN 21 10 - 26 04/23/2018 [facility] mg/dl 8:00 [facility] Specimen Anatomical Collection Method Collection Time Receive d Time (Source) Location / / Volume Laterality Blood specimen BLOOD SPECIMEN / 04/23/2018 7:04 2018 7:26 (specimen) Unknown EST EST Pauline Draper MD CHEMISTRY & BLOOD GAS ORDERA BLES Performing Organization Address City/[facility]/ZIP Code Phon e Number [facility] [address] [place] [address] SERVICES ELECTROLYTES (04/23/2018 7:04 EST) P athologist Signature Sodium 137 136 - 145 04/23/2018 [facility] mEq/L 8:00 [facility] Potassium 4.6 3.5 - 5.0 04/23/2018 [facility] mEq/L 8:00 [facility] LABORAT[facility] SERVICES Chloride 101 96 - 110 04/23/2018 [facility] mEq/L 8:00 [facility] CO2 26 22 - 32 04/23/2018 [facility] mEq/L 8:00 [facility] Specimen Anatomical Collection Method Collection Time Receive d Time (Source) Location / / Volume Laterality Blood specimen BLOOD SPECIMEN / 04/23/2018 7:04 2018 7:26 (specimen) Unknown EST EST Pauline Draper MD CHEMISTRY & BLOOD GAS ORDERA BLES Performing Organization Address City/State/ZIP Code Phon e Number [facility] [address] [place] [address] SERVICES COMPLETE BLOOD COUNT (04/23/2018 7:04 EST) P athologist Signature WBC 8.16 4.0 - 12.4 04/23/2018 [facility] K/cmm 7:45 [facility] RBC 4.80 3.86 - 5.04 04/23/2018 [facility] M/cmm 7:45 [facility] Hemoglobin 14.4 11.6 - 15.2 04/23/2018 [facility] gm/dl 7:45 [facility] HCT 41.1 34.9 - 44.4 04/23/2018 [facility] % 7:45 [facility] MCV 86 81 - 98 fl 04/23/2018 [facility] 7:45 [facility] MCH 30.0 26.7 - 33.3 04/23/2018 [facility] pg 7:45 [facility] MCHC 35.0 32.1 - 35.9 04/23/2018 [facility] gm/dl 7:45 [facility] RDW-CV 13.2 <14.7 % 04/23/2018 [facility] MEDICAL 7:45 [facility] SERVICES RDW-SD 40.9 <50.4 fl 04/23/2018 [facility] 7:45 [facility] SERVICES PLT 230 141 - 377 04/23/2018 [facility] MED[facility] K/cmm 7:45 [facility] SERVICES MPV 10.9 9.5 - 12.7 04/23/2018 [facility] fl 7:45 [facility] SERVICES Specimen Anatomical Collection Method Collection Time Receive d Time (Source) Location / / Volume Laterality Blood specimen BLOOD SPECIMEN / 04/23/2018 7:04 2018 7:26 (specimen) Unknown EST EST Pauline Draper MD HEMATOLOGY & PF4 ORDERABLES Performing Organization Address City/[facility]/ZIP Code Phon e Number [facility] [address] [place] [address] SERVICES PROTEIN/CREATININE RATIO, URINE (04/22/2018 22:00 EST) P athologist Signature Tot Prot,Ur 5 mg/dl 04/22/2018 [facility] Random 23:27 [facility] SERVICES Creatinine, 205.3 mg/dl 04/22/2018 [facility] Urn [place] 23:27 [facility] SERVICES UPRO mg/mg Cr, 0.02 <0.16 04/22/2018 [facility] Ur mg/mg Crea 23:27 [facility] SERVICES Specimen Anatomical Collection Method Collection Time Receive d Time (Source) Location / / Volume Laterality Urine URINE / Unknown 04/22/2018 22:00 04/22/19 19 (substance) EST 22:34 EST Pauline Draper MD URINALYSIS ORDERABLES Performing Organization Address City/State/ZIP Code Phon e Number [facility] [address] [place] [address] SERVICES (ABNORMAL) UA, CHEMICAL AND SEDIMENT ANALYSIS (DIPSTICK AND MICROSCOPIC) (04/22/2018 22:00 EST) Patholo gist Method Time Signature Color, UA Yellow 04/22/2018 [facility] MEDICAL 22:45 [facility] Clarity, UA Clear 04/22/2018 [facility] 22:45 [facility] Glucose, UA Neg Neg 04/22/2018 [facility] 22:45 [facility] Bilirubin, UA Neg Neg 04/22/2018 [facility] 22:45 [facility] Ketones, UA Neg Neg 04/22/2018 [facility] 22:45 [facility] LABORATORY SERVICES Refractometer 1.032 1.001 - 04/22/2018 [facility] SG,Urine 1.035 22:45 [facility] SERVICES Blood, UA 1+ (A) Neg 04/22/2018 [facility] 22:45 [facility] pH, UA 5.5 4.6 - 8.0 04/22/2018 [facility] 22:45 [facility] Protein, UA Neg Neg 04/22/2018 [facility] 22:45 [facility] LAB[facility] SERVICES Urobilinogen, UA 3.0 (A) Normal 04/22/2018 [facility] E.U./dl 22:45 [facility] SERVICES Nitrite, UA Neg Neg 04/22/2018 [facility] 22:45 [facility] SERVICES Leuk Esterase Neg Neg 04/22/2018 [facility] 22:45 [facility] SERVICES UA Method Used 04/21/2018 [facility] 18:39 [facility] Comment: Testing performed using Influx [id number]-[id number]. Urine RBC Count 0 to 2 0 to 2 /HPF 04/22/2018 22:45 [facility] Automated EST [facility]ENTER LAB[facility]AT[facility] SERVICES Urine WBC Count 0 to 3 0 to 3 /HPF 04/22/2018 22:45 [facility] Urine Squamous Few (A) None seen 04/22/2018 22:45 [facility] MEDI JUAN J Epithelial Cell /LPF EST CENTER LABORAT ORY Count, Automated SERVICES Urine Hyaline < or = 10 < or = 10 04/22/2018 22:45 [facility] AL Casts, Automated /LPF [facility] Urine Bacteria None seen None seen 04/22/2018 22:45 [facility] JUAN J Count, Automated [facility] UA Comment Sediment results 04/22/2018 22:45 [facility] EDICAL [facility] Comment: are unreliable on urines unrefrig >2hrs or refrig >8hrs. Specimen Anatomical Collection Method Collection Time Receive d Time (Source) Location / / Volume Laterality Urine URINE / Unknown 04/22/2018 22:00 04/22/19 19 (substance) EST 22:34 EST Pauline Draper MD URINALYSIS ORDERABLES Performing Organization Address City/State/ZIP Code Phon e Number [facility] [address] [place] [id number] SERVICES EKG 12-LEAD (04/22/2018 17:05 EST) Specimen (Source) Anatomical Collection Method Collection Time Re ceived Time Location / / Volume Laterality 04/22/2018 17:05 EST Narrative [facility] EKG - 05/01/2018 13:0 5 EST ? [facility] ? Test Date: ?2018-04-22 Pat Name: ? CHANTEL WHITE ? Department: ?? Weaver 5 ? Room: ? ME523 Gender: ? Female ? 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 [id number] : ?1955 ? Requested By: GUILLERMO Burr Order Number: [id number] ? Karen MEZA: ?? ROGERIO HARRIS MD ? Measurements Intervals ?Crum ? Rate: ? 78 ? P: ?-16 MI: ? 197 ?QRS: ?40 QRSD: ? 114 ?T: ?15 QT: ? 404 ? QTc: ?461 ? Interpretive Statements SINUS RHYTHM INCOMPLETE RIGHT BUNDLE BRANCH BLOCK Left atrial enlargement Compared to ECG 04/21/2018 20:10:10 Atrial flutter no longer present Indeterminate axis no longer present ST (T wave) deviation no longer present I have reviewed the tracing and have eit her agreed or edited the findings in this report. I reviewed the tracing and have either a greed or edited the findings in this report. Electronically Signed On 05-01-19 13:05:01 EST by ROGERIO HARRIS MD. Procedure Note Rogerio Harris MD - 05/01/2018Formatt ing of this note might be different from the original. [facility] Test Date: 2018-04-22 Pat Name: CHANTEL WHITE [facility] Gender: Female Art Supervisor: [id number] : 1955 Requested By: GUILLERMO Burr Order Number: [id number] Reading MD: Randy HARRIS MD Measurements Intervals Crum Rate: 78 P: -16 MI: 197 QRS: 40 QRSD: 114 T: 15 QT: 404 QTc: 461 Interpretive Statements SINUS RHYTHM INCOMPLETE RIGHT BUNDLE BRANCH BLOCK Left atrial enlargement Compared to ECG 04/21/2018 20:10:10 Atrial flutter no longer present Indeterminate axis no longer present ST (T wave) deviation no longer present I have reviewed the tracing and have eit her agreed or edited the findings in this report. I reviewed the tracing and have either a greed or edited the findings in this report. Electronically Signed On 05-01-19 13:05:01 EST by ROGERIO HARRIS MD. Best Martinez MD CARDIAC ECG ORDERABLES Performing Organization Address City/State/ZIP Code Phon e Number [facility] EKG Electrical Cardioversion (04/22/2018 16:06 EST) Narrative James Nogueira MD - 04/22/2018 16 :06 EST Marshall Marx MD ? 04/22/2018 16:07 Electrical Cardioversion Date/Time: 04/22/2018 16:06 Performed by: Marshall Marx MD Authorized by: Marshall Marx MD Consent: Verbal consent obtained. Writte n consent obtained. Risks and benefits: risks, benefits and alternatives were discussed Consent given by: patient Patient understanding: patient states un derstanding of the procedure being performed Patient consent: the patient's understan ding of the procedure matches consent given Procedure consent: procedure consent mat ches procedure scheduled Relevant documents: relevant documents p resent and verified Test results: test results available and properly labeled Site marked: the operative site was norris ed Imaging studies: imaging studies availab le Required items: required blood products, implants, devices, and special equipment available Patient identity confirmed: verbally wit h patient and arm band Sedation: Patient sedated: yes Sedation type: moderate (conscious) tamiko tion Sedatives: propofol Cardioversion basis: elective Pre-procedure rhythm: atrial fibrillatio n Patient position: patient was placed in a supine position Chest area: chest area exposed Electrodes: pads Electrodes placed: anterior-posterior Number of attempts: 1 Attempt 1 mode: synchronous Attempt 1 waveform: biphasic Attempt 1 shock (in Joules): 200 Attempt 1 outcome: conversion to normal sinus rhythm Post-procedure rhythm: normal sinus rhyt hm Patient tolerance: Patient tolerated the procedure well with no immediate complications Marshall Marx MD PROCEDURE/MINOR SURGICAL ORD ERABLES TRANSESOPHAGEAL ECHO (NISSA) (04/22/2018 11:47 EST) Anatomical Region Laterality Modality Other Specimen (Source) Anatomical Collection Method Collection Time Re ceived Time Location / / Volume Laterality 04/22/2018 11:47 EST Narrative 04/22/2018 15:01 EST *Interpreting Group:* *[facility]* [address] [place] [address] Date of study: 04/22/2018 Transesophageal Echocardiography 2D, spectral Doppler, and color Doppler *STUDY CONCLUSIONS* Summary: 1. Left ventricle: Systolic function was normal. The estimated ejection ?? fraction was 60-65%. Wall motion was normal; there were no regional ?? wall motion abnormalities. 2. Aortic valve: There was mild regurgit ation. 3. Mitral valve: There was mild regurgit ation. 4. Left atrium: No evidence of thrombus in the atrial cavity or ?? appendage. 5. Right ventricle: The cavity size was mildly to moderately dilated. ?? Wall thickness was normal. Systolic function was low normal. 6. Right atrium: The atrium was dilated. 7. Atrial septum: There was a large secu ndum atrial septal defect ?? measuring 1.8cm. *PATIENT PRESENTATION* Height: ? () S/D Pressure: Weight: ? () BSA: ADMITTING ??James Nogueira MD, P Oswaldo ATTENDING ??Jayson Brar REFERRING ??Elisha Morrell FELLOW ? Kathe Skinner ORDERING ?? Best Martinez *PROCEDURE DATA* Procedure information: ??Dr. Joseph andrade supervised and was present for the performance of the entire proced ure. This study was interpreted by [facility]. Pertinent images and digital data are archived for [email or web address] storage and are available for subsequent review. ??Study status: ? ?Routine. Diagnostic transesophageal echocardiography. ??2D, spectral Doppler, and color Doppler. ??Consent: ??The risks, benefit s, and alternatives to the procedure were explained to the patient and consent was verbally obtained. ??Barriers to education: ??No barriers to education identified. Initial setup. The patient was brought t o the laboratory in the fasting state. Surface ECG leads, blood pressure measurements, and pulse oximetric signals were monitored. Sedati on. Moderate sedation with intermittent deep sedation was administe red . A Transesophageal echocardiogram was performed for exclusi on of intracardiac thrombi. Topical anesthesia was obtained using vi scous lidocaine. A Multiplane 3D transesophageal probe was inserted. Imag es were obtained using an Epiq 9 cardiac ultrasound machine. The transeso phageal probe was removed. Study completion: ??The patient tolerate d the procedure well. There was no blood loss or specimens removed durin g the procedure. There were no complications. *CARDIAC ANATOMY* Left ventricle: ??Systolic function was normal. The estimated ejection fraction was 60-65%. Wall motion was nor mal; there were no regional wall motion abnormalities. Aortic valve: ?? Structurally normal arianna ve. Trileaflet; normal thickness leaflets. Cusp separation was normal. ?? No evidence of vegetation. Doppler: ??There was mild regurgitation. Aorta: ??There was moderate atheromatous plaque. Aortic root: The aortic root was not dilated. Ascending aorta: The ascending aorta was normal in size. Aortic arch: The aortic arch was normal in size. Descending aorta: The descending aorta w as normal in size. Mitral valve: ?? Structurally normal arianna ve. ?? Leaflet separation was normal. ??No evidence of vegetation. ??D oppler: ??There was mild regurgitation. Left atrium: ??The atrium was normal in size. ??No evidence of thrombus in the atrial cavity or appendage. The appe ndage was morphologically a left appendage and of normal size. Emptying v elocity was normal. Atrial septum: ??There was a large secun dum atrial septal defect measuring 1.8cm. Right ventricle: ??The cavity size was m ildly to moderately dilated. Wall thickness was normal. Systolic function was low normal. Pulmonic valve: ?? Not well visualized. ??Doppler: ??There was no significant regurgitation. Tricuspid valve: ?? Structurally normal valve. ?? Leaflet separation was normal. ??No evidence of vegetation. ??D oppler: ??There was no significant regurgitation. Pulmonary artery: ?? The main pulmonary artery was upper normal in size. Right atrium: ??The atrium was dilated. Pericardium: ??There was no pericardial effusion. I have personally reviewed the images an d have reviewed and edited the reported findings. Electronically signed by Joseph Degroot MD 04/22/2018 15:01 Procedure Note Joseph Marcelo MD - 04/22/2018Format ting of this note might be different from the original. *Interpreting Group:* *[facility]* [address] [place] [id number] Date of study: 04/22/2018 Transesophageal Echocardiography 2D, spectral Doppler, and color Doppler *STUDY CONCLUSIONS* Summary: 1. Left ventricle: Systolic function was normal. The estimated ejection fraction was 60-65%. Wall motion was no rmal; there were no regional wall motion abnormalities. 2. Aortic valve: There was mild regurgit ation. 3. Mitral valve: There was mild regurgit ation. 4. Left atrium: No evidence of thrombus in the atrial cavity or appendage. 5. Right ventricle: The cavity size was mildly to moderately dilated. Wall thickness was normal. Systolic fun ction was low normal. 6. Right atrium: The atrium was dilated. 7. Atrial septum: There was a large secu ndum atrial septal defect measuring 1.8cm. *PATIENT PRESENTATION* Height: () S/D Pressure: Weight: () BSA: ADMITTING James Nogueira MD, PhD ATTENDING Jayson Brar Brigitte F FELLOW Kathe Skinner Kevin K *PROCEDURE DATA* Procedure information: Dr. Joseph johnson supervised and was present for the performance of the entire proced ure. This study was interpreted by [facility]. Pertinent images and digital data are archived for [email or web address] storage and are available for subsequent review. Study status: Gordon singletary. Diagnostic transesophageal echocardiography. 2D, sp ectral Doppler, and color Doppler. Consent: The risks, benefits, a nd alternatives to the procedure were explained to the patient and consent was verbally obtained. Barriers to education: No crawford iers to education identified. Initial setup. The patient was brought t o the laboratory in the fasting state. Surface ECG leads, blood pressure measurements, and pulse oximetric signals were monitored. Sedati on. Moderate sedation with intermittent deep sedation was administe red . A Transesophageal echocardiogram was performed for exclusi on of intracardiac thrombi. Topical anesthesia was obtained using vi scous lidocaine. A Multiplane 3D transesophageal probe was inserted. Imag es were obtained using an Epiq 9 cardiac ultrasound machine. The transeso phageal probe was removed. Study completion: The patient tolerated the procedure well. There was no blood loss or specimens removed durin g the procedure. There were no complications. *CARDIAC ANATOMY* Left ventricle: Systolic function was no rmal. The estimated ejection fraction was 60-65%. Wall motion was nor mal; there were no regional wall motion abnormalities. Aortic valve: Structurally normal valve. Trileaflet; normal thickness leaflets. Cusp separation was normal. No evidence of vegetation. Doppler: There was mild regurgitation. Aorta: There was moderate atheromatous p laque. Aortic root: The aortic root was not dilated. Ascending aorta: The ascending aorta was normal in size. Aortic arch: The aortic arch was normal in size. Descending aorta: The descending aorta w as normal in size. Mitral valve: Structurally normal valve. Leaflet separation was normal. No evidence of vegetation. Doppl er: There was mild regurgitation. Left atrium: The atrium was normal in si ze. No evidence of thrombus in the atrial cavity or appendage. The appe ndage was morphologically a left appendage and of normal size. Emptying v elocity was normal. Atrial septum: There was a large secundu m atrial septal defect measuring 1.8cm. Right ventricle: The cavity size was mil dly to moderately dilated. Wall thickness was normal. Systolic function was low normal. Pulmonic valve: Not well visualized. Dop pler: There was no significant regurgitation. Tricuspid valve: Structurally normal arianna ve. Leaflet separation was normal. No evidence of vegetation. Doppl er: There was no significant regurgitation. Pulmonary artery: The main pulmonary art earl was upper normal in size. Right atrium: The atrium was dilated. Pericardium: There was no pericardial ef fusion. I have personally reviewed the images an d have reviewed and edited the reported findings. Electronically signed by Joseph Degroot MD 04/22/2018 15:01 Best Martinez MD CARDIAC ECHO ORDERABLES (ABNORMAL) PTT (04/22/2018 10:38 EST) athologist Signature PTT 54 (H) 26 - 37 04/22/2018 [facility] secs 11:57 EST [facility]ENTER LAB[facility] SERVICES Specimen Anatomical Collection Method Collection Time Receive d Time (Source) Location / / Volume Laterality Blood specimen BLOOD SPECIMEN / 04/22/2018 10:38 04/22 (specimen) Unknown EST 11:06 EST Best Martinez MD HEMATOLOGY & PF4 ORDERABLES Performing Organization Address City/State/ZIP Code Phon e Number [facility] [address] [place] [address] SERVICES HEPARIN LEVEL - UNFRACTIONATED HEPARIN (04/22/2018 10:38 EST) athologist Signature Heparin 0.91 IU/mL 04/22/2018 [facility] MED[facility] Level-UFH 11:19 EST [facility] Comment: Unfractionated heparin therapeutic range = 0.3-0.7 IU/ml This test is not intended for monitoring direct Xa inhibitors, direct thrombin inhibitors, or fondaparinux. Exogenous ATIII is NOT supplied in this assay. For unexpected or persistently low level s, consider measuring patient's ATIII level . Specimen Anatomical Collection Method Collection Time Receive d Time (Source) Location / / Volume Laterality Blood specimen BLOOD SPECIMEN / 04/22/2018 10:38 04/22 (specimen) Unknown EST 10:49 EST Lizbeth Almodovar MD HEMATOLOGY & PF4 ORDERABLES Performing Organization Address City/State/ZIP Code Phon e Number [facility] [address] [place] [address] SERVICES (ABNORMAL) HEPARIN LEVEL - UNFRACTIONATED HEPARIN (04/22/2018 5:46 EST) [facility] gist Method Time Signature Heparin 1.11 (HH) IU/mL 04/22/2018 [facility] MEDICAL Level-UFH 6:22 [facility]ENTER LABORATORY SERVICES Comment: Unfractionated heparin therapeutic range = 0.3-0.7 IU/ml This test is not intended for monitoring direct Xa inhibitors, direct thrombin inhibitors, or fondaparinux. Exogenous ATIII is NOT supplied in this assay. For unexpected or persistently low level s, consider measuring patient's ATIII level . Elevated heparin levels are due to supra -therapeutic heparin in sample. Check the following to confirm result ac curately reflects the patient's unfractionated heparin level: 1. Blood sample obtained from a non-hepa rinized line and/or line was properly flushed. 2. Collection site was distal to heparin infusion. 3. Concentration of heparin infusion is correct. 4. Infusion rate of heparin is correct. Sample retested, result confirmed Specimen Anatomical Collection Method Collection Time Receive d Time (Source) Location / / Volume Laterality Blood specimen BLOOD SPECIMEN / 04/22/2018 5:46 2018 5:52 (specimen) Unknown EST EST Best Martinez MD HEMATOLOGY & PF4 ORDERABLES Performing Organization Address City/State/ZIP Code Phon e Number [facility] [address] [place] [address] SERVICES CREATININE (04/22/2018 5:46 EST) athologist Signature Creatinine 0.81 0.52 - 04/22/2018 [facility] MEDICAL 1.04 mg/dl 6:50 [facility] CENTER LABORATORY SERVICES GFR, Calculated 77 >60 04/22/2018 [facility] MEDICAL ml/min/1.7 6:50 [facility] 3m2 LABORATORY SERVICES Comment: eGFR calculated using CKD-EPI equation f or non Americans. Multiply eGFR by 1.16 for Americans. Specimen Anatomical Collection Method Collection Time Receive d Time (Source) Location / / Volume Laterality Blood specimen BLOOD SPECIMEN / 04/22/2018 5:46 2018 5:52 (specimen) Unknown EST EST Pauline Draper MD CHEMISTRY & BLOOD GAS ORDERA BLES Performing Organization Address City/State/ZIP Code Phon e Number [facility] [address] [place] [phone] SERVICES BUN (04/22/2018 5:46 EST) athologist Signature BUN 21 10 - 26 04/22/2018 [facility] mg/dl 6:50 EST [facility] Specimen Anatomical Collection Method Collection Time Receive d Time (Source) Location / / Volume Laterality Blood specimen BLOOD SPECIMEN / 04/22/2018 5:46 2018 5:52 (specimen) Unknown EST EST Pauline Draper MD CHEMISTRY & BLOOD GAS ORDERA BLES Performing Organization Address City/[facility]/ZIP Code Phon e Number [facility] [address] [place] [phone] SERVICES ELECTROLYTES (04/22/2018 5:46 EST) athologist Signature Sodium 138 136 - 145 04/22/2018 [facility] mEq/L 6:50 EST [facility] SERVICES Potassium 4.7 3.5 - 5.0 04/22/2018 [facility] mEq/L 6:50 EST [facility] Chloride 103 96 - 110 04/22/2018 [facility] mEq/L 6:50 [facility] SERVICES CO2 25 22 - 32 04/22/2018 [facility] mEq/L 6:50 [facility]ENTER LABORATORY SERVICES Specimen Anatomical Collection Method Collection Time Receive d Time (Source) Location / / Volume Laterality Blood specimen BLOOD SPECIMEN / 04/22/2018 5:46 2018 5:52 (specimen) Unknown EST EST Pauline Draper MD CHEMISTRY & BLOOD GAS ORDERA BLES Performing Organization Address City/State/ZIP Code Phon e Number [facility] CENTER LABORATORY [address] [place] [address] SERVICES (ABNORMAL) COMPLETE BLOOD COUNT (04/22/2018 5:46 EST) P athologist Signature WBC 13.06 (H) 4.0 - 12.4 04/22/2018 [facility] K/cmm 5:59 EST [facility]ENTER LAB[facility] SERVICES RBC 5.15 (H) 3.86 - 04/22/2018 [facility] 5.04 M/cmm 5:59 EST [facility] LAB[facility] SERVICES Hemoglobin 15.6 (H) 11.6 - 04/22/2018 [facility] 15.2 gm/dl 5:59 [facility] CENTER LABORATORY SERVICES HCT 43.6 34.9 - 04/22/2018 [facility] 44.4 % 5:59 [facility] CENTER LABORATORY SERVICES MCV 85 81 - 98 fl 04/22/2018 [facility] 5:59 [facility] LABORATORY SERVICES MCH 30.3 26.7 - 04/22/2018 [facility] 33.3 pg 5:59 [facility] LABORATORY SERVICES MCHC 35.8 32.1 - 04/22/2018 [facility] 35.9 gm/dl 5:59 [facility] LABORATORY SERVICES RDW-CV 12.9 <14.7 % 04/22/2018 [facility] 5:59 [facility] CENTER LABORATORY SERVICES RDW-SD 39.8 <50.4 fl 04/22/2018 [facility] 5:59 [facility] LABORATORY SERVICES PLT 230 141 - 377 04/22/2018 [facility] K/cmm 5:59 [facility] LABORATORY SERVICES MPV 10.4 9.5 - 12.7 04/22/2018 [facility] fl 5:59 [facility] LABORATORY SERVICES Specimen Anatomical Collection Method Collection Time Receive d Time (Source) Location / / Volume Laterality Blood specimen BLOOD SPECIMEN / 04/22/2018 5:46 2018 5:52 (specimen) Unknown [facility] EST Pauline Draper MD HEMATOLOGY & PF4 ORDERABLES Performing Organization Address City/State/ZIP Code Phon e Number [facility] [address] [place] [address] SERVICES (ABNORMAL) HEPARIN LEVEL - UNFRACTIONATED HEPARIN (04/22/2018 2:20 EST) [facility] Method Time Signature Heparin 1.68 (HH) IU/mL 04/22/2018 [facility] Level-UFH 2:56 [facility] CENTER LABORATORY SERVICES Comment: Unfractionated heparin therapeutic range = 0.3-0.7 IU/ml This test is not intended for monitoring direct Xa inhibitors, direct thrombin inhibitors, or fondaparinux. Exogenous ATIII is NOT supplied in this assay. For unexpected or persistently low level s, consider measuring patient's ATIII level . Elevated heparin levels are due to supra -therapeutic heparin in sample. Check the following to confirm result ac curately reflects the patient's unfractionated heparin level: 1. Blood sample obtained from a non-hepa rinized line and/or line was properly flushed. 2. Collection site was distal to heparin infusion. 3. Concentration of heparin infusion is correct. 4. Infusion rate of heparin is correct. Sample retested, result confirmed Specimen Anatomical Collection Method Collection Time Receive d Time (Source) Location / / Volume Laterality Blood specimen BLOOD SPECIMEN / 04/22/2018 2:20 2018 2:25 (specimen) Unknown EST EST Lizbeth Almodovar MD HEMATOLOGY & PF4 ORDERABLES Performing Organization Address City/State/ZIP Code Phon e Number [facility] [address] [place] [address] SERVICES (ABNORMAL) ELECTROLYTES (04/21/2018 20:38 EST) athologist Signature Sodium 137 136 - 145 04/21/2018 [facility] MEDICAL mEq/L 21:00 [facility] LABORATORY SERVICES Potassium 4.0 3.5 - 5.0 04/21/2018 [facility] MEDICAL mEq/L 21:00 [facility] LABORATORY SERVICES Chloride 105 96 - 110 04/21/2018 [facility] MEDICAL mEq/L 21:00 [facility] LABORATORY SERVICES CO2 21 (L) 22 - 32 04/21/2018 [facility] MEDICAL mEq/L 21:00 [facility] LABORATORY SERVICES Specimen Anatomical Collection Method Collection Time Receive d Time (Source) Location / / Volume Laterality BLOOD SPECIMEN / 04/21/2018 20:38 019 Unknown EST 20:44 EST Pauline Draper MD CHEMISTRY & BLOOD GAS ORDERA BLES Performing Organization Address City/[facility]/ZIP Code Phon e Number [facility] [address] [place] [address] SERVICES CREATININE (04/21/2018 20:38 EST) athologist Signature Creatinine 0.80 0.52 - 04/21/2018 [facility] MEDICAL 1.04 mg/dl 21:00 [facility] LABORATORY SERVICES GFR, Calculated 78 >60 04/21/2018 [facility] MEDICAL ml/min/1.7 21:00 [facility] 3m2 LABORATORY SERVICES Comment: eGFR calculated using CKD-EPI equation f or non Americans. Multiply eGFR by 1.16 for Americans. Specimen Anatomical Collection Method Collection Time Receive d Time (Source) Location / / Volume Laterality BLOOD SPECIMEN / 04/21/2018 20:38 019 Unknown EST 20:44 EST Pauline Draper MD CHEMISTRY & BLOOD GAS ORDERA BLES Performing Organization Address City/State/ZIP Code Phon e Number [facility] [address] [place] [address] SERVICES (ABNORMAL) COMPLETE BLOOD COUNT (04/21/2018 20:38 EST) P athologist Signature WBC 14.45 (H) 4.0 - 12.4 04/21/2018 [facility] [facility] K/cmm 21:16 [facility] RBC 5.28 (H) 3.86 - 04/21/2018 [facility] MEDICAL 5.04 M/cmm 21:16 [facility] Hemoglobin 16.2 (H) 11.6 - 04/21/2018 [facility] MEDICAL 15.2 gm/dl 21:16 [facility] HCT 44.6 (H) 34.9 - 04/21/2018 [facility] MEDICAL 44.4 % 21:16 [facility] MCV 85 81 - 98 fl 04/21/2018 [facility] MEDICAL 21:16 EST [facility]ENTER [facility] SERVICES MCH 30.7 26.7 - 04/21/2018 [facility] MEDICAL 33.3 pg 21:16 [facility] MCHC 36.3 (H) 32.1 - 04/21/2018 [facility] MEDICAL 35.9 gm/dl 21:16 [facility] RDW-CV 13.1 <14.7 % 04/21/2018 [facility] MEDICAL 21:16 EST [facility] RDW-SD 40.4 <50.4 fl 04/21/2018 [facility] MEDICAL 21:16 EST [facility] PLT 260 141 - 377 04/21/2018 [facility] MEDICAL K/cmm 21:16 EST [facility] MPV 10.9 9.5 - 12.7 04/21/2018 [facility] MEDICAL fl 21:16 [facility] Specimen Anatomical Collection Method Collection Time Receive d Time (Source) Location / / Volume Laterality Blood specimen BLOOD SPECIMEN / 04/21/2018 20:38 04/21 (specimen) Unknown EST 20:43 EST Pauline Draper MD HEMATOLOGY & PF4 ORDERABLES Performing Organization Address City/State/ZIP Code Phon e Number [facility] [address] [place] [address] SERVICES BUN (04/21/2018 20:38 EST) P athologist Signature BUN 21 10 - 26 04/21/2018 [facility] mg/dl 21:00 EST [facility] SERVICES Specimen Anatomical Collection Method Collection Time Receive d Time (Source) Location / / Volume Laterality Blood specimen BLOOD SPECIMEN / 04/21/2018 20:38 04/21 (specimen) Unknown EST 20:44 EST Pauline Draper MD CHEMISTRY & BLOOD GAS ORDERA BLES Performing Organization Address City/State/ZIP Code Phon e Number [facility] [address] [place] [address] SERVICES EKG 12-LEAD (04/21/2018 20:10 EST) Specimen (Source) Anatomical Collection Method Collection Time Re ceived Time Location / / Volume Laterality 04/21/2018 20:10 EST Narrative [facility] EKG - 04/23/2018 11:5 9 EST ? [facility] ? Test Date: ?2018-04-21 Pat Name: ? CHANTEL WHITE ? Department: ?? Weaver 5 ? Room: ? ME523 Gender: ? Female ? 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 [id number] : ?1955 ? Requested By: KATTY Ruiz Number: [id number] ? Karen MEZA: ?? LINDA DIANA MD ? Measurements Intervals ?Crum ? Rate: ? 128 ?P: ? MI: ? 0 ?QRS: ?7 QRSD: ? 111 ?T: ?44 QT: ? 325 ? QTc: ?475 ? Interpretive Statements ATRIAL FLUTTER/TACHYCARDIA WITH RAPID VE NTRICULAR RESPONSE INDETERMINATE AXIS INCOMPLETE RIGHT BUNDLE BRANCH BLOCK NONSPECIFIC ST-T WAVE CHANGES No previous ECG available for comparison I reviewed the tracing and have either a greed or edited the findings in this report. Electronically Signed On 9 11:59:07 EST by LINDA DIANA MD. Procedure Note Linda Diana MD - 04/23/2018Formatt ing of this note might be different from the original. [facility] Test Date: 2018-04-21 Pat Name: CHANTEL CINDY Department: M cClure 5 [place]: [facility] Gender: Female Art Supervisor: [id number] : 1955 Requested By: KATTY Hardy Order Number: [id number] Reading MD: Randy DIANA MD Measurements Intervals Crum Rate: 128 P: MI: 0 QRS: 7 QRSD: 111 T: 44 QT: 325 QTc: 475 Interpretive Statements ATRIAL FLUTTER/TACHYCARDIA WITH RAPID VE NTRICULAR RESPONSE INDETERMINATE AXIS INCOMPLETE RIGHT BUNDLE BRANCH BLOCK NONSPECIFIC ST-T WAVE CHANGES No previous ECG available for comparison I reviewed the tracing and have either a greed or edited the findings in this report. Electronically Signed On 11:59:07 EST by LINDA DIANA MD. Lizbeth Almodovar MD CARDIAC ECG ORDERABLES Performing Organization Address City/State/ZIP Code Phon e Number [facility] EKG documented in this encounter Visit Diagnoses Diagnosis Atrial fibrillation (HCC-CMS) ([facility]) - Pr imary Atrial fibrillation Tachycardia Tachycardia, unspecified Atrial fibrillation with rapid ventricul ar response (HCC-CMS) ([facility]) Atrial fibrillation ASD (atrial septal defect) Ostium secundum type atrial septal defec t documented in this encounter Administered Medications Inactive Administered Medications - up to 3 most recent administrations Medication Order MAR Action Action Date Dose Rate Site adenosine (ADENOCARD) injection Given 04/22/2018 12:41 EST 12 mg intravenous, PRN, Starting on Wed04/22/18 at 1241, Until Wed04/22/18 at 1241, Routine Given 04/22/2018 12:41 EST 6 mg apixaban (ELIQUIS) tablet 5 mg Given 04/23/2018 9:19 EST 5 mg 5 mg, oral, 2 TIMES DAILY, First dose on Wed04/22/18 at 2100, Until Discontinued, Routine Given 04/22/2018 20:26 EST 5 mg DILTiazem (CARDIZEM) tablet 30 mg Given 04/22/2018 5:44 EST 30 mg 30 mg, oral, EVERY 6 HOURS, First dose on Wed04/21/18 at 1930, Until Discontinued, Routine Given 04/21/2018 23:44 EST 30 mg Given 04/21/2018 20:20 EST 30 mg DILTiazem (CARDIZEM) tablet 60 mg Given 04/23/2018 12:34 EST 60 mg 60 mg, oral, EVERY 6 HOURS, First dose (after last modification) on Wed04/22/18 at 1200, Until Discontinued, Routine Given 04/22/2018 13:39 EST 60 mg fentaNYL citrate (PF) injection Given 04/22/2018 12:10 EST 25 mcg intravenous, PRN, Starting on Wed04/22/18 at 1156, Until Wed04/22/18 at 1210, Routine Given 04/22/2018 12:04 EST 25 mcg Given 04/22/2018 11:58 EST 25 mcg heparin 1,000 unit/mL injection 4,600 Given 04/21/2018 20:18 EST 4,600 Units Units 4,600 Units (rounded from 4,620 Units = 70 Units/kg ? 66 kg Adjusted weight), intravenous, NOW X1, 1 dose, On Nan 04/21/18 at 1915, STAT heparin in 1/2 NS Rate Documented 04/22/2018 16:35 EST 10 Units/kg/hr 6.6 mL/hr 25,000 unit/250 mL infusion 10 Units/kg/hr ? 66 kg Adjusted weight (6.6 mL/hr), intravenous, CONTINUOUS, Starting on Nan 04/21/18 at 1915, Until Wed04/22/18 at 1725, Routine Rate Documented 04/22/2018 15:29 EST 10 Units/kg/hr 6.6 mL/hr Rate Change 04/22/2018 13:24 EST 10 Units/kg/hr 6.6 mL/hr midazolam (PF) (VERSED) injection Given 04/22/2018 12:12 EST 1 mg intravenous, PRN, Starting on Wed04/22/18 at 1156, Until Wed04/22/18 at 1212, Routine Given 04/22/2018 12:02 EST 1 mg Given 04/22/2018 11:58 EST 1 mg sodium chloride 0.9 % flush 3 mL Given 04/23/2018 9:19 EST 3 mL 3 mL, intravenous, EVERY 8 HOURS, First dose on Nan 04/21/18 at 1815, Until Discontinued, Routine Given 04/21/2018 20:24 EST 3 mL documented in this encounter Historical Medications This list may reflect changes made after this encounter. Medication Sig Dispensed Refills Start Date End Date ibuprofen (MOTRIN) 200 mg Take 200 mg by mouth 0 06/01/2018 tablet every 8 hours as needed for Pain. added in this encounter Active and Recently Administered Medications Times are shown in EST. Scheduled Medication Order 04/21/2018 04/22/2018 04/23/2018 apixaban (ELIQUIS) tablet 5 mg 2025 (Given - Pro vider: Jenae Kothari RN) 09 (Given - Provider: Tanisha Cruz RN) 5 mg, oral, 2 TIMES DAILY, First dose on Wed04/22/18 at 2100, Until Discontinued, Routine DILTiazem (CARDIZEM) tablet 30 mg (CANCELED) 2019 (Giv en - Provider: Ishmael Patterson RN)2344 (Given - Provider: Ishmael Patterson RN) 0544 (Given - Provider: Ishmael Patterson RN) 30 mg, oral, EVERY 6 HOURS, First dose o n Nan 04/21/18 at 1930, Until Discontinued, Routine DILTiazem (CARDIZEM) tablet 60 mg 1339 ( Given - Provider: Lorin Martinez RN)1744 (Not Given - Provider: Carli Cuevas RN - Reason: Other - Comment: Per MD Silveira; indicated not to administer. Pt converted and rate controlled in SR.) 0508 (Not Given - Provider: Jenae Kothari RN - Reason: Other - Comment: per team holding)1234 (Given - Provider: Tanisha Cruz RN) 60 mg, oral, EVERY 6 HOURS, First dose o n Wed04/22/18 at 1200, Until Discontinued, Routine 2326 (Not Given - Provider: Jenae Kothari RN - Reason: Other - Comment: patient is in NSR. per team we are still holding the dilt) heparin 1,000 unit/mL injection 4,600 Units (COMPLETED ) 2017 (Given - Provider: Ishmael Patterson RN) 4,600 Units (rounded from 4,620 Units = 70 Units/kg ? 66 kg Adjusted weight), intravenous, NOW X1, 1 dose, Nan 04/21/18 at 1915, STAT sodium chloride 0.9 % flush 3 mL 2023 (Given - Provider: Man Patterson RN) 001 (Not Given - Provider: Ishmael Patterson RN - Reason: Other - Comment: heparin infusing at this time)0945 (Not Given - Provider: Lorin Martinez RN - Reason: Order parameters not met) 09 (Given - Provider: Corina Aviles)1600 (Canceled Entry - Provider: Batch Job User Admin - Comment: Automatically canceled at discontinue of medication order) 3 mL, intravenous, EVERY 8 HOURS, First dose on Nan 04/21/18 at 1815, Until Discontinued, Routine 1612 (Not Given - Provider: Carli Cuevas RN - Reason: Other - Comment: IV infusing)2325 (Not Given - Provider: Jenae Kothari RN - Reason: Other - Comment: already flushed at beginning of shift.) Continuous Medication Order 04/21/2018 04/22/2018 04/23/2018 heparin in 03/23 NS 25,000 unit/250 mL infusion (CANCELE D) 2016 (New Bag - Provider: Ishmael Patterson, RN) 0302 (Hold - Provider: Katarzyna Becerra RN - Reason: Order parameters not met)0407 (Rate Change - Provider: Ishmael Patterson, RN)1324 (Rate Change - Provider: Lorin Martinez RN)1529 (Rate Documented - P rovider: Carli Cuevas RN) 10 Units/kg/hr ? 66 kg Adjusted weight (6.6 mL/hr), intravenous, at 6.6 mL/hr, CONTINUOUS, Starting Nan 04/21/18 at 1915, Until 04/22/18 at 1725, Routine 1635 (Rate Documented - Provider: Carli Cuevas RN)1813 (IV Stopped - Provider: Carli Cuevas RN) PRN Medication Order 04/21/2018 04/22/2018 04/23/2018 acetaminophen (TYLENOL) tablet 650 mg 650 mg, oral, EVERY 4 HOURS PRN, Startin g Nan 04/21/18 at 1750, Until 04/23/18 at 1714, Pain, Routine adenosine (ADENOCARD) injection (COMPLETED) 1241 (Given - Provider: Aniyah Madrigal, RN)1241 (Given - Provider: Aniyah Madrigal, RN) intravenous, PRN, Starting 04/22/18 at 1241, Until 04/22/18 at 1241, Routine fentaNYL citrate (PF) injection (COMPLETED) 1156 (Given - Provider: Aniyah Madrigal, RN)1158 (Given - Provider: Aniyah Madrigal, RN)1204 (Given - Provider: Aniyah Madrigal, MARJORIE)1210 (Given - Provider: Aniyah Madrigal, RN) intravenous, PRN, Starting 04/22/18 at 1156, Until Wed04/22/18 at 1210, Routine midazolam (PF) (VERSED) injection (COMPLETED) 1156 (Given - Provider: Aniyah Madrgial RN)1158 (Given - Provider: Aniyah Madrigal, RN)1202 (Given - Provider: Aniyah Madrigal RN)1212 (Given - Provider: Aniyah Madrigal RN) intravenous, PRN, Starting 04/22/18 at 1156, Until 04/22/18 at 1212, Routine documented in this encounter Orders Medications Ordered That Might Not Have Count Last Ord ered Date First Ordered Date Been Administered fentaNYL citrate (PF) 50 mcg/mL injection 2 2018 lidocaine (XYLOCAINE) 2 % viscous solution 1 04/22 midazolam (PF) (VERSED) 1 mg/mL injection 1 2018 acetaminophen (TYLENOL) tablet 650 mg 1 04/21/2018 heparin 1,000 unit/mL injection 2,300 1 04/21/2018 Units heparin 1,000 unit/mL injection 4,600 1 04/21/2018 Units Diet Count Last Ordered Date First Ordered Date DISCHARGE DIET 2 04/23/2018 Nursing Count Last Ordered Date First Ordered Date WOUND CARE INSTRUCTIONS 2 04/23/2018 VTE PHARMACOLOGIC PROPHYLAXIS CURRENTLY 1 04/21/19 19 ORDERED OR ON ALTERNATIVE THER Consult Count Last Ordered Date First Ordered Date CONSULT SMOKING CESSATION 1 04/22/2018 Admission Count Last Ordered Date First Ordered Date STATUS: INPATIENT ACUTE ADMISSION 04/21/2018 Transfer Count Last Ordered Date First Ordered Date NOTIFY PPS OF DISCHARGE COMPLETE 04/23/2018 CHANGE ATTENDING TO: 04/22/2018 UR PATIENT STATUS CHANGE 1 04/21/2018 Discharge Count Last Ordered Date First Ordered Date DISCHARGE PATIENT 1 04/23/2018 Legal Count Last Ordered Date First Ordered Date MISCELLANEOUS DISCHARGE INSTRUCTIONS 3 04/23/2018 documented in this encounter Care Teams Program/Music Director Relationship Specialty Start Date End Date Elisha Morrell MD PCP - General 04/20/18 10/18/18 [address] [place] [address] documented as of this encounter
--- NOTE | 2022-02-06 08:45 | DI.MRI_ITS ---
Exam(s) MR BRAIN WO/W EXAM: MR BRAIN WO/W CLINICAL HISTORY: ATYPICAL INFARCTS, RECOMMENDED BY NEURO TECHNIQUE: Multiplanar multisequence MRI of the brain was performed. Both noninfused and contrast i nfused sequences were performed. IV Contrast injected was 17 cc Dotarem. COMPARISON: CT CT HEAD WO from 01/20/2022 FINDINGS: CEREBRAL PARENCHYMA: No evidence of intracranial hemorrhage, mass effect nor shift of midline structu re. No extraaxial fluid collections. Ventricles are not enlarged nor shifted. There is no significant focal signal abnormality in the cerebellar hemispheres. There is signal abno rmality in both sides of the nikko. No signal abnormality midbrain and thalami but there is bilateral patchy FLAIR bright signal abnormality in the periventricular white matter, more so on the right neeru n the left. However, there is no associated hemorrhage nor surrounding edema related to these findin gs and no abnormal enhancement of these findings. Also no evidence of restricted diffusion on DWI. There are no ring enhancing lesions in the brain. There is no abnormal meningeal enhancement. PITUITARY GLAND: No mass nor parasellar abnormality. No obvious abnormality in the cavernous sinuses. FLOW VOIDS: The expected flow void are noted. No evidence of obvious aneurysm nor obvious vascular ma lformation. PARANASAL SINUSES: The visualized paranasal sinuses appear unremarkable. ORBITS: No obvious abnormal findings. IMPRESSION: 1. There is a moderate amount of bilateral periventricular white matter signal abnormality (slightly more so on the right side) as described above, most probably consistent with chronic small vessel isc hemic changes. There is no hemorrhage or surrounding edema nor enhancement related to these findings and there is no restricted diffusion on DWI imaging at these levels. Similar findings in both sides of the nikko, most probably related also to chronic small vessel disease. 2. There are no ring enhancing lesions in the brain and there is no abnormal meningeal enhancement, f ocal nor diffuse. DATA REPOSITORY:
[2022-02-06] MEDS: Normal Saline Flush 10 ML SYR IVP (09:26)
[2022-02-06] MEDS: Gadoterate meglumine 20 ML VIAL 17 ML IVP (09:27)
== END ==
PROVIDERS: PCP Family Medicine; Visit Provider Physician Assistant
DX: I63.9 Cerebral infarction, unspecified (principal)
CPT/HCPCS: 70553

== ENCOUNTER 2023-03-17 21:39 | Outpatient (REF) | payer MEDICARE, MEDICAID, SELFPAY ==
[2023-03-17 21:59] LABS: Bilirubin Negative (Negative); Blood Trace-intact (Negative); Clarity Cloudy (Clear); Glucose >=1000 mg/dL (Negative); Ketones Negative (Negative); Leukocyte Esterase Negative (Negative); Nitrite Negative (Negative); Urobilinogen 0.2 mg/dL (Up to 0.2); pH 5.5 (5-8)
[2023-03-17 22:10] LABS: Bacteria Rare HPF (Negative); C & S Indicated? Yes; Casts Negative LPF (Negative); Crystals Negative HPF (Negative); Epithelial Cells Rare HPF (Negative); Mucus Negative (Negative); RBC 0-2 HPF (0-2)
== END 2023-03-17 21:40 | disposition home or self-care (01) ==
LOC: LBN 21:39
PROVIDERS: PCP Family Medicine; Visit Provider Nurse Practitioner Family
DX: R35.0 Frequency of micturition (principal)
CPT/HCPCS: 81003; 81015; 87086

== ENCOUNTER 2023-06-18 01:16 | Outpatient (CLI) | payer MEDICARE, MEDICAID, SELFPAY ==
[2023-06-18 13:07] LABS: Anion Gap 9.1 mmol/L (3-11); BUN 15 mg/dL (7-18); CO2 24.9 mmol/L (21.0-32.0); CREATININE 0.9 mg/dL (0.55-1.02); Calcium 9.1 mg/dL (8.5-10.1); Calculated LDL 116 mg/dL (<100); Chloride 105 mmol/L (98-107); Cholesterol 212 mg/dL (<200); Glucose 111 mg/dL (74-106); HDL Cholesterol 55 mg/dL (40-60); Sodium 139 mmol/L (136-145); Triglyceride 208 mg/dL (<150)
[2023-06-18 13:15] LABS: Hemoglobin A1C 5.5 % (<5.7)
== END 2023-06-18 01:17 | disposition home or self-care (01) ==
LOC: LOS 01:17
PROVIDERS: PCP Family Medicine; Visit Provider Family Medicine
DX: E87.1 Hypo-osmolality and hyponatremia (principal); E11.51 Type 2 diabetes mellitus with diabetic peripheral angiopathy without gangrene
CPT/HCPCS: 36415; 80048; 80061; 83036

== ENCOUNTER 2023-09-20 04:10 | Outpatient (CLI) | payer MEDICARE, MEDICAID, SELFPAY ==
[2023-09-20 12:32] LABS: Anion Gap 9.2 mmol/L (3-11); BUN 15 mg/dL (7-18); CO2 25.8 mmol/L (21.0-32.0); CREATININE 0.9 mg/dL (0.55-1.02); Calcium 8.9 mg/dL (8.5-10.1); Chloride 104 mmol/L (98-107); Estimated GFR 68.77 (mL/min/1.73m2); Glucose 88 mg/dL (74-106); Potassium 3.9 mmol/L (3.5-5.1); Sodium 139 mmol/L (136-145)
== END 2023-09-20 04:11 | disposition home or self-care (01) ==
LOC: LOS 04:11
PROVIDERS: PCP Family Medicine; Visit Provider Family Medicine
DX: E87.1 Hypo-osmolality and hyponatremia (principal)
CPT/HCPCS: 36415; 80048

== ENCOUNTER 2024-02-13 07:12 | Emergency (ER) | payer MEDICARE, MEDICAID, SELFPAY ==
[2024-02-13] VITALS (24 sets, daily range): BP systolic 114–143; BP diastolic 38–53; PULSE 62–81; RESP 14–23; TEMP 36.6; O2SAT 92–98
--- NOTE | 2024-02-13 07:00 | RT.EKG_ITS ---
APPROVED REPORT Exam: Resting ECG Reason for Exam: afib Patient Location: E HR:71 bpm ECG Measurements Heart Rate 71 AXIS AR 209 P 13 QRSd 100 QRS 17 QT 413 T 43 QTc 448 Conclusion Sinus rhythm...normal P axis, V-rate 60- 99 Atrial premature complex...SV complex w/ short R-R interval
--- NOTE | 2024-02-13 07:30 | DI.CT_ITS ---
Exam(s) CT CHEST PE CTA EXAM: CT CHEST PE CTA CLINICAL HISTORY: rapid heart rate, shortness of breath. TECHNIQUE: Imaging Protocol: CT angiography of the chest was performed using pulmonary embolus rubi col. Multi planar reconstructions were performed. CONTRAST MATERIAL: Intravenous: Omnipaque 350 Contrast volume: 100 cc COMPARISON: CT CT CHEST PE CTA from 01/20/2022 FINDINGS: CHEST: PULMONARY ARTERIES: There are no intraluminal filling defects to suggest acute pulmonary emboli. LUNGS: There are no infiltrates nor evidence of pulmonary infarction.. Mild benign-appearing increase d markings are noted in the posterior basal segment of the right lower lobe. There are no pleural ef fusions. MEDIASTINUM: There is no hilar nor mediastinal adenopathy. Visualized thyroid unremarkable. CARDIAC: Heart size is upper normal. There is no pericardial effusion.Caliber of the thoracic aorta is within normal limits. There is no significant shift of the interventricular septum. PARTIALLY VISUALIZED UPPERMOST ABDOMEN: No obvious findings OSSEOUS: No significant osseous lesions.No fractures.. IMPRESSION: 1. No evidence of acute pulmonary emboli. No evidence of pulmonary infarction. 2. Mild benign-appearing increased markings noted in the right lung base posterior basal segment righ t lower lobe. No confluent infiltrates nor pleural effusions nor intrathoracic adenopathy. RADIATION DOSE DELIVERED: 97.64mGy.cm Total DLP DATA REPOSITORY: All CT scans at this facility are submitted to the National Radiology Data Registry (NRDR) Dose Index Registry (DIR) with the [employer] (A[employer]). RADIATION OPTIMIZATION: All CT scans at this facility use at least one of these dose optimization te chniques: automated exposure control; mA and/or kV adjustment per patient size (includes targeted exa ms where dose is matched to clinical indication); or iterative reconstruction.
--- NOTE | 2024-02-13 07:30 | ED.GENADUL_ITS ---
Discharge Plan Disposition Patient Disposition: Home Condition: Stable Discharge Details Clinical Impression: Palpitations, Anxiety, Shortness of breath Primary Care Provider: Enrike Brown ED Provider: Sancehz Dhaliwal Ethan Meds and New Rx's Prescriptions: Continued famotidine [Pepcid] 20 mg tablet 20 mg PO BID PRN (Reason: acid refux) Qty: 180 3RF triamcinolone acetonide 0.1 % cream 1 applic TP BID PRN (Reason: rash on arms) Qty: 30 1RF Rx Instructions: apply for 10 days or until resolved, whichever comes first Entresto 24-26 mg tablet 1 tab PO BID lorazepam 0.5 mg tablet 0.5 mg PO BID PRN (Reason: anxiety) Qty: 15 2RF Jardiance 10 mg tablet 10 mg PO DAILY Rx Instructions: Per Septic Technician Dr. Monteiro @ [facility]. metoprolol succinate 25 mg tablet extended release 24 hr 12.5 mg PO DAILY Qty: 45 3RF Discharge Instructions Additional Instructions: Your blood work and CAT scan did not show any concerning findings at this time If symptoms continue to speak follow-up with your primary care provider If you feel more ill, have worsening shortness of breath or chest pain return to the emergency department for reevaluation. HPI General Mode of arrival: ambulatory . Date/Time Provider Initiated Documentation: 02/13/24 07:13 . Limitations to Documentation: no limitations . Information obtained by: patient . History of Present Illness 68 year old F presents to the emergency department with the chief complaint of anxious, palpitations, described as moderate, Patient started experiencing this hour(s) (4) and it has been constant. No relieving factors improve symptom(s), No exacerbating factors reported . Patient notes shortness of breath; denies chest pain, fever/chills and nausea/vomiting. Patient did receive the following treatments prior to arrival, none Related Data Home Medications ?Medication ?Instructions ?Recorded ?Confirmed triamcinolone acetonide 0.1 % 1 applic topical BID PRN rash on 09/10/22 02/13/24 topical cream arms #30 grams famotidine 20 mg tablet (Pepcid) 20 mg PO BID PRN acid refux #180 12/09/22 02/13/24 tabs empagliflozin 10 mg tablet 10 mg PO DAILY 03/11/23 02/13/24 (Jardiance) metoprolol succinate 25 mg 12.5 mg (1/2 x 25 mg) PO DAILY #45 05/29/23 02/13/24 tablet,extended release 24 hr tabs lorazepam 0.5 mg tablet 0.5 mg PO BID PRN anxiety #15 tabs 06/16/23 02/13/24 sacubitril 24 mg-valsartan 26 mg 1 tab PO BID 06/16/23 02/13/24 tablet (Entresto) Previous Rx's ?Medication ?Instructions ?Recorded triamcinolone acetonide 0.1 % 1 applic topical BID PRN rash on 09/10/22 topical cream arms #30 grams famotidine 20 mg tablet (Pepcid) 20 mg PO BID PRN acid refux #180 12/09/22 tabs metoprolol succinate 25 mg 12.5 mg (1/2 x 25 mg) PO DAILY #45 05/29/23 tablet,extended release 24 hr tabs lorazepam 0.5 mg tablet 0.5 mg PO BID PRN anxiety #15 tabs 06/16/23 Allergies Allergy/AdvReac Type Severity Reaction Status Date / Time pantoprazole (From Protonix) AdvReac Severe DIARRHEA Verified 02/13/24 07:21 amoxicillin (From Augmentin) AdvReac Intermediate GI Verified 02/13/24 07:21 upset/diarrhea clavulanic acid (From AdvReac Intermediate GI Verified 02/13/24 07:21 Augmentin) upset/diarrhea General Stated Complaint: Palpitatns PAULINO: 3 Review of Systems All systems reviewed & are unremarkable except as noted in HPI and below Constitutional Constitutional: Denies chills and Denies fever(s) Cardiovascular Cardiovascular: Denies chest pain and Reports dyspnea Respiratory Respiratory: Denies cough and Reports dyspnea Gastrointestinal Gastrointestinal: Denies abdominal pain, Denies nausea and Denies vomiting Integumentary/Breasts Skin/Breast: Denies rash Psychiatric Psychiatric: Reports anxiety Exam Const General: no acute distress Orientation: alert HENWI Head: normal to inspection Ears: external ears normal General nose exam: external nose normal Mouth: moist mucous membranes Eyes General: appearance normal, both eyes and all related structures Neck Neck: normal visual inspection Resp Effort & Inspection: normal respiratory effort and able to speak in complete sentences Auscultation: clear to auscultation bilaterally Cardio Jugular venous pressure: no JVD Rate: regular rate Heart Sounds: no murmurs GI Palpation: soft and nontender Skin General skin exam: no rashes or lesions noted Neuro General: patient alert and patient oriented x3 Extrem General: normal to inspection Psych Mental Status: mental status grossly normal Course Vital Signs Vital signs: Vital Signs Temperature 36.6 C 02/13/24 07:15 Pulse 74 02/13/24 07:15 Respiratory Rate 19 02/13/24 07:15 Blood Pressure 135/46 L 02/13/24 07:15 Pulse Oximetry 98 02/13/24 07:15 Temperature 36.6 C 02/13/24 07:15 Temperature Source Oral 02/13/24 07:15 Pulse 74 02/13/24 07:15 Respiratory Rate 19 02/13/24 07:15 Respiratory Effort Normal, Non-Labored 02/13/24 07:21 Blood Pressure 135/46 L 02/13/24 07:15 Blood Pressure Position Sitting 02/13/24 07:15 Pulse Oximetry 98 02/13/24 07:15 Oxygen Delivery Method Room Air 02/13/24 07:15 Oxygen Flow Rate 0 02/13/24 07:15 Pain Level 0 02/13/24 07:15 Medical Decision Making 68-year-old female with a history of anxiety and A-fib comes in with chief complaint of waking up early this morning with feeling her heart was beating fast and also feeling anxious. She states that her mother yesterday and been anxious since then. Denies any chest pain or pressure, no lightheadedness, no back or abdominal pain, no vomiting or diaphoresis. She is in sinus rhythm on arrival and appears well although she does appear mildly anxious. She has clear lung sounds, no murmurs, no JVD, soft nontender abdomen. She had normal gait walking into the room. Suspect this is anxiety but given her history of A-fib we will keep her on the surveillance system monitor and obtain CBC, CMP, troponins. She did notice her heart rate seem to be over 100 and had shortness of breath earlier so we will also obtain CTA of the chest to evaluate for PE. Patient's labs including delta troponin negative and her CTA shows no acute findings. She did feel significantly better after Ativan, given reassuring workup I suspect this is anxiety. She is stable for discharge she will follow- up with her PCP, return precautions given Differential Diagnosis Differential Diagnosis: Anxiety, electrolyte abnormality, A-fib Lab Data Lab results reviewed: Yes I reviewed the patient's lab results. ECG Data Attestation: I personally reviewed and interpreted this ECG (s) as follows: Prior ECG tracings: available for review Interpretation: Sinus rhythm, rate of 71, UT 209, no STEMI Quality:SDOH Health Related Social Needs: No Data to Display PFSH All Active Problems (Updated 02/13/24 @ 09:46 by Sanchez Dhaliwal MD) Shortness of breath (Acute) Anxiety (Chronic) Palpitations (Acute) Cardiomyopathy (Acute) Sleep disorder (Acute) Excessive cerumen in both ear canals (Acute) Ear pain (Acute) Tachycardia (Acute) DVT prophylaxis (Acute) Atrial flutter (Acute) ASD (atrial septal defect) (Acute) s/p closure Pain in joint, site unspecified (Acute 07/27/12) Anxiety (Chronic) continue fluoxetine use lorazepam as needed Chest pain (Acute) better w/ doxy Hematuria (Acute) better w/ keflex Ganglion cyst of right foot (Acute) Eczema (Acute) Leg cramps (Acute) Fatigue (Acute) Obesity (Chronic) Elevated hemoglobin A1c (Acute) Chest wall pain (Acute) GERD (gastroesophageal reflux disease) (Chronic) External otitis of left ear (Acute) Skin rash (Acute) Soft tissue swelling (Acute) Dry mouth (Acute) Microscopic hematuria (Acute) Epigastric abdominal pain (Acute) Vomiting (Acute) Conjunctivitis (Acute) PAF (paroxysmal atrial fibrillation) (Acute) Headache (Acute) Cough (Acute) Impacted cerumen of both ears (Acute) Medical History No significant past medical history Surgical History History of bilateral tubal ligation Family History Mother Stroke Father Cancer Social History (Updated 06/21/23 @ 09:28 by Renae Varner) Smoking/Tobacco Use Status: Former Tobacco Use tobacco type: cigarettes Quit Date: 03/22/18 Tobacco: How many years used: 20 Smokeless tobacco user: other (Cugarettes) Quit status: has quit before Second Hand Exposure: Yes Smoking risk assessment performed?: Yes Alcohol Intake: current Alcohol Intake frequency: holidays/special occasions only Alcohol type: wine Drug use: Never Substance use type: does not use Counseling given: No Caregiver/Support person: No Household members: none Housing: apartment Communication Needs: Corrective Lenses Do you need help understanding health information?: Rarely Pets and animals: Yes Pets and animals: cat(s) Sexually active: No Do you think of yourself as: straight/heterosexual Current gender identity: female What is your relationship status?: How often do you talk on the phone with friends or family?: three or more times per week How often do you get together with friends or relatives?: three or more times per week How often do you attend jehovah's witness or mormonism services?: decline to answer Do you belong to any clubs or organized social groups?: no Panel score (0-1 are the most socially isolated patients): 1 What type of physical activity do you participate in: walking Duration: 30-45 minutes/day Frequency: 5-6 times per week Gayatri/Congregational: No preference Special gayatri needs: No Seatbelt use: always Helmet use: No Drive intox or ride w/intox ambulette driver: No Do you feel safe at home: Yes Do you feel safe in your relationship?: Yes
[2024-02-13 07:35] LABS: Bilirubin Negative (Negative); Blood Small (Negative); Clarity Clear (Clear); Glucose >=1000 mg/dL (Negative); Ketones Negative (Negative); Leukocyte Esterase Negative (Negative); Nitrite Negative (Negative); Specific Gravity 1.015 (1.005-1.025); Urobilinogen 0.2 mg/dL (Up to 0.2); pH 5.5 (5-8)
[2024-02-13 07:42] LABS: Bacteria Rare HPF (Negative); C & S Indicated? No; Casts Negative LPF (Negative); Crystals Negative HPF (Negative); Epithelial Cells Rare HPF (Negative); Mucus Negative (Negative); WBC 0-2 HPF (0-5)
[2024-02-13] MEDS: LORazepam 2 MG/ML VIAL 1 MG IVP (07:56)
[2024-02-13 07:57] LABS: Abs Immature Grans 0.04 10^3/uL (0.0-0.06); Absolute Basophil Count 0.06 10^3/uL (0.0-0.2); Absolute Eosinophil Count 0.21 10^3/uL (0.0-0.7); Absolute Lymphocyte Count 1.51 10^3/uL (1.2-3.4); Absolute Monocyte Count 0.58 10^3/uL (0.1-0.8); Absolute Neutrophil Count 4.34 10^3/uL (1.2-6.7); Basophils % 0.9 %; Eosinophils % 3.1 %; HCT 50.1 % (36.0-46.0); HGB 17.2 g/dL (11.2-15.7); Immature Grans % 0.6 %; Lymphocytes % 22.4 %; MCH 29.9 pg (27.0-33.0); MCHC 34.3 % (32.0-36.0); MCV 87 fL (80-95); MPV 10.3 fL (8.0-11.0); Monocytes % 8.6 %; Neutrophils % 64.4 %; Platelet Count 239 10^3/uL (130-400); RBC 5.76 10^6/uL (3.93-5.22); RDW 13.1 % (11.7-14.6); RDW-SD 41.4 fL; WBC 6.74 10^3/uL (4.4-10.8)
[2024-02-13] MEDS: Normal Saline Flush 10 ML SYR IVP ×2 (07:57→09:00)
[2024-02-13 08:11] LABS: PTT Activated 25.9 sec (23.6-32.8); Prothrombin Time 10.4 sec (9.1-11.1)
[2024-02-13 08:15] LABS: ALT 22 U/L (14-59); AST 17 U/L (15-37); Albumin 4.1 g/dL (3.4-5.0); Alkaline Phosphatase 104 U/L (46-116); Anion Gap 9.6 mmol/L (3-11); BUN 19 mg/dL (7-18); Bilirubin, Total 0.38 mg/dL (0.2-1.0); CO2 26.4 mmol/L (21.0-32.0); CREATININE 0.9 mg/dL (0.55-1.02); Calcium 9.7 mg/dL (8.5-10.1); Chloride 104 mmol/L (98-107); Estimated GFR 68.77 (mL/min/1.73m2); Glucose 125 mg/dL (74-106); Lipase 65 U/L (<78); Magnesium 1.9 mg/dL (1.8-2.4); Potassium 4.3 mmol/L (3.5-5.1); Sodium 140 mmol/L (136-145); Total Protein 8.7 g/dL (6.4-8.2)
[2024-02-13 08:16] LABS: Troponin I < 4 ng/L (<or=51)
[2024-02-13] MEDS: Normal Saline - Diluent 50 ML VIAL IJ (08:36)
[2024-02-13] MEDS: Omnipaque 350 MG/ML 100 ML BTL IJ (08:39)
--- NOTE | 2024-02-13 09:24 | DI.VRAD_ITS ---
PROCEDURE INFORMATION: Exam: CTA Chest With Contrast Exam date and time: 02/13/2024 8:32 AM Age: 68 years old Clinical indication: Shortness of breath and other: Rapid heart rate, shortness of breath TECHNIQUE: Imaging protocol: Computed tomographic angiography of the chest with contrast. Exam focused on the arteries. 3D rendering (Not supervised by radiologist): MIP and/or 3D reconstructed images were created by the technologist. Contrast material: OMNIPAQUE 350; Contrast volume: 85 ml; Contrast route: INTRAVENOUS (IV); COMPARISON: CT CHEST PE CTA 01/20/2022 3:46 PM FINDINGS: Pulmonary arteries: Normal. No pulmonary emboli. Aorta: Mild aortic atherosclerosis. Lungs: Unremarkable. No consolidation. No masses. Pleural spaces: Unremarkable. No pneumothorax. No pleural effusion. Heart: Unremarkable. No cardiomegaly. No pericardial effusion. Coronary arteries: Mild coronary artery calcification. Lymph nodes: Unremarkable. No enlarged lymph nodes. Bones/joints: Unremarkable. No acute fracture. Soft tissues: Unremarkable. IMPRESSION: No acute findings. No pulmonary embolus. Dictated and Authenticated by: Chase Bowen MD. Ordering:RYLAN Bradford MD
[2024-02-13 09:51] LABS: Troponin I 7 ng/L (<or=51)
== END 2024-02-13 09:55 | disposition home or self-care (01) ==
PROVIDERS: Emergency Provider Emergency Medicine; PCP Family Medicine
DX: I48.91 Unspecified atrial fibrillation (principal); F41.9 Anxiety disorder, unspecified; R06.02 Shortness of breath; Z87.891 Personal history of nicotine dependence
CPT/HCPCS: 36415; 71275; 80053; 83690; 93005; 96374; 99285; 81003; 81015; 83735; 84484; 85025; 85610; 85730; 93010; J2060; J3490

== ENCOUNTER 2024-06-26 03:40 | Outpatient (CLI) | payer MEDICARE, SELFPAY ==
[2024-06-26 12:30] LABS: Anion Gap 8.7 mmol/L (3-11); BUN 18 mg/dL (7-18); CO2 26.3 mmol/L (21.0-32.0); CREATININE 0.8 mg/dL (0.55-1.02); Calcium 9.4 mg/dL (8.5-10.1); Chloride 105 mmol/L (98-107); Estimated GFR 79.22 (mL/min/1.73m2); Glucose 102 mg/dL (74-106); Potassium 4.1 mmol/L (3.5-5.1); Sodium 140 mmol/L (136-145)
[2024-06-26 13:42] LABS: Hemoglobin A1C 5.4 % (<5.7)
== END 2024-06-26 03:41 | disposition home or self-care (01) ==
LOC: LOS 03:41
PROVIDERS: PCP Family Medicine; Visit Provider Family Medicine
DX: E87.1 Hypo-osmolality and hyponatremia (principal); R73.9 Hyperglycemia, unspecified
CPT/HCPCS: 36415; 80048; 83036

== ENCOUNTER 2024-09-27 10:04 | Emergency (ER) | payer MEDICARE, MEDICAID, SELFPAY ==
[2024-09-27] VITALS (14 sets, daily range): BP systolic 112–186; BP diastolic 37–105; PULSE 60–144; RESP 12–26; TEMP 37.1; O2SAT 93–98
--- NOTE | 2024-09-27 10:00 | RT.EKG_ITS ---
APPROVED REPORT Exam: Resting ECG Reason for Exam: afib Patient Location: E HR:72 bpm ECG Measurements Heart Rate 72 AXIS MS 70 P 0 QRSd 108 QRS 17 QT 397 T 46 QTc 435 Conclusion Sinus rhythm 72 normal axis no stmei
[2024-09-27] MEDS: Aspirin 325 MG TAB PO (10:19)
[2024-09-27 10:20] LABS: Abs Immature Grans 0.03 10^3/uL (0.0-0.06); HCT 48.5 % (36.0-46.0); HGB 16.6 g/dL (11.2-15.7); Immature Grans % 0.4 %; MCH 29.2 pg (27.0-33.0); MCHC 34.2 % (32.0-36.0); MCV 85 fL (80-95); MPV 10.3 fL (8.0-11.0); Platelet Count 249 10^3/uL (130-400); RBC 5.69 10^6/uL (3.93-5.22); RDW 13.4 % (11.7-14.6); RDW-SD 41.4 fL; WBC 7.73 10^3/uL (4.4-10.8)
[2024-09-27 10:50] LABS: ALT 26 U/L (14-59); AST 18 U/L (15-37); Albumin 4.1 g/dL (3.4-5.0); Alkaline Phosphatase 112 U/L (46-116); Anion Gap 8.7 mmol/L (3-11); BUN 15 mg/dL (7-18); Bilirubin, Total 0.4 mg/dL (0.2-1.0); CO2 28.3 mmol/L (21.0-32.0); Calcium 9.7 mg/dL (8.5-10.1); Chloride 102 mmol/L (98-107); Estimated GFR 78.72 (mL/min/1.73m2); Glucose 129 mg/dL (74-106); Magnesium 2.2 mg/dL (1.8-2.4); NT-proBNP 304 pg/mL (<300); Potassium 4.0 mmol/L (3.5-5.1); Sodium 139 mmol/L (136-145); TSH (W/Ref FT4) 2.38 uIU/mL (0.36-3.74); Total Protein 8.7 g/dL (6.4-8.2); Troponin I 4 ng/L (<or=51)
[2024-09-27 11:42] LABS: Troponin I 5 ng/L (<or=51)
--- NOTE | 2024-09-27 12:01 | W.ED.GENAD ---
Discharge Plan Disposition Patient Disposition: Home Condition: Stable Discharge Details Clinical Impression: PAF (paroxysmal atrial fibrillation) Primary Care Provider: Enrike Brown ED Provider: Julia Castanon Home Meds and New Rx's Prescriptions: No Action triamcinolone acetonide 0.1 % cream 1 applic TP BID PRN (Reason: rash on arms) Qty: 30 1RF Rx Instructions: apply for 10 days or until resolved, whichever comes first Xiidra 5 % dropperette 1 drp ophthalmic (eye) BID Rx Instructions: administer approximately 12 hours apart famotidine [Pepcid] 20 mg tablet 20 mg PO BID PRN (Reason: acid refux) Qty: 180 3RF Entresto 24-26 mg tablet 1 tab PO BID Qty: 180 3RF Jardiance 10 mg tablet 10 mg PO DAILY Qty: 90 3RF Rx Instructions: Per Pupil Personnel Services Director Dr. Monteiro @ [facility]. metoprolol succinate 25 mg tablet extended release 24 hr 12.5 mg PO DAILY Qty: 45 3RF lorazepam 0.5 mg tablet 0.5 mg PO BID PRN (Reason: anxiety) Qty: 15 2RF Discharge Instructions Additional Instructions: You initially presented to the emergency department with atrial fibrillation with a fast ventricular rate, this was associated with some chest discomfort and hypertension, however spontaneously your heart rate converted back to sinus rhythm. Your blood work including your cardiac enzymes are all unremarkable. You have remained in sinus rhythm. Please continue to monitor your vital signs and follow-up with your head bucker as scheduled. Return to the emergency department with any concerns. HPI General Date/Time Provider Initiated Documentation: 09/27/24 10:13. Limitations to Documentation: no limitations. Information obtained by: patient. HPI Narrative: 69-year-old female with past medical history of ASD (repaired), atrial fibs, presents for evaluation of palpitations and tachycardia. Patient reports that she was just sitting watching TV when she felt her heart rate go up. She states that she checked it it was in the 160s 170s. She reports a sensation of discomfort across her chest when this occurred. She states that she has had this several times in the past. She states she was first diagnosed with A-fib last year and had an ASD that was repaired she takes medication for rate control, but no anticoagulant. Related Data Home Medications ?Medication ?Instructions ?Recorded ?Confirmed triamcinolone acetonide 0.1 % 1 applic topical BID PRN rash on 09/10/22 06/26/24 topical cream arms #30 grams famotidine 20 mg tablet (Pepcid) 20 mg PO BID PRN acid refux #180 02/14/24 06/26/24 tabs sacubitril 24 mg-valsartan 26 mg 1 tab PO BID #180 tabs 03/07/24 06/26/24 tablet (Entresto) lifitegrast 5 % eye drops in a 1 drp ophthalmic (eye) BID 04/04/24 06/26/24 dropperette (Xiidra) empagliflozin 10 mg tablet 10 mg PO DAILY #90 tabs 05/08/24 06/26/24 (Jardiance) metoprolol succinate 25 mg 12.5 mg (1/2 x 25 mg) PO DAILY #45 05/08/24 06/26/24 tablet,extended release 24 hr tabs lorazepam 0.5 mg tablet 0.5 mg PO BID PRN anxiety #15 tabs 06/30/24 Previous Rx's ?Medication ?Instructions ?Recorded triamcinolone acetonide 0.1 % 1 applic topical BID PRN rash on 09/10/22 topical cream arms #30 grams famotidine 20 mg tablet (Pepcid) 20 mg PO BID PRN acid refux #180 02/14/24 tabs sacubitril 24 mg-valsartan 26 mg 1 tab PO BID #180 tabs 03/07/24 tablet (Entresto) empagliflozin 10 mg tablet 10 mg PO DAILY #90 tabs 05/08/24 (Jardiance) metoprolol succinate 25 mg 12.5 mg (1/2 x 25 mg) PO DAILY #45 05/08/24 tablet,extended release 24 hr tabs lorazepam 0.5 mg tablet 0.5 mg PO BID PRN anxiety #15 tabs 06/30/24 Allergies Allergy/AdvReac Type Severity Reaction Status Date / Time pantoprazole (From Protonix) AdvReac Severe DIARRHEA Verified 06/26/24 10:53 amoxicillin (From Augmentin) AdvReac Intermediate GI Verified 06/26/24 10:53 upset/diarrhea clavulanic acid (From AdvReac Intermediate GI Verified 06/26/24 10:53 Augmentin) upset/diarrhea General Stated Complaint: Palpitatns PAULINO: 3 Exam Narrative Exam Narrative: Review of Systems: All systems reviewed & are unremarkable except as noted in HPI and below Well-developed, no acute distress NCAT PERRL, normal conjunctiva RRR no murmur clear bilaterally no increased Unlabored respiratory effort Nondistended abdomen Course Vital Signs Vital signs: Vital Signs Temperature 37.1 C 09/27/24 10:06 Pulse 144 H 09/27/24 10:06 Respiratory Rate 26 H 09/27/24 10:06 Blood Pressure 186/105 H 09/27/24 10:06 Pulse Oximetry 98 09/27/24 10:06 Temperature 37.1 C 09/27/24 10:06 Temperature Source Oral 09/27/24 10:06 Pulse 60 09/27/24 11:07 Pulse 61 09/27/24 11:07 Respiratory Rate 13 09/27/24 11:07 Blood Pressure 112/59 L 09/27/24 11:07 Blood Pressure Mean 68 09/27/24 11:07 Blood Pressure Position Sitting 09/27/24 10:06 Pulse Oximetry 97 09/27/24 11:07 Oxygen Delivery Method Room Air 09/27/24 10:06 Oxygen Flow Rate 0 09/27/24 10:06 Pain Level 2 09/27/24 10:06 Lab/Test Results Lab/Test Results: Laboratory Tests Range/Units 09/27/24 09/27/24 10:11 11:08 WBC (4.4-10.8) 10^3/uL 7.73 RBC (3.93-5.22) 10^6/uL 5.69 H Hgb (11.2-15.7) g/dL 16.6 H Hct (36.0-46.0) % 48.5 H MCV (80-95) fL 85 MCH (27.0-33.0) pg 29.2 MCHC (32.0-36.0) % 34.2 RDW (11.7-14.6) % 13.4 Plt Count (130-400) 10^3/uL 249 MPV (8.0-11.0) fL 10.3 Immature Gran % % 0.4 Neutrophils % % 61.6 Lymphocytes % % 26.4 Monocytes % % 8.0 Eosinophils % % 2.8 Basophils % % 0.8 Nucleated RBC % (0.0-0.3) % 0.0 Absolute Neutrophils (1.2-6.7) 10^3/uL 4.76 Absolute Lymphocytes (1.2-3.4) 10^3/uL 2.04 Absolute Monocytes (0.1-0.8) 10^3/uL 0.62 Absolute Eosinophils (0.0-0.7) 10^3/uL 0.22 Absolute Basophils (0.0-0.2) 10^3/uL 0.06 Sodium (136-145) mmol/L 139 Potassium (3.5-5.1) mmol/L 4.0 Chloride (98-107) mmol/L 102 Carbon Dioxide (21.0-32.0) mmol/L 28.3 Anion Gap (3-11) mmol/L 8.7 BUN (7-18) mg/dL 15 Creatinine (0.55-1.02) mg/dL 0.8 Est GFR (CKD-EPI 2020) (mL/min/1.73m2) 78.72 Glucose (74-106) mg/dL 129 H Calcium (8.5-10.1) mg/dL 9.7 Magnesium (1.8-2.4) mg/dL 2.2 Total Bilirubin (0.2-1.0) mg/dL 0.4 AST (15-37) U/L 18 ALT (14-59) U/L 26 Alkaline Phosphatase (46-116) U/L 112 Troponin I (<or=51) ng/L 4 5 NT-Pro-B Natriuret Pep (<300) pg/mL 304 H Total Protein (6.4-8.2) g/dL 8.7 H Albumin (3.4-5.0) g/dL 4.1 TSH (0.36-3.74) uIU/mL 2.38 Medical Decision Making Emergent evaluation of palpitations. Patient has a history of paroxysmal A-fib. She has been compliant with her medications. She reports acute onset of symptoms just prior to arrival. Nurses noted that on arrival she was very tachycardic and hypertensive, but the time I got into the room, the patient was back in sinus rhythm with a normal rate and normal blood pressure. She reports her symptoms of chest pressure have also resolved. She states that this frequently happens to her. EKG reveals sinus rhythm. Initial differential includes paroxysmal A-fib, electrolyte derangement, less likely ACS. Lab work obtained, no leukocytosis or anemia, no electrolyte derangement. There is no significant elevation in cardiac biomarkers. Troponin was trended. Patient had no recurrence of her symptoms and felt fine after resolution of her tacky dysrhythmia. Encouraged to follow-up with her head bucker as scheduled. Return precautions advised PFSH All Active Problems (Updated 09/27/24 @ 11:56 by Julia Castanon MD) Cardiomyopathy (Acute) Sleep disorder (Acute) Excessive cerumen in both ear canals (Acute) Ear pain (Acute) Tachycardia (Acute) DVT prophylaxis (Acute) Atrial flutter (Acute) ASD (atrial septal defect) (Acute) s/p closure Pain in joint, site unspecified (Acute 07/27/12) Anxiety (Chronic) continue fluoxetine use lorazepam as needed Chest pain (Acute) better w/ doxy Hematuria (Acute) better w/ keflex Ganglion cyst of right foot (Acute) Eczema (Acute) Leg cramps (Acute) Fatigue (Acute) Obesity (Chronic) Elevated hemoglobin A1c (Acute) Chest wall pain (Acute) GERD (gastroesophageal reflux disease) (Chronic) External otitis of left ear (Acute) Skin rash (Acute) Soft tissue swelling (Acute) Dry mouth (Acute) Microscopic hematuria (Acute) Epigastric abdominal pain (Acute) Vomiting (Acute) Conjunctivitis (Acute) PAF (paroxysmal atrial fibrillation) (Acute) Headache (Acute) Cough (Acute) Impacted cerumen of both ears (Acute) Medical History No significant past medical history Surgical History History of bilateral tubal ligation Family History (Updated 06/21/24 @ 10:30 by Ariadna Covington) Mother Stroke Diabetes Heart disease Hypertension Father Cancer Brother No problems noted. Brother No problems noted. Son No problems noted. Son No problems noted. Social History (Updated 06/21/24 @ 10:23 by Ariadna Covington) Smoking/Tobacco Use Status: Former Tobacco Use tobacco type: cigarettes Quit Date: 03/22/18 Tobacco: How many years used: 20 Smokeless tobacco user: other (Cugarettes) Quit status: has quit before Second Hand Exposure: Yes Smoking risk assessment performed?: Yes Alcohol Intake: current Alcohol Intake frequency: holidays/special occasions only Alcohol type: wine Drug use: Never Substance use type: does not use Counseling given: No Caregiver/Support person: No Household members: none Housing: house Number of Children: 2 number of grandchildren: 2 Communication Needs: Corrective Lenses Education Level: high school Do you need help understanding health information?: Never current occupation: Retired [employer] Pets and animals: Yes Pets and animals: cat(s) Sexually active: No Do you think of yourself as: straight/heterosexual Current gender identity: female What is your relationship status?: How often do you talk on the phone with friends or family?: three or more times per week How often do you get together with friends or relatives?: twice per week How often do you attend taoism or rastafarian services?: decline to answer Do you belong to any clubs or organized social groups?: decline to answer Panel score (0-1 are the most socially isolated patients): 1 What type of physical activity do you participate in: walking Duration: 30-45 minutes/day Frequency: 5-6 times per week Gayatri/Pentecostal: No preference Special gayatri needs: No Seatbelt use: always Helmet use: No Drive intox or ride w/intox dedicated truck driver: No Firearms in home: No Do you feel safe at home: Yes Do you feel safe in your relationship?: Yes Would you like helpful sources: No
== END 2024-09-27 12:15 | disposition home or self-care (01) ==
PROVIDERS: Emergency Provider Emergency Medicine; PCP Family Medicine
DX: I48.0 Paroxysmal atrial fibrillation (principal); Z87.891 Personal history of nicotine dependence
CPT/HCPCS: 36415; 80053; 93005; 99284; 83735; 83880; 84443; 84484; 85025; 93010

== ENCOUNTER 2024-10-29 08:17 | Emergency (ER) | payer MEDICARE, MEDICAID, SELFPAY ==
[2024-10-29] VITALS (27 sets, daily range): BP systolic 87–169; BP diastolic 42–108; PULSE 75–158; RESP 15–25; O2SAT 93–98
--- NOTE | 2024-10-29 08:15 | DI.RAD_ITS ---
Exam(s) XR CHEST 2V PA LATERAL EXAM: XR CHEST 2V PA LATERAL CLINICAL HISTORY: dyspnea TECHNIQUE: 2D digital imaging was performed of the chest. Two images were obtained. PA and lateral views were obtained. COMPARISON: CR XR CHEST 2V PA LATERAL from 10/01/2018 CR XR CHEST 2V PA LATERAL from 04/10/2020 FINDINGS: MEDIASTINUM: Normal. HEART: The ASD occluded device is stable in position. Heart size is within normal limits. PULMONARY VASCULATURE: There is stable prominence of the pulmonary vasculature. LUNGS: There is scarring again seen in the left mid lung. PLEURAL SPACE: No pleural effusion or pneumothorax. BONE:Within normal limits for the patient's age. OTHER FINDINGS:Normal. IMPRESSION: No acute pulmonary findings. DATA REPOSITORY: RADIATION DOSE DELIVERED:
--- NOTE | 2024-10-29 08:15 | RT.EKG_ITS ---
APPROVED REPORT Exam: Resting ECG Reason for Exam: AFIB Patient Location: E HR:130 bpm ECG Measurements Heart Rate 130 AXIS ME [id number] P [id number] QRSd 97 QRS 17 QT 334 T 40 QTc 492 Conclusion Atrial fibrillation...? atrial activity
--- NOTE | 2024-10-29 08:34 | ED.GENADUL_ITS ---
Discharge Plan Disposition Patient Disposition: Home Condition: Stable Discharge Details Clinical Impression: Atrial fibrillation with rapid ventricular response, Shortness of breath Primary Care Provider: Enrike Brown ED Provider: Sanchez Dhaliwal Home Meds and New Rx's Prescriptions: Continued triamcinolone acetonide 0.1 % cream 1 applic TP BID PRN (Reason: rash on arms) Qty: 30 1RF Rx Instructions: apply for 10 days or until resolved, whichever comes first Xiidra 5 % dropperette 1 drp ophthalmic (eye) BID Rx Instructions: administer approximately 12 hours apart famotidine [Pepcid] 20 mg tablet 20 mg PO BID PRN (Reason: acid refux) Qty: 180 3RF Entresto 24-26 mg tablet 1 tab PO BID Qty: 180 3RF Jardiance 10 mg tablet 10 mg PO DAILY Qty: 90 3RF Rx Instructions: Per Director Of Program Management Dr. Monteiro @ [facility]. metoprolol succinate 25 mg tablet extended release 24 hr 12.5 mg PO DAILY Qty: 45 3RF lorazepam 0.5 mg tablet 0.5 mg PO BID PRN (Reason: anxiety) Qty: 15 2RF Discharge Instructions Additional Instructions: Your lab work and CAT scan did not show any concerning findings at this time. Your symptoms are likely due to your A-fib. I would recommend increasing your metoprolol to 1 whole tablet or 25 mg/day. I would recommend following up with your rn case mgr. If you feel significantly more ill, have worsening shortness of breath or severe chest pain return to the emergency department for reevaluation. HPI General Mode of arrival: ambulatory . Date/Time Provider Initiated Documentation: 10/29/24 08:18 . Limitations to Documentation: no limitations . Information obtained by: patient . History of Present Illness 69 year old F presents to the emergency department with the chief complaint of palpitations, described as moderate, Patient started experiencing this hour(s) (3) and it has been constant. No relieving factors improve symptom(s), No exacerbating factors reported . Patient notes shortness of breath; denies chest pain, fever/chills and nausea/vomiting. Patient did receive the following treatments prior to arrival, none Related Data Home Medications ?Medication ?Instructions ?Recorded ?Confirmed triamcinolone acetonide 0.1 % 1 applic topical BID PRN rash on 09/10/22 10/29/24 topical cream arms #30 grams famotidine 20 mg tablet (Pepcid) 20 mg PO BID PRN acid refux #180 02/14/24 10/29/24 tabs sacubitril 24 mg-valsartan 26 mg 1 tab PO BID #180 tab s 03/07/24 10/29/24 tablet (Entresto) lifitegrast 5 % eye drops in a 1 drp ophthalmic (eye) BID 04/04/24 10/29/24 dropperette (Xiidra) empagliflozin 10 mg tablet 10 mg PO DAILY #90 tabs 10/29/24 (Jardiance) metoprolol succinate 25 mg 12.5 mg (1/2 x 25 mg) PO DA FRED #45 05/08/24 10/29/24 tablet,extended release 24 hr tabs lorazepam 0.5 mg tablet 0.5 mg PO BID PRN anxiety #1 5 tabs 06/30/24 10/29/24 Previous Rx's ?Medication ?Instructions ?Recorded triamcinolone acetonide 0.1 % 1 applic topical BID PRN rash on 09/10/22 topical cream arms #30 grams famotidine 20 mg tablet (Pepcid) 20 mg PO BID PRN acid refux #180 02/14/24 tabs sacubitril 24 mg-valsartan 26 mg 1 tab PO BID #180 tab s 03/07/24 tablet (Entresto) empagliflozin 10 mg tablet 10 mg PO DAILY #90 tabs (Jardiance) metoprolol succinate 25 mg 12.5 mg (1/2 x 25 mg) PO DA FRED #45 05/08/24 tablet,extended release 24 hr tabs lorazepam 0.5 mg tablet 0.5 mg PO BID PRN anxiety #1 5 tabs 06/30/24 Allergies Allergy/AdvReac Type Severity Reaction Status Date / Time pantoprazole (From Protonix) AdvReac Severe DIARRHEA Verified 10/29/24 08:23 amoxicillin (From Augmentin) AdvReac Intermediate GI Verified 10/29/24 08:23 upset/diarrhea clavulanic acid (From AdvReac Intermediate GI Verified 10/29/24 08:23 Augmentin) upset/diarrhea General Stated Complaint: Palpitatns PAULINO: 2 Review of Systems All systems reviewed & are unremarkable except as noted in HPI and below Constitutional Constitutional: Denies chills, Denies fever(s) and Denies weakness Cardiovascular Cardiovascular: Denies chest pain, Reports palpitations and Reports dyspnea Respiratory Respiratory: Denies cough and Reports dyspnea Gastrointestinal Gastrointestinal: Denies abdominal pain, Denies nausea and Denies vomiting Neurologic Neurologic: Denies weakness Endocrine Endocrine: Reports palpitations Exam Const General: no acute distress Orientation: alert HENCA Head: normal to inspection Ears: external ears normal General nose exam: external nose normal Mouth: moist mucous membranes Eyes General: appearance normal, both eyes and all related structures Neck Neck: normal visual inspection Resp Effort & Inspection: normal respiratory effort and able to speak in complete sentences Auscultation: clear to auscultation bilaterally Cardio Jugular venous pressure: no JVD Rate: tachycardic Rhythm: abnormal rhythm Skin General skin exam: no rashes or lesions noted Neuro General: patient alert and patient oriented x3 Extrem General: normal to inspection Psych Mental Status: mental status grossly normal Course Vital Signs Vital signs: Vital Signs Pulse 130 H 10/29/24 08:20 Respiratory Rate 16 10/29/24 08:20 Blood Pressure 169/74 H 10/29/24 08:20 Pulse Oximetry 98 10/29/24 08:20 Temperature Source Oral 10/29/24 08:20 Pulse 130 H 10/29/24 08:20 Respiratory Rate 16 10/29/24 08:20 Blood Pressure 169/74 H 10/29/24 08:20 Blood Pressure Position Sitting 10/29/24 08:20 Pulse Oximetry 98 10/29/24 08:20 Oxygen Delivery Method Room Air 10/29/24 08:20 Oxygen Flow Rate 0 10/29/24 08:20 Pain Level 0 10/29/24 08:20 Medical Decision Making 69-year-old female with a history of paroxysmal atrial fibrillation, prior ASD repair, who comes in with 2 to 3 hours of feeling her heart beating fast and irregular. She says yesterday she felt well without any symptoms. She denies any chest pain or pressure, does note some mild shortness of breath. No vomiting or diaphoresis. She has noted to be in A-fib with rates ranging from 130-150. She has no JVD, no leg swelling, clear lung sounds. Suspect her symptoms are due to her A-fib with RVR. Will treat with a dose of diltiazem, check a CBC CMP and troponins. Given her shortness of breath I will also send a D-dimer to screen for PE. She has no tearing back pain and she has equal peripheral pulses so I doubt dissection. Labs unremarkable other than a D-dimer over 900, x-ray unremarkable. She initially did respond to the 20 mg IV diltiazem but her heart rate again crept up to the 120s so another 20 mg IV was administered and her heart rate is now in the 80s and A-fib. Will order a CTA. CTA negative, patient in A-fib but heart rates now in the 80s and 90s. She is only on 12.5 mg of metoprolol so recommended she increase that to 25 mg. Given reassuring workup I feel she is stable for discharge to follow-up with her rn case mgr. I did advise she should be on anticoagulation based on recommendations and she currently is declining to start it and wants to discuss that with her rn case mgr. Return precautions given Differential Diagnosis Differential Diagnosis: A-fib, electrolyte abnormality, PE Medical Records Medical records reviewed: Yes I reviewed the patient's medical records. Lab Data Lab results reviewed: Yes I reviewed the patient's lab results. ECG Data Attestation: I personally reviewed and interpreted this ECG (s) as follows: Prior ECG tracings: available for review Interpretation: A-fib, rate of 130, no STEMI Critical Care Time Critical Care Time Critical Care Time: Yes Total Critical Care Time: 45 (minutes) Attestation: Time spent on lab review, hemodynamic monitoring and frequent reassessments in a patient with A-fib with RVR requiring IV diltiazem for rate control with the potential to deteriorate at any time. [facility] All Active Problems (Updated 10/29/24 @ 10:31 by Sanchez Dhaliwal MD) Shortness of breath (Acute) Atrial fibrillation with rapid ventricular response (Acute) Cardiomyopathy (Acute) Sleep disorder (Acute) Excessive cerumen in both ear canals (Acute) Ear pain (Acute) Tachycardia (Acute) DVT prophylaxis (Acute) Atrial flutter (Acute) ASD (atrial septal defect) (Acute) s/p closure Pain in joint, site unspecified (Acute 07/27/12) Anxiety (Chronic) continue fluoxetine use lorazepam as needed Chest pain (Acute) better w/ doxy Hematuria (Acute) better w/ keflex Ganglion cyst of right foot (Acute) Eczema (Acute) Leg cramps (Acute) Fatigue (Acute) Obesity (Chronic) Elevated hemoglobin A1c (Acute) Chest wall pain (Acute) GERD (gastroesophageal reflux disease) (Chronic) External otitis of left ear (Acute) Skin rash (Acute) Soft tissue swelling (Acute) Dry mouth (Acute) Microscopic hematuria (Acute) Epigastric abdominal pain (Acute) Vomiting (Acute) Conjunctivitis (Acute) PAF (paroxysmal atrial fibrillation) (Acute) Headache (Acute) Cough (Acute) Impacted cerumen of both ears (Acute) Medical History No significant past medical history Surgical History History of bilateral tubal ligation Family History (Updated 06/21/24 @ 10:30 by Ariadna Covington) Mother Stroke Diabetes Heart disease Hypertension Father Cancer Brother No problems noted. Brother No problems noted. Son No problems noted. Son No problems noted. Social History (Updated 06/21/24 @ 10:23 by Ariadna Covington) Smoking/Tobacco Use Status: Former Tobacco Use tobacco type: cigarettes Quit Date: 03/22/18 Tobacco: How many years used: 20 Smokeless tobacco user: other (Cugarettes) Quit status: has quit before Second Hand Exposure: Yes Smoking risk assessment performed?: Yes Alcohol Intake: current Alcohol Intake frequency: holidays/special occasions only Alcohol type: wine Drug use: Never Substance use type: does not use Counseling given: No Caregiver/Support person: No Household members: none Housing: house Number of Children: 2 number of grandchildren: 2 Communication Needs: Corrective Lenses Education Level: high school Do you need help understanding health information?: Never 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 Pets and animals: Yes Pets and animals: cat(s) Sexually active: No Do you think of yourself as: straight/heterosexual Current gender identity: female What is your relationship status?: How often do you talk on the phone with friends or family?: three or more times per week How often do you get together with friends or relatives?: twice per week How often do you attend scientologist or congregation services?: decline to answer Do you belong to any clubs or organized social groups?: decline to answer Panel score (0-1 are the most socially isolated patients): 1 What type of physical activity do you participate in: walking Duration: 30-45 minutes/day Frequency: 5-6 times per week Gayatri/Buddhist: No preference Special gayatri needs: No Seatbelt use: always Helmet use: No Drive intox or ride w/intox buggy driver: No Firearms in home: No Do you feel safe at home: Yes Do you feel safe in your relationship?: Yes Would you like helpful sources: No
[2024-10-29 08:44] LABS: Abs Immature Grans 0.02 10^3/uL (0.0-0.06); HCT 48.1 % (36.0-46.0); HGB 16.5 g/dL (11.2-15.7); Immature Grans % 0.3 %; MCH 29.4 pg (27.0-33.0); MCHC 34.3 % (32.0-36.0); MCV 86 fL (80-95); MPV 10.4 fL (8.0-11.0); Platelet Count 249 10^3/uL (130-400); RBC 5.62 10^6/uL (3.93-5.22); RDW 13.7 % (11.7-14.6); RDW-SD 42.5 fL; WBC 6.76 10^3/uL (4.4-10.8)
[2024-10-29] MEDS: Normal Saline Flush 10 ML SYR IVP ×2 (08:47→09:49)
[2024-10-29] MEDS: dilTIAZem 25 MG/5 ML VIAL 20 MG IVP ×2 (08:47→09:46)
[2024-10-29 08:59] LABS: INR 1.0 (0.9-1.1); PTT Activated 24.9 sec (20.6-30.2); Prothrombin Time 10.0 sec (9.1-11.1)
[2024-10-29 09:15] LABS: ALT 25 U/L (14-59); AST 17 U/L (15-37); Albumin 4.1 g/dL (3.4-5.0); Alkaline Phosphatase 112 U/L (46-116); Anion Gap 9.3 mmol/L (3-11); BUN 17 mg/dL (7-18); Bilirubin, Total 0.4 mg/dL (0.2-1.0); CO2 28.7 mmol/L (21.0-32.0); Calcium 9.5 mg/dL (8.5-10.1); Chloride 101 mmol/L (98-107); Estimated GFR 78.72 (mL/min/1.73m2); Glucose 144 mg/dL (74-106); Magnesium 2.0 mg/dL (1.8-2.4); NT-proBNP 198 pg/mL (<300); Potassium 4.1 mmol/L (3.5-5.1); Sodium 139 mmol/L (136-145); TSH (W/Ref FT4) 2.10 uIU/mL (0.36-3.74); Total Protein 8.5 g/dL (6.4-8.2); Troponin I 6 ng/L (<or=51)
[2024-10-29 09:25] LABS: D-Dimer 969 ng/mlFEU (<500)
--- NOTE | 2024-10-29 09:30 | DI.CT_ITS ---
Exam(s) CT CHEST PE CTA EXAM: CT CHEST PE CTA CLINICAL HISTORY: dyspnea, tachycardia, elevated d micah. TECHNIQUE: Imaging Protocol: Axial CT angiography was performed with multi- slice acquisition and multi-planar and/or 3D reconstructions. Lung Computer Aided Detection (CAD) was utilized. CONTRAST MATERIAL: Intravenous: Omnipaque 350 contrast volume:70 mL COMPARISON: CT CT CHEST PE CTA from 02/13/2024 CR XR CHEST 2V PA LATERAL from 10/29/2024 FINDINGS: Tracheobronchial tree: Patent where visualized. No bronchiectasis. Pulmonary parenchyma: No consolidation or dominant measurable mass. No architectural distortion. Pulmonary Arteries: No evidence of filling defect to suggest pulmonary emboli. Mediastinum and Dede: No dominant adenopathy or fluid collection. The esophagus is unremarkable. Visualized thyroid gland: Unremarkable. Pleura: No effusion or pneumothorax. Heart: Cardiomegaly. Mild coronary artery calcification is present. There findings again seen of an ASD occluded device. No pericardial effusion. Aorta: Thoracic aorta non-dilated. Due to the timing of the bolus, the aorta is not adequately opacified. Atherosclerotic calcification is present. Upper abdomen: Unremarkable. Soft tissues: Unremarkable. Bones: Within normal limits for the patient's age. IMPRESSION: 1. No evidence of pulmonary embolism or aneurysm. 2. There is no acute pulmonary process. RADIATION DOSE DELIVERED: 82.21mGy.cm Total DLP DATA REPOSITORY: All CT scans at this facility are submitted to the National Radiology Data Registry (NRDR) Dose Index Registry (DIR) with the [employer] (ACR). RADIATION OPTIMIZATION: All CT scans at this facility use at least one of these dose optimization techniques: automated exposure control; mA and/or kV adjustment per patient size (includes targeted exams where dose is matched to clinical indication); or iterative reconstruction.
[2024-10-29 09:47] LABS: Troponin I 9 ng/L (<or=51)
[2024-10-29] MEDS: Normal Saline - Diluent 50 ML VIAL IJ (09:48)
[2024-10-29] MEDS: Omnipaque 350 MG/ML 100 ML BTL 70 ML IJ (09:49)
[2024-10-29] MEDS: Metoprolol CR 25 MG TABCR 12.5 MG PO (10:17)
== END 2024-10-29 10:51 | disposition home or self-care (01) ==
PROVIDERS: Emergency Provider Emergency Medicine; PCP Family Medicine
DX: R06.02 Shortness of breath (principal); I48.91 Unspecified atrial fibrillation; I10 Essential (primary) hypertension
CPT/HCPCS: 96376; 36415; 99291; 96374; 71275; 80053; 93005; 71046; 83735; 83880; 84443; 84484; 85025; 85379; 85610; 85730; 93010; J3490